=== PATIENT | female | born 1945 | race Caucasian/White ===

== ENCOUNTER 2022-08-17 03:49 | Emergency (ER) | payer MEDICARE, SELFPAY ==
[2022-08-17 03:57] VITALS: BP 173/92; PULSE 73; RESP 18; TEMP 36.6; O2SAT 96; BMI 47.6
--- NOTE | 2022-08-17 04:02 | XRR_ITS ---
PROCEDURE INFORMATION: Exam: XR Left Shoulder Exam date and time: 08/17/2022 4:35 AM Age: 76 years old Clinical indication: Injury or trauma; Fall; Sprain or strain; Shoulder; Left; Additional info: Shoulder strain TECHNIQUE: Imaging protocol: Radiologic exam of the left shoulder. Views: 2 or more views. COMPARISON: CR XR shoulder LT min 2V* [id number] 07/31/2022 11:18 AM FINDINGS: Bones/joints: Negative for acute fracture. Normal joint alignment. Mild osseous spurring of acromioclavicular joint. Soft tissues: Normal. XR/XR shoulder LT min 2V* [id number] IMPRESSION: No acute findings.
--- NOTE | 2022-08-17 04:08 | W.ED.FALL ---
HPI - Fall General: Chief Complaint: Fall Stated Complaint: fall/left arm injury/neck pian Time Seen by Provider: 08/17/22 03:56 Source: patient Mode of arrival: ambulatory Limitations: no limitations History of Present Illness: 76-year-old female states that she fell 4 days ago she states that when she fell at home she reached out with her left arm and caught herself on the kitchen island she states that since then she been having worsening left shoulder pain she has pain over her trapezius muscle states much worse with palpation when she moves her left arm denies any other injuries. She rates her pain a 6 out of 10 currently Associated symptoms-after fall: Denies abdominal pain, chest pain or headache(s) Review of Systems Const: Denies: fever(s), chills, body aches or change in appetite Eyes: Denies: blurry vision or eye discomfort ENMT: Denies: throat pain or dental pain Card: Denies: chest pain Resp: Denies: dyspnea GI: Denies: abdominal pain, nausea, vomiting or diarrhea : Denies: dysuria Musc: Reports: extremity pain Skin/Breast: Denies: rash Neuro: Denies: headache(s) Psych: Denies: depression Brent/Lymph: Denies: easy bruising All/Imm: Denies: urticaria PFSH ED PFSH: Medical History (Updated 08/17/22 @ 04:48 by Scott Bell MD) No pertinent past medical history Social History (Updated 08/17/22 @ 04:09 by Scott Bell MD) Substance/Drug Use: never Physical Exam Const: COMMON NORMALS: no acute distress, patient oriented x3 and healthy appearing HENMT: COMMON NORMALS: normocephalic and atraumatic HEAD & SCALP: normocephalic and atraumatic Eye: COMMON NORMALS: Equal, round and reactive pupils present and EOMs intact bilaterally PUPIL: Yes Equal, round and reactive pupils present Neck/C-Spine: COMMON NORMALS: full ROM and supple Chest: COMMONS NORMALS: normal inspection of the chest and normal palpation of entire chest wall Resp: COMMON NORMALS: normal respiratory effort, No retractions, No use of accessory muscles and clear to auscultation bilaterally AUSCULTATION: clear to auscultation bilaterally Cardio: COMMON NORMALS: regular rate, regular rhythm and No murmurs present (Cardio) RATE: regular rate RHYTHM: regular rhythm GI: COMMON NORMALS: Normal to inspection, nondistended, normoactive bowel sounds present, Soft to palpation, non-tender and no masses PALPATION: Yes Soft to palpation Back/Pelvis: COMMON NORMALS: thoracic and lumbar spine normal to inspection and no thoracic nor lumbar tenderness Extremity: COMMON NORMALS: normal to inspection and full ROM NARRATIVE EXTREMITY EXAM: Tenderness over left trapezius muscle pain with range of motion of her left arm Neuro: COMMON NORMALS: patient oriented x3, moves all extremities and no focal motor deficits Psych: COMMON NORMALS: mental status grossly normal, Normal thought process present and cooperative THOUGHT PROCESS: Normal thought process present Skin: COMMON NORMALS: no rashes or lesions noted and no wounds GENERAL SKIN EXAM: no rashes or lesions noted Course Vital Signs: Vital signs: Vital Signs Temperature 98 F 08/17/22 03:57 Pulse Rate 73 08/17/22 03:57 Respiratory Rate 18 08/17/22 03:57 Blood Pressure 173/92 08/17/22 03:57 Pulse Oximetry 96 08/17/22 03:57 MDM - Fall Medical Decision Making Patient presents with left shoulder pain x-ray here shows a likely subtle clavicle fracture we will place patient in a sling she is to follow with orthopedics. Discharge Plan Discharge Patient Disposition: Home Clinical Impression: Closed fracture of left clavicle Prescriptions: New methocarbamol 750 mg tablet 750 mg PO Q6H PRN (Reason: spasms) Qty: 20 0RF Discharge Orders: Discharge ED (Routine); Ordered 08/17/22 Ordered By: Scott Bell Referrals: Alan Edwards MD [Primary Care Provider] - Fletcher Dill MD [Physician] - 1-3 days Discharge Diet: Advance as tolerated Discharge Activity: Resume usual activity Patient Instructions: Clavicle Fracture (ED) Coding Level of Care Code ED Marketing And Communications Officer for 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
[2022-08-17] MEDS: methocarbamol 750 mg Tablet PO (04:10)
[2022-08-17] MEDS: acetaminophen 500 mg Tablet 1000 MG PO (04:30)
--- NOTE | 2022-08-19 10:30 | DCPLANNER ---
Addendum entered by Lashell Aguilera 08/28/22 07:56: Patient had a follow up appointment scheduled with ortho - patient did attend appointment. Addendum entered by Lashell Aguilera 08/20/22 09:28: Patient has a follow up appointment scheduled for Tuesday, August 23, 2022 at 11:[address] Dill at ortho. Original Note: field human resources manager had message to schedule a follow up appointment for patient with ortho. field human resources manager sent patients information to the front office staff at ortho. Patients information will be printed and reviewed. Clinic will call patient with appointment information.
== END 2022-08-17 05:47 | disposition home or self-care (01) ==
PROVIDERS: Emergency Provider Emergency Medicine; PCP Family Medicine
DX: S42.002A Fracture of unspecified part of left clavicle, initial encounter for closed fracture (principal); W19.XXXA Unspecified fall, initial encounter
CPT/HCPCS: 73030; 99283

== ENCOUNTER → 2022-08-23 10:58 | Outpatient (BNVA) | payer MEDICARE, SELFPAY | PROVIDERS: PCP Family Medicine; Referring Provider Emergency Medicine; Visit Provider Orthopaedic Surgery | DX: S42.002A Fracture of unspecified part of left clavicle, initial encounter for closed fracture (principal); W19.XXXA Unspecified fall, initial encounter | CPT/HCPCS: 23500; 99203 ==

== ENCOUNTER 2022-10-18 09:52 | Outpatient (CLI) | payer MEDICARE, SELFPAY ==
--- NOTE | 2022-10-18 10:07 | CT_ITS ---
WS: [id number] CT CHEST TECHNIQUE: Contrast enhanced CT of the chest with coronal and sagittal reformatted images. CLINICAL INFORMATION: LUNG MASS COMPARISON: None. DLP: 449.[address] scans at [facility] use at least one of these dose optimization techniques: automated e xposure control; mA and/or kV adjustment per patient size (includes targeted exams where dose is matc hed to clinical indication); or iterative reconstruction. FINDINGS: Both lungs are well aerated. No acute pulmonary infiltrates. A few calcified granulomas. Bibasilar at electasis. Normal caliber thoracic aorta. Mild aortic calcification. No mediastinal or hilar lymphade nopathy. No axillary lymphadenopathy. Cholecystectomy clips. Hepatomegaly with diffuse fatty infiltration liver.Fatty atrophy of the pancre as. Splenic artery calcification. Mild thoracic kyphosis. Hypertrophic changes thoracic spine. Spinal stimulator mid thoracic spine. 2 small hazy subpleural nodules in RIGHT upper lobe measuring 3 mm. Tiny subpleural nodule LEFT lower lobe measuring 3.4 mm. No other suspicious pulmonary parenchymal abnormalities. RIGHT adrenal nodule likely adenoma measuring 1.[address]/CT chest w con* [id number] IMPRESSION: 1. No acute pulmonary infiltrates. 2. A few tiny subpleural nodules in RIGHT upper lobe and LEFT lower lobe descr ibed above measuring approximately 3 mm. 3. Bibasilar atelectasis. 4. A few calcified granulomas. 5. No mediastinal or hilar lymphadenopathy. 6. Diffuse fatty infiltration liver with cholecystectomy. 7. RIGHT adrenal nodule likely adenoma measuring 1.4 cm.
[2022-10-18] MEDS: iohexol 350 mg/mL 500 mL Btl (per mL) IV (10:13)
[2022-10-18 10:36] LABS: Blood Urea Nitrogen 22 mg/dL (8-23)
== END 2022-10-18 09:53 | disposition home or self-care (01) ==
PROVIDERS: PCP Family Medicine; Visit Provider Family Medicine
DX: R91.8 Other nonspecific abnormal finding of lung field (principal); K76.0 Fatty (change of) liver, not elsewhere classified
CPT/HCPCS: 71260; 82565; 84520; Q9967

== ENCOUNTER 2022-10-30 10:48 | Outpatient (CLI) | payer MEDICARE, SELFPAY ==
--- NOTE | 2022-10-30 10:55 | MM_ITS ---
WS: [id number] BILATERAL SCREENING DIGITAL TOMOSYNTHESIS MAMMOGRAM WITH CAD HISTORY: SCREENING COMPARISON: 12/12/2021 and 12/06/2020 Bilateral CC and MLO views with tomosynthesis and synthetic mammography submitted. Computer aided det ection analyzed. Breast composition: There are scattered areas of fibroglandular density. No suspicious masses, microc alcifications or architectural distortion. Benign calcifications. MM/[place] [id number] IMPRESSION: BI-RADS: 2-Benign FOLLOW UP: 1 Year Follow-up
== END 2022-10-30 10:49 | disposition home or self-care (01) ==
PROVIDERS: PCP Family Medicine; Visit Provider Family Medicine
DX: Z12.31 Encounter for screening mammogram for malignant neoplasm of breast (principal)
CPT/HCPCS: 77063; 77067

== ENCOUNTER 2022-11-13 15:36 | Emergency (ER) | payer MEDICARE, SELFPAY ==
[2022-11-13 15:42] VITALS: BP 130/78; PULSE 88; RESP 16; TEMP 36.6; O2SAT 95; BMI 44.9
[2022-11-13 16:15] VITALS: BP 127/87; PULSE 89; RESP 16; O2SAT 95
--- NOTE | 2022-11-13 16:31 | W.ED.FEMALGU ---
HPI - Female Genitourinary General: Chief complaint: Urogenital-Female Stated complaint: [facility] sent for UTI and general medical Time Seen by Provider: 11/13/22 15:50 Source: patient Mode of arrival: ambulatory Limitations: no limitations History of Present Illness: Patient is a nice 77-year-old female presents to ED today stating she was told to come to the ED by Brett Higgins. According to patient she has had multiple weeks of burning and stinging with urination. She states she has been treated for a UTI twice with antibiotics and symptoms do not seem to be improving. She states that Brett Higgins was worried about a resistant UTI . Patient states she does not have any results from previous urine analysis performed her culture results. She cannot remember the names of the antibiotics that she has been on. Patient is not complaining of any abdominal pain or suprapubic discomfort or lower back pain. She has not noticed any odorous or cloudy urine. Denies flank pain or fevers. MD elicited complaint: dysuria and UTI Onset (ago): week(s) Severity: moderate Quality of pain: burning and other (stinging ) Consistency: other (only when urinating) Vaginal discharge: none Vaginal bleeding: none Urinary symptoms: Dysuria Exacerbating factors: urination Relieving factors: none Associated symptoms: Reports no associated symptoms; Deny abdominal pain, nausea or vaginal discharge Treatment prior to arrival: other (antibiotics) Sexual activity: No Patient : No Review of Systems Const: Denies: fever(s), chills, body aches, fatigue or malaise GI: Denies: abdominal pain, nausea, vomiting or diarrhea : Reports: dysuria; Denies: flank pain, difficulty voiding, urinary frequency, urinary urgency, urinary hesitancy, dribbling, urinary incontinence, genital pruritis, vaginal odor, vaginal bleeding, vaginal discharge or pelvic pain Musc: Denies: back pain PFS ED PFSH: Medical History No pertinent past medical history Social History Substance/Drug Use: never Physical Exam Const: COMMON NORMALS: no acute distress, average body habitus, patient oriented x3, no limitations, healthy appearing, alert and well nourished GENERAL APPEARANCE: cooperative ORIENTATION/CONSCIOUSNESS: Yes awake, Yes oriented to person, Yes oriented to place and Yes oriented to time Resp: COMMON NORMALS: normal respiratory effort and clear to auscultation bilaterally AUSCULTATION: clear to auscultation bilaterally Cardio: COMMON NORMALS: regular rate and regular rhythm RATE: regular rate RHYTHM: regular rhythm GI: COMMON NORMALS: Normal to inspection, nondistended, normoactive bowel sounds present, Soft to palpation, non-tender, No hepatosplenomegaly present and no masses PALPATION: Yes Soft to palpation and Yes No hepatosplenomegaly present : COMMON NORMALS: Yes no CVA tenderness BLADDER/KIDNEY EXAM: Yes no CVA tenderness EXTERNAL FEMALE EXAM: Yes other (appears to have ulcerative skin changes to vulva and surrounding urethra ) Back/Pelvis: COMMON NORMALS: no CVA tenderness Extremity: GENERAL: Yes normal exam except as noted Neuro: ALYSSA COMA SCALE: document GCS findings [place] coma scale eye opening: Spontaneous [place] coma scale verbal response: Orientated [place] coma scale motor response: Obey commands [place] coma scale total score: 15 COMMON NORMALS: patient oriented x3 SENSORIUM/ORIENTATION: Yes alert, Yes oriented to person, Yes oriented to place and Yes oriented to time Course Vital Signs: Vital signs: Vital Signs Temperature 97.9 F 11/13/22 15:42 Pulse Rate 96 11/13/22 17:40 Respiratory Rate 16 11/13/22 17:40 Blood Pressure 107/74 11/13/22 17:40 Pulse Oximetry 96 11/13/22 17:40 Oxygen Delivery Me thod Room Air 11/13/22 16:[address] [facility] - Female Medical Decision Making Patient appears to have some ulcerative skin changes noted to her vulva and surrounding urethra. I think this most likely is where the burning and stinging sensation is coming from. Her blood work today is nonactionable-her glucose is significantly elevated. She states she has not had very good control of this recently. Nothing to suggest DKA at this time. Recommend she speak to primary care in regards to this. Her UA shows absolutely no evidence for urinary tract infection. DDx for vulvar lesions would include lichen planus, lichen sclerosis, malignancy, excoriations, etc. I will refer her to women's health for further evaluation. Lab Data 11/13/22 16:41 11/13/22 16:41 Laboratory Results WBC 6.0 10^3/uL (4.0-10.0) 11/13/22 16:41 RBC 4.85 10^6/uL (4.1-5.3) 11/13/22 16:41 Hgb 15.2 g/dL (11.5-15.3) 11/13/22 16:41 Hct 43.5 % (37.0-47.0) 11/13/22 16:41 MCV 89.7 fl (81-99) 11/13/22 16:41 MCH 31.3 pg (28.0-34.0) 11/13/22 16:41 MCHC 34.9 g/dL (30.0-36.0) 11/13/22 16:41 RDW 13.0 % (12.1-15.1) 11/13/22 16:41 Plt Count 225 10^3/cmm (130-400) 11/13/22 16:41 MPV 9.4 fL (7.4-10.4) 11/13/22 16:41 Neut % (Auto) 52.4 % 11/13/22 16:41 Lymph % (Auto) 37.9 % 11/13/22 16:41 [place] % (Auto) 7.3 % 11/13/22 16:41 Eos % (Auto) 1.7 % 11/13/22 16:41 Baso % (Auto) 0.5 % 11/13/22 16:41 Neut # (Auto) 3.16 10^3/uL (1.8-7.7) 11/13/22 16:41 Lymph # (Auto) 2.3 10^3/uL (0.8-4.8) 11/13/22 16:41 [place] # (Auto) 0.4 10^3/uL (0.2-0.9) 11/13/22 16:41 Eos # (Auto) 0.1 10^3/uL (0.0-0.8) 11/13/22 16:41 Baso # (Auto) 0.0 10^3/uL (0.0-0.1) 11/13/22 16:41 Nucleated RBC % (auto) 0 % 11/13/22 16:41 Nucleated RBCs # 0.0 /100WBC 11/13/22 16:41 Sodium 135 mmol/L (136-145) L 11/13/22 16:41 Potassium 3.9 mmol/L (3.5-5.1) 11/13/22 16:41 Chloride 99 mmol/L (98-107) 11/13/22 16:41 Carbon Dioxide 23 mmol/L (22-29) 11/13/22 16:41 Anion Gap 16.9 (5-19) 11/13/22 16:41 BUN 25 mg/dL (8-23) H 11/13/22 16:41 Creatinine 1.1 mg/dL (0.5-0.9) H 11/13/22 16:41 GFR Calculation Not Reportable 11/13/22 16:41 Glucose 422 mg/dL (65-115) H 11/13/22 16:41 Calculated Osmolality 302 mOsm/kg (285-295) H 11/13/22 16:41 Calcium 9.0 mg/dL (8.5-10.5) 11/13/22 16:41 Total Bilirubin 0.6 mg/dL (0.15-1.2) 11/13/22 16:41 AST 18 U/L (0-32) 11/13/22 16:41 ALT 24 U/L (0-33) 11/13/22 16:41 Alkaline Phosphatase 115 U/L (35-105) H 11/13/22 16:41 Total Protein 7.2 g/dL (6.6-8.7) 11/13/22 16:41 Albumin 3.7 g/dL (3.5-5.2) 11/13/22 16:41 Globulin 3.5 g/dL (1.3-4.6) 11/13/22 16:41 Urine Color Yellow (Yellow) 11/13/22 16:29 Urine Appearance Clear (CLEAR) 11/13/22 16:29 Urine pH 5 (5-7) 11/13/22 16:29 Ur Specific [place] 1.010 (1.005-1.030) 11/13/22 16:29 Urine Protein Neg (Negative) 11/13/22 16:29 Urine Glucose (UA) 4+ (Normal) H 11/13/22 16:29 Urine Ketones Negative (Negative) 11/13/22 16:29 Urine Blood Neg (Negative) 11/13/22 16:29 Urine Nitrate Negative (Negative) 11/13/22 16:29 Urine Bilirubin Neg (Negative) 11/13/22 16:29 Urine Urobilinogen Norm mg/dL (Negative) 11/13/22 16:29 Ur Leukocyte Esterase Negative (Negative) 11/13/22 16:29 Discharge Plan Discharge Patient Disposition: Home Clinical Impression: Vulval lesion Condition: Stable Prescriptions: No Action glimepiride 4 mg tablet 6 mg PO BID levetiracetam 750 mg tablet 750 mg PO BID furosemide [Lasix] 40 mg tablet 40 mg PO DAILY levothyroxine 125 mcg capsule 125 mcg PO DAILY pramipexole 0.25 mg tablet 0.25 mg PO DAILY simvastatin 20 mg tablet 20 mg PO DAILY PreserVision AREDS [id number] capsule 1 cap PO BID aspirin 81 mg tablet,chewable 81 mg PO DAILY acetaminophen [Tylenol Extra Strength] 500 mg tablet 500 mg PO QID PRN tramadol 50 mg tablet 50 mg PO Q6H PRN Trulicity 1.5 mg/0.5 mL pen injector SUBCUT methocarbamol 750 mg tablet 750 mg PO Q6H PRN (Reason: spasms) Qty: 20 0RF Discharge Orders: Discharge ED (Routine); Ordered 11/13/22 Ordered By: Maria De Jesus Holman Referrals: Alan Edwards MD [Primary Care Provider] - Activity Restrictions/Additional Instructions: As we discussed your urinalysis today did not show any evidence of urinary tract infection. Clinically you had abnormal findings to the skin involving your vulva. This could be due to a variety of different conditions in which we discussed. I have placed a referral with case management to get you set up with gynecology for further evaluation/treatment. Coding Level of Care Code ED Valet Service Attendant for 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
[2022-11-13 16:36] LABS: Add Urine Microscopic? NO
[2022-11-13 16:47] LABS: Bilirubin Urine Neg (Negative); Blood Urine Neg (Negative); Glucose Urine UA 4+ (Normal); Ketones Urine Negative (Negative); Leukocyte Esterase Urine Negative (Negative); Nitrate Urine Negative (Negative); Protein Urine Neg (Negative); Urine Appearance Clear (CLEAR); Urine Color Yellow (Yellow); Urobilinogen Urine Norm (Negative); pH Urine 5 (5-7)
[2022-11-13 16:48] LABS: Basophils % 0.5 %; Eosinophils # 0.1 10^3/uL (0.0-0.8); Eosinophils % 1.7 %; Hematocrit 43.5 % (37.0-47.0); Hemoglobin 15.2 g/dL (11.5-15.3); Lymphocytes # 2.3 10^3/uL (0.8-4.8); Lymphocytes % 37.9 %; Mean Corpuscular HGB Conc 34.9 g/dL (30.0-36.0); Mean Corpuscular Hemoglobin 31.3 pg (28.0-34.0); Mean Corpuscular Volume 89.7 fl (81-99); Mean Platelet Volume 9.4 fL (7.4-10.4); Monocytes # 0.4 10^3/uL (0.2-0.9); Monocytes % 7.3 %; Neutrophils # 3.16 10^3/uL (1.8-7.7); Neutrophils % 52.4 %; Nucleated Red Blood Cells % 0 %; Platelet Count 225 10^3/cmm (130-400); Red Blood Count 4.85 10^6/uL (4.1-5.3)
[2022-11-13 17:08] LABS: Alanine Aminotransferase 24 U/L (0-33); Albumin Level 3.7 g/dL (3.5-5.2); Alkaline Phosphatase 115 U/L (35-105); Anion Gap 16.9 (5-19); Aspartate Amino Transferase 18 U/L (0-32); Blood Urea Nitrogen 25 mg/dL (8-23); Carbon Dioxide 23 mmol/L (22-29); Chloride 99 mmol/L (98-107); Globulin 3.5 g/dL (1.3-4.6); Glucose 422 mg/dL (65-115); Osmolality Calculated 302 mOsm/kg (285-295); Potassium 3.9 mmol/L (3.5-5.1); Sodium 135 mmol/L (136-145); Total Bilirubin 0.6 mg/dL (0.15-1.2); Total Protein 7.2 g/dL (6.6-8.7)
[2022-11-13 17:40] VITALS: BP 107/74; PULSE 71; PULSE 96; RESP 16; O2SAT 96
[2022-11-13 17:50] LABS: Charge for UA Resulting for Rev
--- NOTE | 2022-11-14 07:35 | DCPLANNER ---
Addendum entered by Lashell Aguilera 11/27/22 12:51: Patient had a follow up appointment scheduled with [facility] - patient did attend appointment. Original Note: regional property manager had message to schedule a follow up appointment for patient with [employer]. regional property manager sent patients information to the front office staff at [facility]. Patients information will be printed and reviewed. Clinic will call patient with appointment information.
== END 2022-11-13 17:42 | disposition home or self-care (01) ==
PROVIDERS: Emergency Medicine; Emergency Provider Physician Assistant; PCP Family Medicine
DX: I38 Endocarditis, valve unspecified (principal); Z79.85 Long-term (current) use of injectable non-insulin antidiabetic drugs; Z79.82 Long term (current) use of aspirin; Z79.84 Long term (current) use of oral hypoglycemic drugs
CPT/HCPCS: 36415; 80053; 81003; 85025; 99283

== ENCOUNTER → 2022-11-22 12:42 | Outpatient (BNVA) | payer MEDICARE, SELFPAY | PROVIDERS: PCP Family Medicine; Visit Provider Family Medicine | DX: M21.611 Bunion of right foot (principal); E11.621 Type 2 diabetes mellitus with foot ulcer; L97.519 Non-pressure chronic ulcer of other part of right foot with unspecified severity; M21.371 Foot drop, right foot; E03.9 Hypothyroidism, unspecified; I10 Essential (primary) hypertension; E83.52 Hypercalcemia | CPT/HCPCS: 80048; 80061; 82306; 83036; 84439; 84443 ==

== ENCOUNTER 2022-12-02 08:58 | Outpatient (CLI) | payer MEDICARE, SELFPAY ==
--- NOTE | 2022-12-02 10:30 | CT_ITS ---
WS: [id number] CT ABDOMEN AND PELVIS WITH CONTRAST HISTORY: R10.9 - Unspecified abdominal pain TECHNIQUE: Imaging performed of the abdomen and pelvis with IV contrast. Single phase imaging of the abdomen. Coronal and sagittal reformats are submitted. All CT scans at [facility] use at toi st one of these dose optimization techniques: automated exposure control; mA and/or kV adjustment per patient size (includes targeted exams where dose is matched to clinical indication); or iterative re construction. IV CONTRAST: Omnipaque 350; 100 mL IV. Oral contrast: Yes. DLP: 827.18 mGy.cm COMPARISON: None available. Lower thorax: Lung bases are clear. Heart is normal size. No hiatal hernia. Liver/biliary system: Normal size with no intrahepatic dilatation. Gallbladder: Cholecystectomy. Mild compensatory dilatation of the common bile duct but no pathologica l dilatation. Pancreas: Normal size pancreas and pancreatic duct. No adjacent inflammation. Spleen: Normal size spleen. No mass or infarct. Adrenal glands: Normal. Right kidney: Cortical atrophy. No obstruction. Left kidney: Cortical atrophy. No obstruction. Aorta: Mild atherosclerosis with no aneurysm. Lymphadenopathy: None. Free fluid: None. GI tract: Mild distended stomach. No small bowel obstruction. There is mild constipation throughout t he entire colon. Prior appendectomy. There are a few scattered sigmoid diverticula without acute dive rticulitis. Abdominal wall: Unremarkable abdominal wall. No hernia. Pelvis: No free fluid or adenopathy within the pelvis. Urinary bladder is only minimally distended. T he bladder is wall is diffusely thickened with mild enhancement. No intraluminal mass or filling defe ct. No mass noted at the vulva. CT is not the study of choice to evaluate the vulva. Bones: Increase in the lumbar lordosis. L4 anterolisthesis by 8 mm. Severe facet joint arthritis in t he lower lumbar spine. Posterior lumbar fusion from L4 through S1. Dorsal column stimulator electrode s. CT/CT abdomen pelvis w con* [id number] IMPRESSION: 1. No acute abdominal or pelvic abnormalities are identified. 2. Prior cholecystectomy and hysterectomy. 3. No adenopathy or ascites. 4. Diffuse mild bladder wall thickening and nodularity with enhancement. Recom mend evaluation to evaluate for possible cystitis.
[2022-12-02] MEDS: iohexol 350 mg/mL 500 mL Btl (per mL) PO (10:33)
[2022-12-02] MEDS: iohexol 350 mg/mL 500 mL Btl (per mL) IV (11:12)
== END 2022-12-02 08:59 | disposition home or self-care (01) ==
PROVIDERS: PCP Family Medicine; Visit Provider Obstetrics & Gynecology
DX: R10.9 Unspecified abdominal pain (principal); Z90.49 Acquired absence of other specified parts of digestive tract; N32.9 Bladder disorder, unspecified
CPT/HCPCS: 74177; Q9967

== ENCOUNTER → 2022-12-05 14:00 | Outpatient (BNVA) | payer MEDICARE, SELFPAY | PROVIDERS: PCP Family Medicine; Visit Provider Obstetrics & Gynecology | DX: N39.0 Urinary tract infection, site not specified (principal) | CPT/HCPCS: 84315; 87086 ==

== ENCOUNTER 2022-12-17 20:51 | Emergency (ER) | payer MEDICARE, SELFPAY ==
[2022-12-17 20:59] VITALS: BP 101/55; PULSE 77; RESP 12; TEMP 36.8; O2SAT 94; BMI 45.0
[2022-12-17 23:41] LABS: Basophils # 0.1 10^3/uL (0.0-0.1); Basophils % 0.8 %; Eosinophils # 0.1 10^3/uL (0.0-0.8); Eosinophils % 2.1 %; Hematocrit 36.7 % (37.0-47.0); Hemoglobin 12.9 g/dL (11.5-15.3); Lymphocytes # 3.3 10^3/uL (0.8-4.8); Lymphocytes % 50.8 %; Mean Corpuscular HGB Conc 35.1 g/dL (30.0-36.0); Mean Corpuscular Hemoglobin 32.7 pg (28.0-34.0); Mean Corpuscular Volume 92.9 fl (81-99); Mean Platelet Volume 9.2 fL (7.4-10.4); Monocytes # 0.5 10^3/uL (0.2-0.9); Monocytes % 7.4 %; Neutrophils # 2.55 10^3/uL (1.8-7.7); Neutrophils % 38.7 %; Nucleated Red Blood Cells % 0 %; Platelet Count 247 10^3/cmm (130-400); Red Blood Count 3.95 10^6/uL (4.1-5.3); Red Cell Distribution Width 14.2 % (12.1-15.1); White Blood Count 6.6 10^3/uL (4.0-10.0)
[2022-12-17 23:54] LABS: Alanine Aminotransferase 23 U/L (0-33); Albumin Level 3.7 g/dL (3.5-5.2); Alkaline Phosphatase 133 U/L (35-105); Anion Gap 13.2 (5-19); Aspartate Amino Transferase 17 U/L (0-32); Blood Urea Nitrogen 12 mg/dL (8-23); Calcium 8.8 mg/dL (8.5-10.5); Carbon Dioxide 28 mmol/L (22-29); Chloride 96 mmol/L (98-107); Globulin 2.7 g/dL (1.3-4.6); Glucose 372 mg/dL (65-115); Osmolality Calculated 293 mOsm/kg (285-295); Potassium 3.2 mmol/L (3.5-5.1); Sodium 134 mmol/L (136-145); Total Bilirubin 1.2 mg/dL (0.15-1.2); Total Protein 6.4 g/dL (6.6-8.7)
[2022-12-18 00:32] LABS: Add Urine Microscopic? YES; Bilirubin Urine Neg (Negative); Blood Urine 3+ (Negative); Glucose Urine UA 2+ (Normal); Ketones Urine 1+ (Negative); Leukocyte Esterase Urine 2+ (Negative); Nitrate Urine Negative (Negative); Protein Urine 3+ (Negative); Urine Appearance Cloudy (CLEAR); Urine Color Yellow (Yellow); Urobilinogen Urine Norm (Negative); pH Urine 5 (5-7)
[2022-12-18 00:33] LABS: Add Urine Culture? Yes; Bacteria Urine TRACE /hpf; Squamous Epithelial Cell Urine 0-4 /hpf (0-5); WBC Urine TOO NUMEROUS TO CNT /hpf (0-5)
[2022-12-18 00:52] VITALS: BP 118/62; PULSE 71; RESP 18; O2SAT 95
--- NOTE | 2022-12-18 00:54 | CTR_ITS ---
PROCEDURE INFORMATION: Exam: CT Abdomen And Pelvis With Contrast Exam date and time: 12/18/2022 1:22 AM Age: 77 years old Clinical indication: Nausea and vomiting; Prior surgery; Surgery date: 6+ months; Surgery type: Lumbar, stimulator, gb, appy; Additional info: Umbilical pain, h/o umbilical hernia, vomiting TECHNIQUE: Imaging protocol: Computed tomography of the abdomen and pelvis with contrast. Radiation optimization: All CT scans at this facility use at least one of these dose optimization techniques: automated exposure control; mA and/or kV adjustment per patient size (includes targeted exams where dose is matched to clinical indication); or iterative reconstruction. Contrast material: OMNI 350; Contrast volume: 100 ml; Contrast route: INTRAVENOUS (IV); REPORTING DATA: Count of CT and Cardiac NM exams in prior 12 months: This patient has received 2 known CTs and 0 known cardiac nuclear medicine studies in the 12 months prior to the current study. COMPARISON: CT abdomen pelvis w con* [id number] 12/02/2022 11:05 AM RADIATION DOSE METRICS: Total DLP (mGy-cm): 899.92 FINDINGS: Tubes, catheters and devices: Nerve stimulator device noted in the soft tissues overlying the right back the single intrathecal lead entering at the level of the thoracic spine. Liver: Unremarkable. Gallbladder and bile ducts: Status post cholecystectomy. Pancreas: No ductal dilation. Spleen: No splenomegaly. Adrenal glands: Normal. No mass. Kidneys and ureters: No hydronephrosis. Stomach and bowel: No obstruction. No mucosal thickening. Appendix: The appendix is not identified. There are no focal inflammatory changes in the right lower quadrant. Intraperitoneal space: No free air. No significant fluid collection. Vasculature: No abdominal aortic aneurysm. Lymph nodes: No enlarged lymph nodes. Urinary bladder: Diffuse bladder thickening with wall enhancement. Findings may be seen with cystitis. Reproductive: Status post hysterectomy. Bones/joints: Degenerative changes of the lumbar spine. Prior lumbar fusion noted at L4-S1. Soft tissues: Unremarkable. CT/CT abdomen pelvis w con* [id number] IMPRESSION: Diffuse bladder thickening with wall enhancement. Findings may be seen with cystitis. Correlate with urinalysis.
--- NOTE | 2022-12-18 00:54 | ED_ITS ---
HPI - Nausea/Vomiting/Diarrhea General: Chief complaint: Nausea/Vomiting/Diarrhea Stated complaint: n/v/d, weakness Time Seen by Provider: 12/17/22 23:50 History of Present Illness: 77yo female presents with significant other for evaluation of nausea, vomiting, and diarrhea that started suddenly this afternoon. Patient reports that she is now dry heaving as she cannot vomit. She states she did go to see her doctor earlier today, the symptoms started after. States that she is just feeling very weak. Reports she has not been around anybody that she knows is sick. She denies any cough, congestion, difficulty breathing, shortness of breath, chest pain. Associated nausea: Yes Associated symtoms: Reports malaise and nausea; Denies chest pain, dysuria or headache(s) Review of Systems Const: Reports: malaise; Denies: fever(s), chills or body aches Card: Denies: chest pain Resp: Denies: dyspnea GI: Reports: abdominal pain, nausea, vomiting and diarrhea : Denies: difficulty voiding or dysuria Neuro: Denies: headache(s) PFSH ED PFSH: Medical History (Updated 12/18/22 @ 02:55 by HERNAN Sweeney) No pertinent past medical history Family History Sister Cancer, Onset Age: 6 leukemia - . Father CAD (coronary artery disease) Stroke Mother Chronic kidney disease (CKD) Brother Cancer Brother Cancer Lung - Bone - Brain Stroke Denies family history of Colon cancer Ovarian cancer Diabetes Heart disease Hypercholesteremia Breast cancer Hypertension Uterine cancer Thyroid disease Social History (Updated 12/17/22 @ 13:20 by Cristal Pina LPN) Smoking and tobacco status: former smoker Quit status (tobacco): has quit using tobacco Year quit tobacco: 1959 Former quit date comment: 1-2 ppd X 1 year Second hand smoke exposure: No Smoking risk assessment/counseling performed?: No Alcohol intake: never Desire information about alcohol rehabilitation?: No Counseling given: No Substance/Drug Use: never Desire information about substance/drug rehabilitation?: No Counseling given: No Current gender identity: Female Female Reproductive History: Spontaneous abortions: No Physical Exam Const: COMMON NORMALS: no acute distress, patient oriented x3 and alert GENERAL APPEARANCE: cooperative and ill appearing (mildly) OTHER: Patient is sitting upright on the stretcher in no acute distress. She is able to give history with no difficulty. Significant other is at bedside HENMT: COMMON NORMALS: normocephalic HEAD & SCALP: normocephalic Eye: GENERAL EYE: appearance normal, both eyes and all related structures Neck/C-Spine: COMMON NORMALS: full ROM Chest: CHEST: Yes Symmetrical chest wall rise Resp: COMMON NORMALS: normal respiratory effort and clear to auscultation bilaterally EFFORT & INSPECTION: No respiratory distress AUSCULTATION: clear to auscultation bilaterally Cardio: COMMON NORMALS: regular rate and regular rhythm RATE: regular rate RHYTHM: regular rhythm GI: COMMON NORMALS: Soft to palpation INSPECTION: No abdominal distension PALPATION: Yes Soft to palpation and Yes Tenderness to palpation present (GI) Details: LUQ, RUQ and other (Umbilicus ) Extremity: COMMON NORMALS: full ROM Neuro: COMMON NORMALS: patient oriented x3 SENSORIUM/ORIENTATION: Yes alert SPEECH: speech normal Psych: COMMON NORMALS: mental status grossly normal and cooperative Skin: COMMON NORMALS: no rashes or lesions noted GENERAL SKIN EXAM: no rashes or lesions noted Course Vital Signs: Vital signs: Vital Signs Temperature 98.2 F 12/17/22 20:59 Pulse Rate 70 12/18/22 03:17 Respiratory Rate 17 12/18/22 03:17 Blood Pressure 104/65 12/18/22 02:30 Pulse Oximetry 94 12/18/22 03:17 Oxygen Delivery Me thod Room Air 12/18/22 00:52 MDM - Nausea/Vomiting/Diarrhea Medical Decision Making 77yo female here with his significant other for evaluation of nausea, vomiting, diarrhea, abdominal pain that started suddenly this afternoon. Patient reports that she is now dry heaving. She states she was fine earlier today when she saw her doctor, then her symptoms started. She reports that she is having pain to the umbilical area and has a history of an umbilical hernia. Patient denies any fever, chills, body aches, cough, congestion, difficulty breathing, shortness of breath, chest pain, known sick contacts. Patient is nontoxic in appearance. Vital signs are stable. CBC is grossly unremarkable. CMP with a potassium of 3.2 and creatinine of 1.2. Glucose is noted to be 372. UA with 3+ protein, 2+ glucose, 3+ blood, 2+ leuks, too numerous to count white blood cells, trace bacteria, and 2+ yeast. Urine culture is currently pending. Contrasted CTAP due to her umbilical abdominal pain reveals diffuse bladder thickening with wall enhancement, concerning for cystitis. Discussed findings with patient and family. Patient did receive 1 L normal saline bolus as well as ondansetron while in the emergency department. Patient does have multiple antibiotic allergies, but reports that she is able to take amoxicillin with no difficulty. Amoxicillin prescribed for the urinary tract infection. Patient does have an allergy to fluconazole, advised to use [id number] yeast medications. Encourage marleen ent to increase her fluid intake and continue to monitor her symptoms. Advised to follow-up with primary care, call in the next 1 to 2 days with an update of symptoms and to discuss a recheck. Recommend she return to the emergency department if any rapid worsening symptoms and as needed Differential Diagnosis Likely gastroenteritis and dehydration Lab Data 12/17/22:12/17/22: Radiology Impressions Abdomen/Pelvis CT 12/18/22 00:54 IMPRESSION: Diffuse bladder thickening with wall enhancement. Findings may be seen with cystitis. Correlate with urinalysis. Laboratory Results WBC 6.6 10^3/uL (4.0-10.0) 12/17/22: RBC 3.95 10^6/uL (4.1-5.3) L 12/17/22: Hgb 12.9 g/dL (11.5-15.3) 12/17/22: Hct 36.7 % (37.0-47.0) L 12/17/22 MCV 92.9 fl (81-99) 12/17/22: MCH 32.7 pg (28.0-34.0) 12/17/22 MCHC 35.1 g/dL (30.0-36.0) 12/17/22 RDW 14.2 % (12.1-15.1) 12/17/22 Plt Count 247 10^3/cmm (130-400) 12/17/22 MPV 9.2 fL (7.4-10.4) 12/17/22 Neut % (Auto) 38.7 % 12/17/22 Lymph % (Auto) 50.8 % 12/17/22 23: Wells % (Auto) 7.4 % 12/17/22: Eos % (Auto) 2.1 % 12/17/22: Baso % (Auto) 0.8 % 12/17/22: Neut # (Auto) 2.55 10^3/uL (1.8-7.7) 12/17/22: Lymph # (Auto) 3.3 10^3/uL (0.8-4.8) 12/17/22: [place] # (Auto) 0.5 10^3/uL (0.2-0.9) 12/17/22: Eos # (Auto) 0.1 10^3/uL (0.0-0.8) 12/17/22: Baso # (Auto) 0.1 10^3/uL (0.0-0.1) 12/17/22: Nucleated RBC % (auto) 0 % 12/17/22: Nucleated RBCs # 0.0 /100WBC 12/17/22: Sodium 134 mmol/L (136-145) L 12/17/22 23: Potassium 3.2 mmol/L (3.5-5.1) L 12/17/22: Chloride 96 mmol/L (98-107) L 12/17/22: Carbon Dioxide 28 mmol/L (22-29) 12/17/22: Anion Gap 13.2 (5-19) 12/17/22 23: BUN 12 mg/dL (8-23) 12/17/22 23: Creatinine 1.2 mg/dL (0.5-0.9) H 12/17/22 23: GFR Calculation Not Reportable 12/17/22: Glucose 372 mg/dL (65-115) H 12/17/22: Calculated Osmolality 293 mOsm/kg (285-295) 12/17/22 23: Calcium 8.8 mg/dL (8.5-10.5) 12/17/22: Total Bilirubin 1.2 mg/dL (0.15-1.2) 12/17/22: AST 17 U/L (0-32) 12/17/22 23:27 ALT 23 U/L (0-33) 12/17/22 23: Alkaline Phosphatase 133 U/L (35-105) H 12/17/22 23:27 Total Protein 6.4 g/dL (6.6-8.7) L 12/17/22: Albumin 3.7 g/dL (3.5-5.2) 12/17/22: Globulin 2.7 g/dL (1.3-4.6) 12/17/22 23: Urine Color Yellow (Yellow) 12/18/22 00:00 Urine Appearance Cloudy (CLEAR) A 12/18/22 00:00 Urine pH 5 (5-7) 12/18/22 00:00 Ur Specific [place] 1.020 (1.005-1.030) 12/18/22 00:00 Urine Protein 3+ (Negative) H 12/18/22 00:00 Urine Glucose (UA) 2+ (Normal) H 12/18/22 00:00 Urine Ketones 1+ (Negative) H 12/18/22 00:00 Urine Blood 3+ (Negative) H 12/18/22 00:00 Urine Nitrate Negative (Negative) 12/18/22 00:00 Urine Bilirubin Neg (Negative) 12/18/22 00:00 Urine Urobilinogen Norm mg/dL (Negative) 12/18/22 00:00 Ur Leukocyte Esterase 2+ (Negative) H 12/18/22 00:00 Urine RBC 5-10 /hpf (0-2) H 12/18/22 00:00 Urine WBC Too numerous to cnt /hpf (0-5) H 12/18/22 00:00 Ur Squamous Epith Cells 0-4 /hpf (0-5) H 12/18/22 00:00 Amorphous Sediment Not Reportable 12/18/22 00:00 Urine Bacteria Trace /hpf (NONE) 12/18/22 00:00 Urine Yeast 2+ /hpf H 12/18/22 00:00 Discharge Plan Discharge Patient Disposition: Home Clinical Impression: Cystitis, Hyperglycemia due to type 2 diabetes mellitus, Diarrhea, Yeast infection Condition: Stable Prescriptions: New amoxicillin 500 mg tablet 500 mg PO BID 10 Days Qty: 20 0RF No Action glimepiride 4 mg tablet 6 mg PO BID levetiracetam 750 mg tablet 750 mg PO BID furosemide [Lasix] 40 mg tablet 40 mg PO DAILY levothyroxine 125 mcg capsule 125 mcg PO DAILY pramipexole 0.25 mg tablet 0.25 mg PO DAILY simvastatin 20 mg tablet 20 mg PO DAILY PreserVision AREDS [id number],[id number] [id number] capsule 1 cap PO BID aspirin 81 mg tablet,chewable 81 mg PO DAILY acetaminophen [Tylenol Extra Strength] 500 mg tablet 500 mg PO QID PRN tramadol 50 mg tablet 50 mg PO Q6H PRN PreserVision AREDS-2 250-90-40-1 mg capsule 1 tab PO BID Jardiance 25 mg tablet 25 mg PO DAILY albuterol sulfate 90 mcg/actuation HFA aerosol inhaler 2 puff inhalation Q6H PRN (Reason: shortness of breath or wheezing) Qty: 8.5 6RF Trulicity 3 mg/0.5 mL pen injector 3 mg SUBCUT .weekly Qty: 2 3RF enalapril maleate 2.5 mg tablet 2.5 mg PO DAILY Qty: 90 3RF amoxicillin 500 mg tablet 500 mg PO Q8H Qty: 30 0RF methocarbamol 750 mg tablet 750 mg PO Q6H PRN (Reason: spasms) Qty: 20 0RF Discharge Orders: Discharge ED (Routine); Ordered 12/18/22 Ordered By: Yaniv Bell Referrals: Roel Retana DO [Primary Care Provider] - Discharge Diet: Usual diet Discharge Activity: Resume usual activity Patient Instructions: Urinary Tract Infection in Women (ED), Yeast Infection (ED), Diabetic Hyperglycemia (ED) Activity Restrictions/Additional Instructions: Antibiotics have been sent to your pharmacy for the urinary tract infection Yeast was noted in the urine as well. Given your allergy to fluconazole, you may use one of the [id number] medications such as Monistat for the yeast Increase your fluid intake and continue to monitor your symptoms Follow-up with primary care, call in the next 1 to 2 days with an update of symptoms and to discuss or recheck Return to the emergency department if any rapid worsening symptoms and as needed Coding Level of Care Code ED Lead Javascript Developer for 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
[2022-12-18] MEDS: iohexol 350 mg/mL 500 mL Btl (per mL) IV (01:01)
[2022-12-18] MEDS: sodium chloride 0.9% 1,000 ML 999 ML IV (01:03)
[2022-12-18] MEDS: ondansetron 2 mg/ML SDV 2 mL 4 MG IVP (01:04)
[2022-12-18 01:47] VITALS: BP 114/51; PULSE 71; RESP 18
[2022-12-18 02:00] VITALS: BP 118/54; PULSE 71; RESP 14
[2022-12-18 02:30] VITALS: BP 104/65; PULSE 74; RESP 17
[2022-12-18] MEDS: amoxicillin 500 mg Capsule 1000 MG PO (03:04)
[2022-12-18 03:17] VITALS: PULSE 70; RESP 17; O2SAT 94
== END 2022-12-18 03:20 | disposition home or self-care (01) ==
PROVIDERS: Emergency Medicine; Emergency Provider Nurse Practitioner; PCP Family Medicine
DX: N30.90 Cystitis, unspecified without hematuria (principal); E11.65 Type 2 diabetes mellitus with hyperglycemia; R19.7 Diarrhea, unspecified; B37.9 Candidiasis, unspecified; Z79.85 Long-term (current) use of injectable non-insulin antidiabetic drugs; Z79.84 Long term (current) use of oral hypoglycemic drugs; Z79.82 Long term (current) use of aspirin; Z87.891 Personal history of nicotine dependence
CPT/HCPCS: 12345; 36415; 74177; 80053; 81001; 85025; 87086; 87106; 96361; 96374; 99204; 99285; J2405; J7030; Q9967

== ENCOUNTER 2022-12-25 09:29 | Emergency (ER) | payer MEDICARE, SELFPAY ==
[2022-12-25 09:35] VITALS: BMI 31.7
[2022-12-25 09:37] VITALS: BP 134/76; PULSE 72; RESP 16; TEMP 37.1; O2SAT 95
--- NOTE | 2022-12-25 09:42 | PC.NURSE ---
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
--- NOTE | 2022-12-25 09:59 | XRR_ITS ---
PROCEDURE INFORMATION: Exam: XR Chest Exam date and time: 12/25/2022 10:06 AM Age: 77 years old Clinical indication: Other: Weakness TECHNIQUE: Imaging protocol: Radiologic exam of the chest. Views: 1 view. COMPARISON: CT chest w con* [id number] 10/18/2022 10:37 AM FINDINGS: Lungs: Unremarkable. No consolidation. Pleural spaces: Unremarkable. No pleural effusion. No pneumothorax. Heart/Mediastinum: Unremarkable. No cardiomegaly. Bones/joints: Unremarkable. There is electronic stimulator wire extending to the lower dorsal spine XR/XR chest 1V portable [id number] IMPRESSION: No acute findings. Electronic stimulator wire lower dorsal spine
[2022-12-25 10:07] LABS: Basophils # 0.1 10^3/uL (0.0-0.1); Basophils % 0.6 %; Eosinophils # 0.1 10^3/uL (0.0-0.8); Eosinophils % 1.4 %; Hematocrit 42.5 % (37.0-47.0); Hemoglobin 14.6 g/dL (11.5-15.3); Lymphocytes # 2.5 10^3/uL (0.8-4.8); Lymphocytes % 29.7 %; Mean Corpuscular HGB Conc 34.4 g/dL (30.0-36.0); Mean Corpuscular Hemoglobin 31.9 pg (28.0-34.0); Mean Corpuscular Volume 92.8 fl (81-99); Mean Platelet Volume 9.4 fL (7.4-10.4); Monocytes # 0.4 10^3/uL (0.2-0.9); Neutrophils # 5.24 10^3/uL (1.8-7.7); Neutrophils % 63.1 %; Nucleated Red Blood Cells % 0 %; Platelet Count 259 10^3/cmm (130-400); Red Blood Count 4.58 10^6/uL (4.1-5.3); Red Cell Distribution Width 13.9 % (12.1-15.1); White Blood Count 8.3 10^3/uL (4.0-10.0)
--- NOTE | 2022-12-25 10:12 | ECG_ITS ---
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 Measurements Intervals [place] Rate: 70 P: 59 LA: 191 QRS: -4 QRSD: 85 T: 22 QT: 372 QTc: 402 Interpretive Statements SINUS RHYTHM LOW QRS VOLTAGE IN PRECORDIAL LEADS [QRS DEFLECTION < 1.0 mV IN CHEST LEADS] ANTEROSEPTAL MYOCARDIAL INFARCTION , OF INDETERMINATE AGE [40+ ms Q WAVE IN V1-V4] No previous ECG available for comparison Electronically Signed On 12-25-2022 14:46:38 CDT by Emir Jacobo M.D. [id number]
--- NOTE | 2022-12-25 10:12 | W.ED.WEAKNES ---
HPI - Weakness General: Chief complaint: Weakness Stated complaint: Weakness/ UTI Time Seen by Provider: 12/25/22 09:33 Source: patient Mode of arrival: ambulatory Limitations: no limitations History of Present Illness: Patient is a 77-year-old female who presents to the ED today with a complaint of burning with urination, frequency, urgency. She is also complaining of generalized weakness. Patient states she was recently diagnosed with a UTI and placed on amoxicillin on 12/18. She does not have any flank pain. She denies fevers, chills, nausea, vomiting. Has not been running fevers. MD Complaint: generalized weakness Onset (ago): day(s) Duration: constant Location: generalized Migration: none Severity: mild Relieving factors: none Associated symptoms: Reports dysuria and other (UTI like symptoms ); Denies chest pain, chills, fever(s), headache(s), nausea, syncope or vomiting Review of Systems Const: Denies: fever(s), chills, body aches, fatigue or malaise Eyes: Denies: change in vision or blurry vision Card: Denies: chest pain, palpitations, irregular heart rhythm, lightheadedness, syncope or dyspnea on exertion Resp: Denies: dyspnea, productive cough or pain on inspiration GI: Denies: abdominal pain, nausea, vomiting, heartburn or diarrhea : Reports: dysuria, urinary frequency and urinary urgency; Denies: flank pain or hematuria Musc: Denies: neck pain, back pain, extremity pain, extremity swelling or joint pain Skin/Breast: Denies: rash Neuro: Denies: headache(s), numbness in extremities, weakness in extremities, sensory changes or dizziness [facility] ED PFSH: Medical History No pertinent past medical history Family History Sister Cancer, Onset Age: 6 leukemia - . Father CAD (coronary artery disease) Stroke Mother Chronic kidney disease (CKD) Brother Cancer Brother Cancer Lung - Bone - Brain Stroke Denies family history of Colon cancer Ovarian cancer Diabetes Heart disease Hypercholesteremia Breast cancer Hypertension Uterine cancer Thyroid disease Social History Smoking and tobacco status: former smoker Quit status (tobacco): has quit using tobacco Year quit tobacco: 1959 Former quit date comment: 1-2 ppd X 1 year Second hand smoke exposure: No Smoking risk assessment/counseling performed?: No Alcohol intake: never Desire information about alcohol rehabilitation?: No Counseling given: No Substance/Drug Use: never Desire information about substance/drug rehabilitation?: No Counseling given: No Current gender identity: Female Female Reproductive History: Spontaneous abortions: No Physical Exam Const: COMMON NORMALS: no acute distress, patient oriented x3, no limitations, alert and well nourished GENERAL APPEARANCE: cooperative NUTRITIONAL APPEARANCE: overweight ORIENTATION/CONSCIOUSNESS: Yes awake, Yes oriented to person, Yes oriented to place and Yes oriented to time HENMT: COMMON NORMALS: normocephalic and atraumatic HEAD & SCALP: normal to inspection, normocephalic and atraumatic FACE & SINUS: normal facial exam and face symmetric Eye: COMMON NORMALS: Equal, round and reactive pupils present and EOMs intact bilaterally GENERAL EYE: appearance normal, both eyes and all related structures and normal light reflex PUPIL: Yes Equal, round and reactive pupils present DIRECT OPHTHALMOSCOPY: Yes normal light reflex Neck/C-Spine: COMMON NORMALS: no lymphadenopathy and no meningeal signs Resp: COMMON NORMALS: normal respiratory effort and clear to auscultation bilaterally AUSCULTATION: clear to auscultation bilaterally Cardio: COMMON NORMALS: regular rate and regular rhythm RATE: regular rate RHYTHM: regular rhythm GI: COMMON NORMALS: Normal to inspection, nondistended, normoactive bowel sounds present, Soft to palpation, non-tender, No hepatosplenomegaly present and no masses PALPATION: Yes Soft to palpation and Yes No hepatosplenomegaly present : COMMON NORMALS: Yes no CVA tenderness BLADDER/KIDNEY EXAM: Yes no CVA tenderness EXTERNAL FEMALE EXAM: Yes other (appears to have vulvar erythema/erosion) Back/Pelvis: COMMON NORMALS: no CVA tenderness Extremity: COMMON NORMALS: normal to inspection GENERAL: Yes normal exam except as noted Neuro: MONSE COMA SCALE: document GCS findings [place] coma scale eye opening: Spontaneous Monse coma scale verbal response: Orientated [place] coma scale motor response: Obey commands Monse coma scale total score: 15 COMMON NORMALS: patient oriented x3 SENSORIUM/ORIENTATION: Yes alert, Yes oriented to person, Yes oriented to place and Yes oriented to time MENINGEAL SIGNS: Yes no meningeal signs MOTOR EXAM: 5/5 motor strength present throughout Skin: COMMON NORMALS: no rashes or lesions noted GENERAL SKIN EXAM: no rashes or lesions noted Course Vital Signs: Vital signs: Vital Signs Temperature 98.8 F 12/25/22 09:37 Pulse Rate 75 12/25/22 13:25 Respiratory Rate 16 12/25/22 09:37 Blood Pressure 132/82 12/25/22 13:25 Pulse Oximetry 95 12/25/22 13:25 Oxygen Delivery Me thod Room Air 12/25/22 09:37 MDM - Weakness Medical Decision Making Patient is a 77-year-old female here for complaints of generalized weakness and UTI-like symptoms. She complains of vulvar/urethral pain even when she is not urinating but states symptoms are significantly worse during urination and complains of stinging sensation. I have seen patient previously for similar symptoms. At that visit vulva was inspected and appeared to be abnormal with erythema and erosion. She did follow-up with women's health physician Dr. Castro who reported her vulva appeared normal. Vulva was inspected today and appears similar to when I saw her last. I had concerns for lichen sclerosis/lichen planus at the time. Certainly something like vulvodynia could also be causing her symptoms. On her ED visit on 12/18 she had a urine culture obtained which grew jessica glabrata. Patient will need coverage for jessica cystitis. Frontline therapy for this is fluconazole. Patient has a listed allergy to this medication although cannot tell me what her previous allergic reaction was. She does know she never had any form of anaphylaxis. The only other treatment I could find was with flucytosine and dosing would be 2g QID which would equate to 16 500mg tabs daily x 7 days. She is adamate she does not want to take that many pills and feels comfortable with me putting her on fluconazole and monitoring closely for allergic reactions. Return ED precautions given. I would like her to follow-up with her primary care provider soon as possible. Lab Data 12/25/22 09:10 12/25/22 09:10 Radiology Impressions Chest X-Ray 12/25/22 09:59 IMPRESSION: No acute findings. Electronic stimulator wire lower dorsal spine Laboratory Results WBC 8.3 10^3/uL (4.0-10.0) 12/25/22 09:10 RBC 4.58 10^6/uL (4.1-5.3) 12/25/22 09:10 Hgb 14.6 g/dL (11.5-15.3) 12/25/22 09:10 Hct 42.5 % (37.0-47.0) 12/25/22 09:10 MCV 92.8 fl (81-99) 12/25/22 09:10 MCH 31.9 pg (28.0-34.0) 12/25/22 09:10 MCHC 34.4 g/dL (30.0-36.0) 12/25/22 09:10 RDW 13.9 % (12.1-15.1) 12/25/22 09:10 Plt Count 259 10^3/cmm (130-400) 12/25/22 09:10 MPV 9.4 fL (7.4-10.4) 12/25/22 09:10 Neut % (Auto) 63.1 % 12/25/22 09:10 Lymph % (Auto) 29.7 % 12/25/22 09:10 [place] % (Auto) 5.0 % 12/25/22 09:10 Eos % (Auto) 1.4 % 12/25/22 09:10 Baso % (Auto) 0.6 % 12/25/22 09:10 Neut # (Auto) 5.24 10^3/uL (1.8-7.7) 12/25/22 09:10 Lymph # (Auto) 2.5 10^3/uL (0.8-4.8) 12/25/22 09:10 [place] # (Auto) 0.4 10^3/uL (0.2-0.9) 12/25/22 09:10 Eos # (Auto) 0.1 10^3/uL (0.0-0.8) 12/25/22 09:10 Baso # (Auto) 0.1 10^3/uL (0.0-0.1) 12/25/22 09:10 Nucleated RBC % (auto) 0 % 12/25/22 09:10 Nucleated RBCs # 0.0 /100WBC 12/25/22 09:10 Sodium 139 mmol/L (136-145) 12/25/22 09:10 Potassium 3.0 mmol/L (3.5-5.1) L 12/25/22 09:10 Chloride 96 mmol/L (98-107) L 12/25/22 09:10 Carbon Dioxide 29 mmol/L (22-29) 12/25/22 09:10 Anion Gap 17.0 (5-19) 12/25/22 09:10 BUN 9 mg/dL (8-23) 12/25/22 09:10 Creatinine 0.9 mg/dL (0.5-0.9) 12/25/22 09:10 GFR Calculation Not Reportable 12/25/22 09:10 Glucose 255 mg/dL (65-115) H 12/25/22 09:10 Calculated Osmolality 295 mOsm/kg (285-295) 12/25/22 09:10 Calcium 9.1 mg/dL (8.5-10.5) 12/25/22 09:10 Magnesium 1.9 mg/dL (1.7-2.3) 12/25/22 09:10 Total Bilirubin 1.4 mg/dL (0.15-1.2) H 12/25/22 09:10 AST 20 U/L (0-32) 12/25/22 09:10 ALT 25 U/L (0-33) 12/25/22 09:10 Alkaline Phosphatase 149 U/L (35-105) H 12/25/22 09:10 Total Protein 7.7 g/dL (6.6-8.7) 12/25/22 09:10 Albumin 4.0 g/dL (3.5-5.2) 12/25/22 09:10 Globulin 3.7 g/dL (1.3-4.6) 12/25/22 09:10 Urine Color Yellow (Yellow) 12/25/22 11:25 Urine Appearance Cloudy (CLEAR) A 12/25/22 11:25 Urine pH 5 (5-7) 12/25/22 11:25 Ur Specific [place] 1.015 (1.005-1.030) 12/25/22 11:25 Urine Protein 1+ (Negative) H 12/25/22 11:25 Urine Glucose (UA) 4+ (Normal) H 12/25/22 11:25 Urine Ketones 1+ (Negative) H 12/25/22 11:25 Urine Blood 3+ (Negative) H 12/25/22 11:25 Urine Nitrate Positive (Negative) H 12/25/22 11:25 Urine Bilirubin Neg (Negative) 12/25/22 11:25 Urine Urobilinogen Norm mg/dL (Negative) 12/25/22 11:25 Ur Leukocyte Esterase 2+ (Negative) H 12/25/22 11:25 Urine RBC 5-10 /hpf (0-2) H 12/25/22 11:25 Urine WBC 10-15 /hpf (0-5) H 12/25/22 11:25 Ur Squamous Epith Cells 0-4 /hpf (0-5) H 12/25/22 11:25 Amorphous Sediment Not Reportable 12/25/22 11:25 Urine Bacteria 4+ /hpf (NONE) H 12/25/22 11:25 Urine Yeast 1+ /hpf H 12/25/22 11:25 Discharge Plan Discharge Patient Disposition: Home Clinical Impression: Jessica cystitis, Hypokalemia Condition: Stable Prescriptions: New fluconazole 200 mg tablet 200 mg PO DAILY 14 Days Qty: 14 0RF No Action glimepiride 4 mg tablet 8 mg PO BID levetiracetam 750 mg tablet 750 mg PO BID furosemide [Lasix] 40 mg tablet 40 mg PO DAILY levothyroxine 125 mcg capsule 125 mcg PO DAILY pramipexole 0.25 mg tablet 0.25 mg PO DAILY simvastatin 20 mg tablet 20 mg PO DAILY aspirin 81 mg tablet,chewable 81 mg PO DAILY acetaminophen [Tylenol Extra Strength] 500 mg tablet 500 mg PO QID PRN (Reason: Pain) tramadol 50 mg tablet 50 mg PO Q6H PRN (Reason: Pain) PreserVision AREDS-2 250-90-40-1 mg capsule 1 tab PO BID Jardiance 25 mg tablet 25 mg PO DAILY enalapril maleate 2.5 mg tablet 2.5 mg PO DAILY Qty: 90 3RF Trulicity 4.5 mg/0.5 mL pen injector 4.5 mg SUBCUT Q7D Rx Instructions: ON FRIDAY Discharge Orders: Discharge ED (Routine); Ordered 12/25/22 Ordered By: Maria De Jesus Holman Referrals: Roel Retana, [Primary Care Provider] - Activity Restrictions/Additional Instructions: As we discussed we are placing you on fluconazole even though you have an allergy listed to this medication. You are unsure of previous allergic reactions although you are confident you have never had an anaphylactic reaction. Monitor closely for symptoms of allergic reaction and return to the emergency department for any lip or tongue swelling, difficulty breathing, difficulty swallowing, rash, or any other concerns you may have. You need to follow-up with primary care as soon as possible for further evaluation. Coding Level of Care Code ED Cargo Supervisor for 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
[2022-12-25 10:16] LABS: Alanine Aminotransferase 25 U/L (0-33); Alkaline Phosphatase 149 U/L (35-105); Aspartate Amino Transferase 20 U/L (0-32); Blood Urea Nitrogen 9 mg/dL (8-23); Calcium 9.1 mg/dL (8.5-10.5); Carbon Dioxide 29 mmol/L (22-29); Chloride 96 mmol/L (98-107); Globulin 3.7 g/dL (1.3-4.6); Glucose 255 mg/dL (65-115); Osmolality Calculated 295 mOsm/kg (285-295); Sodium 139 mmol/L (136-145); Total Bilirubin 1.4 mg/dL (0.15-1.2); Total Protein 7.7 g/dL (6.6-8.7)
[2022-12-25 11:10] LABS: Magnesium 1.9 mg/dL (1.7-2.3)
[2022-12-25] MEDS: potassium chloride ER 20 mEq Tablet 40 MEQ PO (11:11)
[2022-12-25 11:45] LABS: Bilirubin Urine Neg (Negative); Blood Urine 3+ (Negative); Glucose Urine UA 4+ (Normal); Ketones Urine 1+ (Negative); Leukocyte Esterase Urine 2+ (Negative); Nitrate Urine Positive (Negative); Protein Urine 1+ (Negative); Specific Gravity, Urine 1.015 (1.005-1.030); Urine Appearance Cloudy (CLEAR); Urine Color Yellow (Yellow); Urobilinogen Urine Norm (Negative); pH Urine 5 (5-7)
[2022-12-25 11:46] LABS: Add Urine Culture? Yes; Add Urine Microscopic? YES; Bacteria Urine 4+ /hpf; Squamous Epithelial Cell Urine 0-4 /hpf (0-5)
[2022-12-25 12:38] VITALS: BP 131/76; PULSE 73
--- NOTE | 2022-12-25 12:55 | ECG_ITS ---
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 Measurements Intervals [place] Rate: 69 P: 54 NV: 174 QRS: -2 QRSD: 101 T: 40 QT: 411 QTc: 443 Interpretive Statements SINUS RHYTHM LOW QRS VOLTAGE IN PRECORDIAL LEADS [QRS DEFLECTION < 1.0 mV IN CHEST LEADS] POSSIBLE ANTERIOR MYOCARDIAL INFARCTION , PROBABLY OLD [30 ms Q WAVE IN V3/V4, OR R < 0.2 mV IN V4] Compared to ECG 12/25/2022 10:29:31 No significant changes Electronically Signed On 12-25-2022 14:43:48 CDT by Emir Jacobo M.D. [id number] f
[2022-12-25 13:25] VITALS: BP 132/82; PULSE 75; O2SAT 95
== END 2022-12-25 13:33 | disposition home or self-care (01) ==
PROVIDERS: Emergency Provider Physician Assistant; PCP Family Medicine
DX: B37.41 Candidal cystitis and urethritis (principal); E87.6 Hypokalemia
CPT/HCPCS: 71045; 80053; 81001; 83735; 85025; 87077; 87086; 87186; 93005; 99285

== ENCOUNTER 2023-01-02 11:48 | Emergency (ER) | payer MEDICARE, SELFPAY ==
[2023-01-02] VITALS (38 sets, daily range): BP systolic 98–120; BP diastolic 60–80; PULSE 68–92; RESP 14–27; TEMP 36.8; O2SAT 95–99; BMI 43.4
--- NOTE | 2023-01-02 14:08 | PC.NURSE ---
pt visitor allerted registration staff that pt was beginning to have chest pain, pulled pt back into triage room and ekg was obtained, ekg given to Dr. Gracia for review
--- NOTE | 2023-01-02 15:23 | XR_ITS ---
WS: [id number] EXAMINATION: XR chest 1V portable [id number] REASON FOR EXAM: dyspnea/cough COMPARISON: 12/25/2022 ORDER DATE: 01/02/2023 3:23 PM TECHNIQUE: A single, portable frontal chest x-ray was obtained. X-RAY FINDINGS: Lungs: Unremarkable. No consolidation. Pleural spaces: Unremarkable. No pleural effusion. No pneumothorax. Heart/Mediastinum: Unremarkable. No cardiomegaly. Bones/joints: Unremarkable. There is electronic stimulator wire extending to the lower dorsal spine IMPRESSION: No acute findings. No interval change from previous study
--- NOTE | 2023-01-02 15:24 | ECG_ITS ---
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 Measurements Intervals [place] Rate: 86 P: 22 ME: 171 QRS: 76 QRSD: 98 T: -6 QT: 360 QTc: 431 Interpretive Statements SINUS RHYTHM WITH SINUS ARRHYTHMIA LOW QRS VOLTAGE IN PRECORDIAL LEADS [QRS DEFLECTION < 1.0 mV IN CHEST LEADS] POSSIBLE ANTERIOR MYOCARDIAL INFARCTION , PROBABLY OLD [30 ms Q WAVE IN V3/V4, OR R < 0.2 mV IN V4] Compared to ECG 12/25/2022 10:52:22 No significant changes Electronically Signed On 01-02-2023 17:05:14 CDT by Jett Berg M.D. [id number]
--- NOTE | 2023-01-02 15:29 | ED_ITS ---
Documented by User: Leonard Gracia DO 01/03/23 07:42 HPI - Extremity Problem General: Chief complaint: Extremity Problem,Nontraumatic Stated complaint: chest pains, arm pain, head pain Time Seen by Provider: 01/02/23 15:18 Source: patient Mode of arrival: ambulatory History of Present Illness: 77-year-old female presents emergency room with complaints of chest pain arm pain head pain. She is exquisitely tender throughout her upper entire torso there is no focal aspect to it is worse when she takes a deep breath she has not had any rash symptoms been going on for the last couple of days. No vomiting no diarrhea no specific abdominal pain denies any dysuria urgency or frequency. She has no known history of coronary artery disease and no history of DVT or PE. She is diabetic with hypertension hyperlipidemia. MD Complaint: extremity pain Onset (ago): day(s) Pain Consistency: constant Location: left, right and upper extremity Quality: sharp Radiation: none Relieving factors: nothing Exacerbating factors: nothing Associated symptoms: Reports chest pain; Deny arthralgias, fever(s), myalgias, rash or short of breath Review of Systems Const: Reports: fatigue and malaise; Denies: fever(s) or chills Card: Reports: chest pain Resp: Reports: dyspnea and non-productive cough; Denies: productive cough GI: Denies: abdominal pain, nausea, vomiting, hematemesis, coffee ground emesis, diarrhea, constipation, bloating, hematochezia or melena : Denies: flank pain, difficulty voiding, dysuria, urinary frequency or urinary urgency Skin/Breast: Denies: rash PFSH ED PFSH: Medical History Acquired hypothyroidism Adrenal adenoma After cataract, bilateral Carpal tunnel syndrome on both sides Multiple lung nodules on CT No pertinent past medical history Nonfunctional vagus nerve stimulator Type 2 diabetes mellitus with diabetic nephropathy Surgical History H/O tubal ligation History of appendectomy Hx laparoscopic cholecystectomy Hx of tonsillectomy Family History Sister Cancer, Onset Age: 6 leukemia - . Father CAD (coronary artery disease) Stroke Mother Chronic kidney disease (CKD) Brother Cancer Brother Cancer Lung - Bone - Brain Stroke Denies family history of Colon cancer Ovarian cancer Diabetes Heart disease Hypercholesteremia Breast cancer Hypertension Uterine cancer Thyroid disease Social History Smoking and tobacco status: former smoker Quit status (tobacco): has quit using tobacco Year quit tobacco: 1959 Former quit date comment: 1-2 ppd X 1 year Second hand smoke exposure: No Smoking risk assessment/counseling performed?: No Alcohol intake: never Desire information about alcohol rehabilitation?: No Counseling given: No Substance/Drug Use: never Desire information about substance/drug rehabilitation?: No Counseling given: No Current gender identity: Female Female Reproductive History: Spontaneous abortions: No Physical Exam Const: GENERAL APPEARANCE: cooperative ORIENTATION/CONSCIOUSNESS: Yes awake, Yes oriented to person, Yes oriented to place and Yes oriented to time HENMT: COMMON NORMALS: normocephalic, atraumatic and hearing grossly normal bilaterally HEAD & SCALP: normocephalic and atraumatic Resp: COMMON NORMALS: normal respiratory effort, No retractions, No use of accessory muscles and clear to auscultation bilaterally AUSCULTATION: clear to auscultation bilaterally Cardio: COMMON NORMALS: regular rate, regular rhythm and No murmurs present (Cardio) RATE: regular rate RHYTHM: regular rhythm GI: COMMON NORMALS: Soft to palpation and No hepatosplenomegaly present AUSCULTATION: Yes normoactive bowel sounds PALPATION: Yes Soft to palpation, No Tenderness to palpation present (GI), No Guarding due to palpation present (GI) and Yes No hepatosplenomegaly present Extremity: COMMON NORMALS: normal to inspection, capillary refill normal, no clubbing, cyanosis or edema, no calf tenderness and no pedal edema Neuro: SENSORIUM/ORIENTATION: Yes oriented to person, Yes oriented to place and Yes oriented to time Skin: COMMON NORMALS: no rashes or lesions noted GENERAL SKIN EXAM: no rashes or lesions noted Course Vital Signs: Vital signs: Vital Signs Temperature 98.2 F 01/02/23 12:02 Pulse Rate 68 01/02/23 18:57 Respiratory Rate 18 01/02/23 18:57 Blood Pressure 106/61 01/02/23 18:57 Pulse Oximetry 98 01/02/23 18:57 MDM - Extremity (Nontraumatic) Medical Decision Making Initial EKG shows no ST elevation. Cardiac enzymes pending. Care signed out to Dr. Bell at change of shift. See final notes for diagnosis and disposition. Patient presents here with chest pain is atypical in nature he is also having some arthralgias her troponins and blood work here are all normal x-rays normal as well she is stable for discharge she is to follow-up with PCP and return if worsening. Lab Data 01/02/23 15:40 01/02/23 15:40 Laboratory Results WBC 6.56 10^3/uL (3.29-11.43) 01/02/23 15:40 RBC 4.33 10^6/uL (3.85-5.65) 01/02/23 15:40 Hgb 14.00 g/dL (11.27-16.99) 01/02/23 15:40 Hct 41.0 % (36-47) 01/02/23 15:40 MCV 94.7 fl (85-98) 01/02/23 15:40 MCH 32.3 pg (27-33) 01/02/23 15:40 MCHC 34.1 g/dL (30-55) 01/02/23 15:40 RDW 13.6 % (12.1-15.1) 01/02/23 15:40 Plt Count 274 10^3/cmm (157-399) 01/02/23 15:40 MPV 9.3 fL (7.4-10.4) 01/02/23 15:40 Neut % (Auto) 39.1 % 01/02/23 15:40 Lymph % (Auto) 51.2 % 01/02/23 15:40 [place] % (Auto) 7.2 % 01/02/23 15:40 Eos % (Auto) 1.4 % 01/02/23 15:40 Baso % (Auto) 0.8 % 01/02/23 15:40 Neut # (Auto) 2.57 10^3/uL (1.8-7.7) 01/02/23 15:40 Lymph # (Auto) 3.4 10^3/uL (0.8-4.8) 01/02/23 15:40 [place] # (Auto) 0.5 10^3/uL (0.2-0.9) 01/02/23 15:40 Eos # (Auto) 0.1 10^3/uL (0.0-0.8) 01/02/23 15:40 Baso # (Auto) 0.1 10^3/uL (0.0-0.1) 01/02/23 15:40 Nucleated RBC % (auto) 0 % 01/02/23 15:40 Nucleated RBCs # 0.0 /100WBC 01/02/23 15:40 Sodium 138 mmol/L (136-145) 01/02/23 15:40 Potassium 3.6 mmol/L (3.5-5.1) 01/02/23 15:40 Chloride 97 mmol/L (98-107) L 01/02/23 15:40 Carbon Dioxide 29 mmol/L (22-29) 01/02/23 15:40 Anion Gap 15.6 (5-19) 01/02/23 15:40 BUN 19 mg/dL (8-23) 01/02/23 15:40 Creatinine 0.9 mg/dL (0.5-0.9) 01/02/23 15:40 GFR Calculation Not Reportable 01/02/23 15:40 Glucose 202 mg/dL (65-115) H 01/02/23 15:40 Calculated Osmolality 294 mOsm/kg (285-295) 01/02/23 15:40 Calcium 9.3 mg/dL (8.5-10.5) 01/02/23 15:40 Total Bilirubin 0.7 mg/dL (0.15-1.2) 01/02/23 15:40 AST 18 U/L (0-32) 01/02/23 15:40 ALT 19 U/L (0-33) 01/02/23 15:40 Alkaline Phosphatase 121 U/L (35-105) H 01/02/23 15:40 Troponin T Baseline 22 ng/L (0-10) H 01/02/23 15:40 Troponin T 120 Minute 24.42 ng/L (0-10) H 01/02/23 17:54 Delta Troponin T 2.42 ABS# (0-10) 01/02/23 17:54 Total Protein 7.4 g/dL (6.6-8.7) 01/02/23 15:40 Albumin 4.2 g/dL (3.5-5.2) 01/02/23 15:40 Globulin 3.2 g/dL (1.3-4.6) 01/02/23 15:40 Discharge Plan Discharge Patient Disposition: Home Clinical Impression: Chest pain Condition: Stable Prescriptions: No Action glimepiride 4 mg tablet 8 mg PO BID levetiracetam 750 mg tablet 750 mg PO BID furosemide [Lasix] 40 mg tablet 40 mg PO DAILY levothyroxine 125 mcg capsule 125 mcg PO DAILY pramipexole 0.25 mg tablet 0.25 mg PO DAILY simvastatin 20 mg tablet 20 mg PO DAILY aspirin 81 mg tablet,chewable 81 mg PO DAILY acetaminophen [Tylenol Extra Strength] 500 mg tablet 500 mg PO QID PRN (Reason: Pain) tramadol 50 mg tablet 50 mg PO Q6H PRN (Reason: Pain) PreserVision AREDS-2 250-90-40-1 mg capsule 1 tab PO BID Jardiance 25 mg tablet 25 mg PO DAILY enalapril maleate 2.5 mg tablet 2.5 mg PO DAILY Qty: 90 3RF albuterol sulfate 90 mcg/actuation HFA aerosol inhaler 1 puff INHALATION Q4H PRN (Reason: Shortness Of Breath) colchicine 0.6 mg tablet 0.6 mg PO DAILY Trulicity 4.5 mg/0.5 mL pen injector 4.5 mg SUBCUT Q7D Rx Instructions: ON FRIDAY fluconazole 200 mg tablet 200 mg PO DAILY 14 Days Qty: 14 0RF Discharge Orders: Discharge ED (Routine); Ordered 01/02/23 Ordered By: Scott Bell Referrals: Roel Retana DO [Primary Care Provider] - 1-3 days Discharge Diet: Advance as tolerated Discharge Activity: Resume usual activity Patient Instructions: Chest Pain (ED) Coding Level of Care Code ED [employer] Travel Counselor for Chg Fwd Documented by User: Scott Bell MD 01/02/23 18:37 HPI - Extremity Problem General: Chief complaint: Extremity Problem,Nontraumatic Stated complaint: chest pains, arm pain, head pain Time Seen by Provider: 01/02/23 15:18 PFSH ED PFSH: Medical History Acquired hypothyroidism Adrenal adenoma After cataract, bilateral Carpal tunnel syndrome on both sides Multiple lung nodules on CT No pertinent past medical history Nonfunctional vagus nerve stimulator Type 2 diabetes mellitus with diabetic nephropathy Surgical History H/O tubal ligation History of appendectomy Hx laparoscopic cholecystectomy Hx of tonsillectomy Family History Sister Cancer, Onset Age: 6 leukemia - . Father CAD (coronary artery disease) Stroke Mother Chronic kidney disease (CKD) Brother Cancer Brother Cancer Lung - Bone - Brain Stroke Denies family history of Colon cancer Ovarian cancer Diabetes Heart disease Hypercholesteremia Breast cancer Hypertension Uterine cancer Thyroid disease Social History Smoking and tobacco status: former smoker Quit status (tobacco): has quit using tobacco Year quit tobacco: 1960 Former quit date comment: 1-2 ppd X 1 year Second hand smoke exposure: No Smoking risk assessment/counseling performed?: No Alcohol intake: never Desire information about alcohol rehabilitation?: No Counseling given: No Substance/Drug Use: never Desire information about substance/drug rehabilitation?: No Counseling given: No Current gender identity: Female Course Vital Signs: Vital signs: Vital Signs Temperature 98.2 F 01/02/23 12:02 Pulse Rate 68 01/02/23 18:57 Respiratory Rate 18 01/02/23 18:57 Blood Pressure 106/61 01/02/23 18:57 Pulse Oximetry 98 01/02/23 18:57 MDM - Extremity (Nontraumatic) Medical Decision Making Patient presents here with chest pain is atypical in nature he is also having some arthralgias her troponins and blood work here are all normal x-rays normal as well she is stable for discharge she is to follow-up with PCP and return if worsening. Medical Records I reviewed the patient's medical records. Lab Data I reviewed the patient's lab results. 01/02/23 15:40 01/02/23 15:40 Laboratory Results WBC 6.56 10^3/uL (3.29-11.43) 01/02/23 15:40 RBC 4.33 10^6/uL (3.85-5.65) 01/02/23 15:40 Hgb 14.00 g/dL (11.27-16.99) 01/02/23 15:40 Hct 41.0 % (36-47) 01/02/23 15:40 MCV 94.7 fl (85-98) 01/02/23 15:40 MCH 32.3 pg (27-33) 01/02/23 15:40 MCHC 34.1 g/dL (30-55) 01/02/23 15:40 RDW 13.6 % (12.1-15.1) 01/02/23 15:40 Plt Count 274 10^3/cmm (157-399) 01/02/23 15:40 MPV 9.3 fL (7.4-10.4) 01/02/23 15:40 Neut % (Auto) 39.1 % 01/02/23 15:40 Lymph % (Auto) 51.2 % 01/02/23 15:40 [place] % (Auto) 7.2 % 01/02/23 15:40 Eos % (Auto) 1.4 % 01/02/23 15:40 Baso % (Auto) 0.8 % 01/02/23 15:40 Neut # (Auto) 2.57 10^3/uL (1.8-7.7) 01/02/23 15:40 Lymph # (Auto) 3.4 10^3/uL (0.8-4.8) 01/02/23 15:40 [place] # (Auto) 0.5 10^3/uL (0.2-0.9) 01/02/23 15:40 Eos # (Auto) 0.1 10^3/uL (0.0-0.8) 01/02/23 15:40 Baso # (Auto) 0.1 10^3/uL (0.0-0.1) 01/02/23 15:40 Nucleated RBC % (auto) 0 % 01/02/23 15:40 Nucleated RBCs # 0.0 /100WBC 01/02/23 15:40 Sodium 138 mmol/L (136-145) 01/02/23 15:40 Potassium 3.6 mmol/L (3.5-5.1) 01/02/23 15:40 Chloride 97 mmol/L (98-107) L 01/02/23 15:40 Carbon Dioxide 29 mmol/L (22-29) 01/02/23 15:40 Anion Gap 15.6 (5-19) 01/02/23 15:40 BUN 19 mg/dL (8-23) 01/02/23 15:40 Creatinine 0.9 mg/dL (0.5-0.9) 01/02/23 15:40 GFR Calculation Not Reportable 01/02/23 15:40 Glucose 202 mg/dL (65-115) H 01/02/23 15:40 Calculated Osmolality 294 mOsm/kg (285-295) 01/02/23 15:40 Calcium 9.3 mg/dL (8.5-10.5) 01/02/23 15:40 Total Bilirubin 0.7 mg/dL (0.15-1.2) 01/02/23 15:40 AST 18 U/L (0-32) 01/02/23 15:40 ALT 19 U/L (0-33) 01/02/23 15:40 Alkaline Phosphatase 121 U/L (35-105) H 01/02/23 15:40 Troponin T Baseline 22 ng/L (0-10) H 01/02/23 15:40 Troponin T 120 Minute 24.42 ng/L (0-10) H 01/02/23 17:54 Delta Troponin T 2.42 ABS# (0-10) 01/02/23 17:54 Total Protein 7.4 g/dL (6.6-8.7) 01/02/23 15:40 Albumin 4.2 g/dL (3.5-5.2) 01/02/23 15:40 Globulin 3.2 g/dL (1.3-4.6) 01/02/23 15:40 Discharge Plan Discharge Patient Disposition: Home Clinical Impression: Chest pain Condition: Stable Prescriptions: No Action glimepiride 4 mg tablet 8 mg PO BID levetiracetam 750 mg tablet 750 mg PO BID furosemide [Lasix] 40 mg tablet 40 mg PO DAILY levothyroxine 125 mcg capsule 125 mcg PO DAILY pramipexole 0.25 mg tablet 0.25 mg PO DAILY simvastatin 20 mg tablet 20 mg PO DAILY aspirin 81 mg tablet,chewable 81 mg PO DAILY acetaminophen [Tylenol Extra Strength] 500 mg tablet 500 mg PO QID PRN (Reason: Pain) tramadol 50 mg tablet 50 mg PO Q6H PRN (Reason: Pain) PreserVision AREDS-2 250-90-40-1 mg capsule 1 tab PO BID Jardiance 25 mg tablet 25 mg PO DAILY enalapril maleate 2.5 mg tablet 2.5 mg PO DAILY Qty: 90 3RF albuterol sulfate 90 mcg/actuation HFA aerosol inhaler 1 puff INHALATION Q4H PRN (Reason: Shortness Of Breath) colchicine 0.6 mg tablet 0.6 mg PO DAILY Trulicity 4.5 mg/0.5 mL pen injector 4.5 mg SUBCUT Q7D Rx Instructions: ON FRIDAY fluconazole 200 mg tablet 200 mg PO DAILY 14 Days Qty: 14 0RF Discharge Orders: Discharge ED (Routine); Ordered 01/02/23 Ordered By: Scott Bell Referrals: Roel Retana DO [Primary Care Provider] - 1-3 days Discharge Diet: Advance as tolerated Discharge Activity: Resume usual activity Patient Instructions: Chest Pain (ED) Coding Level of Care Code ED [employer] Travel Counselor for 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
[2023-01-02 16:26] LABS: Basophils # 0.1 10^3/uL (0.0-0.1); Basophils % 0.8 %; Eosinophils # 0.1 10^3/uL (0.0-0.8); Eosinophils % 1.4 %; Lymphocytes # 3.4 10^3/uL (0.8-4.8); Lymphocytes % 51.2 %; Mean Corpuscular HGB Conc 34.1 g/dL (30-55); Mean Corpuscular Hemoglobin 32.3 pg (27-33); Mean Corpuscular Volume 94.7 fl (85-98); Mean Platelet Volume 9.3 fL (7.4-10.4); Monocytes # 0.5 10^3/uL (0.2-0.9); Monocytes % 7.2 %; Neutrophils # 2.57 10^3/uL (1.8-7.7); Neutrophils % 39.1 %; Nucleated Red Blood Cells % 0 %; Platelet Count 274 10^3/cmm (157-399); Red Blood Count 4.33 10^6/uL (3.85-5.65); Red Cell Distribution Width 13.6 % (12.1-15.1); White Blood Count 6.56 10^3/uL (3.29-11.43)
[2023-01-02 16:32] LABS: Alanine Aminotransferase 19 U/L (0-33); Albumin Level 4.2 g/dL (3.5-5.2); Alkaline Phosphatase 121 U/L (35-105); Anion Gap 15.6 (5-19); Aspartate Amino Transferase 18 U/L (0-32); Blood Urea Nitrogen 19 mg/dL (8-23); Calcium 9.3 mg/dL (8.5-10.5); Carbon Dioxide 29 mmol/L (22-29); Chloride 97 mmol/L (98-107); Globulin 3.2 g/dL (1.3-4.6); Glucose 202 mg/dL (65-115); Osmolality Calculated 294 mOsm/kg (285-295); Potassium 3.6 mmol/L (3.5-5.1); Sodium 138 mmol/L (136-145); Total Bilirubin 0.7 mg/dL (0.15-1.2); Total Protein 7.4 g/dL (6.6-8.7)
[2023-01-02 16:44] LABS: Troponin(5th) Baseline 22 ng/L (0-10)
[2023-01-02] MEDS: ketorolac 30 mg/mL INJ IM (17:51)
[2023-01-02 18:24] LABS: Troponin 5 2HR 24.42 ng/L (0-10)
[2023-01-02 18:30] LABS: Troponin 5 2HR Delta 2.42 ABS# (0-10)
== END 2023-01-02 18:58 | disposition home or self-care (01) ==
PROVIDERS: Family Medicine; Emergency Provider Emergency Medicine; PCP Family Medicine
DX: R07.9 Chest pain, unspecified (principal); Z79.84 Long term (current) use of oral hypoglycemic drugs; Z79.85 Long-term (current) use of injectable non-insulin antidiabetic drugs; Z79.82 Long term (current) use of aspirin; Z87.891 Personal history of nicotine dependence; E11.9 Type 2 diabetes mellitus without complications
CPT/HCPCS: 71045; 80053; 84484; 85025; 93005; 96372; 99285; J1885

== ENCOUNTER 2023-01-08 11:58 | Outpatient (CLI) | payer MEDICARE, SELFPAY | END 2023-01-08 11:59 | disposition home or self-care (01) | PROVIDERS: PCP Family Medicine; Visit Provider Internal Medicine Pulmonary Disease | DX: R06.02 Shortness of breath (principal) | CPT/HCPCS: 81000; 87077; 87086; 87184; 94010; 94618; 94729 ==

== ENCOUNTER → 2023-01-16 10:57 | Outpatient (BNVA) | payer MEDICARE, SELFPAY | PROVIDERS: PCP Family Medicine; Visit Provider Nurse Practitioner Family | DX: R39.9 Unspecified symptoms and signs involving the genitourinary system (principal); R10.2 Pelvic and perineal pain; N30.01 Acute cystitis with hematuria | CPT/HCPCS: 81000 ==

== ENCOUNTER 2023-01-19 13:29 | Observation (INO) | payer MEDICARE, SELFPAY ==
[2023-01-19 13:35] VITALS: BP 110/71; PULSE 92; TEMP 36.6; O2SAT 98; BMI 41.8
--- NOTE | 2023-01-19 13:48 | ED_ITS ---
HPI - Weakness General: Chief complaint: Chest Pain Stated complaint: neck and back pain, weakness Time Seen by Provider: 01/19/23 13:47 History of Present Illness: Patient is a chest discomfort, back pain, fatigue and malaise, headache. Onset of symptoms 2 months ago. Starting 2 months ago patient developed symptoms of a UTI. She has been treated multiple times in the last 2 months for UTI without complete resolution of her symptoms. Acute on chronic back pain Patient may have fevers and chills generalized weakness Associated symptoms: Reports chills, dysuria and fever(s); Denies chest pain, confusion, easy bruising, headache(s), nausea or vomiting Review of Systems General: Reports: 10 or more systems reviewed and unremarkable except in HPI and below Narrative: Complains of back pain, neck pain, chest pain, abdominal pain, burning with urination, chronic UTI, nausea vomiting diarrhea. Or recent antibiotics Const: Reports: fever(s), chills, body aches, change in appetite, fatigue and malaise; Denies: change in weight Eyes: Denies: change in vision, eye discomfort, eye discharge or eye redness ENMT: Denies: throat pain, enlarged tonsils, odynophagia, hoarseness, ear or mastoid pain, ear discharge, change in hearing, tinnitus, nasal discharge, nasal congestion, post nasal drip or sinus pain Card: Denies: chest pain, palpitations, irregular heart rhythm, edema, dyspnea on exertion, orthopnea or leg pain with exertion Resp: Denies: dyspnea, productive cough, non-productive cough, wheezing, stridor or chest congestion GI: Denies: abdominal pain, nausea, vomiting, dysphagia, diarrhea, constipation, bloating, GI cramping or hematochezia : Reports: flank pain, dysuria, urinary frequency and urinary urgency; Denies: difficulty voiding, urinary hesitancy, oliguria or hematuria Musc: Reports: back pain and muscle weakness; Denies: neck pain, extremity pain, joint pain, joint swelling, joint redness or joint warmth Skin/Breast: Denies: rash, pruritus, erythema, photosensitivity or new lesions Neuro: Denies: headache(s), numbness in extremities, weakness in extremities, sensory changes, lack of coordination, difficulty walking, frequent falls, dizziness, confusion, Slurred speech present, difficulty communicating thoughts, seizure-like activity or involuntary movements Endo: Denies: polyuria, polydipsia or tired all the time Brent/Lymph: Denies: easy bruising or easy bleeding PFSH ED PFSH: Medical History Acquired hypothyroidism Adrenal adenoma After cataract, bilateral Carpal tunnel syndrome on both sides Multiple lung nodules on CT No pertinent past medical history Nonfunctional vagus nerve stimulator Type 2 diabetes mellitus with diabetic nephropathy Surgical History H/O tubal ligation History of appendectomy Hx laparoscopic cholecystectomy Hx of tonsillectomy Family History Sister Cancer, Onset Age: 6 leukemia - . Father CAD (coronary artery disease) Stroke Mother Chronic kidney disease (CKD) Brother Cancer Brother Cancer Lung - Bone - Brain Stroke Denies family history of Colon cancer Ovarian cancer Diabetes Heart disease Hypercholesteremia Breast cancer Hypertension Uterine cancer Thyroid disease Social History Smoking and tobacco status: former smoker Quit status (tobacco): has quit using tobacco Year quit tobacco: 1959 Former quit date comment: 1-2 ppd X 1 year Second hand smoke exposure: No Smoking risk assessment/counseling performed?: No Alcohol intake: never Desire information about alcohol rehabilitation?: No Counseling given: No Substance/Drug Use: never Desire information about substance/drug rehabilitation?: No Counseling given: No Current gender identity: Female Female Reproductive History: Spontaneous abortions: No Physical Exam Const: COMMON NORMALS: no acute distress, patient oriented x3 and alert GE NERAL APPEARANCE: cooperative ORIENTATION/CONSCIOUSNESS: Yes awake, Yes oriented to person, Yes oriented to place and Yes oriented to time HENMT: COMMON NORMALS: normocephalic and atraumatic HEAD & SCALP: normocephalic and atraumatic FACE & SINUS: normal facial exam MOUTH: Normal oral and palatal mucosa present THROAT: posterior oropharynx normal Eye: COMMON NORMALS: Equal, round and reactive pupils present, EOMs intact bilaterally, conjunctivae normal and no scleral icterus GENERAL EYE: appearance normal, both eyes and all related structures ALIGNMENT: Yes alignment normal PERIORBITAL: periorbital findings normal CONJUNCTIVA: Yes conjunctivae normal PUPIL: Yes Equal, round and reactive pupils present Neck/C-Spine: COMMON NORMALS: full ROM GENERAL: Yes normal visual inspection Lymph: LYMPHATIC: no lymphadenopathy noted Chest: COMMONS NORMALS: normal inspection of the chest Breast/axilla inspec tion: Yes no chest deformity, asymmetry, normal contours, no nodules, masses, tenderness Resp: COMMON NORMALS: normal respiratory effort, No retractions, No use of accessory muscles and clear to auscultation bilaterally EFFORT & INSPECTION: Yes able to speak in complete sentences and Yes symmetric chest movement AUSCULTATION: clear to auscultation bilaterally Cardio: COMMON NORMALS: regular rate, regular rhythm and Peripheral pulses 2+ throughout RATE: regular rate RHYTHM: regular rhythm PERIPHERAL PULSES: Peripheral pulses 2+ throughout GI: COMMON NORMALS: Normal to inspection, nondistended, normoactive bowel sounds present, Soft to palpation, non-tender and No hepatosplenomegaly present INSPECTION: Yes normal to inspection AUSCULTATION: Yes normoactive bowel sounds PALPATION: Yes Soft to palpation and Yes No hepatosplenomegaly present RECTAL EXAM: deferred Extremity: COMMON NORMALS: normal to inspection GENERAL: Yes normal exam except as noted Neuro: COMMON NORMALS: patient oriented x3 SENSORIUM/ORIENTATION: Yes alert, Yes oriented to person, Yes oriented to place and Yes oriented to time CRANIAL NERVES: Yes CN normal except as noted Psych: COMMON NORMALS: mental status grossly normal, Normal thought process present, cooperative, activity/motor behavior normal, denies homicidal ideation and denies suicidal ideation THOUGHT PROCESS: Normal thought process present Skin: COMMON NORMALS: no rashes or lesions noted, no wounds and turgor normal GENERAL SKIN EXAM: no rashes or lesions noted and turgor normal Course Vital Signs: Vital signs: Vital Signs Temperature 97.8 F 01/19/23 13:35 Pulse Rate 73 01/19/23 15:40 Respiratory Rate 17 01/19/23 15:40 Blood Pressure 110/71 01/19/23 13:35 Pulse Oximetry 98 01/19/23 15:40 Oxygen Delivery Me thod Room Air 01/19/23 13:35 MDM - Weakness Medical Decision Making Patient is a 77-year-old female that presents to the emergency department multiple complaints. Complaints she was focused on chest pain and abdominal pain with burning with urination. Patient has acute on chronic back pain Patient underwent laboratory evaluation due to her numerous complaints. Her differential diagnosis included AMI, unstable angina, CHF, UTI, intra-abdominal pathology. Patient has an elevated CRP evidence of continued UTI CT findings of bladder wall thickening. While she has undergone treatment 3 previous times for urinary tract infection, she has tried numerous antibiotics with the last being a chris quinolone. She has not developed diarrhea. Patient has been able to mobilize within the room but feels generally weak and poor. Patient did have an initial troponin of 18 but the 2-hour delta is a -1. Her EKG has remained stable and unchanged from baseline. Does have an elevated creatinine and is occult to determine if this is chronic in nature or acute. I talked with Dr. Gallardo was agreed to see and accept the patient. She will be admitted for urinary tract infection. I did attempt to address antibiotic administration; however, patient is allergic to numerous medications. Hospitalist to determine. Lab Data 01/19/23 14:13 01/19/23 14:13 Radiology Impressions Abdomen/Pelvis CT 01/19/23 13:57 IMPRESSION: 1. Previous cholecystectomy, hysterectomy, appendectomy, and prior posterior fusion hardware L4 through S1 along with neurostimulator with lead in the midthoracic spine. Findings are unchanged with prior exam. 2. Mild urinary bladder wall thickening with enhancement. This can be seen with cystitis of acute or chronic nature. Kidneys appear unremarkable without focal renal abnormality or perinephric stranding. 3. Small chronic right adrenal nodule, likely adenoma. Chest X-Ray 01/19/23 13:57 IMPRESSION: Stable appearance of the chest with prior exam, without acute findings. Laboratory Results WBC 5.93 10^3/uL (3.29-11.43) 01/19/23 14:13 RBC 3.85 10^6/uL (3.85-5.65) 01/19/23 14:13 Hgb 12.40 g/dL (11.27-16.99) 01/19/23 14:13 Hct 36.8 % (36-47) 01/19/23 14:13 MCV 95.6 fl (85-98) 01/19/23 14:13 MCH 32.2 pg (27-33) 01/19/23 14:13 MCHC 33.7 g/dL (30-55) 01/19/23 14:13 RDW 13.0 % (12.1-15.1) 01/19/23 14:13 Plt Count 253 10^3/cmm (157-399) 01/19/23 14:13 MPV 9.1 fL (7.4-10.4) 01/19/23 14:13 Neut % (Auto) 50.8 % 01/19/23 14:13 Lymph % (Auto) 38.4 % 01/19/23 14:13 [place] % (Auto) 6.7 % 01/19/23 14:13 Eos % (Auto) 3.2 % 01/19/23 14:13 Baso % (Auto) 0.7 % 01/19/23 14:13 Neut # (Auto) 3.01 10^3/uL (1.8-7.7) 01/19/23 14:13 Lymph # (Auto) 2.3 10^3/uL (0.8-4.8) 01/19/23 14:13 [place] # (Auto) 0.4 10^3/uL (0.2-0.9) 01/19/23 14:13 Eos # (Auto) 0.2 10^3/uL (0.0-0.8) 01/19/23 14:13 Baso # (Auto) 0.0 10^3/uL (0.0-0.1) 01/19/23 14:13 Nucleated RBC % (auto) 0 % 01/19/23 14:13 Nucleated RBCs # 0.0 /100WBC 01/19/23 14:13 Sodium 135 mmol/L (136-145) L 01/19/23 14:13 Potassium 3.8 mmol/L (3.5-5.1) 01/19/23 14:13 Chloride 97 mmol/L (98-107) L 01/19/23 14:13 Carbon Dioxide 24 mmol/L (22-29) 01/19/23 14:13 Anion Gap 17.8 (5-19) 01/19/23 14:13 BUN 23 mg/dL (8-23) 01/19/23 14:13 Creatinine 1.4 mg/dL (0.5-0.9) H 01/19/23 14:13 GFR Calculation Not Reportable 01/19/23 14:13 Glucose 409 mg/dL (65-115) H 01/19/23 14:13 Calculated Osmolality 301 mOsm/kg (285-295) H 01/19/23 14:13 Calcium 8.6 mg/dL (8.5-10.5) 01/19/23 14:13 Total Bilirubin 0.6 mg/dL (0.15-1.2) 01/19/23 14:13 AST 14 U/L (0-32) 01/19/23 14:13 ALT 19 U/L (0-33) 01/19/23 14:13 Alkaline Phosphatase 127 U/L (35-105) H 01/19/23 14:13 Troponin T Baseline 18 ng/L (0-10) H 01/19/23 14:13 Troponin T 120 Minute 17.00 ng/L (0-10) H 01/19/23 16:04 Delta Troponin T -1.00 ABS# (0-10) L 01/19/23 16:04 C-Reactive Protein 42.8 mg/L (0.0-4.9) H 01/19/23 14:13 NT-Pro-B Natriuret Pep 181 pg/mL (0-450) 01/19/23 14:13 Total Protein 6.9 g/dL (6.6-8.7) 01/19/23 14:13 Albumin 3.9 g/dL (3.5-5.2) 01/19/23 14:13 Globulin 3.0 g/dL (1.3-4.6) 01/19/23 14:13 Urine Color Yellow (Yellow) 01/19/23 15:39 Urine Appearance Hazy (CLEAR) A 01/19/23 15:39 Urine pH 5 (5-7) 01/19/23 15:39 Ur Specific [place] 1.005 (1.005-1.030) 01/19/23 15:39 Urine Protein Trace (Negative) 01/19/23 15:39 Urine Glucose (UA) 4+ (Normal) H 01/19/23 15:39 Urine Ketones Negative (Negative) 01/19/23 15:39 Urine Blood 3+ (Negative) H 01/19/23 15:39 Urine Nitrate Negative (Negative) 01/19/23 15:39 Urine Bilirubin Neg (Negative) 01/19/23 15:39 Urine Urobilinogen Norm mg/dL (Negative) 01/19/23 15:39 Ur Leukocyte Esterase 2+ (Negative) H 01/19/23 15:39 Urine RBC 5-10 /hpf (0-2) H 01/19/23 15:39 Urine WBC Too numerous to cnt /hpf (0-5) H 01/19/23 15:39 Ur Squamous Epith Cells Rare /hpf (0-5) 01/19/23 15:39 Amorphous Sediment Not Reportable 01/19/23 15:39 Urine Bacteria 1+ /hpf (NONE) H 01/19/23 15:39 Discharge Plan Discharge Patient Disposition: Admitted As Inpatient Clinical Impression: UTI (urinary tract infection), Creatinine elevation, Angina at rest, CRP elevated Condition: Stable Coding Level of Care Code ED 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
--- NOTE | 2023-01-19 13:57 | ECG_ITS ---
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 Measurements Intervals [place] Rate: 77 P: 49 SC: 177 QRS: -3 QRSD: 82 T: 27 QT: 324 QTc: 368 Interpretive Statements SINUS RHYTHM WITH SINUS ARRHYTHMIA LOW QRS VOLTAGE IN PRECORDIAL LEADS [QRS DEFLECTION < 1.0 mV IN CHEST LEADS] NONSPECIFIC T-WAVE ABNORMALITY Compared to ECG 01/02/2023 14:05:21 T-wave abnormality now present Myocardial infarct finding no longer present Electronically Signed On 01-19-2023 17:23:10 CDT by Emir Jacobo M.D. [id number]
--- NOTE | 2023-01-19 13:57 | XRR_ITS ---
PROCEDURE INFORMATION: Exam: XR Chest Exam date and time: 01/19/2023 2:26 PM Age: 77 years old Clinical indication: Fever; Additional info: Weakness, fever TECHNIQUE: Imaging protocol: Radiologic exam of the chest. Views: 1 view. COMPARISON: CR XR chest 1V portable [id number] 01/02/2023 3:46 PM FINDINGS: Tubes, catheters and devices: Neurostimulator leads overlie the mid to lower thoracic spine. Postsurgical hardware within the visualized mid to lower cervical spine. Overlying monitor leads. Lungs: Small amount of vascular crowding versus minimal atelectasis in the lung bases that is unchanged with prior exam. No focal infiltrate or consolidation. Pleural spaces: Unremarkable. No pleural effusion. No pneumothorax. Heart/Mediastinum: Unremarkable. No cardiomegaly. Bones/joints: Visualized osseous structures show no acute abnormality. XR/XR chest 1V portable [id number] IMPRESSION: Stable appearance of the chest with prior exam, without acute findings.
--- NOTE | 2023-01-19 13:57 | CTR_ITS ---
PROCEDURE INFORMATION: Exam: CT Abdomen And Pelvis With Contrast Exam date and time: 01/19/2023 3:09 PM Age: 77 years old Clinical indication: Abdominal pain; Generalized; Prior surgery; Surgery date: 6+ months; Surgery type: Lumbar; Additional info: Chronic UTI, CVA tenderness, rule out pyelonephritis TECHNIQUE: Imaging protocol: Computed tomography of the abdomen and pelvis with contrast. Radiation optimization: All CT scans at this facility use at least one of these dose optimization techniques: automated exposure control; mA and/or kV adjustment per patient size (includes targeted exams where dose is matched to clinical indication); or iterative reconstruction. Contrast material: OMNI 350; Contrast volume: 100 ml; Contrast route: INTRAVENOUS (IV); REPORTING DATA: Count of CT and Cardiac NM exams in prior 12 months: This patient has received 3 known CTs and 0 known cardiac nuclear medicine studies in the 12 months prior to the current study. COMPARISON: CT abdomen pelvis w con* [id number] 12/18/2022 1:22 AM RADIATION DOSE METRICS: Total DLP (mGy-cm): 979.35 FINDINGS: Lungs: No significant infiltrate or effusion is seen within the visualized bases. Liver: Normal. No mass. Gallbladder and bile ducts: Previous cholecystectomy. No significant biliary ductal dilatation. Pancreas: Normal. No ductal dilation. Spleen: Normal. No splenomegaly. Adrenal glands: Small right adrenal nodule is unchanged with prior exam. This likely represents incidental nonfunctioning adenoma. Kidneys and ureters: No urinary tract stone or obstructive uropathy or perinephric stranding. Kidneys show no focal abnormality. Stomach and bowel: Unremarkable. No obstruction. No mucosal thickening. Moderate stool in the colon. Gastric contents within the stomach. Appendix: Appendix is not seen with history of appendectomy. Intraperitoneal space: Unremarkable. No free air. No significant fluid collection. No significant mesenteric stranding. Vasculature: Mild atherosclerotic calcification with unremarkable caliber of the abdominal aorta. Lymph nodes: Unremarkable. No enlarged lymph nodes. Urinary bladder: Mild urinary bladder wall thickening with enhancement, with better distention of the urinary bladder than prior exam. Findings can be associated with cystitis of acute or chronic nature. Reproductive: Previous hysterectomy. No significant adnexal abnormality. Bones/joints: Prior posterior fusion hardware L4 through S1 with chronic grade 2 spondylolisthesis L4-5 with previous exam. Spondylotic change within the visualized thoracolumbar spine. Neurostimulator is seen within the soft tissues of the posterior right lower back with lead extending to the midthoracic spine level. Soft tissues: Unremarkable. CT/CT abdomen pelvis w con* [id number] IMPRESSION: 1. Previous cholecystectomy, hysterectomy, appendectomy, and prior posterior fusion hardware L4 through S1 along with neurostimulator with lead in the midthoracic spine. Findings are unchanged with prior exam. 2. Mild urinary bladder wall thickening with enhancement. This can be seen with cystitis of acute or chronic nature. Kidneys appear unremarkable without focal renal abnormality or perinephric stranding. 3. Small chronic right adrenal nodule, likely adenoma.
[2023-01-19 14:19] LABS: Basophils % 0.7 %; Eosinophils # 0.2 10^3/uL (0.0-0.8); Eosinophils % 3.2 %; Hematocrit 36.8 % (36-47); Lymphocytes # 2.3 10^3/uL (0.8-4.8); Lymphocytes % 38.4 %; Mean Corpuscular HGB Conc 33.7 g/dL (30-55); Mean Corpuscular Hemoglobin 32.2 pg (27-33); Mean Corpuscular Volume 95.6 fl (85-98); Mean Platelet Volume 9.1 fL (7.4-10.4); Monocytes # 0.4 10^3/uL (0.2-0.9); Monocytes % 6.7 %; Neutrophils # 3.01 10^3/uL (1.8-7.7); Neutrophils % 50.8 %; Nucleated Red Blood Cells % 0 %; Platelet Count 253 10^3/cmm (157-399); Red Blood Count 3.85 10^6/uL (3.85-5.65); White Blood Count 5.93 10^3/uL (3.29-11.43)
[2023-01-19] MEDS: sodium chloride 0.9% 500 ML IV (14:42)
[2023-01-19 14:49] LABS: Troponin(5th) Baseline 18 ng/L (0-10)
[2023-01-19 14:56] LABS: Alanine Aminotransferase 19 U/L (0-33); Albumin Level 3.9 g/dL (3.5-5.2); Alkaline Phosphatase 127 U/L (35-105); Anion Gap 17.8 (5-19); Aspartate Amino Transferase 14 U/L (0-32); Blood Urea Nitrogen 23 mg/dL (8-23); C Reactive Protein 42.8 mg/L (0.0-4.9); Calcium 8.6 mg/dL (8.5-10.5); Carbon Dioxide 24 mmol/L (22-29); Chloride 97 mmol/L (98-107); Creatinine Clr Calc Pharmacy 48.1939; Glucose 409 mg/dL (65-115); NT Pro B Type Natriuretic Pept 181 pg/mL (0-450); Osmolality Calculated 301 mOsm/kg (285-295); Potassium 3.8 mmol/L (3.5-5.1); Sodium 135 mmol/L (136-145); Total Bilirubin 0.6 mg/dL (0.15-1.2); Total Protein 6.9 g/dL (6.6-8.7)
[2023-01-19] MEDS: iohexol 350 mg/mL 500 mL Btl (per mL) IV (15:16)
--- NOTE | 2023-01-19 15:31 | ECG_ITS ---
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 Measurements Intervals [place] Rate: 73 P: 69 IA: 183 QRS: 2 QRSD: 88 T: 63 QT: 376 QTc: 417 Interpretive Statements SINUS RHYTHM LOW QRS VOLTAGE IN PRECORDIAL LEADS [QRS DEFLECTION < 1.0 mV IN CHEST LEADS] NONSPECIFIC T-WAVE ABNORMALITY Compared to ECG 01/02/2023 14:05:21 T-wave abnormality now present Sinus arrhythmia no longer present Myocardial infarct finding no longer present Electronically Signed On 01-19-2023 17:23:25 CDT by Emir Jacobo M.D. [id number]
[2023-01-19 15:40] VITALS: PULSE 73; RESP 17; O2SAT 98
[2023-01-19 16:00] LABS: Urine Appearance Hazy (CLEAR); Urine Color Yellow (Yellow); pH Urine 5 (5-7)
[2023-01-19 16:01] LABS: Bilirubin Urine Neg (Negative); Blood Urine 3+ (Negative); Glucose Urine UA 4+ (Normal); Ketones Urine Negative (Negative); Nitrate Urine Negative (Negative); Protein Urine Trace (Negative); Specific Gravity, Urine 1.005 (1.005-1.030)
[2023-01-19 16:02] LABS: Add Urine Culture? Yes; Add Urine Microscopic? YES; Bacteria Urine 1+ /hpf; Leukocyte Esterase Urine 2+ (Negative); Squamous Epithelial Cell Urine RARE /hpf (0-5); Urobilinogen Urine Norm (Negative); WBC Urine TOO NUMEROUS TO CNT /hpf (0-5)
[2023-01-19 17:05] VITALS: BP 120/62; PULSE 74; RESP 18; O2SAT 99
[2023-01-19 18:46] VITALS: BP 106/72; PULSE 75; RESP 16; O2SAT 95
--- NOTE | 2023-01-19 19:32 | PM.HP ---
Providers/Chief Complaint Admitting Physician: Eladio Gallardo MD Primary Care Provider: Roel Retana DO Chief Complaint: neck and back pain, weakness History of Present Illness Sherie Hernandez is a 77 year old female who has been dealing with UTI for last 2 months came in for worsening of fatigue lethargy and diarrhea. Patient is stating that she has been compliant with her medications but her symptoms have not resolved. She has not noticed any fever but complaining of pains all over her body including her back. CT scan did not show any signs of pyelonephritis it is consistent with chronic cystitis. Review of Systems Const: Reports: chills, body aches, change in weight and fatigue Eyes: Denies: change in vision ENMT: Denies: throat pain Card: Denies: chest pain Resp: Denies: dyspnea GI: Reports: nausea and diarrhea : Denies: oliguria Musc: Denies: neck pain Skin/Breast: Denies: rash Neuro: Denies: headache(s) Psych: Reports: anxiety Endo: Denies: polyuria Brent/Lymph: Denies: easy bruising All/Imm: Denies: urticaria Medications/Allergies Home Medications Medication Instructions Recorded Confirmed Last Taken Type acetaminophen 500 mg tablet 500 mg PO QID PRN Pain 08/23/22 01/19/23 Unknown History (Tylenol Extra Strength) aspirin 81 mg chewable tablet 81 mg PO DAILY 08/23/22 01/19/23 01/19/23 History furosemide 40 mg tablet (Lasix) 40 mg PO DAILY 08/23/22 01/19/23 01/19/23 History glimepiride 4 mg tablet 8 mg PO BID 08/23/22 01/19/23 01/19/23 History levetiracetam 750 mg tablet 750 mg PO BID 08/23/22 01/19/23 01/19/23 History levothyroxine 125 mcg capsule 125 mcg PO DAILY 08/23/22 01/19/23 01/19/23 History pramipexole 0.25 mg tablet 0.25 mg PO BID 08/23/22 01/19/23 01/02/23 History simvastatin 20 mg tablet 20 mg PO DAILY 08/23/22 01/19/23 01/19/23 History tramadol 50 mg tablet 50 mg PO Q6H PRN Pain 0401/19/23 12/24/22 History empagliflozin 25 mg tablet 25 mg PO DAILY 11/19/22 01/19/23 01/19/23 History (Jardiance) vit C 250 mg-vit E 90 mg-zinc 40 1 tab PO BID 11/19/22 01/19/23 01/19/23 History mg-copper 1 [id number] capsule (PreserVision AREDS-2) enalapril maleate 2.5 mg tablet 2.5 mg PO DAILY #90 tabs 11/22/22 01/19/23 01/19/23 Rx dulaglutide 4.5 mg/0.5 mL 4.5 mg SUBCUT Q7D 12/25/22 01/19/23 01/17/23 History subcutaneous pen injector (Trulicity) albuterol sulfate 90 mcg/actuation 1 puff inhalation Q4H PRN 01/02/23 01/19/23 Unknown History aerosol inhaler Shortness Of Breath colchicine (gout) 0.6 mg tablet 0.6 mg PO DAILY 01/02/23 01/19/23 01/19/23 History cefdinir 300 mg capsule 300 mg PO BID 10 days #20 caps 01/08/23 01/19/23 01/19/23 Rx fluconazole 150 mg tablet 150 mg PO Q3D #5 tabs 01/08/23 01/19/23 01/19/23 Rx (Diflucan) doxycycline hyclate 100 mg capsule 100 mg PO BID 01/19/23 01/19/23 01/19/23 History Allergies Allergy/AdvReac Type Severity Reaction Status Date / Time azithromycin Allergy ALGY-Difficulty Verified 01/19/23 13:43 Breathing carbamazepine [From Tegretol] Allergy Unknown Verified 01/19/23 13:43 cephalexin Allergy Unknown Verified 01/19/23 13:43 colchicine Allergy Unknown Verified 01/19/23 13:43 cyclobenzaprine Allergy Unknown Verified 01/19/23 13:43 [From Flexeril] fluconazole Allergy Unknown Verified 01/19/23 13:43 gabapentin Allergy Unknown Verified 01/19/23 13:43 gatifloxacin [From Tequin] Allergy Unknown Verified 01/19/23 13:43 hydrocodone [From [place]] Allergy Unknown Verified 01/19/23 13:43 hydroxychloroquine Allergy Unknown Verified 01/19/23 13:43 hyoscyamine Allergy Unknown Verified 01/19/23 13:43 naproxen [From Naprosyn] Allergy Unknown Verified 01/19/23 13:43 oxybutynin [From Ditropan] Allergy Unknown Verified 01/19/23 13:43 phenytoin [From Dilantin] Allergy Unknown Verified 01/19/23 13:43 progesterone Allergy Unknown Verified 01/19/23 13:43 [From Prometrium] solifenacin [From Vesicare] Allergy Unknown Verified 01/19/23 13:43 Sulfa (Sulfonamide Allergy Unknown Verified 01/19/23 13:43 Antibiotics) sulfamethoxazole Allergy Unknown Verified 01/19/23 13:43 [From Bactrim] trimethoprim [From Bactrim] Allergy Unknown Verified 01/19/23 13:43 valdecoxib [From Bextra] Allergy Unknown Verified 01/19/23 13:43 PFSH Acute PFSH: Medical History (Updated 01/20/23 @ 10:49 by Eladio Gallardo MD) Acquired hypothyroidism Adrenal adenoma After cataract, bilateral Carpal tunnel syndrome on both sides FH: total knee replacement Multiple lung nodules on CT No pertinent past medical history Nonfunctional vagus nerve stimulator Type 2 diabetes mellitus with diabetic nephropathy Surgical History H/O tubal ligation History of appendectomy Hx laparoscopic cholecystectomy Hx of tonsillectomy Family History Sister Cancer, Onset Age: 6 leukemia - . Father CAD (coronary artery disease) Stroke Mother Chronic kidney disease (CKD) Brother Cancer Brother Cancer Lung - Bone - Brain Stroke Denies family history of Colon cancer Ovarian cancer Diabetes Heart disease Hypercholesteremia Breast cancer Hypertension Uterine cancer Thyroid disease Social History Smoking and tobacco status: former smoker Quit status (tobacco): has quit using tobacco Year quit tobacco: 1959 Former quit date comment: 1-2 ppd X 1 year Second hand smoke exposure: No Smoking risk assessment/counseling performed?: No Alcohol intake: never Desire information about alcohol rehabilitation?: No Counseling given: No Substance/Drug Use: never Desire information about substance/drug rehabilitation?: No Counseling given: No Current gender identity: Female Female Reproductive History: Spontaneous abortions: No Vitals/I&O/Wt Last Vital Signs Temp 97.8 F 01/19/23 13:35 Pulse 75 01/19/23 18:46 Resp 16 01/19/23 18:46 BP 106/72 01/19/23 18:46 Pulse Ox 95 01/19/23 18:46 O2 Del Method Room Air 01/19/23 17:05 01/19/23 01/19/23 01/19/23 06:59 14:59 22:59 Intake Total 500 / 500 Balance 500 / 500 Weight last 48 hrs Weight 90.718 kg Physical Exam Narrative: Pleasant and cooperative Mild signs of dehydration Abdomen soft Nonfocal neuro exam Fatigue lethargic Cooperative Hemodynamically stable Currently on room air Appropriate mood and Data 01/20/23 04:16 01/20/23 04:16 A&P Assessment and plan (1) Acquired hypothyroidism: (2) Type 2 diabetes mellitus with diabetic nephropathy: Qualifiers: Diabetes mellitus shelter insulin use: without terminal computer operator use Qualified Code(s): E11.21 - Type 2 diabetes mellitus with diabetic nephropathy (3) Recurrent UTI: Plan UTI start ceftriaxone no signs of sepsis start NS at 75ml/h full code dvt ppx on board Seem like patient has been suffering from recurrent UTIs, will need urology outpatient follow-up, start antibiotics at this point No signs of pyelonephritis No signs of sepsis Start gentle fluid hydration for signs of dehydration Monitor kidney function Rule out C. 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
[2023-01-19 20:00] VITALS: BP 118/69; PULSE 92; RESP 17; TEMP 37; O2SAT 98
[2023-01-19 20:13] LABS: Procalcitonin 0.07 ng/mL (0-0.5); Vitamin B12 652 pg/mL (232-1245)
[2023-01-19] MEDS: cefTRIAXone 1,000 MG in sodium chloride 0.9% (plus) 50 ML 100 MG IV (20:47)
[2023-01-19] MEDS: sodium chloride 0.9% 1,000 ML 75 ML IV (20:47)
[2023-01-19 20:54] LABS: Troponin 5 6HR 18.85 ng/L (0-10)
[2023-01-19] MEDS: acetaminophen 500 mg Tablet PO (20:54)
[2023-01-19 20:56] LABS: Troponin 5 6HR Delta 0.85 ng/L (0-12)
[2023-01-20] VITALS (8 sets, daily range): BP systolic 110–130; BP diastolic 46–70; PULSE 65–70; RESP 16–18; TEMP 36.4–36.8; O2SAT 95–98
[2023-01-20 04:54] LABS: Basophils # 0.1 10^3/uL (0.0-0.1); Basophils % 0.8 %; Eosinophils # 0.2 10^3/uL (0.0-0.8); Eosinophils % 3.2 %; Hematocrit 36.8 % (36-47); Lymphocytes # 2.6 10^3/uL (0.8-4.8); Mean Corpuscular HGB Conc 33.7 g/dL (30-55); Mean Corpuscular Volume 94.8 fl (85-98); Mean Platelet Volume 9.2 fL (7.4-10.4); Monocytes # 0.4 10^3/uL (0.2-0.9); Monocytes % 6.8 %; Neutrophils # 2.91 10^3/uL (1.8-7.7); Neutrophils % 46.9 %; Nucleated Red Blood Cells % 0 %; Platelet Count 258 10^3/cmm (157-399); Red Blood Count 3.88 10^6/uL (3.85-5.65); White Blood Count 6.21 10^3/uL (3.29-11.43)
[2023-01-20 05:08] LABS: Anion Gap 11.6 (5-19); Blood Urea Nitrogen 18 mg/dL (8-23); Calcium 8.6 mg/dL (8.5-10.5); Carbon Dioxide 28 mmol/L (22-29); Chloride 101 mmol/L (98-107); Glucose 139 mg/dL (65-115); Osmolality Calculated 288 mOsm/kg (285-295); Phosphorus 3.1 mg/dL (2.5-4.5); Potassium 3.6 mmol/L (3.5-5.1); Sodium 137 mmol/L (136-145)
[2023-01-20] MEDS: acetaminophen 500 mg Tablet PO ×2 (06:11→13:06)
[2023-01-20 06:23] LABS: Glucose Point of Care 148 mg/dL (70-110)
--- NOTE | 2023-01-20 10:52 | PM.PN ---
Subjective Subjective: Patient is awake and alert We will request C. difficile panel Creatinine 1.0 No significant vents overnight Vitals/I&O/Wt Last Vital Signs Temp 97.6 F 01/20/23 08:00 Pulse 66 01/20/23 08:00 Resp 17 01/20/23 08:00 BP 111/68 01/20/23 08:00 Pulse Ox 97 01/20/23 08:00 O2 Del Method Room Air 01/20/23 08:00 01/19/23 01/20/23 01/20/23 22:59 06:59 14:59 Intake Total 550 / 550 1360 / 1360 Balance 550 / 550 1360 / 1360 Weight last 48 hrs Weight 90.718 kg Physical Exam Narrative: Patient is having a bowel movement Awake and alert GCS 15 Nonfocal neuro exam Signs of dehydration present GCS 15 Currently on room air Data 01/20/23 04:16 01/20/23 04:16 Micro: Microbiology 01/19/23 15:39 Urine Culture - Preliminary Urine,Clean Catch A&P Assessment and plan (1) Recurrent UTI: (2) Creatinine elevation: (3) Acquired hypothyroidism: (4) Type 2 diabetes mellitus with diabetic nephropathy: Qualifiers: 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
[2023-01-20] MEDS: pneumococcal (23 valent) SDV 0.5 mL IM (11:38)
[2023-01-20] MEDS: colchicine 0.6 mg Tablet PO (11:40)
[2023-01-20] MEDS: acetaminophen 325 mg Tablet 650 MG PO (17:02)
[2023-01-20] MEDS: levETIRAcetam 500 mg Tablet 750 MG PO (17:03)
[2023-01-20] MEDS: pramipexole 0.25 mg Tablet PO (17:03)
[2023-01-20] MEDS: cefTRIAXone 1,000 MG in sodium chloride 0.9% (plus) 50 ML 100 MG IV (19:58)
[2023-01-21] VITALS: BP 127/75; PULSE 69; RESP 19; TEMP 36.4; O2SAT 94
[2023-01-21] MEDS: acetaminophen 325 mg Tablet 650 MG PO ×2 (01:33→08:52)
[2023-01-21 04:00] VITALS: BP 112/65; PULSE 66; RESP 18; TEMP 36.7; O2SAT 94
[2023-01-21 05:46] LABS: Basophils % 0.7 %; Eosinophils # 0.2 10^3/uL (0.0-0.8); Eosinophils % 3.5 %; Hematocrit 34.2 % (36-47); Lymphocytes # 2.7 10^3/uL (0.8-4.8); Lymphocytes % 48.1 %; Mean Corpuscular HGB Conc 34.5 g/dL (30-55); Mean Corpuscular Hemoglobin 32.2 pg (27-33); Mean Corpuscular Volume 93.4 fl (85-98); Mean Platelet Volume 8.9 fL (7.4-10.4); Monocytes # 0.4 10^3/uL (0.2-0.9); Monocytes % 6.7 %; Neutrophils # 2.32 10^3/uL (1.8-7.7); Neutrophils % 40.8 %; Nucleated Red Blood Cells % 0 %; Platelet Count 240 10^3/cmm (157-399); Red Blood Count 3.66 10^6/uL (3.85-5.65); Red Cell Distribution Width 12.9 % (12.1-15.1); White Blood Count 5.68 10^3/uL (3.29-11.43)
[2023-01-21 06:07] LABS: Anion Gap 11.9 (5-19); Blood Urea Nitrogen 15 mg/dL (8-23); Calcium 8.9 mg/dL (8.5-10.5); Carbon Dioxide 27 mmol/L (22-29); Chloride 103 mmol/L (98-107); Glucose 209 mg/dL (65-115); Osmolality Calculated 293 mOsm/kg (285-295); Potassium 3.9 mmol/L (3.5-5.1); Sodium 138 mmol/L (136-145)
[2023-01-21 08:00] VITALS: BP 118/72; PULSE 65; RESP 16; TEMP 36.5; O2SAT 95
[2023-01-21 08:16] VITALS: PULSE 66; RESP 16; O2SAT 96
--- NOTE | 2023-01-21 08:49 | PM.DCS ---
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: without jail use Qualified Code(s): E11.21 - Type 2 diabetes mellitus with diabetic nephropathy (5) Essential hypertension: Status: Acute Reason for Visit Reason for Visit: neck and back pain, weakness Hospital Course Hospital Course 78 female who was admitted for management evaluation of generalized weakness and fatigue, diarrhea, she has been fighting with her UTI for last 2 months she took cefdinir, doxycycline, she was given IV fluids, Lasix was held, patient did remarkably well with IV fluid hydration and antibiotics ceftriaxone, she did not develop any allergic reaction, she seems very anxious, lives alone, I spoke with her son as well who is in agreement that she would need outpatient urology follow-up and might need chronic suppressive therapy. Previous urine cultures were positive for E. coli however this time it is showing mixed genital chris She remained afebrile, no leukocytosis. I will give her levofloxacin 1 week regimen and give her follow-up per urology chest pain field. C. difficile sample was taken however stools are semisolid Physical Exam Narrative: Awake and alert Euvolemic GCS 15 S1, S2 Well-hydrated Anxious, Abdomen soft Nonfocal neuro exam Discharge Data Studies Completed and Pending Completed Studies During Hospitalization Category Date Time Status CT abdomen pelvis w con* [id number] Stat Cat Scan 01/19/23 13:57 Completed XR chest 1V portable [id number] Stat Exams 01/19/23 13:57 Completed Pending at discharge Category Date Time Status Clostridium Diffi Toxin Reflex Routine Lab 01/20/23 09:07 Received Urine Culture Stat Lab 01/19/23 15:39 Results Radiology Impressions Abdomen/Pelvis CT 01/19/23 13:57 IMPRESSION: 1. Previous cholecystectomy, hysterectomy, appendectomy, and prior posterior fusion hardware L4 through S1 along with neurostimulator with lead in the midthoracic spine. Findings are unchanged with prior exam. 2. Mild urinary bladder wall thickening with enhancement. This can be seen with cystitis of acute or chronic nature. Kidneys appear unremarkable without focal renal abnormality or perinephric stranding. 3. Small chronic right adrenal nodule, likely adenoma. Chest X-Ray 01/19/23 13:57 IMPRESSION: Stable appearance of the chest with prior exam, without acute findings. Laboratory Results WBC 5.68 10^3/uL (3.29-11.43) 01/21/23 05:19 RBC 3.66 10^6/uL (3.85-5.65) L 01/21/23 05:19 Hgb 11.80 g/dL (11.27-16.99) 01/21/23 05:19 Hct 34.2 % (36-47) L 01/21/23 05:19 MCV 93.4 fl (85-98) 01/21/23 05:19 MCH 32.2 pg (27-33) 01/21/23 05:19 MCHC 34.5 g/dL (30-55) 01/21/23 05:19 RDW 12.9 % (12.1-15.1) 01/21/23 05:19 Plt Count 240 10^3/cmm (157-399) 01/21/23 05:19 MPV 8.9 fL (7.4-10.4) 01/21/23 05:19 Neut % (Auto) 40.8 % 01/21/23 05:19 Lymph % (Auto) 48.1 % 01/21/23 05:19 [place] % (Auto) 6.7 % 01/21/23 05:19 Eos % (Auto) 3.5 % 01/21/23 05:19 Baso % (Auto) 0.7 % 01/21/23 05:19 Neut # (Auto) 2.32 10^3/uL (1.8-7.7) 01/21/23 05:19 Lymph # (Auto) 2.7 10^3/uL (0.8-4.8) 01/21/23 05:19 [place] # (Auto) 0.4 10^3/uL (0.2-0.9) 01/21/23 05:19 Eos # (Auto) 0.2 10^3/uL (0.0-0.8) 01/21/23 05:19 Baso # (Auto) 0.0 10^3/uL (0.0-0.1) 01/21/23 05:19 Nucleated RBC % (auto) 0 % 01/21/23 05:19 Nucleated RBCs # 0.0 /100WBC 01/21/23 05:19 Sodium 138 mmol/L (136-145) 01/21/23 05:19 Potassium 3.9 mmol/L (3.5-5.1) 01/21/23 05:19 Chloride 103 mmol/L (98-107) 01/21/23 05:19 Carbon Dioxide 27 mmol/L (22-29) 01/21/23 05:19 Anion Gap 11.9 (5-19) 01/21/23 05:19 BUN 15 mg/dL (8-23) 01/21/23 05:19 Creatinine 0.9 mg/dL (0.5-0.9) 01/21/23 05:19 GFR Calculation Not Reportable 01/21/23 05:19 Glucose 209 mg/dL (65-115) H 01/21/23 05:19 POC Glucose 148 mg/dL (70-110) H 01/20/23 06:17 Calculated Osmolality 293 mOsm/kg (285-295) 01/21/23 05:19 Calcium 8.9 mg/dL (8.5-10.5) 01/21/23 05:19 Phosphorus 3.1 mg/dL (2.5-4.5) 01/20/23 04:16 Magnesium 2.0 mg/dL (1.7-2.3) 01/20/23 04:16 Total Bilirubin 0.6 mg/dL (0.15-1.2) 01/19/23 14:13 AST 14 U/L (0-32) 01/19/23 14:13 ALT 19 U/L (0-33) 01/19/23 14:13 Alkaline Phosphatase 127 U/L (35-105) H 01/19/23 14:13 Troponin T Baseline 18 ng/L (0-10) H 01/19/23 14:13 Troponin T 120 Minute 17.00 ng/L (0-10) H 01/19/23 16:04 Delta Troponin T -1.00 ABS# (0-10) L 01/19/23 16:04 Troponin T Hi Sens 6Hr 18.85 ng/L (0-10) H 01/19/23 20:17 Troponin T Hi Sens 6Hr Delta 0.85 ng/L (0-12) 01/19/23 20:17 C-Reactive Protein 43.0 mg/L (0.0-4.9) H 01/20/23 04:16 NT-Pro-B Natriuret Pep 181 pg/mL (0-450) 01/19/23 14:13 Total Protein 6.9 g/dL (6.6-8.7) 01/19/23 14:13 Albumin 3.9 g/dL (3.5-5.2) 01/19/23 14:13 Globulin 3.0 g/dL (1.3-4.6) 01/19/23 14:13 Vitamin B12 652 pg/mL (232-1245) 01/19/23 11:11 Procalcitonin 0.07 ng/mL (0-0.5) 01/19/23 11:11 Urine Color Yellow (Yellow) 01/19/23 15:39 Urine Appearance Hazy (CLEAR) A 01/19/23 15:39 Urine pH 5 (5-7) 01/19/23 15:39 Ur Specific [place] 1.005 (1.005-1.030) 01/19/23 15:39 Urine Protein Trace (Negative) 01/19/23 15:39 Urine Glucose (UA) 4+ (Normal) H 01/19/23 15:39 Urine Ketones Negative (Negative) 01/19/23 15:39 Urine Blood 3+ (Negative) H 01/19/23 15:39 Urine Nitrate Negative (Negative) 01/19/23 15:39 Urine Bilirubin Neg (Negative) 01/19/23 15:39 Urine Urobilinogen Norm mg/dL (Negative) 01/19/23 15:39 Ur Leukocyte Esterase 2+ (Negative) H 01/19/23 15:39 Urine RBC 5-10 /hpf (0-2) H 01/19/23 15:39 Urine WBC Too numerous to cnt /hpf (0-5) H 01/19/23 15:39 Ur Squamous Epith Cells Rare /hpf (0-5) 01/19/23 15:39 Amorphous Sediment Not Reportable 01/19/23 15:39 Urine Bacteria 1+ /hpf (NONE) H 01/19/23 15:39 Vitals Last Vital Signs Temp 97.7 F 01/21/23 08:00 Pulse 66 01/21/23 08:16 Resp 16 01/21/23 08:16 BP 118/72 01/21/23 08:00 Pulse Ox 96 01/21/23 08:16 O2 Del Method Room Air 01/21/23 08:16 Discharge Plan Discharge Patient Disposition: Home Condition: Stable Prescriptions: New levofloxacin 750 mg tablet 750 mg PO DAILY 7 Days Qty: 7 0RF Continued glimepiride 4 mg tablet 8 mg PO BID levetiracetam 750 mg tablet 750 mg PO BID furosemide [Lasix] 40 mg tablet 40 mg PO DAILY levothyroxine 125 mcg capsule 125 mcg PO DAILY pramipexole 0.25 mg tablet 0.25 mg PO BID simvastatin 20 mg tablet 20 mg PO DAILY aspirin 81 mg tablet,chewable 81 mg PO DAILY acetaminophen [Tylenol Extra Strength] 500 mg tablet 500 mg PO QID PRN (Reason: Pain) tramadol 50 mg tablet 50 mg PO Q6H PRN (Reason: Pain) PreserVision AREDS-2 250-90-40-1 mg capsule 1 tab PO BID Jardiance 25 mg tablet 25 mg PO DAILY enalapril maleate 2.5 mg tablet 2.5 mg PO DAILY Qty: 90 3RF fluconazole [Diflucan] 150 mg tablet 150 mg PO Q3D Qty: 5 0RF Rx Instructions: Take one tab by mouth every 3 days. albuterol sulfate 90 mcg/actuation HFA aerosol inhaler 1 puff INHALATION Q4H PRN (Reason: Shortness Of Breath) colchicine (gout) 0.6 mg tablet 0.6 mg PO DAILY Trulicity 4.5 mg/0.5 mL pen injector 4.5 mg SUBCUT Q7D Rx Instructions: ON FRIDAY Discontinued cefdinir 300 mg capsule 300 mg PO BID 10 Days Qty: 20 0RF doxycycline hyclate 100 mg Capsule 100 mg PO BID Discharge Orders: Discharge Order (Routine); Ordered 01/21/23 Ordered By: Eladio Gallardo Referrals: Roel Retana DO [Primary Care Provider] - Discharge Diet: Diabetic Discharge Activity: Increase activity as tolerated Patient Instructions: Opioid Safety Discharge Attestations Time Spent in Discharge Care*: greater than 30 min Quality Metrics Clinical Quality Measures [ No reported AMI, CVA or VTE this stay] Coding Level of Care Code Acute Code for Chg Fwd Diagnoses Recurrent UTI N39.0 Creatinine elevation R79.89 Acquired hypothyroidism E03.9 Type 2 diabetes mellitus with diabetic nephropathy E11.21 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
[2023-01-21] MEDS: levothyroxine 125 mcg Tablet PO (08:52)
[2023-01-21] MEDS: levETIRAcetam 500 mg Tablet 750 MG PO (08:52)
[2023-01-21] MEDS: colchicine 0.6 mg Tablet PO (08:52)
[2023-01-21] MEDS: aspirin 81 mg Chew Tablet PO (08:52)
[2023-01-21] MEDS: pramipexole 0.25 mg Tablet PO (08:52)
== END 2023-01-21 10:47 | disposition home or self-care (01) ==
LOC: ER 16:49 → MEDSURG 18:19
PROVIDERS: Admitting Provider Internal Medicine; Emergency Provider Nurse Practitioner; PCP Family Medicine; Visit Provider Internal Medicine
DX: N39.0 Urinary tract infection, site not specified (principal); R79.89 Other specified abnormal findings of blood chemistry; E03.9 Hypothyroidism, unspecified; E11.21 Type 2 diabetes mellitus with diabetic nephropathy; I10 Essential (primary) hypertension; Z79.82 Long term (current) use of aspirin; E11.40 Type 2 diabetes mellitus with diabetic neuropathy, unspecified; Z87.891 Personal history of nicotine dependence; R19.7 Diarrhea, unspecified
CPT/HCPCS: 36415; 36416; 71045; 74177; 80048; 80053; 81001; 82607; 82962; 83735; 83880; 84100; 84145; 84484; 85025; 86140; 87086; 87324; 87449; 90471; 90732; 93005; 96361; 96365; 99285; G0378; J0696; J7030; J7040; Q9967

== ENCOUNTER → 2023-01-31 09:19 | Outpatient (BNVA) | payer MEDICARE, SELFPAY | PROVIDERS: PCP Family Medicine; Visit Provider Internal Medicine Pulmonary Disease | DX: R91.8 Other nonspecific abnormal finding of lung field (principal); K63.5 Polyp of colon; Z87.891 Personal history of nicotine dependence; Z80.1 Family history of malignant neoplasm of trachea, bronchus and lung; Z80.0 Family history of malignant neoplasm of digestive organs; Z80.6 Family history of leukemia | CPT/HCPCS: 99214 ==

== ENCOUNTER → 2023-03-06 09:55 | Outpatient (BNVA) | payer MEDICARE, SELFPAY | PROVIDERS: PCP Family Medicine; Visit Provider Nurse Practitioner Women's Health | DX: N39.0 Urinary tract infection, site not specified (principal); R31.9 Hematuria, unspecified | CPT/HCPCS: 84315; 87086 ==

== ENCOUNTER → 2023-03-19 09:09 | Outpatient (BNVA) | payer MEDICARE, SELFPAY | PROVIDERS: PCP Family Medicine; Visit Provider Family Medicine | DX: N39.0 Urinary tract infection, site not specified (principal); M79.89 Other specified soft tissue disorders; E03.9 Hypothyroidism, unspecified; R31.9 Hematuria, unspecified; K63.5 Polyp of colon; Z80.0 Family history of malignant neoplasm of digestive organs | CPT/HCPCS: 81000 ==

== ENCOUNTER 2023-03-21 14:26 | Emergency (ER) | payer MEDICARE, SELFPAY ==
[2023-03-21 14:32] VITALS: BP 157/82; PULSE 100; RESP 17; TEMP 36.6; O2SAT 98; BMI 42.4
[2023-03-21 15:36] LABS: Basophils % 0.5 %; Eosinophils # 0.1 10^3/uL (0.0-0.8); Eosinophils % 1.5 %; Hematocrit 40.2 % (36-47); Lymphocytes # 2.5 10^3/uL (0.8-4.8); Lymphocytes % 29.4 %; Mean Corpuscular HGB Conc 32.8 g/dL (30-55); Mean Corpuscular Hemoglobin 31.3 pg (27-33); Mean Corpuscular Volume 95.3 fl (85-98); Mean Platelet Volume 8.6 fL (7.4-10.4); Monocytes # 0.5 10^3/uL (0.2-0.9); Monocytes % 6.2 %; Neutrophils # 5.23 10^3/uL (1.8-7.7); Neutrophils % 62.2 %; Nucleated Red Blood Cells % 0 %; Platelet Count 295 10^3/cmm (157-399); Red Blood Count 4.22 10^6/uL (3.85-5.65); Red Cell Distribution Width 12.2 % (12.1-15.1); White Blood Count 8.41 10^3/uL (3.29-11.43)
[2023-03-21 15:56] LABS: Alanine Aminotransferase 23 U/L (0-33); Albumin Level 3.4 g/dL (3.5-5.2); Alkaline Phosphatase 131 U/L (35-105); Anion Gap 16.2 (5-19); Aspartate Amino Transferase 16 U/L (0-32); Blood Urea Nitrogen 26 mg/dL (8-23); Carbon Dioxide 26 mmol/L (22-29); Chloride 99 mmol/L (98-107); Globulin 4.4 g/dL (1.3-4.6); Glucose 305 mg/dL (65-115); Osmolality Calculated 300 mOsm/kg (285-295); Potassium 4.2 mmol/L (3.5-5.1); Sodium 137 mmol/L (136-145); Total Bilirubin 0.6 mg/dL (0.15-1.2); Total Protein 7.8 g/dL (6.6-8.7)
[2023-03-21 16:23] LABS: Bilirubin Urine Neg (Negative); Blood Urine 3+ (Negative); Glucose Urine UA 4+ (Normal); Ketones Urine Negative (Negative); Leukocyte Esterase Urine 2+ (Negative); Nitrate Urine Negative (Negative); Protein Urine Trace (Negative); Urine Appearance Cloudy (CLEAR); Urine Color Light yellow (Yellow); Urobilinogen Urine Norm (Negative); pH Urine 5 (5-7)
[2023-03-21 16:24] LABS: Add Urine Microscopic? YES
[2023-03-21 16:25] LABS: Add Urine Culture? Yes; Bacteria Urine TRACE /hpf; WBC Urine TOO NUMEROUS TO CNT /hpf (0-5)
--- NOTE | 2023-03-21 16:38 | W.ED.FEMALGU ---
HPI - Female Genitourinary General: Chief complaint: Vaginal Bleeding Stated complaint: urinary Time Seen by Provider: 03/21/23 15:06 History of Present Illness: 77-year-old female presents emergency room for complaint of vaginal bleeding within the past 2 weeks. Patient also reveals having some blood in the urine but in the same duration. She states that she is seeing her primary physician and urologist in [place] for this complaint and CT scan was done without any solid diagnosis. She presents emergency room today with vague complaint of vaginal bleeding and reveals that she used about 8 pads. Patient also mentioned having some blood in the urine. Patient reveals a history of hysterectomy but denies any vaginal discharge, flank pain, nausea, vomiting or diarrhea. Bloody stool. Associated symptoms: Deny vaginal bleeding or vaginal discharge Review of Systems General: Reports: 10 or more systems reviewed and unremarkable except in HPI and below Const: Denies: fever(s), chills, body aches or change in appetite : Reports: urinary urgency, hematuria and vaginal bleeding; Denies: flank pain, difficulty voiding, dysuria, genital lesions, genital pruritis or vaginal discharge PFSH ED PFSH: Medical History Acquired hypothyroidism Adrenal adenoma After cataract, bilateral Angina at rest BMI 40.0-44.9, adult Carpal tunnel syndrome on both sides Creatinine elevation CRP elevated Diabetes mellitus type 2, uncontrolled Essential hypertension FH: total knee replacement Multiple lung nodules on CT Nonfunctional vagus nerve stimulator Recurrent UTI Type 2 diabetes mellitus with diabetic nephropathy UTI (urinary tract infection) Surgical History H/O tubal ligation History of appendectomy Hx laparoscopic cholecystectomy Hx of tonsillectomy Family History Sister Cancer, Onset Age: 6 leukemia - . Father CAD (coronary artery disease) Stroke Mother Chronic kidney disease (CKD) Brother Cancer Brother Cancer Lung - Bone - Brain Stroke Denies family history of Colon cancer Ovarian cancer Diabetes Heart disease Hypercholesteremia Breast cancer Hypertension Uterine cancer Thyroid disease Social History Smoking and tobacco/nicotine status: former use of tobacco/nicotine Quit status (tobacco/nicotine): has quit using Year quit tobacco: 1959 Former quit date comment: 1-2 ppd X 1 year Second hand smoke exposure: No Alcohol intake: never Substance/Drug Use: never Current gender identity: Female Female Reproductive History: Spontaneous abortions: No Physical Exam Const: COMMON NORMALS: no acute distress, average body habitus, patient oriented x3, no limitations, healthy appearing, alert and well nourished Neck/C-Spine: COMMON NORMALS: no JVD Chest: COMMONS NORMALS: normal inspection of the chest, normal palpation of entire chest wall, normal inspection of the breasts and normal palpation of the breasts Breast/axilla inspection: Yes normal inspection of the breasts BREAST/AXILLA PALPATION: Yes normal palpation of the breasts Resp: COMMON NORMALS: normal respiratory effort, No retractions, No use of accessory muscles, clear to auscultation bilaterally and percussion normal AUSCULTATION: clear to auscultation bilaterally PERCUSSION: percussion normal Cardio: COMMON NORMALS: no JVD, regular rate, regular rhythm, S1 normal heart sound present, S2 normal heart sound present, No gallops present (Cardio), No clicks present (Cardio), No murmurs present (Cardio), No rub (Cardio) and Peripheral pulses 2+ throughout RATE: regular rate RHYTHM: regular rhythm HEART SOUNDS: S1 normal heart sound present and S2 normal heart sound present PERIPHERAL PULSES: Peripheral pulses 2+ throughout : SPECULUM EXAM - VAGINA: No Vaginal cyst present, No foreign body, No laceration, No lesion, No vaginal bleeding, No tissue present in vagina, No mass, No swelling and No tenderness OB/EXTERNAL & SPECULUM: no foreign bodies, no tissue noted in vagina and vaginal bleeding Extremity: COMMON NORMALS: normal to inspection, full ROM, capillary refill normal, no joint enlargement, no clubbing, cyanosis or edema, no calf tenderness and no pedal edema Neuro: COMMON NORMALS: patient oriented x3 SENSORIUM/ORIENTATION: Yes alert Course Vital Signs: Vital signs: Vital Signs Temperature 98 F 03/21/23 14:32 Pulse Rate 104 H 03/21/23 17:05 Respiratory Rate 16 03/21/23 17:05 Blood Pressure 137/69 03/21/23 17:05 Pulse Oximetry 99 03/21/23 17:05 Oxygen Delivery Me thod Room Air 03/21/23 14:32 MDM - Female Medical Decision Making Patient made comfortable emergency room patient had extensive work-up done including CBC, CMP, UA. She had a pelvic examination done by me. Patient was found to have hysterectomy so ultrasound was canceled. Patient be treated for UTI and close follow-up PCP recommended for further evaluation and treatment. Differential Diagnosis Likely abdominal pain, calculus of kidney, constipation, diverticulitis, endometriosis (UTI, cystitis, vaginal bleeding. Uterine cancer uterine mass), gastroenteritis and pancreatitis Lab Data 03/21/23 15:14 03/21/23 15:14 Laboratory Results WBC 8.41 10^3/uL (3.29-11.43) 03/21/23 15:14 RBC 4.22 10^6/uL (3.85-5.65) 03/21/23 15:14 Hgb 13.20 g/dL (11.27-16.99) 03/21/23 15:14 Hct 40.2 % (36-47) 03/21/23 15:14 MCV 95.3 fl (85-98) 03/21/23 15:14 MCH 31.3 pg (27-33) 03/21/23 15:14 MCHC 32.8 g/dL (30-55) 03/21/23 15:14 RDW 12.2 % (12.1-15.1) 03/21/23 15:14 Plt Count 295 10^3/cmm (157-399) 03/21/23 15:14 MPV 8.6 fL (7.4-10.4) 03/21/23 15:14 Neut % (Auto) 62.2 % 03/21/23 15:14 Lymph % (Auto) 29.4 % 03/21/23 15:14 [place] % (Auto) 6.2 % 03/21/23 15:14 Eos % (Auto) 1.5 % 03/21/23 15:14 Baso % (Auto) 0.5 % 03/21/23 15:14 Neut # (Auto) 5.23 10^3/uL (1.8-7.7) 03/21/23 15:14 Lymph # (Auto) 2.5 10^3/uL (0.8-4.8) 03/21/23 15:14 [place] # (Auto) 0.5 10^3/uL (0.2-0.9) 03/21/23 15:14 Eos # (Auto) 0.1 10^3/uL (0.0-0.8) 03/21/23 15:14 Baso # (Auto) 0.0 10^3/uL (0.0-0.1) 03/21/23 15:14 Nucleated RBC % (auto) 0 % 03/21/23 15:14 Nucleated RBCs # 0.0 /100WBC 03/21/23 15:14 Sodium 137 mmol/L (136-145) 03/21/23 15:14 Potassium 4.2 mmol/L (3.5-5.1) 03/21/23 15:14 Chloride 99 mmol/L (98-107) 03/21/23 15:14 Carbon Dioxide 26 mmol/L (22-29) 03/21/23 15:14 Anion Gap 16.2 (5-19) 03/21/23 15:14 BUN 26 mg/dL (8-23) H 03/21/23 15:14 Creatinine 1.4 mg/dL (0.5-0.9) H 03/21/23 15:14 GFR Calculation Not Reportable 03/21/23 15:14 Glucose 305 mg/dL (65-115) H 03/21/23 15:14 Calculated Osmolality 300 mOsm/kg (285-295) H 03/21/23 15:14 Calcium 9.0 mg/dL (8.5-10.5) 03/21/23 15:14 Total Bilirubin 0.6 mg/dL (0.15-1.2) 03/21/23 15:14 AST 16 U/L (0-32) 03/21/23 15:14 ALT 23 U/L (0-33) 03/21/23 15:14 Alkaline Phosphatase 131 U/L (35-105) H 03/21/23 15:14 Total Protein 7.8 g/dL (6.6-8.7) 03/21/23 15:14 Albumin 3.4 g/dL (3.5-5.2) L 03/21/23 15:14 Globulin 4.4 g/dL (1.3-4.6) 03/21/23 15:14 Urine Color Light yellow (Yellow) 03/21/23 15:34 Urine Appearance Cloudy (CLEAR) A 03/21/23 15:34 Urine pH 5 (5-7) 03/21/23 15:34 Ur Specific [place] 1.010 (1.005-1.030) 03/21/23 15:34 Urine Protein Trace (Negative) 03/21/23 15:34 Urine Glucose (UA) 4+ (Normal) H 03/21/23 15:34 Urine Ketones Negative (Negative) 03/21/23 15:34 Urine Blood 3+ (Negative) H 03/21/23 15:34 Urine Nitrate Negative (Negative) 03/21/23 15:34 Urine Bilirubin Neg (Negative) 03/21/23 15:34 Urine Urobilinogen Norm mg/dL (Negative) 03/21/23 15:34 Ur Leukocyte Esterase 2+ (Negative) H 03/21/23 15:34 Urine RBC 5-10 /hpf (0-2) H 03/21/23 15:34 Urine WBC Too numerous to cnt /hpf (0-5) H 03/21/23 15:34 Ur Squamous Epith Cells None /hpf (0-5) 03/21/23 15:34 Amorphous Sediment Not Reportable 03/21/23 15:34 Urine Bacteria Trace /hpf (NONE) 03/21/23 15:34 No radiology studies performed this visit Discharge Plan Discharge Patient Disposition: Home Clinical Impression: UTI (urinary tract infection) Condition: Stable Prescriptions: New Macrobid 100 mg capsule 100 mg PO BID 10 Days Qty: 20 0RF Rx Instructions: must administer with a meal/food No Action aspirin 81 mg tablet,chewable 81 mg PO DAILY acetaminophen [Tylenol Extra Strength] 500 mg tablet 500 mg PO QID PRN (Reason: Pain) tramadol 50 mg tablet 50 mg PO Q6H PRN (Reason: Pain) PreserVision AREDS-2 250-90-40-1 mg capsule 1 tab PO BID Trulicity 1.5 mg/0.5 mL pen injector 1.5 mg SUBCUT .weekly Qty: 2 5RF furosemide [Lasix] 40 mg tablet 40 mg PO DAILY Qty: 90 3RF glimepiride 4 mg tablet 8 mg PO BID Qty: 60 2RF levetiracetam 750 mg tablet 750 mg PO BID Qty: 60 2RF levothyroxine 125 mcg tablet 125 mcg PO DAILY Qty: 90 1RF pramipexole 0.25 mg tablet 0.25 mg PO BID Qty: 60 5RF simvastatin 20 mg tablet 20 mg PO DAILY Qty: 90 3RF levofloxacin 750 mg tablet 750 mg PO DAILY 10 Days Qty: 10 0RF colchicine (gout) 0.6 mg tablet 0.6 mg PO DAILY Qty: 10 2RF albuterol sulfate 90 mcg/actuation HFA aerosol inhaler 1 puff INHALATION Q4H PRN (Reason: Shortness Of Breath) Discharge Orders: Discharge ED (Routine); Ordered 03/21/23 Ordered By: Eric Balderas Referrals: Roel Retana DO [Primary Care Provider] - Discharge Diet: Advance as tolerated Discharge Activity: Resume usual activity Patient Instructions: Opioid Safety, Pain Management Coding Level of Care Code ED Senior Hydrogeologist for 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
[2023-03-21 17:05] VITALS: BP 137/69; PULSE 104; RESP 16; O2SAT 99
== END 2023-03-21 17:07 | disposition home or self-care (01) ==
PROVIDERS: Emergency Provider Family Medicine; PCP Family Medicine
DX: N39.0 Urinary tract infection, site not specified (principal); Z79.82 Long term (current) use of aspirin; Z79.85 Long-term (current) use of injectable non-insulin antidiabetic drugs; Z79.84 Long term (current) use of oral hypoglycemic drugs; Z87.891 Personal history of nicotine dependence; E11.9 Type 2 diabetes mellitus without complications; I10 Essential (primary) hypertension; Z87.440 Personal history of urinary (tract) infections
CPT/HCPCS: 36415; 80053; 81001; 85025; 87086; 99283

== ENCOUNTER → 2023-03-26 14:40 | Outpatient (BNVA) | payer MEDICARE, SELFPAY | PROVIDERS: PCP Family Medicine; Referring Provider Family Medicine; Visit Provider Surgery | DX: K92.1 Melena (principal) | CPT/HCPCS: 99204 ==

== ENCOUNTER 2023-04-18 09:01 | Day surgery (SDC) | payer MEDICARE, SELFPAY ==
[2023-04-18 09:25] VITALS: BP 153/71; PULSE 66; RESP 16; TEMP 36.2; O2SAT 100
[2023-04-18] MEDS: sodium chloride 0.9% 1,000 ML 30 ML IV (09:37)
[2023-04-18 09:40] LABS: Glucose Point of Care 112 mg/dL (70-110)
--- NOTE | 2023-04-18 09:48 | P.ANESASSM_ITS ---
Pre-Anesthetic Assessment Height/Weight: Height 1.47 m Weight 91.172 kg Temp Pulse Resp BP Pulse Ox O2 Del Method 97.1 F L 66 16 153/71 100 Room Air 04/18/23 09:25 04/18/23 09:25 04/18/23 09:25 04/18/23 09:25 04/18/23 09:25 04/18/23 09:25 Preop Diagnosis: screening Operation Date: 04/18/23 10:00 Proposed Procedures p 13575 colon G0121 screen colon A risk Z12.11(Not Applicable) - Howard Alcaraz, DO Was Beta Saurav taken within 24 hours: N/A Was Clonidine taken within 24 hours: N/A Last intake: Intake Last Liquid Date 04/17/23 Last Liquid Time 23:50 Last Solid Date 04/16/23 Last Solid Time 16:30 Social No alcohol and No tobacco Exam alert, oriented x 3, clear to auscultation bilaterally and regular rate & rhythm Airway Submandibular: within normal limits Cervical ROM: within normal limits Mallampati: Class I Dentition: full History/ROS No significant history except as noted Pulmonary None reported CV/HEM Hypertension chest pain one month ago, full workup negative None reported Hepatic None reported GI Gastroesophageal Reflux Disease Metabolic Diabetes Mellitus, Morbid Obesity and Thyroid Disease Musc/skel Lower Back Pain multiple back surgeries, stimulator on Neuropsych Anxiety and Depression right foot droop from back surgery Anesthetic Plan ASA status: 3 Anesthesia: Anesthesia Evaluation and MAC Risk of > 500 ml blood loss (7ml/kg in children): Yes, adequate IV access and fluids planned Medications/Allergies Home Medications Medication Instructions Recorded Confirmed Last Taken Type acetaminophen 500 mg tablet 500 mg PO QID PRN Pain 08/23/22 04/17/23 04/17/23 History (Tylenol Extra Strength) aspirin 81 mg chewable tablet 81 mg PO DAILY 08/23/22 04/17/23 04/16/23 History tramadol 50 mg tablet 50 mg PO Q6H PRN Pain 08/23/22 04/17/23 04/17/23 History vit C 250 mg-vit E 90 mg-zinc 40 1 tab PO BID 11/19/22 04/17/23 04/17/23 History mg-copper 1 [id number] capsule (PreserVision AREDS-2) albuterol sulfate 90 mcg/actuation 1 puff inhalation Q4H PRN 08/24/23 12/07/23 12/07/23 History aerosol inhaler Shortness Of Breath colchicine (gout) 0.6 mg tablet 0.6 mg PO DAILY #10 tabs 03/13/23 04/17/23 04/17/23 Rx dulaglutide 1.5 mg/0.5 mL 1.5 mg (0.5 mL) SUBCUT .weekly #2 03/19/23 04/17/23 04/17/23 Rx subcutaneous pen injector mL (Trulicity) furosemide 40 mg tablet (Lasix) 40 mg PO DAILY #90 tabs 03/19/23 04/17/23 04/17/23 Rx glimepiride 4 mg tablet 8 mg (2 x 4 mg) PO BID #60 tabs 03/19/23 04/17/23 04/16/23 Rx levofloxacin 750 mg tablet 750 mg PO DAILY 10 days #10 tabs 03/19/23 04/17/23 04/17/23 Rx levothyroxine 125 mcg tablet 125 mcg PO DAILY #90 tabs 03/19/23 04/17/23 04/18/23 Rx simvastatin 20 mg tablet 20 mg PO DAILY #90 tabs 03/19/23 04/17/23 04/17/23 Rx levetiracetam 750 mg tablet 750 mg PO BID 04/17/23 04/17/23 04/17/23 History (Keppra) pramipexole 0.25 mg tablet 0.25 mg PO BID 04/17/23 04/17/23 04/17/23 History (Mirapex) Allergies Allergy/AdvReac Type Severity Reaction Status Date / Time azithromycin Allergy ALGY-Difficulty Verified 04/17/23 09:18 Breathing carbamazepine [From Tegretol] Allergy Unknown Verified 04/17/23 09:18 cephalexin Allergy Unknown Verified 04/17/23 09:18 colchicine Allergy Unknown Verified 04/17/23 09:18 cyclobenzaprine Allergy Unknown Verified 04/17/23 09:18 [From Flexeril] fentanyl Allergy doesn't Verified 04/17/23 09:18 want to take fluconazole Allergy Unknown Verified 04/17/23 09:18 gabapentin Allergy Unknown Verified 04/17/23 09:18 hydrocodone [From [place]] Allergy Unknown Verified 04/17/23 09:18 hydroxychloroquine Allergy Unknown Verified 04/17/23 09:18 hyoscyamine Allergy Unknown Verified 04/17/23 09:18 naproxen [From Naprosyn] Allergy Unknown Verified 04/17/23 09:18 oxybutynin [From Ditropan] Allergy Unknown Verified 04/17/23 09:18 phenytoin [From Dilantin] Allergy Unknown Verified 04/17/23 09:18 progesterone Allergy Unknown Verified 04/17/23 09:18 [From Prometrium] solifenacin [From Vesicare] Allergy Unknown Verified 04/17/23 09:18 Sulfa (Sulfonamide Allergy Unknown Verified 04/17/23 09:18 Antibiotics) sulfamethoxazole Allergy Unknown Verified 04/17/23 09:18 [From Bactrim] trimethoprim [From Bactrim] Allergy Unknown Verified 04/17/23 09:18 valdecoxib [From Bextra] Allergy Unknown Verified 04/17/23 09:18 Current Medications Generic Name Dose Route Start Last Admin Trade Name Freq PRN Reason Stop Dose Admin Sodium Chloride 1,000 mls @ 30 mls/hr 04/18/23 09:15 04/18/23 09:37 Sodium Chloride 0.9% IV 04/19/23 09:14 30 mls/hr .Q24H TUTU Administration PFSH Anesthesia Medical History Acquired hypothyroidism Adrenal adenoma After cataract, bilateral Angina at rest BMI 40.0-44.9, adult Carpal tunnel syndrome on both sides Creatinine elevation CRP elevated Diabetes mellitus type 2, uncontrolled Essential hypertension FH: total knee replacement Multiple lung nodules on CT Nonfunctional vagus nerve stimulator Recurrent UTI Type 2 diabetes mellitus with diabetic nephropathy UTI (urinary tract infection) Surgical History H/O tubal ligation History of appendectomy Hx laparoscopic cholecystectomy Hx of tonsillectomy Family History Sister Cancer, Onset Age: 6 leukemia - . Father CAD (coronary artery disease) Stroke Mother Chronic kidney disease (CKD) Brother Cancer Brother Cancer Lung - Bone - Brain Stroke Denies family history of Colon cancer Ovarian cancer Diabetes Heart disease Hypercholesteremia Breast cancer Hypertension Uterine cancer Thyroid disease Social History Smoking and tobacco/nicotine status: former use of tobacco/nicotine Quit status (tobacco/nicotine): has quit using Year quit tobacco: 1960 Former quit date comment: 1-2 ppd X 1 year Second hand smoke exposure: No Alcohol intake: never Substance/Drug Use: never Current gender identity: Female Female Reproductive History Spontaneous abortions: No Data Anesthesia Cardiac Studies: No Data to Display
--- NOTE | 2023-04-18 10:14 | W.PM.OPSUD ---
Surgery/Procedure H&P Update DATE OF PROCEDURE: April 18, 2023 DATE H&P PERFORMED: 03/26/23 H&P UPDATE INFORMATION: I have reviewed H&P completed within last 30 days, I have examined patient prior to procedure and No changes to prior documentation PREOP DIAGNOSIS: screening PLANNED PROCEDURE: Operation Date: 04/18/23 10:00 Proposed Procedures p 12604 colon G0121 screen colon A risk Z12.11(Not Applicable) - Howard Alcaraz, DO
--- NOTE | 2023-04-18 10:26 | PC.NURSE ---
patient only has 1 hearing aid, placed in container and given to recovery nurse. dentures and glasses given to recovery nurse as well.
[2023-04-18 11:04] VITALS: BP 113/63; PULSE 63; RESP 18; TEMP 36.1; O2SAT 92
[2023-04-18 11:16] VITALS: BP 134/67; PULSE 63; RESP 18; O2SAT 94
--- NOTE | 2023-04-18 14:48 | ANE.PACU2 ---
Inpatient post-anesthesia follow up: Airway intact: Yes Vital signs: Temperature 97 F Pulse Rate 63 Respiratory Rate 18 Blood Pressure 134/67 Pulse Oximetry 94 Oxygen Delivery Me thod Room Air Oxygen Flow Rate Fraction of Inspir ed Oxygen Hydration adequate: Yes Nausea and vomiting: No Pain level: 2 Mental status: Baseline
== END 2023-04-18 11:45 | disposition home or self-care (01) ==
PROVIDERS: PCP Family Medicine; Visit Provider Surgery
PROC: 0DJD8ZZ Inspection of Lower Intestinal Tract, Via Natural or Artificial Opening Endoscopic (ICD-10-PCS; CPT 45378; principal; 2023-04-18 10:00)
DX: Z12.11 Encounter for screening for malignant neoplasm of colon (principal); K51.40 Inflammatory polyps of colon without complications; I10 Essential (primary) hypertension; K21.9 Gastro-esophageal reflux disease without esophagitis; E11.9 Type 2 diabetes mellitus without complications; E66.01 Morbid (severe) obesity due to excess calories; Z68.41 Body mass index [BMI] 40.0-44.9, adult; Z79.82 Long term (current) use of aspirin; E03.9 Hypothyroidism, unspecified; Z87.891 Personal history of nicotine dependence
CPT/HCPCS: 36416; 45385; 82962; 88305; J2704; J7030

== ENCOUNTER 2023-04-23 02:17 | Emergency (ER) | payer MEDICARE, SELFPAY ==
[2023-04-23 02:18] VITALS: BP 120/67; PULSE 77; RESP 18; TEMP 36.5; O2SAT 98; BMI 42.0
--- NOTE | 2023-04-23 02:24 | W.ED.BACK ---
HPI - Back Pain/Injury General: Chief Complaint: Back Pain/Injury Stated Complaint: back pain Time Seen by Provider: 04/23/23 02:19 History of Present Illness: 77-year-old female presents emerged part via EMS personnel with complaints of back pain. She states she had a neuro stimulator placed in her back for chronic pain control and for the previous 3 days she feels like it is intermittently shocking her causing her to have muscle twitching. She denies bowel or bladder incontinence. She denies recent injury or trauma. She denies numbness or tingling to the extremities. She states that it is not impairing her activities of daily living but has become more irritating and worrisome over the last 3 days. She states nothing seems to make the neurostimulator improve its intermittent stimulation causing her to have muscle twitches. Review of Systems General: Reports: 10 or more systems reviewed and unremarkable except in HPI and below Musc: Reports: back pain PFSH ED PFSH: Medical History Acquired hypothyroidism Adrenal adenoma After cataract, bilateral Angina at rest BMI 40.0-44.9, adult Carpal tunnel syndrome on both sides Creatinine elevation CRP elevated Diabetes mellitus type 2, uncontrolled Essential hypertension FH: total knee replacement Multiple lung nodules on CT Nonfunctional vagus nerve stimulator Recurrent UTI Type 2 diabetes mellitus with diabetic nephropathy UTI (urinary tract infection) Surgical History H/O tubal ligation History of appendectomy Hx laparoscopic cholecystectomy Hx of tonsillectomy Family History Sister Cancer, Onset Age: 6 leukemia - . Father CAD (coronary artery disease) Stroke Mother Chronic kidney disease (CKD) Brother Cancer Brother Cancer Lung - Bone - Brain Stroke Denies family history of Colon cancer Ovarian cancer Diabetes Heart disease Hypercholesteremia Breast cancer Hypertension Uterine cancer Thyroid disease Social History Smoking and tobacco/nicotine status: former use of tobacco/nicotine Quit status (tobacco/nicotine): has quit using Year quit tobacco: 1959 Former quit date comment: 1-2 ppd X 1 year Second hand smoke exposure: No Alcohol intake: never Substance/Drug Use: never Current gender identity: Female Female Reproductive History: Spontaneous abortions: No Physical Exam Narrative: EXAM NARRATIVE: Constitutional: the patient appears well nourished and with normal development. Vital signs reviewed as documented. HENMT: Normocephalic, atraumatic. Extermal ears with normal appearance without drainage. Nose without drainage, normal appearance. Mucus membranes moist. Neck is supple, No jugular venous distension, trachea is midline, no appreciable carotid bruits. No lymphadenopathy. No meningeal signs. Flexion, extension and lateral rotation is without pain. Eyes: Pupils are equal, round, reactive to light and accommodation. No scleral icterus. Extra-ocular movement are intact. Thorax is symmetrical and with equal rise and fall with respirations. Resp: Lungs are clear to auscultation. No wheezes, rales, crackles or ronchi at present. Cardio: Regular rate and rhythm. Positive S1, S2. No appreciable murmurs, rubs or gallops. GI: Abdominal exam reveals normal bowel sounds to all quadrants. No organomegaly. No obvious palpable masses noted. No hepatomegally appreciated. Soft, nontender to palpation. Extremity: Extremities are non-edematous and both femoral and pedal pulses are 2+ and equal bilaterally. Moves all extremities well, sensation in all extremities. Neuro: Alert and oriented x4, person, place, time and situation. Cranial nerves II through XII are grossly intact, there is no focal neurological deficits that I can appreciate at present. Motor strength in the upper and lower extremities are equal and bilateral 5/5. Psych: Cooperative, calm, normal thought process, appropriate judgment. Skin: No lesions, rashes. No gross abnormalities noted. Back: Symmetrical, no obvious deformity, No CVA tenderness Course Vital Signs: Vital signs: Vital Signs Temperature 97.7 F 04/23/23 02:18 Pulse Rate 93 04/23/23 03:32 Respiratory Rate 17 04/23/23 03:32 Blood Pressure 141/65 04/23/23 03:32 Pulse Oximetry 96 04/23/23 03:32 Oxygen Delivery Me thod Room Air 04/23/23 02:18 MDM - Back Pain/Injury Medical Decision Making Physical exam completed and documented, I attempted to contact the patient's son at her request. I also advised the patient that she would need to follow-up with her neurologist or primary care to discuss interrogation of the neurostimulator. I was advised by the nursing staff that Dr. Martinez the neurologist here at this hospital may also be able to complete an evaluation and interrogation of the neuro stimulating device. Medical Records I reviewed the patient's medical records. No radiology studies performed this visit Discharge Plan Discharge Patient Disposition: Home Clinical Impression: Complication of implanted electronic neurostimulator of spinal cord Qualifiers: Encounter type: initial encounter Qualified Code(s): T85.9XXA - Unspecified complication of internal prosthetic device, implant and graft, initial encounter Condition: Stable Prescriptions: No Action aspirin 81 mg tablet,chewable 81 mg PO DAILY acetaminophen [Tylenol Extra Strength] 500 mg tablet 500 mg PO QID PRN (Reason: Pain) tramadol 50 mg tablet 50 mg PO Q6H PRN (Reason: Pain) PreserVision AREDS-2 250-90-40-1 mg capsule 1 tab PO BID Trulicity 1.5 mg/0.5 mL pen injector 1.5 mg SUBCUT .weekly Qty: 2 5RF furosemide [Lasix] 40 mg tablet 40 mg PO DAILY Qty: 90 3RF glimepiride 4 mg tablet 8 mg PO BID Qty: 60 2RF levothyroxine 125 mcg tablet 125 mcg PO DAILY Qty: 90 1RF simvastatin 20 mg tablet 20 mg PO DAILY Qty: 90 3RF levofloxacin 750 mg tablet 750 mg PO DAILY 10 Days Qty: 10 0RF colchicine 0.6 mg tablet 0.6 mg PO DAILY Qty: 10 2RF albuterol sulfate 90 mcg/actuation HFA aerosol inhaler 1 puff INHALATION Q4H PRN (Reason: Shortness Of Breath) pramipexole [Mirapex] 0.25 mg tablet 0.25 mg PO BID levetiracetam [Keppra] 750 mg tablet 750 mg PO BID Discharge Orders: Discharge ED (Routine); Ordered 04/23/23 Ordered By: Arcenio Deal Referrals: Irma Martinez MD [Physician] - Roel Retana DO [Primary Care Provider] - Discharge Diet: Advance as tolerated Discharge Activity: Resume usual activity Patient Instructions: Opioid Safety, Pain Management Activity Restrictions/Additional Instructions: Activity Restrictions/Additional Instructions: Thank you for choosing [facility] for your healthcare needs today. Please realize that you were seen in the Emergency Department and that we are providing you with an emergency medical screening exam and this may not be a complete and all inclusive of all the testing and or medical work-up that you may need to determine your ailment or severity of your illness. It is very important that you follow-up as instructed with your Primary care provider or Specialist for additional evaluation and to discuss your medical treatment plan. You may return to the Emergency Department should you have concerns or if your condition changes or worsens in any way. Coding Level of Care Code ED Juice Tester for 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
[2023-04-23 03:32] VITALS: BP 141/65; PULSE 93; RESP 17; O2SAT 96
== END 2023-04-23 03:34 | disposition home or self-care (01) ==
PROVIDERS: Emergency Provider Internal Medicine; PCP Family Medicine
DX: T85.890A Other specified complication of nervous system prosthetic devices, implants and grafts, initial encounter (principal); Y75.1 Therapeutic (nonsurgical) and rehabilitative neurological devices associated with adverse incidents; E11.9 Type 2 diabetes mellitus without complications; I10 Essential (primary) hypertension; E11.21 Type 2 diabetes mellitus with diabetic nephropathy; Z87.891 Personal history of nicotine dependence
CPT/HCPCS: 99281

== ENCOUNTER 2023-04-27 17:08 | Emergency (ER) | payer MEDICARE, SELFPAY ==
[2023-04-27 17:18] VITALS: BP 121/65; PULSE 96; TEMP 36.9; O2SAT 96; BMI 42.0
[2023-04-27 17:27] VITALS: O2SAT 99
[2023-04-27 17:30] VITALS: O2SAT 99
--- NOTE | 2023-04-27 17:35 | XRR_ITS ---
PROCEDURE INFORMATION: Exam: XR Chest Exam date and time: 04/27/2023 6:09 PM Age: 77 years old Clinical indication: Prior surgery; Surgery date: 6+ months; Surgery type: Spinal cord stimulator; Patient HX: Cough; SOB; Covid +; Additional info: Cough; SOB; Covid +. TECHNIQUE: Imaging protocol: Radiologic exam of the chest. Views: 1 view. COMPARISON: CR XR chest 1V portable [id number] 01/19/2023 2:26 PM FINDINGS: Tubes, catheters and devices: Neurostimulator leads overlie the mid to lower thoracic spine. Partially visualized cervical instrumentation device. Lungs: The lungs are normal. Pleural spaces: No pneumothorax, or pleural effusion. Heart/Mediastinum: Cardiac silhouette is within normal limits. Bones/joints: Unremarkable. XR/XR chest 1V [id number] IMPRESSION: No acute findings.
--- NOTE | 2023-04-27 18:49 | W.ED.COVID ---
HPI - COVID General: Chief Complaint: COVID symptoms Stated Complaint: COVID +; SOB; COUGH Time Seen by Provider: 04/27/23 17:23 Source: patient Mode of arrival: EMS Limitations: no limitations History of Present Illness: Patient presents to the emergency department today brought by EMS for evaluation treatment of continued cough and recent diagnosis of COVID. Patient states she was feeling poorly yesterday and went to [facility]. It was there she was tested positive for COVID. She was started on Paxlovid and reports having 2 doses of Paxlovid on board. She states they did not suggest to her any [id number] options for her symptoms. She states she continues to have coughing and is coughing so hard that she is having small specks of what she believes is blood. She denies chest pains. She feels tight in her chest and is experiencing headache. She has not had vomiting or diarrhea but states she has had some decreased oral intake since being ill. She does live at home alone but reports her brother is close and checks on her. Patient denies any previous history of COPD or need for supplemental oxygen. COVID Results: No Data to Display Review of Systems General: Reports: 10 or more systems reviewed and unremarkable except in HPI and below PFSH ED PFSH: Medical History BMI 40.0-44.9, adult FH: total knee replacement Recurrent UTI CRP elevated Angina at rest Creatinine elevation After cataract, bilateral Carpal tunnel syndrome on both sides Nonfunctional vagus nerve stimulator Multiple lung nodules on CT Adrenal adenoma Type 2 diabetes mellitus with diabetic nephropathy UTI (urinary tract infection) Acquired hypothyroidism Essential hypertension Diabetes mellitus type 2, uncontrolled Surgical History History of appendectomy Hx of tonsillectomy Hx laparoscopic cholecystectomy H/O tubal ligation Family History Sister Cancer, Onset Age: 6 leukemia - . Father CAD (coronary artery disease) Stroke Mother Chronic kidney disease (CKD) Brother Cancer Brother Cancer Lung - Bone - Brain Stroke Denies family history of Colon cancer Ovarian cancer Diabetes Heart disease Hypercholesteremia Breast cancer Hypertension Uterine cancer Thyroid disease Social History Smoking and tobacco/nicotine status: former use of tobacco/nicotine Quit status (tobacco/nicotine): has quit using Year quit tobacco: 1959 Former quit date comment: 1-2 ppd X 1 year Second hand smoke exposure: No Alcohol intake: never Substance/Drug Use: never Current gender identity: Female Female Reproductive History: Spontaneous abortions: No Physical Exam Const: COMMON NORMALS: patient oriented x3 and alert OTHER: Patient appears tired but nontoxic. Vital signs are stable. Eye: COMMON NORMALS: Equal, round and reactive pupils present, EOMs intact bilaterally and conjunctivae normal CONJUNCTIVA: Yes conjunctivae normal PUPIL: Yes Equal, round and reactive pupils present Neck/C-Spine: COMMON NORMALS: no JVD Lymph: LYMPHATIC: no lymphadenopathy noted Resp: COMMON NORMALS: normal respiratory effort, No retractions and No use of accessory muscles OTHER: No rhonchi, wheezes, or consolidation appreciated. Cardio: COMMON NORMALS: no JVD and regular rate RATE: regular rate : COMMON NORMALS: Yes no CVA tenderness BLADDER/KIDNEY EXAM: Yes no CVA tenderness Back/Pelvis: COMMON NORMALS: no CVA tenderness, thoracic and lumbar spine normal to inspection and thoraco-lumbar ROM normal Extremity: COMMON NORMALS: normal to inspection, full ROM and no pedal edema Neuro: COMMON NORMALS: patient oriented x3 SENSORIUM/ORIENTATION: Yes alert Psych: COMMON NORMALS: mental status grossly normal, Normal thought process present, cooperative, normal affect and speech normal SPEECH: Yes normal speech THOUGHT PROCESS: Normal thought process present Skin: COMMON NORMALS: no rashes or lesions noted and turgor normal GENERAL SKIN EXAM: no rashes or lesions noted and turgor normal Course Vital Signs: Vital signs: Vital Signs Temperature 98.4 F 04/27/23 17:18 Pulse Rate 94 04/27/23 19:23 Blood Pressure 124/60 04/27/23 19:23 Pulse Oximetry 94 04/27/23 19:23 Oxygen Delivery Me thod Room Air 04/27/23 17:30 [facility] - COVID Medical Decision Making Patient presented to the emergency department today with complaints of cough with COVID-positive status as of yesterday. Patient was given Paxil bid and currently has it with her in her purse. We discussed the antiviral medication and the expected clinical course of COVID. Explained that as an antiviral medication it stops the replication of the virus however, the viral load which is present will still require her body to fight it off which will still result in symptoms-especially cough, body aches, and headache. Patient has not been taking anything else for her symptoms and with a long list of allergies, I did go through her list and will treat with Tessalon Perles and some Robitussin. Given that they can be similar medications I did do a half dose of the Tessalon Perles. We discussed the potential for developing a COVID-pneumonia however, it often takes 10 to 14 days to develop. I have requested she have a family member check on her daily and requested she use the pulse oximeter she has to monitor her oxygen at home. Went over concerns for dehydration and developing pneumonias for which she needs to be seen and reevaluated. Patient verbalizes understanding and agreement to treatment plan. Differential Diagnosis Likely COVID 19; Unlikely influenza, other viral infection, bacterial infection, pneumonia, copd exacerbation, CHF exacerbation or overdose/intoxication Lab Data Radiology Impressions Chest X-Ray 04/27/23 17:35 IMPRESSION: No acute findings. No Data to Display All radiology interpretation(s) finalized by discharge Discharge Plan Discharge Patient Disposition: Home Clinical Impression: COVID-19 Condition: Stable Prescriptions: New benzonatate 100 mg capsule 100 mg PO TID Qty: 30 0RF No Action aspirin 81 mg tablet,chewable 81 mg PO DAILY acetaminophen [Tylenol Extra Strength] 500 mg tablet 500 mg PO QID PRN (Reason: Pain) tramadol 50 mg tablet 50 mg PO Q6H PRN (Reason: Pain) PreserVision AREDS-2 250-90-40-1 mg capsule 1 tab PO BID Trulicity 1.5 mg/0.5 mL pen injector 1.5 mg SUBCUT .weekly Qty: 2 5RF furosemide [Lasix] 40 mg tablet 40 mg PO DAILY Qty: 90 3RF glimepiride 4 mg tablet 8 mg PO BID Qty: 60 2RF levothyroxine 125 mcg tablet 125 mcg PO DAILY Qty: 90 1RF simvastatin 20 mg tablet 20 mg PO DAILY Qty: 90 3RF levofloxacin 750 mg tablet 750 mg PO DAILY 10 Days Qty: 10 0RF colchicine 0.6 mg tablet 0.6 mg PO DAILY Qty: 10 2RF albuterol sulfate 90 mcg/actuation HFA aerosol inhaler 1 puff INHALATION Q4H PRN (Reason: Shortness Of Breath) pramipexole [Mirapex] 0.25 mg tablet 0.25 mg PO BID levetiracetam [Keppra] 750 mg tablet 750 mg PO BID Discharge Orders: Discharge ED (Routine); Ordered 04/27/23 Ordered By: Adrianna Cherry Referrals: Roel Retana, [Primary Care Provider] - Discharge Diet: Usual diet Discharge Activity: Increase activity as tolerated Patient Instructions: Nirmatrelvir/Ritonavir (By mouth) (Paxlovid), COVID-19 (Coronavirus Disease 2019) (ED) Activity Restrictions/Additional Instructions: X-ray today shows no signs of any developing pneumonias. Since we know you are COVID-positive I encourage you to continue taking the Paxlovid you were given yesterday. As we discussed, this will help slow the spread of the illness however, the viral load that is already reproduced in your system from COVID will still need to go through its clinical course which means you will still likely have symptoms of cough, headache, body aches, congestion, sore throat, and fever for about 5 days. We are providing medication which can help with cough but, would encourage you to use [id number] symptomatic treatments for cough and congestion. These can include coolmist humidifiers, Vicks vapor rub, various cough and cold medications-if you are not allergic or have contraindications due to various health concerns. As we discussed, I recommend having someone check on you daily to make sure you are drinking lots of water. If at all possible, we recommend retrieving your pulse oximeter and monitoring your oxygen throughout the day. I also recommend reaching out to your primary care doctor for general recheck at the end of the week. If for any reason you are unable to breathe, feel like you are not in respiratory distress, or have oxygen readings in the 80s you need to return back to the emergency department. 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
[2023-04-27] MEDS: guaiFENesin-dextromethorphan UDC 10 mL PO (19:22)
[2023-04-27] MEDS: benzonatate 100 mg Capsule PO (19:22)
[2023-04-27 19:23] VITALS: BP 124/60; PULSE 94; O2SAT 94
== END 2023-04-27 22:42 | disposition home or self-care (01) ==
PROVIDERS: Emergency Provider Physician Assistant; PCP Family Medicine
DX: U07.1 COVID-19 (principal); Z79.82 Long term (current) use of aspirin; Z79.85 Long-term (current) use of injectable non-insulin antidiabetic drugs; Z79.84 Long term (current) use of oral hypoglycemic drugs; Z87.891 Personal history of nicotine dependence; E11.21 Type 2 diabetes mellitus with diabetic nephropathy; I10 Essential (primary) hypertension
CPT/HCPCS: 71045; 99283

== ENCOUNTER → 2023-05-15 10:12 | Outpatient (BNVA) | payer MEDICARE, SELFPAY | PROVIDERS: PCP Family Medicine; Visit Provider Surgery | DX: K63.5 Polyp of colon (principal) | CPT/HCPCS: 99213 ==

== ENCOUNTER → 2023-06-26 14:04 | Outpatient (BNVA) | payer MEDICARE, SELFPAY | PROVIDERS: PCP Family Medicine; Visit Provider Family Medicine | DX: E11.9 Type 2 diabetes mellitus without complications (principal); N18.30 Chronic kidney disease, stage 3 unspecified; D64.9 Anemia, unspecified; M10.9 Gout, unspecified; E03.9 Hypothyroidism, unspecified; Z79.899 Other long term (current) drug therapy | CPT/HCPCS: 80053; 80061; 81003; 82306; 82728; 83036; 84100; 84443; 84550; 85025 ==

== ENCOUNTER 2023-07-08 13:19 | Emergency (ER) | payer MEDICARE, SELFPAY ==
[2023-07-08 13:33] VITALS: BP 137/59; PULSE 71; RESP 16; TEMP 36.6; O2SAT 96; BMI 43.4
--- NOTE | 2023-07-08 14:55 | ED_ITS ---
HPI - Back Pain/Injury 2 General: Chief Complaint: Back Pain/Injury Stated Complaint: back pain Time Seen by Provider: 07/08/23 14:15 Source: patient and family Mode of arrival: ambulatory Limitations: no limitations History of Present Illness: Patient is a 77-year-old female presents to ED today with complaint of left- sided back pain over the past 1 to 2 days. No known injury or trauma. She feels like pain is worse with movement and feels like she intermittently gets sharp spasm like pains. She does have chronic back pain reporting surgeries to her thoracic and lumbar spines many years ago. She does have a spinal nerve stimulator. She is not having any radicular symptoms into her legs. She has no chest or abdominal pain. Not having any urinary complaints. She has been treating at home with Tylenol. MD elicited complaint: back pain Pertinent past history: prior back pain Onset (ago): day(s) Timing: intermittent Severity: moderate Similar Symptoms Previously: Yes Location: left upper back Radiation: none Exacerbating factors: movement Relieving factors: none Associated symptoms: Deny abdominal pain, chills, dysuria, fatigue, fever(s), nausea, syncope or urinary urgency Treatments prior to arrival: acetaminophen Work related injury: No Review of Systems 2 Const: Denies: fever(s), chills, body aches, fatigue or malaise Card: Denies: chest pain, palpitations, lightheadedness, syncope, pre-syncope or orthopnea Resp: Denies: dyspnea GI: Denies: abdominal pain or nausea : Denies: flank pain, difficulty voiding, dysuria, urinary frequency, urinary urgency or urinary hesitancy Musc: Reports: back pain; Denies: neck pain, extremity pain, extremity swelling, joint pain or joint swelling Skin/Breast: Denies: rash Neuro: Denies: headache(s), numbness in extremities, weakness in extremities, sensory changes or dizziness PFSH ED 2 PFSH: Medical History Spinal cord neurostimulator device in situ BMI 40.0-44.9, adult FH: total knee replacement Recurrent UTI CRP elevated Angina at rest Creatinine elevation After cataract, bilateral Carpal tunnel syndrome on both sides Nonfunctional vagus nerve stimulator Multiple lung nodules on CT 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 Father CAD (coronary artery disease) Stroke Mother Chronic kidney disease (CKD) Brother Cancer Brother Stroke Colon cancer Denies family history of Ovarian cancer Diabetes Heart disease Hypercholesteremia Breast cancer Hypertension Uterine cancer Thyroid disease Social History Smoking and tobacco/nicotine status: former use of tobacco/nicotine Quit status (tobacco/nicotine): has quit using Year quit tobacco: 1959 Former quit date comment: 1-2 ppd X 1 year Second hand smoke exposure: No Alcohol intake: never Substance/Drug Use: never Current gender identity: Female Female Reproductive History: Spontaneous abortions: No Physical Exam 2 Const: COMMON NORMALS: no acute distress, patient oriented x3, no limitations, alert and well nourished GENERAL APPEARANCE: cooperative O RIENTATION/CONSCIOUSNESS: Yes awake, Yes oriented to person, Yes oriented to place and Yes oriented to time Neck/C-Spine: COMMON NORMALS: full ROM GENERAL: Yes normal visual inspection CERVICAL SPINE: No Cervical spine tenderness Chest: COMMONS NORMALS: normal inspection of the chest and normal palpation of entire chest wall Resp: COMMON NORMALS: normal respiratory effort and clear to auscultation bilaterally AUSCULTATION: clear to auscultation bilaterally Cardio: COMMON NORMALS: regular rate and regular rhythm RATE: regular rate RHYTHM: regular rhythm GI: COMMON NORMALS: Normal to inspection, nondistended, normoactive bowel sounds present, Soft to palpation, non-tender and no masses PALPATION: Yes Soft to palpation : COMMON NORMALS: Yes no CVA tenderness BLADDER/KIDNEY EXAM: Yes no CVA tenderness Back/Pelvis: COMMON NORMALS: no CVA tenderness, thoracic and lumbar spine normal to inspection and no thoracic nor lumbar tenderness THORACIC SPINE/UPPER BACK: No thoracic spinal tenderness, Yes paraspinal muscle tenderness and Yes paraspinal muscle spasm LUMBAR SPINE/LOWER BACK: No lumbar spinal tenderness, No paraspinal muscle tenderness, No paraspinal muscle spasm and Yes straight leg raise negative bilaterally PELVIS: Yes buttocks normal and No sciatic notch tenderness SACROILIAC JOINTS: Yes SI joints normal S ACRUM: no tenderness COCCYX: no tenderness BACK IMAGE (FEMALE): 1. directly reproducible pain with palpation Extremity: COMMON NORMALS: normal to inspection GENERAL: Yes normal exam except as noted Neuro: COMMON NORMALS: patient oriented x3, moves all extremities, no focal motor deficits and no sensory deficits noted SENSORIUM/ORIENTATION: Yes alert, Yes oriented to person, Yes oriented to place and Yes oriented to time Skin: COMMON NORMALS: no rashes or lesions noted GENERAL SKIN EXAM: no rashes or lesions noted Course 2 Vital Signs: Vital signs: Vital Signs Temperature 97.8 F 07/08/23 13:33 Pulse Rate 71 07/08/23 13:33 Respiratory Rate 20 H 07/08/23 15:58 Blood Pressure 137/59 07/08/23 13:33 Pulse Oximetry 96 07/08/23 13:33 Oxygen Delivery Me thod Room Air 07/08/23 13:33 MDM - Back Pain/Injury Medical Decision Making Pain is easily reproducible with palpation of her left thoracic paraspinal muscles. She was given IM medications here and was ambulatory without difficulty or assistance and reports improved pain. Discussed treatment at home. She states she cannot take anti-inflammatories as she is allergic to many of the inactive ingredients in these medications. She states she cannot take steroids because they elevate her blood sugars. She is unwilling to do muscle relaxers as she states she experiences urinary incontinence with these. She states she is able to take tramadol but no other pain medications therefore this will be provided. Discussed ice and heat as well as gentle massage. She can follow-up with primary care later this week or next week if symptoms do not improve. Medical Records I reviewed the patient's medical records. No radiology studies performed this visit Discharge Plan Discharge Patient Disposition: Home Clinical Impression: Acute left-sided thoracic back pain Condition: Stable Prescriptions: New tramadol 50 mg tablet 50 mg PO Q6H PRN (Reason: pain) Qty: 14 0RF No Action aspirin 81 mg tablet,chewable 81 mg PO DAILY acetaminophen [Tylenol Extra Strength] 500 mg tablet 500 mg PO QID PRN (Reason: Pain) tramadol 50 mg tablet 50 mg PO Q6H PRN (Reason: Pain) PreserVision AREDS-2 250-90-40-1 mg capsule 1 tab PO BID furosemide [Lasix] 40 mg tablet 40 mg PO DAILY Qty: 90 3RF levothyroxine 125 mcg tablet 125 mcg PO DAILY Qty: 90 1RF levetiracetam [Keppra] 750 mg tablet 750 mg PO BID Qty: 180 1RF simvastatin 20 mg tablet 20 mg PO DAILY Qty: 90 3RF Januvia 25 mg tablet 25 mg PO DAILY Qty: 90 0RF empagliflozin 25 mg tablet 25 mg PO QAM Qty: 90 0RF glimepiride 4 mg tablet 8 mg PO BID Qty: 360 0RF pramipexole 0.25 mg tablet 0.25 mg PO DAILY colchicine 0.6 mg tablet 0.6 mg PO DAILY Discharge Orders: Discharge ED (Routine); Ordered 07/08/23 Ordered By: Maria De Jesus Holman Referrals: Demetria Busch MD [Primary Care Provider] - Patient Instructions: Opioid Safety, Pain Management Coding Level of Care Code ED [employer]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
[2023-07-08] MEDS: ketorolac 30 mg/mL INJ 15 MG IM (15:55)
[2023-07-08 15:58] VITALS: RESP 20
[2023-07-08] MEDS: morphine 4 mg/mL SDV 1 mL IM (15:58)
[2023-07-08] MEDS: orphenadrine 30 mg/mL Inj 2 mL 60 MG IM (16:01)
[2023-07-08 17:35] VITALS: BP 127/65; PULSE 53; O2SAT 97
== END 2023-07-08 17:36 | disposition home or self-care (01) ==
PROVIDERS: Emergency Provider Physician Assistant; PCP Family Medicine
DX: M54.6 Pain in thoracic spine (principal); Z79.82 Long term (current) use of aspirin; Z79.84 Long term (current) use of oral hypoglycemic drugs; Z87.891 Personal history of nicotine dependence; E11.21 Type 2 diabetes mellitus with diabetic nephropathy; I10 Essential (primary) hypertension
CPT/HCPCS: 96372; 99284; J1885; J2270; J2360

== ENCOUNTER 2023-08-20 10:24 | Outpatient (CLI) | payer MEDICARE, SELFPAY ==
--- NOTE | 2023-08-20 10:27 | XRR_ITS ---
PROCEDURE INFORMATION: Exam: XR Lumbosacral Spine Exam date and time: 08/20/2023 10:34 AM Age: 77 years old Clinical indication: Low back pain; Prior surgery; Surgery date: 6+ months; Surgery type: Spinal cord stimulator, l-spine fusion; Additional info: Worsening chronic low back pain TECHNIQUE: Imaging protocol: Radiologic exam of the lumbosacral spine. Views: 2 or 3 views. COMPARISON: CT abdomen pelvis w con* [id number] 01/19/2023 3:09 PM FINDINGS: Tubes, catheters and devices: There is an epidural neurostimulator in the thoracic spine. Bones/joints: There has been surgical fusion at the L4-S1 level(s). The hardware is in good position. I see no evidence of hardware loosening.There is no fracture. There is stable and chronic grade 2 spondylolisthesis at L4-L5. Soft tissues: Unremarkable. XR/XR lumbar spine 2-3V* [id number] IMPRESSION: Intact multilevel fusion
== END 2023-08-20 10:25 | disposition home or self-care (01) ==
LOC: RAD 10:24
PROVIDERS: PCP Family Medicine; Visit Provider Family Medicine
DX: M54.50 Low back pain, unspecified (principal); Z98.1 Arthrodesis status
CPT/HCPCS: 72100; 81000; 87086

== ENCOUNTER → 2023-09-01 14:01 | Outpatient (BNVA) | payer MEDICARE, SELFPAY | PROVIDERS: PCP Family Medicine; Visit Provider Podiatrist Foot & Ankle Surgery | DX: L60.3 Nail dystrophy (principal); E11.21 Type 2 diabetes mellitus with diabetic nephropathy; M21.371 Foot drop, right foot; M20.21 Hallux rigidus, right foot; M20.22 Hallux rigidus, left foot | CPT/HCPCS: 11721; 99203 ==

== ENCOUNTER → 2023-09-04 08:46 | Outpatient (BNVA) | payer MEDICARE, SELFPAY | PROVIDERS: PCP Family Medicine; Visit Provider Orthopaedic Surgery | DX: M48.062 Spinal stenosis, lumbar region with neurogenic claudication (principal); M54.50 Low back pain, unspecified | CPT/HCPCS: 72110; 99204 ==

== ENCOUNTER 2023-09-11 14:39 | Outpatient (CLI) | payer MEDICARE, SELFPAY ==
--- NOTE | 2023-09-11 15:00 | XR_ITS ---
WS: [id number] SCREENING DEXA SCAN [facility] CLINICAL INFORMATION: Back Pain COMPARISON: None. FINDINGS: The LEFT forearm bone mineral density measures 0.779. This corresponds to a T score score of -1.1 and Z score of 1.4. Left femoral neck bone mineral density measures 0.911 g/cm2. This corresponds to a T score of -0.8 an d Z score of 0.3. Right femoral neck bone mineral density measures 0.825 g/cm2. This corresponds to a T score -1.4of an d Z score of -0.4. Mean femoral neck bone mineral density measures 0.868 g/cm2. This corresponds to a T score of -1.1 an d Z score of 0.0. XR/XR DEXA axial skeleton* [id number] IMPRESSION: Osteopenia LEFT forearm. Osteopenia femoral necks. Patient's FRAX calculated 10 year probability for major osteoporotic fracture i s 24.3% and osteoporotic hip fracture is 6.7%.
== END 2023-09-11 14:40 | disposition home or self-care (01) ==
LOC: RAD 14:40
PROVIDERS: PCP Family Medicine; Visit Provider Orthopaedic Surgery
DX: Z13.820 Encounter for screening for osteoporosis (principal); M54.9 Dorsalgia, unspecified; M85.832 Other specified disorders of bone density and structure, left forearm; M85.862 Other specified disorders of bone density and structure, left lower leg; M85.861 Other specified disorders of bone density and structure, right lower leg
CPT/HCPCS: 77080

== ENCOUNTER → 2023-09-19 13:19 | Outpatient (BNVA) | payer MEDICARE, SELFPAY | PROVIDERS: PCP Family Medicine; Visit Provider Family Medicine | DX: R30.0 Dysuria (principal) | CPT/HCPCS: 87077; 87086; 87184 ==

== ENCOUNTER 2023-09-21 15:48 | Emergency (ER) | payer MEDICARE, SELFPAY ==
[2023-09-21] VITALS (7 sets, daily range): BP systolic 125–178; BP diastolic 59–83; PULSE 63–80; RESP 16–18; TEMP 36.8; O2SAT 92–96
--- NOTE | 2023-09-21 15:54 | CTR_ITS ---
PROCEDURE INFORMATION: Exam: CT Head Without Contrast Exam date and time: 09/21/2023 4:00 PM Age: 78 years old Clinical indication: Stroke-like symptoms; Altered mental status/memory loss and dizziness/giddiness; Additional info: Symptoms of acute stroke TECHNIQUE: Imaging protocol: Computed tomography of the head without contrast. Radiation optimization: All CT scans at this facility use at least one of these dose optimization techniques: automated exposure control; mA and/or kV adjustment per patient size (includes targeted exams where dose is matched to clinical indication); or iterative reconstruction. Other technique: STROKE PROTOCOL was implemented. COMPARISON: No relevant prior studies available. RADIATION DOSE METRICS: Total DLP (mGy-cm): 905.68 FINDINGS: Brain: Normal. No hemorrhage. Bilateral ill-defined periventricular hypodensities consistent with mild chronic microvascular white matter ischemic changes. No mass effect. Cerebral ventricles: No ventriculomegaly. Paranasal sinuses: Visualized sinuses are unremarkable. No fluid levels. Mastoid air cells: Visualized mastoid air cells are well aerated. Bones: Unremarkable. No acute fracture. Soft tissues: Unremarkable. CT/CT head thrombolytic [id number] IMPRESSION: No acute intracranial abnormality. ASSESSMENT: ASPECTS ([place] Stroke Program Early CT Score) is 10.
--- NOTE | 2023-09-21 15:55 | ED_ITS ---
HPI - Neuro Symptoms/Deficit 2 General: Chief Complaint: Neuro Symptoms/Deficit Stated Complaint: N/V/D; VERTIGO Time Seen by Provider: 09/21/23 15:50 Source: patient and EMS Mode of arrival: EMS Limitations: no limitations History of Present Illness: 78-year-old female states that she had h ad nausea and vertigo that started today at 1 PM. She states that she has felt like the room spinning she had difficulty walking has had multiple episodes of vomiting. EMS states that she was able to ambulate the cot but was ataxic. They did give her Phenergan and route and she is a little somnolent from that. She denies headache Associated symptoms: Reports nausea, vertigo and vomiting; Deny chest pain or headache(s) Review of Systems 2 Const: Denies: fever(s), chills, body aches or change in appetite ENMT: Denies: throat pain or dental pain Card: Denies: chest pain Resp: Denies: dyspnea GI: Reports: nausea and vomiting; Denies: abdominal pain or diarrhea Musc: Denies: neck pain or back pain Skin/Breast: Denies: rash Neuro: Reports: vertigo; Denies: headache(s) PFSH ED 2 PFSH: Medical History Family history of colon cancer Colon polyps Spinal cord neurostimulator device in situ BMI 40.0-44.9, adult FH: total knee replacement Recurrent UTI CRP elevated Angina at rest Creatinine elevation After cataract, bilateral Carpal tunnel syndrome on both sides Nonfunctional vagus nerve stimulator Multiple lung nodules on CT 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 Father CAD (coronary artery disease) Stroke Mother Chronic kidney disease (CKD) Brother Cancer Brother Stroke Colon cancer Denies family history of Ovarian cancer Diabetes Heart disease Hypercholesteremia Breast cancer Hypertension Uterine cancer Thyroid disease Social History Smoking and tobacco/nicotine status: former use of tobacco/nicotine Quit status (tobacco/nicotine): has quit using Year quit tobacco: 1959 Former quit date comment: 1-2 ppd X 1 year Second hand smoke exposure: No Alcohol intake: never Substance/Drug Use: never Current gender identity: Female Female Reproductive History: Spontaneous abortions: No NIH stroke score 2 NIHSS: Level Of Consciousness - 1a: 0 Level Of Consciousness Questions - 1b: Both Correct Level Of Consciousness Commands - 1c: Both Correct Best Gaze - 2: Normal Visual Morris - 3: No Visual Loss Facial Palsy - 4: N ormal Motor Arm Right - 5: No Drift Motor Arm Left - 5: No Drift Motor Leg Right - 6: No Drift Motor Leg Left - 6: No Drift Limb Ataxia - 7: P resent In One Limb Sensory - 8: Normal Best Language - 9: No Aphasia D ysarthia - 10: Mild/Moderate Dysarthia Extinction And Inattention - 11: 0 Score: Total Score: 2 Physical Exam 2 Const: COMMON NORMALS: patient oriented x3, healthy appearing and alert O RIENTATION/CONSCIOUSNESS: Yes oriented to person, Yes oriented to place and Yes oriented to time HENMT: COMMON NORMALS: normocephalic and atraumatic HEAD & SCALP: n ormocephalic and atraumatic Eye: COMMON NORMALS: Equal, round and reactive pupils present and EOMs intact bilaterally PUPIL: Yes Equal, round and reactive pupils present Neck/C-Spine: COMMON NORMALS: full ROM and supple Chest: COMMONS NORMALS: normal inspection of the chest and normal palpation of entire chest wall Resp: COMMON NORMALS: normal respiratory effort, No retractions, No use of accessory muscles and clear to auscultation bilaterally AUSCULTATION: clear to auscultation bilaterally Cardio: COMMON NORMALS: regular rate, regular rhythm and No murmurs present (Cardio) RATE: regular rate RHYTHM: regular rhythm GI: COMMON NORMALS: Normal to inspection, nondistended, normoactive bowel sounds present, Soft to palpation, non-tender and no masses PALPATION: Yes Soft to palpation Extremity: COMMON NORMALS: normal to inspection and full ROM Neuro: COMMON NORMALS: patient oriented x3 and moves all extremities S ENSORIUM/ORIENTATION: Yes alert, Yes oriented to person, Yes oriented to place and Yes oriented to time OTHER: She does have a gaze preference to the right with beating nystagmus Psych: COMMON NORMALS: mental status grossly normal, Normal thought process present and cooperative THOUGHT PROCESS: Normal thought process present Skin: COMMON NORMALS: no rashes or lesions noted and no wounds GENERAL SKIN EXAM: no rashes or lesions noted Course 2 Vital Signs: Vital signs: Vital Signs Temperature 98.2 F 09/21/23 15:50 Pulse Rate 80 09/21/23 15:50 Respiratory Rate 16 09/21/23 15:50 Blood Pressure 178/83 09/21/23 15:50 Pulse Oximetry 92 09/21/23 15:50 Oxygen Delivery Me thod Room Air 09/21/23 15:50 MDM - Neuro Symptoms/Deficit Medical Decision Making Patient presents here with a posterior stroke last known normal was 1 PM patient was evaluated by Dr. Griffin of [facility] neurology who agreed patient would benefit from TNKase I did give patient's the risk benefits and she did consent to TNKase I did give her TNKase spoke to Dr. Brooke at [facility] will transfer there for higher level of care for neurology availability Medical Records I reviewed the patient's medical records. Lab Data I reviewed the patient's lab results. 09/21/23 15:50 09/21/23 15:[address] 09/21/23 15:54 IMPRESSION: No acute intracranial abnormality. ASSESSMENT: ASPECTS ([place] Stroke Program Early CT Score) is 10. Head/Neck CTA 09/21/23 15:56 IMPRESSION: 1. No large vessel occlusion. 2. No significant stenosis or aneurysm. IMPRESSION: 1. No large vessel occlusion. 2. No significant stenosis or aneurysm. REFERENCES: NASCET CRITERIA. The degree of stenosis in the cervical segment of the internal carotid artery is based on NASCET criteria. Normal is no stenosis. Mild is less than 50% stenosis. Moderate is 50-69% stenosis. Severe is 70% to 99% stenosis. Total occlusion is no detectable patent lumen. Laboratory Results WBC 6.71 10^3/uL (3.29-11.43) 09/21/23 15:50 RBC 4.77 10^6/uL (3.85-5.65) 09/21/23 15:50 Hgb 15.40 g/dL (11.27-16.99) 09/21/23 15:50 Hct 43.5 % (36-47) 09/21/23 15:50 MCV 91.2 fl (85-98) 09/21/23 15:50 MCH 32.3 pg (27-33) 09/21/23 15:50 MCHC 35.4 g/dL (30-55) 09/21/23 15:50 RDW 12.1 % (12.1-15.1) 09/21/23 15:50 Plt Count 251 10^3/cmm (157-399) 09/21/23 15:50 MPV 9.2 fL (7.4-10.4) 09/21/23 15:50 Neut % (Auto) 42.1 % 09/21/23 15:50 Lymph % (Auto) 46.6 % 09/21/23 15:50 [place] % (Auto) 7.6 % 09/21/23 15:50 Eos % (Auto) 2.1 % 09/21/23 15:50 Baso % (Auto) 0.6 % 09/21/23 15:50 Neut # (Auto) 2.82 10^3/uL (1.8-7.7) 09/21/23 15:50 Lymph # (Auto) 3.1 10^3/uL (0.8-4.8) 09/21/23 15:50 [place] # (Auto) 0.5 10^3/uL (0.2-0.9) 09/21/23 15:50 Eos # (Auto) 0.1 10^3/uL (0.0-0.8) 09/21/23 15:50 Baso # (Auto) 0.0 10^3/uL (0.0-0.1) 09/21/23 15:50 Nucleated RBC % (auto) 0 % 09/21/23 15:50 Nucleated RBCs # 0.0 /100WBC 09/21/23 15:50 PT 12.60 SECONDS (12.1-14.9) 09/21/23 15:50 INR 0.92 (0.8-1.2) 09/21/23 15:50 APTT 23.4 SECONDS (23.9-36.7) L 09/21/23 15:50 Sodium 136 mmol/L (136-145) 09/21/23 15:50 Potassium 4.3 mmol/L (3.5-5.1) 09/21/23 15:50 Chloride 99 mmol/L (98-107) 09/21/23 15:50 Carbon Dioxide 24 mmol/L (22-29) 09/21/23 15:50 Anion Gap 17.3 (5-19) 09/21/23 15:50 BUN 32 mg/dL (8-23) H 09/21/23 15:50 Creatinine 1.1 mg/dL (0.5-0.9) H 09/21/23 15:50 GFR Calculation Not Reportable 09/21/23 15:50 Glucose 424 mg/dL (65-115) H 09/21/23 15:50 POC Glucose 357 mg/dL (70-110) H 09/21/23 15:56 Calculated Osmolality 307 mOsm/kg (285-295) H 09/21/23 15:50 Calcium 8.5 mg/dL (8.5-10.5) 09/21/23 15:50 Total Bilirubin 0.8 mg/dL (0.15-1.2) 09/21/23 15:50 AST 21 U/L (0-32) 09/21/23 15:50 ALT 23 U/L (0-33) 09/21/23 15:50 Alkaline Phosphatase 144 U/L (35-105) H 09/21/23 15:50 Total Protein 8.5 g/dL (6.6-8.7) 09/21/23 15:50 Albumin 4.2 g/dL (3.5-5.2) 09/21/23 15:50 Globulin 4.3 g/dL (1.3-4.6) 09/21/23 15:50 Lipase 41 U/L (13-60) 09/21/23 15:50 XR interpretation done by ED provider, pending radiology final review EKG Data EKG 1: I personally reviewed and interpreted this EKG as follows: EKG interpretation date: 09/21/23 EKG interpretation time: 16:13 Interpretation: nsr hr [address] elevation qrs 94 qtc 401 Critical Care Time 2 Critical Care Time: Critical Care Time: Yes Total Critical Care Time: 40 Attestation: The high probability of a clinically significant, sudden or life threatening deterioration of the patient's cva system(s) required my full and direct attention, intervention and personal management. The critical care time is as shown. This time is in addition to time spent performing any reported procedures but includes the following: [x] Data and vital sign review and interpretation [x] Patient assessment, examination and intervention [x] Documentation [x] Medication orders and management Discharge Plan Discharge Patient Disposition: Xfer Short-Term Hosp Clinical Impression: Cerebrovascular accident Condition: Stable Prescriptions: No Action aspirin 81 mg tablet,chewable 81 mg PO DAILY acetaminophen [Tylenol Extra Strength] 500 mg tablet 500 mg PO QID PRN (Reason: Pain) tramadol 50 mg tablet 50 mg PO Q6H PRN (Reason: Pain) PreserVision AREDS-2 250-90-40-1 mg capsule 1 tab PO BID amoxicillin 500 mg tablet 500 mg PO Q8H Qty: 21 0RF Januvia 25 mg tablet See Rx Instructions .ROUTE .COMPLEX Qty: 90 0RF Dose Instruction: TAKE 1 TABLET BY MOUTH EVERY DAY Rx Instructions: TAKE 1 TABLET BY MOUTH EVERY DAY simvastatin 20 mg tablet 20 mg PO DAILY Qty: 90 0RF pramipexole 0.25 mg tablet See Rx Instructions .ROUTE .COMPLEX Qty: 270 0RF Rx Instructions: 1 tab po qam & 2 tab po qpm levothyroxine 125 mcg tablet 125 mcg PO DAILY Qty: 90 0RF levetiracetam 750 mg tablet See Rx Instructions .ROUTE .COMPLEX Qty: 180 0RF Dose Instruction: TAKE 1 TABLET BY MOUTH TWICE DAILY Rx Instructions: TAKE 1 TABLET BY MOUTH TWICE DAILY glimepiride 4 mg tablet 8 mg PO BID Qty: 360 0RF empagliflozin 25 mg tablet 25 mg PO QAM Qty: 90 0RF furosemide [Lasix] 40 mg tablet 40 mg PO DAILY Qty: 90 0RF colchicine 0.6 mg tablet See Rx Instructions .ROUTE .COMPLEX Qty: 10 2RF Dose Instruction: TAKE 1 TABLET BY MOUTH EVERY DAY Rx Instructions: TAKE 1 TABLET BY MOUTH EVERY DAY (DME) KAMILLE Brooke See Rx Instructions .Route .MEDSUPPLY Qty: 1 0RF Rx Instructions: As directed by [facility] (DME) diabetic shoes with 3 inserts See Rx Instructions .Route .MEDSUPPLY Qty: 1 0RF Rx Instructions: As directed HOME Referrals: Demetria Busch MD [Primary Care Provider] - Coding Level of Care Code ED Hematology Oncology Consultant for 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
--- NOTE | 2023-09-21 15:56 | CTR_ITS ---
PROCEDURE INFORMATION: Exam: CTA Head With Contrast, Arteriography Exam date and time: 09/21/2023 4:02 PM Age: 78 years old Clinical indication: Cognitive deficit and dizziness and giddiness and vertigo and weakness; Altered mental status; Additional info: CVA TECHNIQUE: Imaging protocol: Computed tomographic angiography of the head with contrast. Exam focused on the arteries. 3D rendering (Not supervised by radiologist): MIP and/or 3D reconstructed images were created by the technologist. Radiation optimization: All CT scans at this facility use at least one of these dose optimization techniques: automated exposure control; mA and/or kV adjustment per patient size (includes targeted exams where dose is matched to clinical indication); or iterative reconstruction. Contrast material: OMNI 350; Contrast volume: 100 ml; Contrast route: INTRAVENOUS (IV); COMPARISON: CT head thrombolytic [id number] 09/21/2023 4:00 PM RADIATION DOSE METRICS: Total DLP (mGy-cm): 465.04 FINDINGS: ANTERIOR CIRCULATION: Right internal carotid artery: Right intracranial carotid artery calcified plaques, with mild stenosis. Right middle cerebral artery: No occlusion or significant stenosis. No aneurysm. Right anterior cerebral artery: No occlusion or significant stenosis. No aneurysm. Left internal carotid artery: Intracranial segment is patent with no significant stenosis. No aneurysm. Left middle cerebral artery: No occlusion or significant stenosis. No aneurysm. Left anterior cerebral artery: No occlusion or significant stenosis. No aneurysm. POSTERIOR CIRCULATION: Right vertebral artery: No occlusion or significant stenosis. No aneurysm. Left vertebral artery: No occlusion or significant stenosis. No aneurysm. Basilar artery: No occlusion or significant stenosis. No aneurysm. Right posterior cerebral artery: No occlusion or significant stenosis. No aneurysm. Left posterior cerebral artery: No occlusion or significant stenosis. No aneurysm. Other arteries: Multifocal atheromatous plaques along the intracranial segments of the left carotid artery. Brain: No definite mass, mass effect, or midline shift. Cerebral ventricles: No ventriculomegaly. Bones/joints: Unremarkable. No acute fracture. Soft tissues: Unremarkable. PROCEDURE INFORMATION: Exam: CTA Neck With Contrast Exam date and time: 09/21/2023 4:02 PM Age: 78 years old Clinical indication: Cognitive deficit and dizziness and giddiness and vertigo and weakness; Altered mental status; Additional info: CVA TECHNIQUE: Imaging protocol: Computed tomographic angiography of the neck with contrast. Exam focused on the cervical segments of the vasculature. 3D rendering (Not supervised by radiologist): MIP and/or 3D reconstructed images were created by the technologist. Radiation optimization: All CT scans at this facility use at least one of these dose optimization techniques: automated exposure control; mA and/or kV adjustment per patient size (includes targeted exams where dose is matched to clinical indication); or iterative reconstruction. Contrast material: OMNI 350; Contrast volume: 100 ml; Contrast route: INTRAVENOUS (IV); COMPARISON: CT head thrombolytic [id number] 09/21/2023 4:00 PM RADIATION DOSE METRICS: Total DLP (mGy-cm): 465.04 FINDINGS: Right common carotid artery: Right carotid bulb calcifications. Right internal carotid artery: No stenosis of the extracranial segment. No dissection or occlusion. Right external carotid artery: No occlusion or stenosis of the origin. Left common carotid artery: Left carotid bulb calcified atherosclerotic plaques. Left internal carotid artery: No stenosis of the extracranial segment. No dissection or occlusion. Left external carotid artery: No occlusion or stenosis of the origin. Right vertebral artery: Calcified atherosclerotic plaques of the distal right vertebral artery (V4 segment) without significant stenosis. Left vertebral artery: Distal calcified atherosclerotic plaques of the left vertebral artery (V4 segment) with mild stenosis. Soft tissues: Normal. No significant soft tissue swelling. Bones/joints: No acute fracture. CT/CT angio headneck* [id number] IMPRESSION: 1. No large vessel occlusion. 2. No significant stenosis or aneurysm. IMPRESSION: 1. No large vessel occlusion. 2. No significant stenosis or aneurysm. REFERENCES: NASCET CRITERIA. The degree of stenosis in the cervical segment of the internal carotid artery is based on NASCET criteria. Normal is no stenosis. Mild is less than 50% stenosis. Moderate is 50-69% stenosis. Severe is 70% to 99% stenosis. Total occlusion is no detectable patent lumen.
[2023-09-21 15:59] LABS: Glucose Point of Care 357 mg/dL (70-110)
[2023-09-21 16:00] LABS: Basophils % 0.6 %; Eosinophils # 0.1 10^3/uL (0.0-0.8); Eosinophils % 2.1 %; Hematocrit 43.5 % (36-47); Lymphocytes # 3.1 10^3/uL (0.8-4.8); Lymphocytes % 46.6 %; Mean Corpuscular HGB Conc 35.4 g/dL (30-55); Mean Corpuscular Hemoglobin 32.3 pg (27-33); Mean Corpuscular Volume 91.2 fl (85-98); Mean Platelet Volume 9.2 fL (7.4-10.4); Monocytes # 0.5 10^3/uL (0.2-0.9); Monocytes % 7.6 %; Neutrophils # 2.82 10^3/uL (1.8-7.7); Neutrophils % 42.1 %; Nucleated Red Blood Cells % 0 %; Platelet Count 251 10^3/cmm (157-399); Red Blood Count 4.77 10^6/uL (3.85-5.65); Red Cell Distribution Width 12.1 % (12.1-15.1); White Blood Count 6.71 10^3/uL (3.29-11.43)
[2023-09-21 16:13] LABS: INR 0.92 (0.8-1.2); Partial Thromboplastin Time 23.4 SECONDS (23.9-36.7)
--- NOTE | 2023-09-21 16:13 | ECG_ITS ---
[facility] Test Date: 2023-09-21 Pat Name: Sherie Hernandez Department: Room: Gender: Female [employer]: : 1945 Requested By: Scott Bell Order Number: [id number] Ella MD: Татьяна Mayfield M.D. Measurements Intervals Frontier Rate: 73 P: 60 DC: 151 QRS: 4 QRSD: 94 T: 46 QT: 376 QTc: 415 Interpretive Statements SINUS RHYTHM WITH OCCASIONAL VENTRICULAR PREMATURE COMPLEXES LOW QRS VOLTAGE IN PRECORDIAL LEADS [QRS DEFLECTION < 1.0 mV IN CHEST LEADS] NONSPECIFIC T-WAVE ABNORMALITY Compared to ECG 01/19/2023 15:31:07 Ventricular premature complex(es) now present T-wave abnormality still present Electronically Signed On 09-21-2023 22:30:08 CDT by Татьяна Mayfield M.D. [id number]
[2023-09-21 16:21] LABS: Alanine Aminotransferase 23 U/L (0-33); Albumin Level 4.2 g/dL (3.5-5.2); Alkaline Phosphatase 144 U/L (35-105); Anion Gap 17.3 (5-19); Aspartate Amino Transferase 21 U/L (0-32); Blood Urea Nitrogen 32 mg/dL (8-23); Calcium 8.5 mg/dL (8.5-10.5); Carbon Dioxide 24 mmol/L (22-29); Chloride 99 mmol/L (98-107); Creatinine Clr Calc Pharmacy 64.5901; Globulin 4.3 g/dL (1.3-4.6); Glucose 424 mg/dL (65-115); Lipase 41 U/L (13-60); Osmolality Calculated 307 mOsm/kg (285-295); Potassium 4.3 mmol/L (3.5-5.1); Sodium 136 mmol/L (136-145); Total Bilirubin 0.8 mg/dL (0.15-1.2); Total Protein 8.5 g/dL (6.6-8.7)
[2023-09-21] MEDS: tenecteplase 50mg Kit (STROKE) 24 MG IVP (16:38)
[2023-09-21 16:46] LABS: Add Urine Microscopic? NO; Charge for UA Resulting for Rev
[2023-09-21 16:50] LABS: Specific Gravity, Urine 1.005 (1.005-1.030); Urine Appearance Clear (CLEAR); Urine Color Colorless (Yellow); pH Urine 5 (5-7)
[2023-09-21 16:51] LABS: Bilirubin Urine Neg (Negative); Blood Urine Neg (Negative); Glucose Urine UA 4+ (Normal); Ketones Urine Negative (Negative); Leukocyte Esterase Urine Negative (Negative); Nitrate Urine Negative (Negative); Protein Urine Neg (Negative); Urobilinogen Urine Norm (Negative)
[2023-09-21 17:00] LABS: Amphetamines Screen Urine Negative (Negative); Barbiturates Screen Urine Negative (Negative); Benzodiazepines Screen Urine Negative (Negative); Cocaine Screen Urine Negative (Negative); Opiate Screen Urine Negative (Negative); PCP Screen Urine Negative (Negative); THC Screen Urine Negative (Negative)
[2023-09-21] MEDS: ondansetron 2 mg/ML SDV 2 mL 4 MG IVP (17:27)
== END 2023-09-21 17:45 | disposition short-term general hospital (02) ==
PROVIDERS: Emergency Provider Emergency Medicine; PCP Family Medicine
DX: I63.9 Cerebral infarction, unspecified (principal); Z79.82 Long term (current) use of aspirin; Z79.84 Long term (current) use of oral hypoglycemic drugs; Z87.891 Personal history of nicotine dependence; E11.9 Type 2 diabetes mellitus without complications; I10 Essential (primary) hypertension
CPT/HCPCS: 36416; 70450; 70496; 70498; 80053; 80306; 81003; 82962; 83690; 85025; 85610; 85730; 93005; 96374; 96375; 99285; J2405; J3101; Q9967

== ENCOUNTER 2023-09-28 19:25 | Observation (INO) | payer MEDICARE, SELFPAY ==
[2023-09-28] VITALS (8 sets, daily range): BP systolic 120–228; BP diastolic 50–94; PULSE 63–75; RESP 15–29; TEMP 36.3; O2SAT 94–99; BMI 44.9
--- NOTE | 2023-09-28 19:28 | XRR_ITS ---
PROCEDURE INFORMATION: Exam: XR Chest Exam date and time: 09/28/2023 7:36 PM Age: 78 years old Clinical indication: Other: AMS; Weakness TECHNIQUE: Imaging protocol: Radiologic exam of the chest. Views: 1 view. COMPARISON: CR XR chest 1V [id number] 04/27/2023 6:09 PM FINDINGS: Tubes, catheters and devices: Spinal cord stimulator paddle at the T7-T9 levels. Lungs: Decreased inspiration with bilateral lower lobe atelectasis. Pleural spaces: No pleural effusion. No pneumothorax. Heart/Mediastinum: Stable mild enlargement of the cardiac silhouette. Vasculature: Stable vascular calcifications in the aorta. Bones/joints: Bones are diffusely osteopenic. Degenerative changes in the spine and shoulders. Postsurgical changes consistent with previous fusion in the lower cervical spine. Osseous findings are stable. Organs: Surgical clips in the right upper quadrant consistent with a previous cholecystectomy. XR/XR chest 1V portable [id number] IMPRESSION: 1. Decreased inspiration with bilateral lower lobe atelectasis. 2. Incidental/nonacute findings are listed in the report.
--- NOTE | 2023-09-28 19:28 | CTR_ITS ---
PROCEDURE INFORMATION: Exam: CT Head Without Contrast Exam date and time: 09/28/2023 8:22 PM Age: 78 years old Clinical indication: Altered mental status/memory loss; Patient HX: Lethargy with n/v; Additional info: Encephalopathy, altered mental status TECHNIQUE: Imaging protocol: Computed tomography of the head without contrast. Sagittal and coronal reformatted images were created and reviewed. Radiation optimization: All CT scans at this facility use at least one of these dose optimization techniques: automated exposure control; mA and/or kV adjustment per patient size (includes targeted exams where dose is matched to clinical indication); or iterative reconstruction. COMPARISON: CT angio headneck* [id number] 09/21/2023 4:02 PM RADIATION DOSE METRICS: Total DLP (mGy-cm): 1044.18 FINDINGS: Brain: No acute intracranial hemorrhage. No acute infarct. No intra-axial or extra-axial masses. Delgado-white matter differentiation is preserved. No cerebral edema. No extra-axial fluid collections. No midline shift. No evidence for Chiari 1 malformation. Stable mild atrophy of the brain parenchyma. Stable mildly decreased attenuation in the deep white matter, consistent with mild chronic microangiopathic change. Cerebral ventricles: No hydrocephalus. Paranasal sinuses: Visualized paranasal sinuses are clear. Mastoid air cells: Visualized mastoid air cells are clear. Orbital cavities: No acute abnormality in the visualized orbits. Bones: Unremarkable. No acute fracture. Soft tissues: No acute abnormality of the extracranial soft tissues. Vasculature: Stable mild atherosclerotic calcifications in the visualized arteries. CT/CT head wo con* [id number] IMPRESSION: 1. No acute abnormality of the brain. 2. Stable mild atrophy of the brain parenchyma. 3. Stable mild chronic white matter microangiopathic change. 4. Incidental/nonacute findings are listed in the report.
--- NOTE | 2023-09-28 19:34 | W.ED.AMS ---
HPI - Altered Mental Status General: Chief Complaint: Altered Mental Status Stated Complaint: AMS Time Seen by Provider: 09/28/23 19:28 History of Present Illness: 78-year-old female with a history of type 2 diabetes, hypertension, hypothyroidism, who presents to the emergency room with nausea and vomiting and some decreased responsiveness. She does not really want to answer questions when I talk to her but she will tell me her name. Apparently she been vomiting for about 3 to 4 hours now. Apparently she had been transferred to another hospital with concern for stroke a little over a week ago and just got to the hospital a few days ago. Review of Systems Narrative: Unable to obtain secondary to clinical condition PFSH ED PFSH: Medical History Family history of colon cancer Colon polyps Spinal cord neurostimulator device in situ BMI 40.0-44.9, adult FH: total knee replacement Recurrent UTI CRP elevated Angina at rest Creatinine elevation After cataract, bilateral Carpal tunnel syndrome on both sides Nonfunctional vagus nerve stimulator Multiple lung nodules on CT 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 Father CAD (coronary artery disease) Stroke Mother Chronic kidney disease (CKD) Brother Cancer Brother Stroke Colon cancer Denies family history of Ovarian cancer Diabetes Heart disease Hypercholesteremia Breast cancer Hypertension Uterine cancer Thyroid disease Social History Smoking and tobacco/nicotine status: former use of tobacco/nicotine Quit status (tobacco/nicotine): has quit using Year quit tobacco: 1959 Former quit date comment: 1-2 ppd X 1 year Second hand smoke exposure: No Alcohol intake: never Substance/Drug Use: never Current gender identity: Female Female Reproductive History: Spontaneous abortions: No Physical Exam Narrative: General: Somnolent but arousable Skin: Warm, dry Head: Normocephalic, atraumatic. Neck: Supple, trachea midline. Eye: Extraocular movements are intact. Ears, nose, mouth and throat: Dry oral mucosa. Cardiovascular: Regular rate and rhythm, Normal peripheral perfusion. Respiratory: Lungs are clear to auscultation, respirations are non-labored, breath sounds are equal, Symmetrical chest wall expansion. Gastrointestinal: Soft, Nontender, Non distended, Normal bowel sounds. Musculoskeletal: no deformity. Neurological: Somnolent, she does tell me her name, No obvious focal neurological deficit observed. Psychiatric: unable to assess. Course Vital Signs: Vital signs: Vital Signs Temperature 97.4 F L 09/28/23 19:26 Pulse Rate 64 09/28/23 20:04 Respiratory Rate 29 H 09/28/23 20:04 Blood Pressure 120/50 09/28/23 20:04 Pulse Oximetry 95 09/28/23 20:04 Oxygen Delivery Me thod Nasal Cannula 09/28/23 20:04 Oxygen Flow Rate 2 09/28/23 19:26 MDM - Altered Mental Status Medical Decision Making Medical decision making: Differential diagnosis including but not limited to and based on the above HPI, review of systems and physical exam: In this patient with altered mental status: Stroke. Hypoglycemia. Metabolic encephalopathy. Infections such as pneumonia, urinary tract infection, Covid-19, Influenza. Electrolyte abnormalities such as hypernatremia. Renal failure / uremia. Hepatic encephalopathy. Hypoxemia. Hypercapnic respiratory failure. Psychosis. Drug or alcohol intoxication. Medication overdose. Orders placed to evaluate differential diagnosis based on the above differential, HPI and physical exam CT head: No acute intracranial process. no intracranial hemorrhage, no evidence of infarct. no evidence of acute fracture.This was reviewed and interpreted by myself the ER physician. Chest x-ray: Poor inspiratory effort. No acute process. No infiltrate. No pneumothorax. This was reviewed and interpreted by myself the ER physician. Lab Review: Laboratory results were reviewed and interpreted by myself the emergency room physician. White count of 8. Hemoglobin of 15. BUN and creatinine are 27 and 1.2. Her BUN ranges from 9-32 over the last 5-10 measurements. Creatinine ranges from 0.9-1.3. She has some chronic kidney disease. Urinalysis shows a urinary tract infection that is nitrite positive. I reviewed the patient's medical record. Reexamination: Patient is still a bit somnolent but she will answer questions. We discussed that she has a urinary tract infection she needs admitted to the hospital. No focal motor deficits. No increased work of breathing. Consultation: I spoke with Dr. Boyle with the hospitalist service who agrees to admission. Assessment and plan: Urinary tract infection Metabolic encephalopathy Dehydration -I discussed the patient with the hospitalist on-call who is admitting the patient. - Discussed findings and plan with patient. Answered any questions. - All laboratory values were reviewed and interpreted personally by myself, the ER physician - All imaging was reviewed and interpreted personally by myself, the ER physician. - Evaluation and treatment of this problem were appropriate in the emergency setting Lab Data 09/28/23 Unknown 09/28/23 20:13 Radiology Impressions Chest X-Ray 09/28/23 19:28 IMPRESSION: 1. Decreased inspiration with bilateral lower lobe atelectasis. 2. Incidental/nonacute findings are listed in the report. Head CT 09/28/23 19:28 IMPRESSION: 1. No acute abnormality of the brain. 2. Stable mild atrophy of the brain parenchyma. 3. Stable mild chronic white matter microangiopathic change. 4. Incidental/nonacute findings are listed in the report. Laboratory Results WBC 8.00 10^3/uL (3.29-11.43) 09/28/23 Unknown RBC 4.61 10^6/uL (3.85-5.65) 09/28/23 Unknown Hgb 14.80 g/dL (11.27-16.99) 09/28/23 Unknown Hct 42.4 % (36-47) 09/28/23 Unknown MCV 92.0 fl (85-98) 09/28/23 Unknown MCH 32.1 pg (27-33) 09/28/23 Unknown MCHC 34.9 g/dL (30-55) 09/28/23 Unknown RDW 12.7 % (12.1-15.1) 09/28/23 Unknown Plt Count 305 10^3/cmm (157-399) 09/28/23 Unknown MPV 9.9 fL (7.4-10.4) 09/28/23 Unknown Neut % (Auto) 53.1 % 09/28/23 Unknown Lymph % (Auto) 37.0 % 09/28/23 Unknown Mchenry % (Auto) 6.1 % 09/28/23 Unknown Eos % (Auto) 2.9 % 09/28/23 Unknown Baso % (Auto) 0.5 % 09/28/23 Unknown Neut # (Auto) 4.25 10^3/uL (1.8-7.7) 09/28/23 Unknown Lymph # (Auto) 3.0 10^3/uL (0.8-4.8) 09/28/23 Unknown Mchenry # (Auto) 0.5 10^3/uL (0.2-0.9) 09/28/23 Unknown Eos # (Auto) 0.2 10^3/uL (0.0-0.8) 09/28/23 Unknown Baso # (Auto) 0.0 10^3/uL (0.0-0.1) 09/28/23 Unknown Nucleated RBC % (auto) 0 % 09/28/23 Unknown Nucleated RBCs # 0.0 /100WBC 09/28/23 Unknown Specimen Type Arterial 09/28/23 19:45 Sample Site Radial, right 09/28/23 19:45 ABG pH 7.37 (7.35-7.45) 09/28/23 19:45 ABG pCO2 48.5 mmHg (35-45) H 09/28/23 19:45 ABG pO2 84.7 mmHg (80.0-100.0) 09/28/23 19:45 ABG HCO3 28.1 mmol/L (22-26) H 09/28/23 19:45 ABG O2 Saturation 96.3 09/28/23 19:45 ABG Base Excess 2.0 mmol/L (-2.0-2.0) 09/28/23 19:45 Selvin Test Pos 09/28/23 19:45 A-a O2 Gradient 0.6 mmHg (5-10) L 09/28/23 19:45 Hematocrit 44.0 % (37-47) 09/28/23 19:45 Hgb O2 Saturation 94.8 % (95-100) L 09/28/23 19:45 Carboxyhemoglobin 1.1 %THgb (0.4-20.1) 09/28/23 19:45 Methemoglobin 0.5 % (0.4-1.5) 09/28/23 19:45 Total Hemoglobin 14.4 g/dL (12-16) 09/28/23 19:45 Sodium 142.0 mmol/L (131-143) 09/28/23 19:45 Potassium 3.4 mmol/L (3.5-5.0) L 09/28/23 19:45 Glucose 323.0 mg/dL (70-115) H 09/28/23 19:45 Ionized Calcium 1.1 mmol/L (1.1-1.4) 09/28/23 19:45 O2 Delivery Device Nc 09/28/23 19:45 O2 Liters/Min 2.0 % 09/28/23 19:45 Cloth Finishing Range Back Tender ID [email or web address] 09/28/23 19:45 Sodium 141 mmol/L (136-145) 09/28/23 20:13 Potassium 3.7 mmol/L (3.5-5.1) 09/28/23 20:13 Chloride 103 mmol/L (98-107) 09/28/23 20:13 Carbon Dioxide 26 mmol/L (22-29) 09/28/23 20:13 Anion Gap 15.7 (5-19) 09/28/23 20:13 BUN 27 mg/dL (8-23) H 09/28/23 20:13 Creatinine 1.2 mg/dL (0.5-0.9) H 09/28/23 20:13 GFR Calculation Not Reportable 09/28/23 20:13 Glucose 315 mg/dL (65-115) H 09/28/23 20:13 Calculated Osmolality 309 mOsm/kg (285-295) H 09/28/23 20:13 Lactic Acid 0.9 mmol/L (0.5-2.2) 09/28/23 20:13 Calcium 8.0 mg/dL (8.5-10.5) L 09/28/23 20:13 Total Bilirubin 0.6 mg/dL (0.15-1.2) 09/28/23 20:13 AST 17 U/L (0-32) 09/28/23 20:13 ALT 32 U/L (0-33) 09/28/23 20:13 Alkaline Phosphatase 98 U/L (35-105) 09/28/23 20:13 C-Reactive Protein 35.0 mg/L (0.0-4.9) H 09/28/23 20:13 Total Protein 7.4 g/dL (6.6-8.7) 09/28/23 20:13 Albumin 3.5 g/dL (3.5-5.2) 09/28/23 20:13 Globulin 3.9 g/dL (1.3-4.6) 09/28/23 20:13 Lipase 27 U/L (13-60) 09/28/23 20:13 Urine Color Colorless (Yellow) 09/28/23 20:02 Urine Appearance Cloudy (CLEAR) A 09/28/23 20:02 Urine pH 5 (5-7) 09/28/23 20:02 Ur Specific [place] 1.005 (1.005-1.030) 09/28/23 20:02 Urine Protein Trace (Negative) 09/28/23 20:02 Urine Glucose (UA) 4+ (Normal) H 09/28/23 20:02 Urine Ketones Negative (Negative) 09/28/23 20:02 Urine Blood Trace (Negative) H 09/28/23 20:02 Urine Nitrate Negative (Negative) 09/28/23 20:02 Urine Bilirubin Neg (Negative) 09/28/23 20:02 Urine Urobilinogen Neg mg/dL (Negative) 09/28/23 20:02 Ur Leukocyte Esterase 1+ (Negative) H 09/28/23 20:02 Urine RBC 0-4 /hpf (0-2) H 09/28/23 20:02 Urine WBC 25-40 /hpf (0-5) H 09/28/23 20:02 Ur Squamous Epith Cells 0-4 /hpf (0-5) H 09/28/23 20:02 Amorphous Sediment Not Reportable 09/28/23 20:02 Urine Bacteria Trace /hpf (NONE) 09/28/23 20:02 Urine Mucus Trace /hpf 09/28/23 20:02 Serum Ketones Negative (Negative) 09/28/23 20:13 All radiology interpretation(s) finalized by discharge Discharge Plan Discharge Patient Disposition: Admitted As Inpatient Clinical Impression: Urinary tract infection, Acute metabolic encephalopathy, Dehydration, Hyperglycemia Condition: Stable Coding Level of Care Code ED Nurse Practitioner Home Assessments for 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
[2023-09-28 19:44] LABS: Basophils % 0.5 %; Eosinophils # 0.2 10^3/uL (0.0-0.8); Eosinophils % 2.9 %; Hematocrit 42.4 % (36-47); Mean Corpuscular HGB Conc 34.9 g/dL (30-55); Mean Corpuscular Hemoglobin 32.1 pg (27-33); Mean Platelet Volume 9.9 fL (7.4-10.4); Monocytes # 0.5 10^3/uL (0.2-0.9); Monocytes % 6.1 %; Neutrophils # 4.25 10^3/uL (1.8-7.7); Neutrophils % 53.1 %; Nucleated Red Blood Cells % 0 %; Platelet Count 305 10^3/cmm (157-399); Red Blood Count 4.61 10^6/uL (3.85-5.65); Red Cell Distribution Width 12.7 % (12.1-15.1)
[2023-09-28] MEDS: sodium chloride 0.9% 1,000 ML 999 ML IV (19:44)
[2023-09-28] MEDS: ondansetron 2 mg/ML SDV 2 mL 8 MG IVP (19:45)
[2023-09-28 19:56] LABS: ABG PCO2 48.5 mmHg (35-45); ABG PH Result 7.37 (7.35-7.45); Alveolar-Arterial Oxygen Gradi 0.6 mmHg (5-10); Blood Gas Allen Test Pos; Blood Gas Sample Site Radial, right; Blood Gas Sample Type Arterial; Carboxyhemoglobin 1.1 %THgb (0.4-20.1); HCO3 ABG 28.1 mmol/L (22-26); HGB O2 Sat 94.8 % (95-100); Ionized Calcium Level - ABG 1.1 mmol/L (1.1-1.4); Methemoglobin 0.5 % (0.4-1.5); Oxygen Device NC; Oxygen Saturation ABG 96.3; PO2 ABG 84.7 mmHg (80.0-100.0); Potassium Level - ABG 3.4 mmol/L (3.5-5.0); Total Hemoglobin 14.4 g/dL (12-16)
[2023-09-28 20:36] LABS: Protein Urine Trace (Negative); Specific Gravity, Urine 1.005 (1.005-1.030); Urine Appearance Cloudy (CLEAR); Urine Color Colorless (Yellow); pH Urine 5 (5-7)
[2023-09-28 20:37] LABS: Add Urine Culture? Yes; Bacteria Urine TRACE /hpf; Bilirubin Urine Neg (Negative); Blood Urine Trace (Negative); Glucose Urine UA 4+ (Normal); Ketones Urine Negative (Negative); Leukocyte Esterase Urine 1+ (Negative); Mucus Urine TRACE /hpf; Nitrate Urine Negative (Negative); RBC Urine 0-4 /hpf (0-2); Squamous Epithelial Cell Urine 0-4 /hpf (0-5); Urobilinogen Urine Neg (Negative); WBC Urine 25-40 /hpf (0-5)
[2023-09-28 20:39] LABS: Ketone (Acetest) Serum Negative (Negative); Lactic Sepsis W/Reflex 0.9 mmol/L (0.5-2.2)
[2023-09-28 20:40] LABS: Alanine Aminotransferase 32 U/L (0-33); Albumin Level 3.5 g/dL (3.5-5.2); Alkaline Phosphatase 98 U/L (35-105); Anion Gap 15.7 (5-19); Aspartate Amino Transferase 17 U/L (0-32); Blood Urea Nitrogen 27 mg/dL (8-23); Carbon Dioxide 26 mmol/L (22-29); Chloride 103 mmol/L (98-107); Creatinine Clr Calc Pharmacy 60.8673; Globulin 3.9 g/dL (1.3-4.6); Glucose 315 mg/dL (65-115); Lipase 27 U/L (13-60); Osmolality Calculated 309 mOsm/kg (285-295); Potassium 3.7 mmol/L (3.5-5.1); Sodium 141 mmol/L (136-145); Total Bilirubin 0.6 mg/dL (0.15-1.2); Total Protein 7.4 g/dL (6.6-8.7)
[2023-09-28] MEDS: ciprofloxacin 400 MG/200 ML PREMIX 200 MG IV (20:53)
[2023-09-28] MEDS: sodium chloride 0.9% 500 ML 999 ML IV (20:53)
--- NOTE | 2023-09-28 21:12 | PM.HP ---
Providers/Chief Complaint Primary Care Provider: Demetria Busch MD Chief Complaint: AMS History of Present Illness Sherie Hernandez is a 78 year old female with past medical history of recent posterior circulation stroke, Carpal tunnel syndrome, adrenal adenoma, type 2 diabetes mellitus, UTI, hypothyroidism, hypertension presented to the hospital with complaint of nausea vomiting. She has been vomiting for the last 3 to 4 hours prior to arrival to ER. Patient presented to [facility] last Friday with complaint of dizziness, nausea vomiting and right-sided weakness. She was seen by neurology telestroke service and for suspicion of posterior circulation stroke she was administered TNKase and transferred to [facility] for further management by neurology. Records reviewed from [facility]. at [facility] she had an MRI done which was negative for stroke, echo with bubble study completed negative for a PFO. Echo showed EF 6065% normal diastolic function. There was also suspicion of UTI however urine culture was negative. CTA head and neck did not show any obstruction. Patient was kept on telemetry which showed sinus rhythm. Hemoglobin A1c 10.4, LDL 39. She was placed on aspirin 81 daily rosuvastatin 20. Patient continued to complain of right-sided weakness however that improved with physical therapy. She no longer qualified for inpatient rehab and refused SNF placement. Home health was attempted to be set up. Of note patient does have a spinal stimulator in place. Patient was concerned that it is not working. Neurosurgery follow-up was recommended however patient declined. It appears to be the patient's right-sided weakness is chronic secondary to her back pain and she has a spinal stimulator in place. It was concluded that patient's symptoms may be chronic at this point. Neurology did not believe patient had a stroke. Additionally patient wears urinary pads and does have perineal yeast infections that are recurrent secondary to uncontrolled diabetes. This may be the reason of her recurrent UTIs. Patient carries a known history of vertigo. she has been given IV fluids in the ER normal saline bolus. Basic workup was completed. UA abnormal suggestive of UTI. CT head does not show any acute process. No hemorrhage no evidence of infarct. Chest x-ray shows no pneumothorax no infiltrate. Creatinine 1.2, he does have history of CKD. EKG shows no ischemic changes. Ketones negative. ABG 7.37/48.5/84.7. Patient seen sitting up in room. Complains of dizziness. She states she has been to multiple doctors however no one has been able to help her so far. Denies vomiting at this time, constipation, diarrhea, abdominal pain, shortness of breath, chest pain. Medications/Allergies Home Medications Medication Instructions Recorded Confirmed Last Taken Type acetaminophen 500 mg tablet 500 mg PO QID PRN Pain 08/23/22 09/29/23 09/28/23 History (Tylenol Extra Strength) aspirin 81 mg chewable tablet 81 mg PO DAILY 08/23/22 09/29/23 09/28/23 History tramadol 50 mg tablet 50 mg PO Q6H PRN Pain 08/23/22 09/29/23 09/28/23 History vit C 250 mg-vit E 90 mg-zinc 40 1 tab PO BID 11/19/22 09/04/23 07/08/23 History mg-copper 1 [id number] capsule (PreserVision AREDS-2) colchicine 0.6 mg tablet See Rx Instructions .Route 08/28/23 09/04/23 Unknown Rx .COMPLEX #10 tabs AFO Brace #1 ea 09/11/23 Unknown Rx diabetic shoes with 3 inserts #1 ea 09/17/23 Unknown Rx empagliflozin 25 mg tablet 25 mg PO QAM #90 tabs 09/19/23 09/19/23 Unknown Rx furosemide 40 mg tablet (Lasix) 40 mg PO DAILY #90 tabs 09/19/23 09/29/23 09/28/23 Rx levetiracetam 750 mg tablet See Rx Instructions .Route 09/19/23 09/29/23 09/28/19 Rx .COMPLEX #180 tabs levothyroxine 125 mcg tablet 125 mcg PO DAILY #90 tabs 09/19/23 09/29/23 09/28/23 Rx pramipexole 0.25 mg tablet See Rx Instructions .Route 09/19/23 09/29/23 09/28/23 Rx .COMPLEX #270 tabs simvastatin 20 mg tablet 20 mg PO DAILY #90 tabs 09/19/23 09/29/23 09/28/23 Rx sitagliptin phosphate 25 mg tablet See Rx Instructions .Route 09/19/23 09/19/23 Unknown Rx (Januvia) .COMPLEX #90 tabs ciprofloxacin HCl 500 mg tablet 500 mg PO BID #10 tabs 09/21/23 Unknown Rx glimepiride 4 mg tablet 8 mg PO BID 09/29/23 09/28/23 History Allergies Allergy/AdvReac Type Severity Reaction Status Date / Time azithromycin Allergy ALGY-Difficulty Verified 09/04/23 09:18 Breathing carbamazepine [From Tegretol] Allergy Unknown Verified 09/04/23 09:18 cephalexin Allergy Unknown Verified 09/04/23 09:18 ciprofloxacin Allergy ALGY-Rash Verified 09/28/23 21:25 colchicine Allergy Unknown Verified 09/04/23 09:18 cyclobenzaprine Allergy Unknown Verified 09/04/23 09:18 [From Flexeril] fentanyl Allergy doesn't Verified 09/04/23 09:18 want to take fluconazole Allergy Unknown Verified 09/04/23 09:18 gabapentin Allergy Unknown Verified 09/04/23 09:18 hydrocodone [From [place]] Allergy Unknown Verified 09/04/23 09:18 hydroxychloroquine Allergy Unknown Verified 09/04/23 09:18 hyoscyamine Allergy Unknown Verified 09/04/23 09:18 naproxen [From Naprosyn] Allergy Unknown Verified 09/04/23 09:18 oxybutynin [From Ditropan] Allergy Unknown Verified 09/04/23 09:18 phenytoin [From Dilantin] Allergy Unknown Verified 09/04/23 09:18 progesterone Allergy Unknown Verified 09/04/23 09:18 [From Prometrium] solifenacin [From Vesicare] Allergy Unknown Verified 09/04/23 09:18 Sulfa (Sulfonamide Allergy Unknown Verified 09/04/23 09:18 Antibiotics) sulfamethoxazole Allergy Unknown Verified 09/04/23 09:18 [From Bactrim] trimethoprim [From Bactrim] Allergy Unknown Verified 09/04/23 09:18 valdecoxib [From Bextra] Allergy Unknown Verified 09/04/23 09:18 PFSH Acute PFSH: Medical History Family history of colon cancer Colon polyps Spinal cord neurostimulator device in situ BMI 40.0-44.9, adult FH: total knee replacement Recurrent UTI CRP elevated Angina at rest Creatinine elevation After cataract, bilateral Carpal tunnel syndrome on both sides Nonfunctional vagus nerve stimulator Multiple lung nodules on CT 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 Father CAD (coronary artery disease) Stroke Mother Chronic kidney disease (CKD) Brother Cancer Brother Stroke Colon cancer Denies family history of Ovarian cancer Diabetes Heart disease Hypercholesteremia Breast cancer Hypertension Uterine cancer Thyroid disease Social History Smoking and tobacco/nicotine status: former use of tobacco/nicotine Quit status (tobacco/nicotine): has quit using Year quit tobacco: 1959 Former quit date comment: 1-2 ppd X 1 year Second hand smoke exposure: No Alcohol intake: never Substance/Drug Use: never Current gender identity: Female Female Reproductive History: Spontaneous abortions: No Vitals/I&O/Wt Last Vital Signs Temp 97.4 F L 09/28/23 19:26 Pulse 64 09/28/23 20:04 Resp 29 H 09/28/23 20:04 BP 120/50 09/28/23 20:04 Pulse Ox 95 09/28/23 20:04 O2 Del Method Nasal Cannula 09/28/23 20:04 O2 Flow Rate 2 09/28/23 19:26 09/28/23 09/28/23 09/28/23 06:59 14:59 22:59 Intake Total 1000 / 1000 Balance 1000 / 1000 Weight last 48 hrs Weight 99.79 kg Physical Exam Narrative: General: No acute distress, sitting up on edge of bed. States she is dizzy. Head: Normocephalic, atraumatic. Eye: Extraocular movements are intact. Ears, nose, mouth and throat: Cardiovascular: Regular rate and rhythm, Normal peripheral perfusion. Respiratory: Lungs are clear to auscultation, respirations are non-labored, no wheezes or ronchi Gastrointestinal: Soft, Nontender, Non distended, Normal bowel sounds. Neurological: No focal neurological deficits, right upper extremity slightly weaker than left. Extremities: No lower extremity edema. Surgical scars present bilateral knees. Data 09/28/23 Unknown 09/28/23 20:13 Micro: Microbiology 09/28/23 20:15 Blood Culture - Preliminary Blood SPECIMEN COLLECTED 09/28/23 20:13 Blood Culture - Preliminary Blood SPECIMEN COLLECTED A&P Assessment and plan (1) Essential hypertension: (2) Hyperglycemia: (3) Acquired hypothyroidism: (4) Dehydration: (5) Recurrent UTI: (6) Urinary tract infection: (7) Seizure disorder: Plan #Nausea, vomiting #UTI #Recent posterior circulation stroke, status post TNKase, recent transfer to [facility] #Hx of recurrant UTI #Hypothyroidism #Hypertension #Diabetes Mellitus Type 2 #Seizure disorder - Pt has hx of recurrent UTIs. Previous cultures e.coli sensitive to all except ampicillin, augmentin. Has hx of jessica glabatra in urine as well. Patient wears urinary pads and has chronic perineal yeast infections secondary to uncontrolled diabetes and recurrent UTI. - Pt nauseated, vomitting with glucose of 315. Ketones negative. Pt on jardiance at home. -Start patient on Lantus 10 units daily, moderate dose intensity sliding scale ? MRI brain, echo, CTA head and neck, lipid panel recently completed at [facility]. Please see records. Will not repeat here. ? Patient does have a spine stimulator in place and has chronic right-sided weakness and vertigo. ? I will start patient on meclizine at this time ? Check orthostatic vitals ? Placed on gentle fluid hydration normal saline 75 cc/h ? Zofran every 6 hours as needed for nausea if unresponsive will use Reglan versus Phenergan. ? Check urine drug screen ? Order UA Zosyn for UTI. Patient was recently hospitalized at [facility]. ? CT head negative today. ? Continue on aspirin, atorvastatin 20 daily. - Need accurate med rec. -Continue Keppra 750 twice daily. Patient says she has not had a seizure in 17 years. - Pt on keppra at home as per list here. Unsure if had a possible seizure? Check prolactin, lactic acid STAT - Check urine culture - Hold glimeperide - Check HBA1c, check TSH, Vitamin B12 ? Continue to monitor telemetry. No evidence of A-fib during her stay at [facility]. Patient remained in sinus rhythm on telemetry. Full Code DVT pPX: hep subc BID Attestations Medical Necessity Statement*: Anticipate dc within 48 hours. Admit to obs for n/v, UTI Diagnoses Essential hypertension I10 Hyperglycemia R73.9 Acquired hypothyroidism E03.9 Dehydration E86.0 Recurrent UTI N39.0 Urinary tract infection N39.0 Seizure disorder G40.909
--- NOTE | 2023-09-28 21:25 | PC.NURSE ---
this nurse answered pts call light and pt said her arm was itching where her IV was. upon inspection, this nurse noted a rash on pts left forearm above the IV. this nurse stopped pts ciprofloxacin infusion. this nurse then discussed with provider and it was determined pt was having an allergic reaction to the ciprofloxacin. provider changed orders and ordered steroids as well.
[2023-09-28] MEDS: methylPREDNISolone sod succ 125 mg/2 mL INJ 80 MG IVP (22:02)
[2023-09-28] MEDS: diphenhydrAMINE 50 mg/mL SDV 1mL 25 MG IVP (22:02)
[2023-09-28 22:20] LABS: Estmated Average Glucose 235; Hemoglobin A1C 9.8 % (4.0-6.0)
[2023-09-28 22:30] LABS: NT Pro B Type Natriuretic Pept 49 pg/mL (0-450); Procalcitonin 0.08 ng/mL (0-0.5); Thyroid Stimulating Hormone 9.83 uIU/mL (0.27-4.20)
[2023-09-28 23:01] LABS: Free T4 Free Thyroxine 1.36 ng/dL (0.82-1.77)
[2023-09-28] MEDS: sodium chloride 0.9% 1,000 ML 75 ML IV (23:35)
[2023-09-28] MEDS: heparin 5,000 unit/mL INJ 1 mL 5000 UNIT SUBCUT (23:35)
[2023-09-28 23:40] LABS: Amphetamines Screen Urine Negative (Negative); Barbiturates Screen Urine Negative (Negative); Benzodiazepines Screen Urine Negative (Negative); Cocaine Screen Urine Negative (Negative); Opiate Screen Urine Negative (Negative); PCP Screen Urine Negative (Negative); THC Screen Urine Negative (Negative)
[2023-09-29] VITALS (10 sets, daily range): BP systolic 106–133; BP diastolic 57–75; PULSE 65–80; RESP 16–18; TEMP 36.4–36.6; O2SAT 91–96
[2023-09-29] MEDS: piperacillin-tazobactam 3.375 GM in sodium chloride 0.9% (100 ml) 100 ML IV ×3 (00:22→11:49)
[2023-09-29] MEDS: insulin glargine 100 units/1 mL 10 UNIT SUBCUT (00:37)
[2023-09-29 06:09] LABS: Basophils % 0.3 %; Hematocrit 40.1 % (36-47); Lymphocytes % 16.3 %; Mean Corpuscular HGB Conc 33.9 g/dL (30-55); Mean Corpuscular Hemoglobin 31.8 pg (27-33); Mean Corpuscular Volume 93.7 fl (85-98); Monocytes % 0.5 %; Neutrophils # 5.15 10^3/uL (1.8-7.7); Neutrophils % 82.4 %; Nucleated Red Blood Cells % 0 %; Platelet Count 268 10^3/cmm (157-399); Red Blood Count 4.28 10^6/uL (3.85-5.65); Red Cell Distribution Width 12.3 % (12.1-15.1); White Blood Count 6.25 10^3/uL (3.29-11.43)
[2023-09-29 06:28] LABS: Glucose Point of Care 248 mg/dL (70-110)
[2023-09-29 06:36] LABS: Alanine Aminotransferase 28 U/L (0-33); Albumin Level 3.4 g/dL (3.5-5.2); Alkaline Phosphatase 106 U/L (35-105); Anion Gap 18.2 (5-19); Aspartate Amino Transferase 16 U/L (0-32); Blood Urea Nitrogen 24 mg/dL (8-23); Calcium 7.9 mg/dL (8.5-10.5); Carbon Dioxide 24 mmol/L (22-29); Chloride 104 mmol/L (98-107); Creatinine Clr Calc Pharmacy 72.7919; Glucose 277 mg/dL (65-115); Magnesium 2.1 mg/dL (1.7-2.3); Osmolality Calculated 308 mOsm/kg (285-295); Phosphorus 3.7 mg/dL (2.5-4.5); Potassium 4.2 mmol/L (3.5-5.1); Sodium 142 mmol/L (136-145); Total Bilirubin 0.6 mg/dL (0.15-1.2); Total Protein 7.4 g/dL (6.6-8.7)
[2023-09-29] MEDS: ondansetron 2 mg/ML SDV 2 mL 4 MG IVP (09:42)
[2023-09-29] MEDS: pantoprazole DR 40 mg Tablet PO (09:42)
[2023-09-29] MEDS: levETIRAcetam 500 mg Tablet 750 MG PO ×2 (09:42→18:19)
[2023-09-29] MEDS: levothyroxine 125 mcg Tablet PO (09:42)
[2023-09-29] MEDS: meclizine 25 mg tablet PO ×3 (09:42→21:17)
[2023-09-29] MEDS: aspirin 81 mg Chew Tablet PO (09:42)
[2023-09-29 11:39] LABS: Glucose Point of Care 380 mg/dL (70-110)
[2023-09-29] MEDS: heparin 5,000 unit/mL INJ 1 mL 5000 UNIT SUBCUT ×2 (11:48→21:17)
[2023-09-29] MEDS: sodium chloride 0.9% 1,000 ML 75 ML IV (11:49)
--- NOTE | 2023-09-29 16:11 | PM.PN ---
Subjective Subjective: Continues to complain of nausea and feeling sick to her stomach . Denies any diarrhea. She is refusing insulin Medications: Reviewed: Yes Vitals/I&O/Wt Last Vital Signs Temp 97.5 F L 09/29/23 11:49 Pulse 69 09/29/23 11:49 Resp 18 09/29/23 11:49 BP 117/72 09/29/23 11:49 Pulse Ox 91 09/29/23 11:49 O2 Del Method Room Air 09/29/23 11:49 O2 Flow Rate 2 09/28/23 22:42 09/29/23 09/29/23 09/29/23 06:59 14:59 22:59 Intake Total 700 / 1900 1857.5 / 1857.5 Balance 700 / 1900 1857.5 / 1857.5 Weight last 48 hrs Weight 99.45 kg Weight 97.522 kg Weight 99.79 kg Physical Exam Narrative: General: No acute distress, AO x3 HEENT: PERRLA, pupils bilaterally equal and reactive, pallors not present Chest: Normal vesicular breath sounds, no added sounds, equal good air entry bilaterally CVS: S1-S2 regular, no murmurs, no tachycardia, no gallops, no rubs Abdomen: Soft, nontender, no organomegaly, bowel sounds present Neuro: No focal deficits, no facial deformity, AO x3, power 5/5 in all limbs Data 09/29/23 05:51 09/29/23 05:51 Micro: Microbiology 09/28/23 20:15 Blood Culture - Preliminary Blood SPECIMEN COLLECTED 09/28/23 20:13 Blood Culture - Preliminary Blood SPECIMEN COLLECTED A&P Assessment and plan (1) Essential hypertension: (2) Hyperglycemia: (3) Acquired hypothyroidism: (4) Dehydration: (5) Recurrent UTI: (6) Urinary tract infection: (7) Seizure disorder: Plan #Nausea, vomiting #UTI #Recent posterior circulation stroke, status post TNKase, recent transfer to [facility] #Hx of recurrant UTI #Hypothyroidism #Hypertension #Diabetes Mellitus Type 2 #Seizure disorder - Pt has hx of recurrent UTIs. Previous cultures e.coli sensitive to all except ampicillin, augmentin. Has hx of jessica glabatra in urine as well. Patient wears urinary pads and has chronic perineal yeast infections secondary to uncontrolled diabetes and recurrent UTI. - Pt nauseated, vomitting with glucose of 315. Ketones negative. Pt on jardiance at home. -Start patient on Lantus 10 units daily, moderate dose intensity sliding scale ? MRI brain, echo, CTA head and neck, lipid panel recently completed at [facility]. Please see records. Will not repeat here. ? Patient does have a spine stimulator in place and has chronic right-sided weakness and vertigo. ? I will start patient on meclizine at this time ? Check orthostatic vitals ? Placed on gentle fluid hydration normal saline 75 cc/h ? Zofran every 6 hours as needed for nausea if unresponsive will use Reglan versus Phenergan. ? Check urine drug screen ? Order UA Zosyn for UTI. Patient was recently hospitalized at [facility]. ? CT head negative today. ? Continue on aspirin, atorvastatin 20 daily. - Need accurate med rec. -Continue Keppra 750 twice daily. Patient says she has not had a seizure in 17 years. - Pt on keppra at home as per list here. Unsure if had a possible seizure? Check prolactin, lactic acid STAT - Check urine culture - Hold glimeperide - Check HBA1c, check TSH, Vitamin B12 ? Continue to monitor telemetry. No evidence of A-fib during her stay at [facility]. Patient remained in sinus rhythm on telemetry. Full Code DVT pPX: hep subc BID Plan for today September 29, 2023. Continues to complain of nausea. Has not vomited yet today. CT head unremarkable. Awaiting records from [facility] from recent admission for posterior circulation stroke. Patient states that she has had nausea since about a week, was asymptomatic at home for 2 days before her symptoms recurring. She is refusing insulin. Request home dose of Jardiance and glimepiride, these will be resumed. Check lipase to evaluate for possible pancreatitis which may be contributing Optimize nausea medications with addition of metoclopramide as needed in addition to Zofran as needed. Check EKG and troponin series for possible atypical anginal presentation. Lower extremity swelling noted. Discontinue IV fluids. Currently saturating well on room air. No signs of respiratory distress. Resume home dose of Lasix 40 mg p.o. daily. Discontinue piperacillin/tazobactam. Change empiric antibiotic regimen for UTI to ceftriaxone 1 g IV daily. Attestations Medical Necessity Statement*: persistent nausea, AWAITING RECORDS FROM recent stroke admission , pending urine cx Coding Level of Care Code Acute Code for Chg Fwd Moderate MDM includes number and complexity of problems actively addressed during encounter, amount and/or complexity of data reviewed/ordered and described risk of complication, morbidity or mortality of management as documented Diagnoses Essential hypertension I10 Hyperglycemia R73.9 Acquired hypothyroidism E03.9 Dehydration E86.0 Recurrent UTI N39.0 Urinary tract infection N39.0 Seizure disorder G40.909
[2023-09-29 16:15] LABS: Glucose Point of Care 416 mg/dL (70-110)
--- NOTE | 2023-09-29 16:35 | ECG_ITS ---
[facility] Test Date: 2023-09-29 Pat Name: Sherie Hernandez Department: Room: 277 Gender: Female Continuous Improvement Director: : 1945 Requested By: Latosha Barahona Order Number: [id number] Ella MD: Jett Berg M.D. Measurements Intervals [place] Rate: 67 P: 38 OR: 177 QRS: -11 QRSD: 96 T: 15 QT: 453 QTc: 482 Interpretive Statements SINUS RHYTHM WITH SINUS ARRHYTHMIA Compared to ECG 09/21/2023 16:13:27 Ventricular premature complex(es) no longer present T-wave abnormality no longer present Electronically Signed On 09-29-2023 18:07:02 CDT by Jett Berg M.D. [email or web address]Cardiovascular Provider Resource Holdingsochsner rush healthTelirismercy health fairfield hospital.[email or web address]/store/[id number]
[2023-09-29 16:51] LABS: Troponin(5th) Baseline 21 ng/L (0-10)
[2023-09-29 17:23] LABS: Lipase 17 U/L (13-60)
--- NOTE | 2023-09-29 17:54 | ECG_ITS ---
[facility] Test Date: 2023-09-29 Pat Name: Sherie Hernandez Department: Room: 277 Gender: Female Psychological Aide: : 1945 Requested By: Latosha Barahona Order Number: [id number] Ella MD: Jett Berg M.D. Measurements Intervals [place] Rate: 71 P: 11 IL: 148 QRS: -8 QRSD: 100 T: 17 QT: 443 QTc: 481 Interpretive Statements SINUS RHYTHM WITH SINUS ARRHYTHMIA POSSIBLE ANTERIOR MYOCARDIAL INFARCTION , PROBABLY OLD [30 ms Q WAVE IN V3/V4, OR R < 0.2 mV IN V4] Compared to ECG 09/29/2023 16:35:25 Myocardial infarct finding now present Electronically Signed On 09-29-2023 18:08:29 CDT by Jett Berg M.D. [id number]
[2023-09-29 20:55] LABS: Glucose Point of Care 362 mg/dL (70-110)
[2023-09-29] MEDS: pramipexole 0.25 mg Tablet 0.5 MG PO (21:17)
[2023-09-29] MEDS: atorvastatin 40 mg Tablet PO (21:17)
[2023-09-29] MEDS: acetaminophen 325 mg Tablet 650 MG PO (21:19)
[2023-09-29] MEDS: metoclopramide 5 mg/mL SDV 2 mL IVP (22:31)
--- NOTE | 2023-09-29 22:37 | ECG_ITS ---
[facility] Test Date: 2023-09-29 Pat Name: Sherie Hernandez Department: Room: 277 Gender: Female Steam Conditioning Operator: : 1945 Requested By: Latosha Barahona Order Number: [id number] Ella MD: Татьяна Mayfield M.D. Measurements Intervals [place] Rate: 69 P: 26 WI: 155 QRS: -1 QRSD: 101 T: 33 QT: 417 QTc: 447 Interpretive Statements SINUS RHYTHM WITH MARKED SINUS ARRHYTHMIA Compared to ECG 09/29/2023 17:47:33 Myocardial infarct finding no longer present Electronically Signed On 10-01-2023 0:27:03 CDT by Татьяна Mayfield M.D. [email or web address] [email or web address] county memorial hospital - [email or web address] Medical/store/[id number]
[2023-09-29 23:16] LABS: Troponin 5 6HR 23.22 ng/L (0-10); Troponin 5 6HR Delta 2.22 ng/L (0-12)
[2023-09-30] VITALS (8 sets, daily range): BP systolic 114–158; BP diastolic 60–71; PULSE 56–85; RESP 16–20; TEMP 36.4–36.6; O2SAT 92–98
[2023-09-30] MEDS: morphine 4 mg/mL SDV 1 mL 2 MG IVP (00:05)
[2023-09-30 06:31] LABS: Glucose Point of Care 134 mg/dL (70-110)
[2023-09-30] MEDS: pramipexole 0.25 mg Tablet PO (06:35)
[2023-09-30] MEDS: meclizine 25 mg tablet PO ×2 (09:12→14:05)
[2023-09-30] MEDS: aspirin 81 mg Chew Tablet PO (09:12)
[2023-09-30] MEDS: pantoprazole DR 40 mg Tablet PO (09:12)
[2023-09-30] MEDS: FUROsemide 40 mg Tablet PO (09:13)
[2023-09-30] MEDS: acetaminophen 325 mg Tablet 650 MG PO (09:13)
[2023-09-30] MEDS: SITAGLIPTIN PHOSPHATE 25 MG 25 EACH PO (09:13)
[2023-09-30] MEDS: levothyroxine 125 mcg Tablet PO (09:13)
[2023-09-30] MEDS: heparin 5,000 unit/mL INJ 1 mL 5000 UNIT SUBCUT (09:13)
[2023-09-30] MEDS: atorvastatin 40 mg Tablet 20 MG PO (09:13)
[2023-09-30] MEDS: levETIRAcetam 500 mg Tablet 750 MG PO (09:13)
--- NOTE | 2023-09-30 09:29 | PC.CHAP ---
Pastoral Care Encounter/Spiritual Assessment Type of Contact [] Declined emu farmer visit [] Patient/Family/Request visit [] Outpatient visit [] Follow-up visit [] Physician referral [] Code/Alert [x] Routine visit [] Staff referral [] Actively dying [] Patient sleeping [] Family support [] [] Out of room [] Palliative care [] [] Receiving care in room [] Pre-surgical visit [] Trauma [] Long length of stay [] ICU visit [] Other: Relational/Emotional Strength [x] Patient feels connected with others/family/visitors/staff [] Distress [] Loneliness/isolation [] Abandonment Spirituality of Patient [x] Person of Latoya [] Attends Anglican of their Latoya [x] Believes in Prayer [] Reads Bible or Presybeterian materials [] There are Spiritual issues to be addressed Feed Grinder Interventions [x] Prayer [x] Active listening [] Non-anxious presence [x] Spiritual/emotional support [] Crisis/trauma care [] Spiritual counseling [] Bereavement support [] Provided bereavement packet [] Provided Bible/devotional materials [] Provided toy/stuffed animal, coloring book to patient or family member [] Provided Communion [] Anointing/[place] [] Salvation [x] Completed spiritual assessment [] Other: Impact on Illness or Injury [] Angry [] Fearful [] Anxious [] Often cries [] Exhaustion [] Unable to work [] Unable to attend shinto [] Unable to walk/stand [] Unable to read [] Unable to drive [] Unable to eat/drink [] Unable to sleep [] Unable to be with family [] Patient intubated [] Other: Summary Time spent with patient 5 min
[2023-09-30 11:14] LABS: Glucose Point of Care 215 mg/dL (70-110)
--- NOTE | 2023-09-30 14:55 | PC.OT ---
OT treatment session attempted 2x with pt declining both times; will attempt again at later time.
--- NOTE | 2023-09-30 16:25 | P.DS_ITS ---
Discharge Providers Date of Admission: 09/29/23 01:25 Date of Discharge: September 30, 2023 Attending Provider at Admission: Laurie Boyle MD Attending Provider at Discharge: Latosha Barahona MD Primary Care Provider: Demetria Busch MD Diagnoses at Discharge Discharge Diagnosis (1) Essential hypertension: Status: Chronic (2) Hyperglycemia: Status: Acute (3) Acquired hypothyroidism: Status: Chronic (4) Dehydration: Status: Acute (5) Recurrent UTI: Status: Chronic (6) Urinary tract infection: Status: Acute (7) Seizure disorder: Status: Chronic Reason for Visit Reason for Visit: [facility] Hospital Course Hospital Course Sherie Hernandez is a 78 year old female with past medical history of recent posterior circulation stroke, Carpal tunnel syndrome, adrenal adenoma, type 2 diabetes mellitus, UTI, hypothyroidism, hypertension presented to the hospital with complaint of nausea vomiting. Patient stated that she first developed the symptoms approximately 4 to 5 days ago. She had presented into the emergency room and there was concern for posterior circulation stroke on September 21, 2023. She received TNKase and was transferred to [facility]. MRI of the head performed at [facility] on September 23 was reviewed, no evidence of acute ischemic changes were seen. There was chronic small vessel ischemic changes throughout the white matter. She had complaints of some right sided weakness at that time however that improved with therapy. She eventually returned home. Upon returning home she stated that she was feeling well for 2 days but then again started to develop nausea and vomiting again. CT head was obtained on September 27 here and was negative for any acute process. There was no evidence of any infarct or hemorrhage. Her blood sugars were noted to be elevated in the 300 range, however with negative ketones or anion gap. Unlikely that this was significantly contributing to her symptoms. Patient received a trial of meclizine 25 mg 3 times a day following which her symptoms did show some improvement. She also received as needed Zofran but did not need more than 1-2 doses during the admission course. Her home medications including OHA's, Keppra were continued without any other changes. She improved symptomatically. She is no longer nauseous today. Has not had any vomiting episodes during the course of admission. No diarrhea or abdominal pain otherwise. She may have had perhaps viral gastroenteritis which appears to be resolving. She is discharged today with meclizine and as needed Zofran added to her regimen. Recommended to follow-up with primary care physician should she continue to have persisting symptoms. Physical Exam Narrative: General: No acute distress, AO x3 HEENT: PERRLA, pupils bilaterally equal and reactive, pallors not present Chest: Normal vesicular breath sounds, no added sounds, equal good air entry bilaterally CVS: S1-S2 regular, no murmurs, no tachycardia, no gallops, no rubs Abdomen: Soft, nontender, no organomegaly, bowel sounds present Neuro: No focal deficits, no facial deformity, AO x3, power 5/5 in all limbs Discharge Data Studies Completed and Pending Completed Studies During Hospitalization Category Date Time Status CT head wo con* [id number] Stat Cat Scan 09/28/23 19:28 Completed XR chest 1V portable [id number] Stat Exams 09/28/23 19:28 Completed Pending at discharge Category Date Time Status Blood Culture Stat Lab 09/28/23 20:15 Results Radiology Impressions Chest X-Ray 09/28/23 19:28 IMPRESSION: 1. Decreased inspiration with bilateral lower lobe atelectasis. 2. Incidental/nonacute findings are listed in the report. Head CT 09/28/23 19:28 IMPRESSION: 1. No acute abnormality of the brain. 2. Stable mild atrophy of the brain parenchyma. 3. Stable mild chronic white matter microangiopathic change. 4. Incidental/nonacute findings are listed in the report. Laboratory Results WBC 6.25 10^3/uL (3.29-11.43) 09/29/23 05:51 RBC 4.28 10^6/uL (3.85-5.65) 09/29/23 05:51 Hgb 13.60 g/dL (11.27-16.99) 09/29/23 05:51 Hct 40.1 % (36-47) 09/29/23 05:51 MCV 93.7 fl (85-98) 09/29/23 05:51 MCH 31.8 pg (27-33) 09/29/23 05:51 MCHC 33.9 g/dL (30-55) 09/29/23 05:51 RDW 12.3 % (12.1-15.1) 09/29/23 05:51 Plt Count 268 10^3/cmm (157-399) 09/29/23 05:51 MPV 9.0 fL (7.4-10.4) 09/29/23 05:51 Neut % (Auto) 82.4 % 09/29/23 05:51 Lymph % (Auto) 16.3 % 09/29/23 05:51 [place] % (Auto) 0.5 % 09/29/23 05:51 Eos % (Auto) 0.0 % 09/29/23 05:51 Baso % (Auto) 0.3 % 09/29/23 05:51 Neut # (Auto) 5.15 10^3/uL (1.8-7.7) 09/29/23 05:51 Lymph # (Auto) 1.0 10^3/uL (0.8-4.8) 09/29/23 05:51 [place] # (Auto) 0.0 10^3/uL (0.2-0.9) L 09/29/23 05:51 Eos # (Auto) 0.0 10^3/uL (0.0-0.8) 09/29/23 05:51 Baso # (Auto) 0.0 10^3/uL (0.0-0.1) 09/29/23 05:51 Nucleated RBC % (auto) 0 % 09/29/23 05:51 Nucleated RBCs # 0.0 /100WBC 09/29/23 05:51 Specimen Type Arterial 09/28/23 19:45 Sample Site Radial, right 09/28/23 19:45 ABG pH 7.37 (7.35-7.45) 09/28/23 19:45 ABG pCO2 48.5 mmHg (35-45) H 09/28/23 19:45 ABG pO2 84.7 mmHg (80.0-100.0) 09/28/23 19:45 ABG HCO3 28.1 mmol/L (22-26) H 09/28/23 19:45 ABG O2 Saturation 96.3 09/28/23 19:45 ABG Base Excess 2.0 mmol/L (-2.0-2.0) 09/28/23 19:45 Selvin Test Pos 09/28/23 19:45 A-a O2 Gradient 0.6 mmHg (5-10) L 09/28/23 19:45 Hematocrit 44.0 % (37-47) 09/28/23 19:45 Hgb O2 Saturation 94.8 % (95-100) L 09/28/23 19:45 Carboxyhemoglobin 1.1 %THgb (0.4-20.1) 09/28/23 19:45 Methemoglobin 0.5 % (0.4-1.5) 09/28/23 19:45 Total Hemoglobin 14.4 g/dL (12-16) 09/28/23 19:45 Sodium 142.0 mmol/L (131-143) 09/28/23 19:45 Potassium 3.4 mmol/L (3.5-5.0) L 09/28/23 19:45 Glucose 323.0 mg/dL (70-115) H 09/28/23 19:45 Ionized Calcium 1.1 mmol/L (1.1-1.4) 09/28/23 19:45 O2 Delivery Device Nc 09/28/23 19:45 O2 Liters/Min 2.0 % 09/28/23 19:45 Phlebotomist Supervisor/Instructor ID [email or web address] 09/28/23 19:45 Sodium 142 mmol/L (136-145) 09/29/23 05:51 Potassium 4.2 mmol/L (3.5-5.1) 09/29/23 05:51 Chloride 104 mmol/L (98-107) 09/29/23 05:51 Carbon Dioxide 24 mmol/L (22-29) 09/29/23 05:51 Anion Gap 18.2 (5-19) 09/29/23 05:51 BUN 24 mg/dL (8-23) H 09/29/23 05:51 Creatinine 1.0 mg/dL (0.5-0.9) H 09/29/23 05:51 GFR Calculation Not Reportable 09/29/23 05:51 Glucose 277 mg/dL (65-115) H 09/29/23 05:51 POC Glucose 215 mg/dL (70-110) H 09/30/23 11:08 Estimat Average Glucose 235 09/28/23 20:13 Hemoglobin A1c 9.8 % (4.0-6.0) H 09/28/23 20:13 Calculated Osmolality 308 mOsm/kg (285-295) H 09/29/23 05:51 Lactic Acid 0.9 mmol/L (0.5-2.2) 09/28/23 20:13 Calcium 7.9 mg/dL (8.5-10.5) L 09/29/23 05:51 Phosphorus 3.7 mg/dL (2.5-4.5) 09/29/23 05:51 Magnesium 2.1 mg/dL (1.7-2.3) 09/29/23 05:51 Total Bilirubin 0.6 mg/dL (0.15-1.2) 09/29/23 05:51 AST 16 U/L (0-32) 09/29/23 05:51 ALT 28 U/L (0-33) 09/29/23 05:51 Alkaline Phosphatase 106 U/L (35-105) H 09/29/23 05:51 Troponin T Baseline 21 ng/L (0-10) H 09/29/23 16:24 Troponin T 120 Minute 21.40 ng/L (0-10) H 09/29/23 19:34 Delta Troponin T 0.40 ABS# (0-10) 09/29/23 19:34 Troponin T Hi Sens 6Hr 23.22 ng/L (0-10) H 09/29/23 22:41 Troponin T Hi Sens 6Hr Delta 2.22 ng/L (0-12) 09/29/23 22:41 C-Reactive Protein 35.0 mg/L (0.0-4.9) H 09/28/23 20:13 NT-Pro-B Natriuret Pep 49 pg/mL (0-450) 09/28/23 20:13 Total Protein 7.4 g/dL (6.6-8.7) 09/29/23 05:51 Albumin 3.4 g/dL (3.5-5.2) L 09/29/23 05:51 Globulin 4.0 g/dL (1.3-4.6) 09/29/23 05:51 Lipase 17 U/L (13-60) 09/29/23 16:24 Procalcitonin 0.08 ng/mL (0-0.5) 09/28/23 20:13 TSH 9.83 uIU/mL (0.27-4.20) H 09/28/23 20:13 Free T4 1.36 ng/dL (0.82-1.77) 09/28/23 Unknown Prolactin 5.10 ng/mL (4.8-23.3) 09/28/23 20:13 Urine Color Colorless (Yellow) 09/28/23 20:02 Urine Appearance Cloudy (CLEAR) A 09/28/23 20:02 Urine pH 5 (5-7) 09/28/23 20:02 Ur Specific [place] 1.005 (1.005-1.030) 09/28/23 20:02 Urine Protein Trace (Negative) 09/28/23 20:02 Urine Glucose (UA) 4+ (Normal) H 09/28/23 20:02 Urine Ketones Negative (Negative) 09/28/23 20:02 Urine Blood Trace (Negative) H 09/28/23 20:02 Urine Nitrate Negative (Negative) 09/28/23 20:02 Urine Bilirubin Neg (Negative) 09/28/23 20: Urine Urobilinogen Neg mg/dL (Negative) 09/28/23 20:02 Ur Leukocyte Esterase 1+ (Negative) H 09/28/23 20:02 Urine RBC 0-4 /hpf (0-2) H 09/28/23 20:02 Urine WBC 25-40 /hpf (0-5) H 09/28/23 20:02 Ur Squamous Epith Cells 0-4 /hpf (0-5) H 09/28/23 20:02 Amorphous Sediment Not Reportable 09/28/23 20:02 Urine Bacteria Trace /hpf (NONE) 09/28/23 20:02 Urine Mucus Trace /hpf 09/28/23 20:02 Urine Opiates Screen Negative ng/mL (Negative) 09/28/23 Unknown Ur Barbiturates Screen Negative ng/mL (Negative) 09/28/23 Unknown Ur Phencyclidine Scrn Negative ng/mL (Negative) 09/28/23 Unknown Ur Amphetamines Screen Negative ng/mL (Negative) 09/28/23 Unknown U Benzodiazepines Scrn Negative ng/mL (Negative) 09/28/23 Unknown Urine Cocaine Screen Negative ng/mL (Negative) 09/28/23 Unknown U Marijuana (THC) Screen Negative ng/mL (Negative) 09/28/23 Unknown Serum Ketones Negative (Negative) 09/28/23 20:13 Vitals Last Vital Signs Temp 97.6 F 09/30/23 15:56 Pulse 63 09/30/23 15:56 Resp 17 09/30/23 15:56 BP 158/60 09/30/23 15:56 Pulse Ox 98 09/30/23 08:52 O2 Del Method Nasal Cannula 09/30/23 12:00 O2 Flow Rate 2 09/28/23 22:42 Discharge Plan Discharge Patient Disposition: Home Health Service Condition: Stable Prescriptions: New pantoprazole 40 mg Tablet,Delayed Release (Dr/Ec) 40 mg PO DAILY 30 Days Qty: 30 0RF ondansetron HCl 4 mg tablet 4 mg PO Q8H PRN (Reason: nausea and vomiting) 7 Days Qty: 20 0RF meclizine 25 mg tablet 25 mg PO TID PRN (Reason: dizziness) Qty: 30 0RF Continued aspirin 81 mg tablet,chewable 81 mg PO DAILY acetaminophen [Tylenol Extra Strength] 500 mg tablet 500 mg PO QID PRN (Reason: Pain) tramadol 50 mg tablet 50 mg PO Q6H PRN (Reason: Pain) PreserVision AREDS-2 250-90-40-1 mg capsule 1 tab PO BID simvastatin 20 mg tablet 20 mg PO DAILY Qty: 90 0RF pramipexole 0.25 mg tablet See Rx Instructions .ROUTE .COMPLEX Qty: 270 0RF Rx Instructions: 1 tab po qam & 2 tab po qpm levothyroxine 125 mcg tablet 125 mcg PO DAILY Qty: 90 0RF levetiracetam 750 mg tablet See Rx Instructions .ROUTE .COMPLEX Qty: 180 0RF Dose Instruction: TAKE 1 TABLET BY MOUTH TWICE DAILY Rx Instructions: TAKE 1 TABLET BY MOUTH TWICE DAILY empagliflozin 25 mg tablet 25 mg PO QAM Qty: 90 0RF furosemide [Lasix] 40 mg tablet 40 mg PO DAILY Qty: 90 0RF (DME) AFO Brace See Rx Instructions .Route .MEDSUPPLY Qty: 1 0RF Rx Instructions: As directed by Marley (DME) diabetic shoes with 3 inserts See Rx Instructions .Route .MEDSUPPLY Qty: 1 0RF Rx Instructions: As directed HOME glimepiride 4 mg tablet 8 mg PO BID Januvia 25 mg tablet 25 mg PO DAILY Discharge Orders: Discharge Order (Routine); Ordered 09/30/23 Ordered By: Latosha Barahona Referrals: Demetria Busch MD [Primary Care Provider] - 7-10 days (We have notified your physician's clinic of the need for a follow-up appointment to be scheduled. If you have not heard from them within the next 2 business days, please call them directly. ) Discharge Diet: Advance as tolerated Discharge Activity: Resume usual activity Patient Instructions: Meclizine (By mouth), Ondansetron (By mouth), Pantoprazole (By mouth), Urinary Tract Infection in Women (GEN), Altered Mental Status (ED), Opioid Safety Discharge Attestations Time Spent in Discharge Care*: greater than 30 min Quality Metrics Clinical Quality Measures [ No reported AMI, CVA or VTE this stay] Coding Level of Care Code Acute Code for Chg Fwd Diagnoses Essential hypertension I10 Hyperglycemia R73.9 Acquired hypothyroidism E03.9 Dehydration E86.0 Recurrent UTI N39.0 Urinary tract infection N39.0 Seizure disorder G40.909
== END 2023-09-30 15:58 | disposition home health service (06) ==
LOC: ER 21:52 → MEDSURG 09-29 00:07
PROVIDERS: Admitting Provider Internal Medicine; Emergency Provider Emergency Medicine; PCP Family Medicine; Visit Provider Student in an Organized Health Care Education/Training Program
DX: R11.2 Nausea with vomiting, unspecified (principal); G40.909 Epilepsy, unspecified, not intractable, without status epilepticus; I10 Essential (primary) hypertension; R73.9 Hyperglycemia, unspecified; E03.9 Hypothyroidism, unspecified; E86.0 Dehydration; Z87.440 Personal history of urinary (tract) infections; Z80.0 Family history of malignant neoplasm of digestive organs; E11.65 Type 2 diabetes mellitus with hyperglycemia
CPT/HCPCS: 36415; 36416; 36600; 70450; 71045; 80051; 80053; 80306; 81001; 82009; 82330; 82805; 82962; 83036; 83605; 83690; 83735; 83880; 84100; 84145; 84146; 84439; 84443; 84484; 85025; 86140; 87040; 87086; 93005; 94664; 96365; 96367; 96372; 96375; 96376; 97110; 97116; 97162; 97165; 97530; 99285; G0378; J0744; J1200; J1644; J1815; J2270; J2405; J2543; J2765; J2919; J7030; J7040; J8597

== ENCOUNTER → 2023-10-02 10:42 | Outpatient (BNVA) | payer MEDICARE, SELFPAY | PROVIDERS: PCP Family Medicine; Visit Provider Orthopaedic Surgery | DX: M48.062 Spinal stenosis, lumbar region with neurogenic claudication (principal); M54.2 Cervicalgia | CPT/HCPCS: 72040; 99214 ==

== ENCOUNTER 2023-10-03 15:25 | Outpatient (CLI) | payer MEDICARE, SELFPAY ==
--- NOTE | 2023-10-03 15:30 | CTR_ITS ---
PROCEDURE INFORMATION: Exam: CT Abdomen And Pelvis With Contrast Exam date and time: 10/03/2023 3:44 PM Age: 78 years old Clinical indication: Abdominal pain; Prior surgery; Surgery date: 6+ months; Surgery type: Gb, tubal, hysterectomy, appy; Patient HX: Acute abd pain, n/v since 09/21/2023 with no relief; Additional info: Acute abdominal pain nausea/vomiting TECHNIQUE: Imaging protocol: Computed tomography of the abdomen and pelvis with contrast. Radiation optimization: All CT scans at this facility use at least one of these dose optimization techniques: automated exposure control; mA and/or kV adjustment per patient size (includes targeted exams where dose is matched to clinical indication); or iterative reconstruction. Contrast material: OMNI 350; Contrast volume: 95 ml; Contrast route: INTRAVENOUS (IV); COMPARISON: CT abdomen pelvis w con* [id number] 01/19/2023 3:09 PM RADIATION DOSE METRICS: Total DLP (mGy-cm): 889.13 FINDINGS: Tubes, catheters and devices: right posterior gluteal neurostimulator, the leads reaching the lower to mid thoracic canal. Lungs: A few punctate calcified and noncalcified lung nodules are stable from 01/19/2023. Liver: Normal. No mass. Gallbladder and bile ducts: Absent gallbladder. Mild fullness of the intrahepatic bile ducts is stable, compatible with reservoir effect. Pancreas: Normal. No ductal dilation. Spleen: Normal. No splenomegaly. Adrenal glands: Stable 1.7 cm right adrenal nodule, not further characterized but compatible with probable adenoma. Kidneys and ureters: Normal. No hydronephrosis. Stomach and bowel: Moderate amount of colonic stool. Appendix: Not visualized. Reported surgically absent. Intraperitoneal space: Unremarkable. No free air. No significant fluid collection. Vasculature: Unremarkable. No abdominal aortic aneurysm. Lymph nodes: Unremarkable. No enlarged lymph nodes. Urinary bladder: Moderate wall thickening of the bladder asymmetrically involving the right base and mild thickening of the remainder of the bladder wall is unchanged. Reproductive: Absent uterus. Bones/joints: Grade 1 anterolisthesis of L4 over L5 is unchanged due to facet arthropathy and unilateral pars defect. Prior L5-S1 laminectomy and L3-S1 posterior fusion again demonstrated. Soft tissues: Unremarkable. Other findings: Surgical scar in sutures are again noted in the right quadrant. CT/CT abdomen pelvis w con* [id number] IMPRESSION: 1. No clear-cut acute abdominopelvic abnormality. 2. Moderate colonic stool retention/constipation. 3. Stable asymmetric urinary bladder wall thickening, correlation with the prior surgical history and urinalysis for any evidence of chronic UTI recommended. 4. Other chronic and postsurgical findings detailed above.
[2023-10-03] MEDS: iohexol 350 mg/mL 500 mL Btl (per mL) IV (15:47)
== END 2023-10-03 15:26 | disposition home or self-care (01) ==
LOC: RAD 15:26
PROVIDERS: PCP Family Medicine; Visit Provider Family Medicine
DX: R11.2 Nausea with vomiting, unspecified (principal); R10.9 Unspecified abdominal pain; R91.8 Other nonspecific abnormal finding of lung field; E27.8 Other specified disorders of adrenal gland; N32.89 Other specified disorders of bladder; M43.16 Spondylolisthesis, lumbar region; Z98.890 Other specified postprocedural states
CPT/HCPCS: 74177; Q9967

== ENCOUNTER 2023-10-05 21:54 | Emergency (ER) | payer MEDICARE, SELFPAY ==
[2023-10-05 22:08] VITALS: BP 133/77; PULSE 65; RESP 17; TEMP 36.6; O2SAT 91; BMI 44.5
--- NOTE | 2023-10-05 22:49 | ECG_ITS ---
[facility] Test Date: 2023-10-05 Pat Name: Sherie Hernandez Department: Room: Gender: Female House Rn: : 1945 Requested By: Christian Baldwin Order Number: [id number] Ella MD: Татьяна Mayfield M.D. Measurements Intervals [place] Rate: 82 P: 12 DE: 161 QRS: -11 QRSD: 101 T: 50 QT: 341 QTc: 400 Interpretive Statements SINUS RHYTHM WITH SINUS ARRHYTHMIA POSSIBLE ANTERIOR MYOCARDIAL INFARCTION , PROBABLY OLD [30 ms Q WAVE IN V3/V4, OR R < 0.2 mV IN V4] Compared to ECG 09/29/2023 22:37:52 Myocardial infarct finding now present Electronically Signed On 10-06-2023 8:36:25 CDT by Татьяна Mayfield M.D. [id number]
[2023-10-05 22:50] VITALS: BP 139/62; PULSE 86; RESP 20; O2SAT 94
[2023-10-05 23:11] LABS: Basophils % 0.5 %; Eosinophils # 0.1 10^3/uL (0.0-0.8); Eosinophils % 1.4 %; Hematocrit 42.2 % (36-47); Lymphocytes # 2.1 10^3/uL (0.8-4.8); Lymphocytes % 24.8 %; Mean Corpuscular HGB Conc 34.4 g/dL (30-55); Mean Corpuscular Hemoglobin 31.6 pg (27-33); Mean Corpuscular Volume 91.9 fl (85-98); Mean Platelet Volume 9.1 fL (7.4-10.4); Monocytes # 0.5 10^3/uL (0.2-0.9); Monocytes % 5.5 %; Neutrophils # 5.78 10^3/uL (1.8-7.7); Neutrophils % 67.4 %; Nucleated Red Blood Cells % 0 %; Platelet Count 317 10^3/cmm (157-399); Red Blood Count 4.59 10^6/uL (3.85-5.65); Red Cell Distribution Width 12.4 % (12.1-15.1); White Blood Count 8.56 10^3/uL (3.29-11.43)
--- NOTE | 2023-10-05 23:17 | W.ED.ABDPA2 ---
HPI - Abdominal Pain General: Chief Complaint: Abdominal Pain Stated Complaint: n/v dizzy Time Seen by Provider: 10/05/23 22:49 History of Present Illness: Patient presents to the ER with nausea vomiting and abdominal pain. She also reports dizziness at times. Patient reports that these are chronic and been going on for the last year. Patient has been seen multiple times in this ER as well as admitted and transferred for similar symptoms. Patient has had multiple complete workups including head CT x 2, head neck CTA, chest x-ray, cervical spine x-ray, abdomen pelvis CT, all of which did not show any acute cause of nausea vomiting or abdominal pain. Is thought 1 time she had a posterior circulation stroke so she was sent to [facility] said she did not have 1. Patient is also had recurrent UTIs been treated with multiple antibiotics. She says the symptoms this time are exactly the same as they were previously with no change and they are just not getting better and she would like answers. Review of Systems General: Reports: 10 or more systems reviewed and unremarkable except in HPI and below PFSH ED PFSH: Medical History Family history of colon cancer Colon polyps Spinal cord neurostimulator device in situ BMI 40.0-44.9, adult FH: total knee replacement Recurrent UTI CRP elevated Angina at rest Creatinine elevation After cataract, bilateral Carpal tunnel syndrome on both sides Nonfunctional vagus nerve stimulator Multiple lung nodules on CT 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 Father CAD (coronary artery disease) Stroke Mother Chronic kidney disease (CKD) Brother Cancer Brother Stroke Colon cancer Denies family history of Ovarian cancer Diabetes Heart disease Hypercholesteremia Breast cancer Hypertension Uterine cancer Thyroid disease Social History Smoking and tobacco/nicotine status: former use of tobacco/nicotine Quit status (tobacco/nicotine): has quit using Year quit tobacco: 1959 Former quit date comment: 1-2 ppd X 1 year Second hand smoke exposure: No Alcohol intake: never Substance/Drug Use: never Current gender identity: Female Female Reproductive History: Spontaneous abortions: No Physical Exam Const: COMMON NORMALS: no acute distress, average body habitus, patient oriented x3, no limitations, healthy appearing, alert and well nourished HENMT: COMMON NORMALS: normocephalic, hearing grossly normal bilaterally, external ears normal, Normal external nose present, moist oral mucous membranes and oropharynx normal HEAD & SCALP: normocephalic NOSE: Normal external nose present EXTERNAL EAR: Yes external ears normal Neck/C-Spine: COMMON NORMALS: no JVD Chest: COMMONS NORMALS: normal inspection of the chest and normal palpation of entire chest wall Resp: COMMON NORMALS: normal respiratory effort, No retractions, No use of accessory muscles and clear to auscultation bilaterally AUSCULTATION: clear to auscultation bilaterally Cardio: COMMON NORMALS: no JVD, regular rate, regular rhythm, S1 normal heart sound present, S2 normal heart sound present, No gallops present (Cardio), No clicks present (Cardio), No murmurs present (Cardio) and No rub (Cardio) RATE: regular rate RHYTHM: regular rhythm HEART SOUNDS: S1 normal heart sound present and S2 normal heart sound present GI: COMMON NORMALS: Normal to inspection, nondistended, normoactive bowel sounds present, Soft to palpation, non-tender, No hepatosplenomegaly present and no masses PALPATION: Yes Soft to palpation and Yes No hepatosplenomegaly present Neuro: COMMON NORMALS: patient oriented x3 SENSORIUM/ORIENTATION: Yes alert Course Vital Signs: Vital signs: Vital Signs Temperature 98 F 10/05/23 22:08 Pulse Rate 92 10/06/23 00:30 Respiratory Rate 30 H 10/06/23 00:30 Blood Pressure 136/62 10/06/23 00:30 Pulse Oximetry 96 10/06/23 00:30 Oxygen Delivery Me thod Room Air 10/05/23 22:50 MDM - Abdominal Pain Medical Decision Making Lab work was obtained that included CBC CMP urinalysis lipase, all of which was unremarkable except the patient's blood sugar was elevated at 351, extensive chart review including the last several visits to the ER last [facility] practice visit previous inpatient stay head CT, CTA of the neck, CT of the abdomen pelvis, and other various x-rays and lab work. This is a chronic condition that patient has been having for over a year and has multiple people working it up at multiple times with no relief. Patient will be discharged back to her PCP for definitive treatment. Lab Data 10/05/23 23:04 10/05/23 23:27 Labs/Radiology: Laboratory Results WBC 8.56 10^3/uL (3.29-11.43) 10/05/23 23: RBC 4.59 10^6/uL (3.85-5.65) 10/05/23 23:04 Hgb 14.50 g/dL (11.27-16.99) 10/05/23 23:04 Hct 42.2 % (36-47) 10/05/23 23: MCV 91.9 fl (85-98) 10/05/23 23:04 MCH 31.6 pg (27-33) 10/05/23 23:04 MCHC 34.4 g/dL (30-55) 10/05/23 23:04 RDW 12.4 % (12.1-15.1) 10/05/23 23:04 Plt Count 317 10^3/cmm (157-399) 10/05/23 23:04 MPV 9.1 fL (7.4-10.4) 10/05/23 23:04 Neut % (Auto) 67.4 % 10/05/23 23:04 Lymph % (Auto) 24.8 % 10/05/23 23:04 [place] % (Auto) 5.5 % 10/05/23 23:04 Eos % (Auto) 1.4 % 10/05/23 23:04 Baso % (Auto) 0.5 % 10/05/23 23: Neut # (Auto) 5.78 10^3/uL (1.8-7.7) 10/05/23 23:04 Lymph # (Auto) 2.1 10^3/uL (0.8-4.8) 10/05/23 23:04 Bradford # (Auto) 0.5 10^3/uL (0.2-0.9) 10/05/23 23:04 Eos # (Auto) 0.1 10^3/uL (0.0-0.8) 10/05/23 23:04 Baso # (Auto) 0.0 10^3/uL (0.0-0.1) 10/05/23 23:04 Nucleated RBC % (auto) 0 % 10/05/23 23:04 Nucleated RBCs # 0.0 /100WBC 10/05/23 23:04 Sodium 136 mmol/L (136-145) 10/05/23 23:27 Potassium 4.0 mmol/L (3.5-5.1) 10/05/23 23:27 Chloride 95 mmol/L (98-107) L 10/05/23 23:27 Carbon Dioxide 28 mmol/L (22-29) 10/05/23 23:27 Anion Gap 17.0 (5-19) 10/05/23 23:27 BUN 28 mg/dL (8-23) H 10/05/23 23:27 Creatinine 1.3 mg/dL (0.5-0.9) H 10/05/23 23:27 GFR Calculation Not Reportable 10/05/23 23:27 Glucose 351 mg/dL (65-115) H 10/05/23 23:27 Calculated Osmolality 302 mOsm/kg (285-295) H 10/05/23 23:27 Calcium 9.1 mg/dL (8.5-10.5) 10/05/23 23:27 Total Bilirubin 0.7 mg/dL (0.15-1.2) 10/05/23 23:27 AST 13 U/L (0-32) 10/05/23 23:27 ALT 20 U/L (0-33) 10/05/23 23:27 Alkaline Phosphatase 93 U/L (35-105) 10/05/23 23:27 Total Protein 7.8 g/dL (6.6-8.7) 10/05/23 23:27 Albumin 3.8 g/dL (3.5-5.2) 10/05/23 23:27 Globulin 4.0 g/dL (1.3-4.6) 10/05/23 23:27 Lipase 38 U/L (13-60) 10/05/23 23:27 Urine Color Yellow (Yellow) 10/05/23 23:45 Urine Appearance Clear (CLEAR) 10/05/23 23:45 Urine pH 6 (5-7) 10/05/23 23:45 Ur Specific [place] 1.005 (1.005-1.030) 10/05/23 23:45 Urine Protein 1+ (Negative) H 10/05/23 23:45 Urine Glucose (UA) 4+ (Normal) H 10/05/23 23:45 Urine Ketones Negative (Negative) 10/05/23 23:45 Urine Blood Neg (Negative) 10/05/23 23:45 Urine Nitrate Negative (Negative) 10/05/23 23:45 Urine Bilirubin Neg (Negative) 10/05/23 23:45 Urine Urobilinogen Neg mg/dL (Negative) 10/05/23 23:45 Ur Leukocyte Esterase Negative (Negative) 10/05/23 23:45 Urine RBC 0-4 /hpf (0-2) H 10/05/23 23:45 Urine WBC 5-10 /hpf (0-5) H 10/05/23 23:45 Ur Squamous Epith Cells 5-10 /hpf (0-5) H 10/05/23 23:45 Amorphous Sediment Not Reportable 10/05/23 23:45 Urine Bacteria Trace /hpf (NONE) 10/05/23 23:45 All radiology interpretation(s) finalized by discharge Discharge Plan Discharge Patient Disposition: Home Clinical Impression: Abdominal pain Qualifiers: Abdominal location: generalized Qualified Code(s): R10.84 - Generalized abdominal pain Nausea and vomiting Qualifiers: Vomiting type: unspecified Qualified Code(s): R11.2 - Nausea with vomiting, unspecified Condition: Stable Prescriptions: No Action aspirin 81 mg tablet,chewable 81 mg PO DAILY acetaminophen [Tylenol Extra Strength] 500 mg tablet 500 mg PO QID PRN (Reason: Pain) tramadol 50 mg tablet 50 mg PO Q6H PRN (Reason: Pain) PreserVision AREDS-2 250-90-40-1 mg capsule 1 tab PO BID simvastatin 20 mg tablet 20 mg PO DAILY Qty: 90 0RF pramipexole 0.25 mg tablet See Rx Instructions .ROUTE .COMPLEX Qty: 270 0RF Rx Instructions: 1 tab po qam & 2 tab po qpm levothyroxine 125 mcg tablet 125 mcg PO DAILY Qty: 90 0RF levetiracetam 750 mg tablet See Rx Instructions .ROUTE .COMPLEX Qty: 180 0RF Dose Instruction: TAKE 1 TABLET BY MOUTH TWICE DAILY Rx Instructions: TAKE 1 TABLET BY MOUTH TWICE DAILY empagliflozin 25 mg tablet 25 mg PO QAM Qty: 90 0RF furosemide [Lasix] 40 mg tablet 40 mg PO DAILY Qty: 90 0RF (DME) AFO Brace See Rx Instructions .Route .MEDSUPPLY Qty: 1 0RF Rx Instructions: As directed by Marley (ISIDORO) diabetic shoes with 3 inserts See Rx Instructions .Route .MEDSUPPLY Qty: 1 0RF Rx Instructions: As directed HOME glimepiride 4 mg tablet 8 mg PO BID Januvia 25 mg tablet 25 mg PO DAILY pantoprazole 40 mg Tablet,Delayed Release (Dr/Ec) 40 mg PO DAILY 30 Days Qty: 30 0RF ondansetron HCl 4 mg tablet 4 mg PO Q8H PRN (Reason: nausea and vomiting) 7 Days Qty: 20 0RF meclizine 25 mg tablet 25 mg PO TID PRN (Reason: dizziness) Qty: 30 0RF Discharge Orders: Discharge ED (Routine); Ordered 10/06/23 Ordered By: Christian Baldwin Referrals: Demetria Busch MD [Primary Care Provider] - 1-3 days Patient Instructions: Acute Nausea and Vomiting (ED), Abdominal Pain (ED) Activity Restrictions/Additional Instructions: Your lab work did not show any acute cause of your nausea and vomiting, your blood sugar was elevated. Extensive chart review included various office visits, inpatient visits, imaging such as chest x-ray, abdomen dominant and pelvis CT, CTA, and various lab work did not reveal any obvious cause of your abdominal pain or nausea and vomiting. Please follow-up with your family practice physician for further evaluation and treatment. This may include being referred to a senior benefits manager. Coding Level of Care Code ED Decorative Cutting Machine Tender for 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
[2023-10-05 23:30] VITALS: BP 120/57; PULSE 70; RESP 15; O2SAT 94
[2023-10-05] MEDS: metoclopramide 5 mg/mL SDV 2 mL IVP (23:30)
[2023-10-05 23:52] LABS: Alanine Aminotransferase 20 U/L (0-33); Albumin Level 3.8 g/dL (3.5-5.2); Alkaline Phosphatase 93 U/L (35-105); Aspartate Amino Transferase 13 U/L (0-32); Blood Urea Nitrogen 28 mg/dL (8-23); Calcium 9.1 mg/dL (8.5-10.5); Carbon Dioxide 28 mmol/L (22-29); Chloride 95 mmol/L (98-107); Creatinine Clr Calc Pharmacy 54.3975; Glucose 351 mg/dL (65-115); Lipase 38 U/L (13-60); Osmolality Calculated 302 mOsm/kg (285-295); Sodium 136 mmol/L (136-145); Total Bilirubin 0.7 mg/dL (0.15-1.2); Total Protein 7.8 g/dL (6.6-8.7)
[2023-10-06] VITALS (7 sets, daily range): BP systolic 114–150; BP diastolic 53–71; PULSE 67–92; RESP 14–30; O2SAT 91–96
[2023-10-06 00:03] LABS: Protein Urine 1+ (Negative); Specific Gravity, Urine 1.005 (1.005-1.030); Urine Appearance Clear (CLEAR); Urine Color Yellow (Yellow); pH Urine 6 (5-7)
[2023-10-06 00:04] LABS: Add Urine Microscopic? YES; Bacteria Urine TRACE /hpf; Bilirubin Urine Neg (Negative); Blood Urine Neg (Negative); Glucose Urine UA 4+ (Normal); Ketones Urine Negative (Negative); Leukocyte Esterase Urine Negative (Negative); Nitrate Urine Negative (Negative); RBC Urine 0-4 /hpf (0-2); Urobilinogen Urine Neg (Negative)
[2023-10-06] MEDS: ropinirole 0.25 mg Tablet PO (00:28)
[2023-10-06] MEDS: diphenhydrAMINE 50 mg/mL SDV 1mL 25 MG IVP (00:59)
== END 2023-10-06 02:37 | disposition home or self-care (01) ==
PROVIDERS: Emergency Provider Emergency Medicine; PCP Family Medicine
DX: R10.84 Generalized abdominal pain (principal); R11.2 Nausea with vomiting, unspecified; Z79.82 Long term (current) use of aspirin; Z79.84 Long term (current) use of oral hypoglycemic drugs; Z87.891 Personal history of nicotine dependence; E11.21 Type 2 diabetes mellitus with diabetic nephropathy; I10 Essential (primary) hypertension
CPT/HCPCS: 36415; 80053; 81001; 81003; 83690; 85025; 93005; 96374; 96375; 99284; J1200; J2765

== ENCOUNTER 2023-10-15 11:58 | Outpatient (RCR) | payer MEDICARE, SELFPAY | END 2023-11-09 23:59 | disposition home or self-care (01) | LOC: SPT 11:58 | PROVIDERS: Visit Provider Orthopaedic Surgery | DX: M54.50 Low back pain, unspecified (principal) | CPT/HCPCS: 97162 ==

== ENCOUNTER → 2023-10-22 09:25 | Outpatient (BNVA) | payer MEDICARE, SELFPAY | PROVIDERS: Visit Provider Internal Medicine Pulmonary Disease | DX: R91.8 Other nonspecific abnormal finding of lung field (principal); R06.81 Apnea, not elsewhere classified; K63.5 Polyp of colon; Z87.891 Personal history of nicotine dependence | CPT/HCPCS: 99214 ==

== ENCOUNTER 2023-11-03 13:30 | Outpatient (CLI) | payer MEDICARE, SELFPAY ==
--- NOTE | 2023-11-03 15:15 | MR_ITS ---
WS: [id number] MRI LUMBAR SPINE NONCONTRAST TECHNIQUE: Sagittal T1, T2 and STIR imaging. Axial T1 and T2 imaging. CLINICAL INFORMATION: back pain COMPARISON: None. FINDINGS: Counting performed from the craniocervical junction. Grade 2 anterolisthesis L3 on L4. L5 is sacraliz ed. Small syrinx visualized in the lower thoracic spine extending from approximately T7-T9. L1-L2: Mild annular bulging. Moderate facet arthropathy. Spinal canal and foramen are patent. L2-L3: Mild disc bulge with a shallow central protrusion. Moderate central canal stenosis with imping ement on the subarticular recess bilaterally. RIGHT foraminal protrusion with moderate RIGHT foramina l narrowing. Mild LEFT foraminal narrowing. Moderate facet arthropathy. L3-L4: Grade 2 anterolisthesis. Pedicle screw fixation. Moderate to severe central canal stenosis. Mi ld bilateral foraminal narrowing. L4-L5: Slight anterolisthesis L4 on L5. Mild LEFT and no significant RIGHT foraminal narrowing. Spina l canal is patent. Laminectomy defects. L5-S1: L5 is sacralized. Spine canal and foramen are patent. Visualized pelvic bony structures: Normal. Paravertebral soft tissues: Normal. MR/MR lumbar spine wo con* [id number] IMPRESSION: 1. Counting performed from the craniocervical junction. Grade 2 anterolisthesi s L3 on L4. L5 is sacralized. 2. Small syrinx visualized in the lower thoracic spine extending from approxim ately T7-T9. 3. Moderate central canal stenosis L2-3 and moderate to severe L3-4. Grade 2 a nterolisthesis L3 on L4. 4. Moderate RIGHT L2-3 foraminal narrowing with a RIGHT foraminal protrusion. 5. Moderate LEFT L3-4 foraminal narrowing and mild LEFT L4-5 6. Postoperative changes pedicle screw fixation L3-L5. L5 is sacralized. Owen ectomy defects.
--- NOTE | 2023-11-03 16:00 | MR_ITS ---
WS: [id number] MRI CERVICAL SPINE NONCONTRAST TECHNIQUE: Sagittal T1, T2 and STIR imaging. Axial T2, gradient, and fiesta imaging. CLINICAL INFORMATION: neck pain COMPARISON: None. FINDINGS: Straightening of the normal cervical lordosis. Prior postoperative changes ACDF C3-C5. Disc bulging w orse at C5-C6 and C6-C7. Tiny disc protrusions in the upper thoracic spine. Cord signal appears joaquina l. Small amount of edema along the nuchal ligament in the dorsal interspinous ligaments at C5 and C6. Small amount of edema in the C6 spinous process. May be inflammatory or posttraumatic. Recommend cor relation with recent ligamentous injury or strain. C2-C3: Mild facet arthropathy. Mild bilateral bony foraminal narrowing. C3-C4: Postoperative changes. Moderate RIGHT and mild LEFT bony foraminal narrowing. LEFT arthropathy . C4-C5: Postoperative changes ACDF. Moderate to severe LEFT greater than RIGHT bony foraminal narrowin g. Mild facet arthropathy. C5-C6: Slight anterolisthesis C5 on C6. Disc osteophyte complex with mild central canal stenosis. Sev ere bilateral bony foraminal narrowing. Moderate LEFT facet arthropathy with associated periarticular edema compatible with synovitis. C6-C7: Disc osteophyte complex with moderate to severe RIGHT and mild LEFT bony foraminal narrowing. Mild central canal stenosis. Slight retrolisthesis. C7-T1: Normal. Visualized brain stem structures: Normal. Prevertebral soft tissues: Normal. MR/MR cervical spin wo con* [id number] IMPRESSION: 1. Straightening of the normal cervical lordosis with prior postoperative roger ges ACDF C3-C5 2. Mild central canal stenosis C5-C6 and C6-C7 with slight contact of the cerv ical cord. Slight anterolisthesis C5 on C6. 3. LEFT facet synovitis C5-C6 with reinier-articular edema. 4. Intraspinous edema at C5-C7 likely inflammatory or posttraumatic. Small shaun unt of edema in the C6 spinous process likely reactive. Recommend correlation w ith recent ligamentous injury. Metastatic disease is a consideration in a patie nt this age but less likely. Recommend correlation with history of active neopl asm 5. Moderate to severe multilevel bony foraminal narrowing LEFT C4-5, bilateral C5-C6 and RIGHT C6-7
== END 2023-11-03 13:31 | disposition home or self-care (01) ==
LOC: RAD 13:32
PROVIDERS: PCP Family Medicine; Visit Provider Orthopaedic Surgery
DX: M48.062 Spinal stenosis, lumbar region with neurogenic claudication (principal); M53.82 Other specified dorsopathies, cervical region; M99.61 Osseous and subluxation stenosis of intervertebral foramina of cervical region; M25.78 Osteophyte, vertebrae
CPT/HCPCS: 72141; 72148

== ENCOUNTER 2023-11-06 10:18 | Outpatient (CLI) | payer MEDICARE, SELFPAY ==
--- NOTE | 2023-11-06 11:00 | CTR_ITS ---
PROCEDURE INFORMATION: Exam: CT Chest Without Contrast; Diagnostic Exam date and time: 11/06/2023 10:28 AM Age: 78 years old Clinical indication: Condition or disease; Lung condition and disease; Pulmonary nodule, solitary; Prior surgery; Surgery date: 6+ months; Surgery type: Left breast lump, stimulator; Additional info: F/u lung nodules TECHNIQUE: Imaging protocol: Diagnostic computed tomography of the chest without contrast. Radiation optimization: All CT scans at this facility use at least one of these dose optimization techniques: automated exposure control; mA and/or kV adjustment per patient size (includes targeted exams where dose is matched to clinical indication); or iterative reconstruction. COMPARISON: CT chest w con* [id number] 10/18/2022 10:37 AM RADIATION DOSE METRICS: Total DLP (mGy-cm): 500.56 FINDINGS: Tubes, catheters and devices: A midthoracic spinal stimulator is noted. Trachea: Imaged portions of the distal trachea, as well as right and left mainstem bronchi are patent. Lungs: There is a new 3 mm perifissural right middle lobe nodule, series 4, image 24) . The small nodular density demonstrated on series 4, image 17 in the right upper lobe of the prior study, appears unchanged (current series 4, image 17). The ground-glass opacity previously demonstrated just superior to the minor fissure on series 4, image 21 of the prior study appears to have resolved. . New 8 mm ground-glass opacity in the left upper lobe anterior to the interlobar fissure (series 7, image 15 ) and new 5 mm ground-glass opacity in the left lower lobe laterally on series 4, image 28. Stable 3 mm peripheral left lower lobe nodule on series 4, image 29. There are stable calcified nodules bilaterally. Pleural spaces: No pleural effusion. Heart: Calcification associated with the aortic valve. Heart size stable. No pericardial effusion. Coronary arteries: Minimal coronary artery atherosclerotic calcification is suspected. Lymph nodes: No pathologically enlarged mediastinal or hilar nodes are identified.Right hilar savanah calcification consistent with healed granulomatous process Vasculature: The thoracic aorta is not enlarged. Bones/joints: Skeletal windows demonstrate findings of moderate multilevel degenerative changes of the thoracic spine. Thoracic kyphosis. Soft tissues: No acute abnormality identified. Other findings: Imaged upper abdominal structures demonstrate surgical clips consistent with prior cholecystectomy. Extrahepatic bile duct 9 mm not significantly dilated for the cholecystectomy state. Stable right adrenal nodule. CT/CT chest wo con [id number] IMPRESSION: 1. New ground-glass opacities in the left lung, and a new 3 mm perifissural right middle lobe nodule. Other sites, more fully detailed above are stable or have resolved.Recommend CT Chest at 3-6 months. Subsequent management based on the most suspicious nodule(s). (Reference: Yina) 2. Stable right adrenal nodule. REFERENCES: Yina Guevara, et al. Guidelines for Management of Incidental Pulmonary Nodules Detected on CT Images: From the Fleischner Society 2017. Radiology. 2017;284(1):228-243.
== END 2023-11-06 10:19 | disposition home or self-care (01) ==
LOC: RAD 10:19
PROVIDERS: PCP Family Medicine; Visit Provider Internal Medicine Pulmonary Disease
DX: R91.8 Other nonspecific abnormal finding of lung field (principal); I89.8 Other specified noninfective disorders of lymphatic vessels and lymph nodes; G31.89 Other specified degenerative diseases of nervous system; M40.204 Unspecified kyphosis, thoracic region; Z98.890 Other specified postprocedural states
CPT/HCPCS: 71250

== ENCOUNTER 2023-11-07 14:51 | Outpatient (CLI) | payer MEDICARE, SELFPAY ==
--- NOTE | 2023-11-07 14:56 | MM_ITS ---
WS: [id number] BILATERAL SCREENING DIGITAL TOMOSYNTHESIS MAMMOGRAM WITH CAD HISTORY: SCREENING COMPARISON: 10/30/2022, 12/12/2021 Bilateral CC and MLO views with tomosynthesis and synthetic mammography submitted. Computer aided det ection analyzed. Breast composition: There are scattered areas of fibroglandular density. No suspicious masses, microc alcifications or architectural distortion. Benign calcifications in each breast. MM/[place] [id number] IMPRESSION: BI-RADS: 2-Benign FOLLOW UP: 1 Year Follow-up
== END 2023-11-07 14:52 | disposition home or self-care (01) ==
LOC: RAD 14:51
PROVIDERS: PCP Family Medicine; Visit Provider Family Medicine
DX: Z12.31 Encounter for screening mammogram for malignant neoplasm of breast (principal)
CPT/HCPCS: 77063; 77067

== ENCOUNTER 2023-11-10 06:00 | Outpatient (RCR) | payer MEDICARE, SELFPAY | END 2023-12-10 23:59 | disposition home or self-care (01) | LOC: SPT 06:00 | PROVIDERS: PCP Family Medicine; Visit Provider Orthopaedic Surgery | DX: L60.3 Nail dystrophy | CPT/HCPCS: 11721 ==

== ENCOUNTER → 2023-11-11 07:34 | Outpatient (BNVA) | payer MEDICARE, SELFPAY | PROVIDERS: PCP Family Medicine; Visit Provider Orthopaedic Surgery | DX: M54.50 Low back pain, unspecified (principal); E11.21 Type 2 diabetes mellitus with diabetic nephropathy; Z09 Encounter for follow-up examination after completed treatment for conditions other than malignant neoplasm | CPT/HCPCS: 36415; 80053; 81001; 83036; 85025; 87077; 87086; 87186; 99214 ==

== ENCOUNTER 2023-12-08 10:25 | Outpatient (CLI) | payer MEDICARE, SELFPAY ==
--- NOTE | 2023-12-08 11:30 | US_ITS ---
WS: [id number] ULTRASOUND BILATERAL BREASTs, limited HISTORY: bilateral breast pain, nipple level of both breasts COMPARISON: Mammogram 11/07/2023 TECHNIQUE: 2-D and Doppler. Ultrasound is directed to the upper outer quadrants of each breast as directed by the patient to the areas of pain. There are no masses or shadowing or distortion identified. No skin thickening. Mammogr am is also reviewed and remains normal. US/US breast BI limited* [id number] IMPRESSION: BI-RADS: 2-Benign FOLLOW-UP: 1 Year Follow-up Return to annual screening mammography. There are no ultrasound abnormalities n oted within the area of pain.
== END 2023-12-08 10:26 | disposition home or self-care (01) ==
LOC: RAD 10:26
PROVIDERS: PCP Family Medicine; Visit Provider Family Medicine
DX: N64.4 Mastodynia (principal)
CPT/HCPCS: 76642

== ENCOUNTER → 2024-01-15 13:07 | Outpatient (BNVA) | payer MEDICARE, SELFPAY | PROVIDERS: PCP Family Medicine; Visit Provider Podiatrist Foot & Ankle Surgery | DX: L60.3 Nail dystrophy (principal); E11.21 Type 2 diabetes mellitus with diabetic nephropathy; M21.371 Foot drop, right foot | CPT/HCPCS: 99213 ==

== ENCOUNTER → 2024-02-02 08:21 | Outpatient (BNVA) | payer MEDICARE, SELFPAY | PROVIDERS: PCP Family Medicine; Visit Provider Family Medicine | DX: I10 Essential (primary) hypertension (principal); R30.0 Dysuria | CPT/HCPCS: 80048; 81000; 87086 ==

== ENCOUNTER 2024-02-13 13:09 | Outpatient (CLI) | payer MEDICARE, SELFPAY ==
[2024-02-13] MEDS: iohexol 350 mg/mL 500 mL Btl (per mL) IV (13:52)
--- NOTE | 2024-02-13 14:00 | CTR_ITS ---
PROCEDURE INFORMATION: Exam: CT Chest With Contrast; Diagnostic Exam date and time: 02/13/2024 1:56 PM Age: 78 years old Clinical indication: Condition or disease; Lung condition and disease; Pulmonary nodule, solitary; Prior surgery; Surgery date: 6+ months; Surgery type: Dorsal pain stimulator, gb; Additional info: 3 mon f/u per radiology TECHNIQUE: Imaging protocol: Diagnostic computed tomography of the chest with contrast. Radiation optimization: All CT scans at this facility use at least one of these dose optimization techniques: automated exposure control; mA and/or kV adjustment per patient size (includes targeted exams where dose is matched to clinical indication); or iterative reconstruction. Contrast material: OMNI 350; Contrast volume: 95 ml; Contrast route: INTRAVENOUS (IV); COMPARISON: CT chest wo con [id number] 11/06/2023 10:28 AM RADIATION DOSE METRICS: Total DLP (mGy-cm): 505.29 FINDINGS: Tubes, catheters and devices: Spinal stimulator leads are noted. Lungs: No pulmonary consolidation. A solid pulmonary nodule in the right upper lobe measures 3.7 mm (image 17); unchanged. Stable to slightly larger fissural nodule in the right measuring 4 mm (image 23). Mild atelectasis is seen bilaterally. New pulmonary nodule in the right upper lobe measuring 3.1 mm (image 19). Unchanged pulmonary nodule in the right upper lobe measuring 2.1 mm (image 19). Pleural spaces: No pleural effusion. No pneumothorax. Heart: No pericardial effusion. Coronary arteries: No visible coronary arterial calcifications. Lymph nodes: No significant mediastinal lymphadenopathy. Vasculature: No main or central pulmonary embolus. No thoracic aortic aneurysm. No thoracic aortic dissection. Diaphragm: Mild elevation of the right hemidiaphragm. No hiatal hernia. Gallbladder and biliary ducts: Status post cholecystectomy. Bones/joints: No acute fracture is identified. Soft tissues: No significant subcutaneous soft tissue swelling. CT/CT chest w con* [id number] IMPRESSION: There are several pulmonary nodules. Some of these nodules are unchanged. A 3.1 mm nodule is new. A stable to slightly larger fissural nodule measures 4 mm. Fleischner Society guidelines do not apply as there has been interval change. Recommend follow-up CT chest in 3-6 months to reassess.
== END 2024-02-13 13:10 | disposition home or self-care (01) ==
LOC: RAD 13:11
PROVIDERS: PCP Family Medicine; Visit Provider Family Medicine
DX: R91.8 Other nonspecific abnormal finding of lung field (principal)
CPT/HCPCS: 71260; 81000

== ENCOUNTER 2024-02-22 08:52 | Emergency (ER) | payer MEDICARE, SELFPAY ==
[2024-02-22 09:09] VITALS: BP 163/85; PULSE 81; RESP 22; TEMP 36.8; O2SAT 97; BMI 44.3
[2024-02-22 09:14] VITALS: BP 163/85; PULSE 89; O2SAT 97
--- NOTE | 2024-02-22 09:22 | ED_ITS ---
HPI - Back Pain/Injury General: Chief Complaint: Back Pain/Injury Stated Complaint: back, neck and leg pain Time Seen by Provider: 02/22/24 08:59 History of Present Illness: Patient was in the ER with complaints of low back pain and back spasms for the last 6 days. Patient states that radiates down into both legs, patient's had multiple back surgeries. Patient is allergic to multiple medicines. Patient been taking her tramadol as directed and this has not been enough to help. Related Data Home Medications Medication Instructions Recorded Confirmed acetaminophen 500 mg tablet 500 mg PO QID PRN Pain 08/23/22 02/18/24 (Tylenol Extra Strength) aspirin 81 mg chewable tablet 81 mg PO DAILY 08/23/22 02/18/24 tramadol 50 mg tablet 50 mg PO Q6H PRN Pain 08/23/22 02/18/24 vit C 250 mg-vit E 90 mg-zinc 40 1 tab PO BID 11/19/22 02/18/24 mg-copper 1 [id number] capsule (PreserVision AREDS-2) Previous Rx's Medication Instructions Recorded AFO Brace #1 ea 09/11/23 diabetic shoes with 3 inserts #1 ea 09/17/23 meclizine 25 mg tablet See Rx Instructions .Route 11/10/23 .COMPLEX #30 tabs furosemide 40 mg tablet (Lasix) 40 mg PO DAILY #90 tabs 11/12/23 levothyroxine 125 mcg tablet 125 mcg PO DAILY #90 tabs 11/12/23 rollator walker with seat #1 ea 11/12/23 simvastatin 20 mg tablet 20 mg PO DAILY #90 tabs 11/12/23 levetiracetam 750 mg tablet See Rx Instructions .Route 12/03/23 .COMPLEX #180 tabs glimepiride 4 mg tablet See Rx Instructions .Route 01/02/24 .COMPLEX #120 tabs empagliflozin 25 mg tablet 25 mg PO QAM #90 tabs 01/05/24 sitagliptin phosphate 25 mg tablet 25 mg PO DAILY #90 tabs 01/05/24 (Januvia) Bone Growth Stimulator #1 ea 01/14/24 amoxicillin 500 mg tablet 500 mg PO BID #14 tabs 02/02/24 colchicine 0.6 mg tablet 0.6 mg PO DAILY #30 tabs 02/09/24 pramipexole 0.25 mg tablet See Rx Instructions .Route 02/16/24 .COMPLEX #270 tabs Allergies Allergy/AdvReac Type Severity Reaction Status Date / Time azithromycin Allergy ALGY-Difficulty Verified 02/18/24 08:19 Breathing carbamazepine [From Tegretol] Allergy Unknown Verified 02/18/24 08:19 cephalexin Allergy Unknown Verified 02/18/24 08:19 ciprofloxacin Allergy ALGY-Rash Verified 02/18/24 08:19 cyclobenzaprine Allergy Unknown Verified 02/18/24 08:19 [From Flexeril] fentanyl Allergy doesn't Verified 02/18/24 08:19 want to take fluconazole Allergy Unknown Verified 02/18/24 08:19 gabapentin Allergy Unknown Verified 02/18/24 08:19 hydrocodone [From [place]] Allergy Unknown Verified 02/18/24 08:19 hydroxychloroquine Allergy Unknown Verified 02/18/24 08:19 hyoscyamine Allergy Unknown Verified 02/18/24 08:19 naproxen [From Naprosyn] Allergy Unknown Verified 02/18/24 08:19 oxybutynin [From Ditropan] Allergy Unknown Verified 02/18/24 08:19 phenytoin [From Dilantin] Allergy Unknown Verified 02/18/24 08:19 progesterone Allergy Unknown Verified 02/18/24 08:19 [From Prometrium] solifenacin [From Vesicare] Allergy Unknown Verified 02/18/24 08:19 Sulfa (Sulfonamide Allergy Unknown Verified 02/18/24 08:19 Antibiotics) sulfamethoxazole Allergy Unknown Verified 02/18/24 08:19 [From Bactrim] trimethoprim [From Bactrim] Allergy Unknown Verified 02/18/24 08:19 valdecoxib [From Bextra] Allergy Unknown Verified 02/18/24 08:19 Review of Systems General: Reports: 10 or more systems reviewed and unremarkable except in HPI and below PFSH ED PFSH: Medical History Family history of colon cancer Colon polyps Spinal cord neurostimulator device in situ BMI 40.0-44.9, adult FH: total knee replacement Recurrent UTI CRP elevated Angina at rest Creatinine elevation After cataract, bilateral Carpal tunnel syndrome on both sides Nonfunctional vagus nerve stimulator Multiple lung nodules on CT 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 Father CAD (coronary artery disease) Stroke Mother Chronic kidney disease (CKD) Brother Cancer Brother Stroke Colon cancer Denies family history of Ovarian cancer Diabetes Heart disease Hypercholesteremia Breast cancer Hypertension Uterine cancer Thyroid disease Social History Smoking and tobacco/nicotine status: never used tobacco/nicotine Quit status (tobacco/nicotine): has quit using Year quit tobacco: 1979 Former quit date comment: 1-2 ppd X 1 year Second hand smoke exposure: No Alcohol intake: never Substance/Drug Use: never Current gender identity: Female Female Reproductive History: Spontaneous abortions: No Physical Exam Const: COMMON NORMALS: no acute distress, average body habitus, patient oriented x3, no limitations, healthy appearing, alert and well nourished HENMT: COMMON NORMALS: normocephalic, atraumatic, hearing grossly normal bilaterally, external ears normal, Normal external nose present and moist oral mucous membranes HEAD & SCALP: normocephalic and atraumatic NOSE: Normal external nose present EXTERNAL EAR: Yes external ears normal Neck/C-Spine: COMMON NORMALS: full ROM, no lymphadenopathy, supple, no meningeal signs, no JVD and Thyroid normal THYROID: Thyroid normal Chest: COMMONS NORMALS: normal inspection of the chest and normal palpation of entire chest wall Resp: COMMON NORMALS: normal respiratory effort, No retractions, No use of accessory muscles and clear to auscultation bilaterally AUSCULTATION: clear to auscultation bilaterally Cardio: COMMON NORMALS: no JVD, regular rate, regular rhythm, S1 normal heart sound present, S2 normal heart sound present, No gallops present (Cardio), No clicks present (Cardio), No murmurs present (Cardio) and No rub (Cardio) RATE: regular rate RHYTHM: regular rhythm HEART SOUNDS: S1 normal heart sound present and S2 normal heart sound present GI: COMMON NORMALS: Normal to inspection, nondistended, normoactive bowel soun ds present, Soft to palpation, non-tender, No hepatosplenomegaly present and no masses PALPATION: Yes Soft to palpation and Yes No hepatosplenomegaly present Neuro: COMMON NORMALS: patient oriented x3 SENSORIUM/ORIENTATION: Yes alert MENINGEAL SIGNS: Yes no meningeal signs Course Vital Signs: Vital signs: Vital Signs Temperature 98.3 F 02/22/24 09:09 Pulse Rate 81 02/22/24 09:09 Respiratory Rate 18 02/22/24 11:04 Blood Pressure 163/85 02/22/24 09:09 Pulse Oximetry 97 02/22/24 09:09 Oxygen Delivery Me thod Room Air 02/22/24 09:09 MDM - Back Pain/Injury Medical Decision Making Patient given Toradol and Norflex in the ER and she said it brought her pain down from a 10 to a 9. Patient was then given 1/2 mg Dilaudid and patient was found sleeping soundly. Patient be discharged home. Medical Records I reviewed the patient's medical records. Labs I reviewed the patient's lab results. No radiology studies performed this visit Discharge Plan Discharge Patient Disposition: Home Clinical Impression: Low back pain Qualifiers: Chronicity: chronic Back pain laterality: bilateral Sciatica presence: with sciatica Sciatica laterality: bilateral sciatica Qualified Code(s): M54.42 - Lumbago with sciatica, left side Condition: Stable Prescriptions: No Action aspirin 81 mg tablet,chewable 81 mg PO DAILY acetaminophen [Tylenol Extra Strength] 500 mg tablet 500 mg PO QID PRN (Reason: Pain) tramadol 50 mg tablet 50 mg PO Q6H PRN (Reason: Pain) PreserVision AREDS-2 250-90-40-1 mg capsule 1 tab PO BID glimepiride 4 mg tablet See Rx Instructions .ROUTE .COMPLEX Qty: 120 0RF Dose Instruction: TAKE 2 TABLETS BY MOUTH TWICE DAILY Rx Instructions: TAKE 2 TABLETS BY MOUTH TWICE DAILY amoxicillin 500 mg tablet 500 mg PO BID Qty: 14 0RF (DME) AFO Brace See Rx Instructions .Route .MEDSUPPLY Qty: 1 0RF Rx Instructions: As directed by Marley (DME) diabetic shoes with 3 inserts See Rx Instructions .Route .MEDSUPPLY Qty: 1 0RF Rx Instructions: As directed HOME meclizine 25 mg tablet See Rx Instructions .ROUTE .COMPLEX Qty: 30 0RF Dose Instruction: TAKE 1 TABLET BY MOUTH THREE TIMES DAILY NEEDED FOR dizziness Rx Instructions: TAKE 1 TABLET BY MOUTH THREE TIMES DAILY NEEDED FOR dizziness furosemide [Lasix] 40 mg tablet 40 mg PO DAILY Qty: 90 0RF levothyroxine 125 mcg tablet 125 mcg PO DAILY Qty: 90 0RF (DME) rollator walker with seat See Rx Instructions .Route .MEDSUPPLY Qty: 1 0RF Rx Instructions: As directed simvastatin 20 mg tablet 20 mg PO DAILY Qty: 90 0RF levetiracetam 750 mg tablet See Rx Instructions .ROUTE .COMPLEX Qty: 180 0RF Dose Instruction: TAKE 1 TABLET BY MOUTH TWICE DAILY Rx Instructions: TAKE 1 TABLET BY MOUTH TWICE DAILY empagliflozin 25 mg tablet 25 mg PO QAM Qty: 90 0RF Januvia 25 mg tablet 25 mg PO DAILY Qty: 90 0RF (DME) Bone Growth Stimulator See Rx Instructions .Route .MEDSUPPLY Qty: 1 0RF Rx Instructions: As directed colchicine 0.6 mg tablet 0.6 mg PO DAILY Qty: 30 0RF pramipexole 0.25 mg tablet See Rx Instructions .ROUTE .COMPLEX Qty: 270 0RF Rx Instructions: 1 tab po qam & 2 tab po qpm Discharge Orders: Discharge ED (Routine); Ordered 02/22/24 Ordered By: Christian Baldwin Referrals: Demetria Busch MD [Primary Care Provider] - 1 week Patient Instructions: Chronic Back Pain (DC) Activity Restrictions/Additional Instructions: Thank you for choosing [facility] for your healthcare needs today. Please realize that you were seen in the emergency department and that we are providing you with an emergency medical screening exam and this may not be a complete and all exclusive of all testing and/or medical workup we may need to determine your element or severity of your illness. It is very important that you follow-up as instructed with your primary care provider or specialist for the additional evaluation and to discuss your medical treatment plan. You may return to the emergency department should you have concerns or if your condition changes or worsens in any way. 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
[2024-02-22] MEDS: orphenadrine 30 mg/mL Inj 2 mL 60 MG IM (09:35)
[2024-02-22] MEDS: ketorolac 30 mg/mL INJ IM (09:43)
[2024-02-22 11:04] VITALS: RESP 18
[2024-02-22] MEDS: HYDROmorphone 1 mg/mL INJ 1 mL 0.5 MG IM (11:04)
[2024-02-22 11:14] VITALS: BP 123/80; PULSE 63; O2SAT 98
[2024-02-22 11:52] VITALS: BP 128/78; PULSE 64; O2SAT 99
== END 2024-02-22 11:53 | disposition home or self-care (01) ==
PROVIDERS: Absent Provider Orthopaedic Surgery; Emergency Provider Emergency Medicine; PCP Family Medicine
DX: M54.42 Lumbago with sciatica, left side (principal); Z79.82 Long term (current) use of aspirin; Z79.84 Long term (current) use of oral hypoglycemic drugs; Z87.891 Personal history of nicotine dependence; E11.21 Type 2 diabetes mellitus with diabetic nephropathy; I10 Essential (primary) hypertension
CPT/HCPCS: 96372; 99284; J1171; J1885; J2360

== ENCOUNTER 2024-02-23 10:31 | Outpatient (CLI) | payer MEDICARE, SELFPAY ==
[2024-02-23 11:28] LABS: Estmated Average Glucose 292; Hemoglobin A1C 11.8 % (4.0-6.0)
== END 2024-02-23 10:32 | disposition home or self-care (01) ==
LOC: LAB 10:32
PROVIDERS: PCP Family Medicine; Visit Provider Orthopaedic Surgery
DX: E11.21 Type 2 diabetes mellitus with diabetic nephropathy (principal)
CPT/HCPCS: 36415; 83036

== ENCOUNTER 2024-03-16 14:30 | Emergency (ER) | payer MEDICARE, SELFPAY ==
[2024-03-16 14:36] VITALS: BP 145/85; PULSE 82; TEMP 36.4; O2SAT 97; BMI 45.9
[2024-03-16 15:17] VITALS: BP 139/75; PULSE 67; RESP 18; O2SAT 94
--- NOTE | 2024-03-16 15:21 | XR_ITS ---
WS: [id number] XR hip RT 2-3V wo/w pel* [id number] REASON FOR EXAM: pain; one view pelvis too please FINDINGS: No acute fracture of the proximal femur. Superior and inferior pubic rami are intact with no fracture identified. There is mild to moderate narrowing of the posterior inferior joint space with mild subchondral scler osis at the acetabulum. XR/XR hip RT 2-3V wo/w pel* [id number] IMPRESSION: No acute abnormality. Mild osteoarthritis of the right hip.
--- NOTE | 2024-03-16 15:22 | ED_ITS ---
HPI - Extremity Injury (Lower) General: Chief Complaint: Extremity Injury, Lower Stated Complaint: right hip pain/injury Time Seen by Provider: 03/16/24 15:11 Source: patient Mode of arrival: ambulatory Limitations: no limitations History of Present Illness: Patient is a 78-year-old female presents to ED today with complaint of left hip pain. Patient states she was twisting her pelvis to get out of her vehicle when she noticed pain to the right hip. She has been ambulatory without assistance but does complain of pain. She is not having any back pain. She has no other complaints apart from right hip pain. MD complaint: hip injury Onset (ago): hour(s) Injury: Right: hip Place: work Severity: moderate Relieving factors: immobilization Exacerbating factors: weight bearing, movement and palpation Associated symptoms: Reports no associated symptoms Other symptoms: none Related Data Home Medications Medication Instructions Recorded Confirmed acetaminophen 500 mg tablet 500 mg PO QID PRN Pain 08/23/22 03/15/24 (Tylenol Extra Strength) aspirin 81 mg chewable tablet 81 mg PO DAILY 08/23/22 03/15/24 tramadol 50 mg tablet 50 mg PO Q6H PRN Pain 08/23/22 03/15/24 vit C 250 mg-vit E 90 mg-zinc 40 1 tab PO BID 11/19/22 03/15/24 mg-copper 1 [id number] capsule (PreserVision AREDS-2) Previous Rx's Medication Instructions Recorded AFO Brace #1 ea 09/11/23 diabetic shoes with 3 inserts #1 ea 09/17/23 meclizine 25 mg tablet See Rx Instructions .Route 11/10/23 .COMPLEX #30 tabs furosemide 40 mg tablet (Lasix) 40 mg PO DAILY #90 tabs 11/12/23 levothyroxine 125 mcg tablet 125 mcg PO DAILY #90 tabs 11/12/23 rollator walker with seat #1 ea 11/12/23 simvastatin 20 mg tablet 20 mg PO DAILY #90 tabs 11/12/23 levetiracetam 750 mg tablet See Rx Instructions .Route 12/03/23 .COMPLEX #180 tabs empagliflozin 25 mg tablet 25 mg PO QAM #90 tabs 01/05/24 Bone Growth Stimulator #1 ea 01/14/24 KATARINA TEST STRIPS #1 ea 02/25/24 flash glucose sensor (FreeStyle #2 ea 02/26/24 Katarina 14 Day Sensor kit) pramipexole 0.25 mg tablet See Rx Instructions .Route 03/01/24 .COMPLEX #270 tabs nystatin-triamcinolone 100,000 1 applic topical BID #60 grams 03/02/24 unit/g-0.1 % topical cream tirzepatide 2.5 mg/0.5 mL 2.5 mg (0.5 mL) SUBCUT Q7D #2 mL 03/03/24 subcutaneous pen injector (Diana) colchicine 0.6 mg tablet 0.6 mg PO DAILY #30 tabs 03/12/24 glimepiride 4 mg tablet See Rx Instructions .Route 03/12/24 .COMPLEX #120 tabs Allergies Allergy/AdvReac Type Severity Reaction Status Date / Time azithromycin Allergy ALGY-Difficulty Verified 03/16/24 14:41 Breathing carbamazepine [From Tegretol] Allergy Unknown Verified 03/16/24 14:41 cephalexin Allergy Unknown Verified 03/16/24 14:41 ciprofloxacin Allergy ALGY-Rash Verified 03/16/24 14:41 cyclobenzaprine Allergy Unknown Verified 03/16/24 14:41 [From Flexeril] fentanyl Allergy doesn't Verified 03/16/24 14:41 want to take fluconazole Allergy Unknown Verified 03/16/24 14:41 gabapentin Allergy Unknown Verified 03/16/24 14:41 hydrocodone [From [place]] Allergy Unknown Verified 03/16/24 14:41 hydroxychloroquine Allergy Unknown Verified 03/16/24 14:41 hyoscyamine Allergy Unknown Verified 03/16/24 14:41 naproxen [From Naprosyn] Allergy Unknown Verified 03/16/24 14:41 oxybutynin [From Ditropan] Allergy Unknown Verified 03/16/24 14:41 phenytoin [From Dilantin] Allergy Unknown Verified 03/16/24 14:41 progesterone Allergy Unknown Verified 03/16/24 14:41 [From Prometrium] solifenacin [From Vesicare] Allergy Unknown Verified 03/16/24 14:41 Sulfa (Sulfonamide Allergy Unknown Verified 03/16/24 14:41 Antibiotics) sulfamethoxazole Allergy Unknown Verified 03/16/24 14:41 [From Bactrim] trimethoprim [From Bactrim] Allergy Unknown Verified 03/16/24 14:41 valdecoxib [From Bextra] Allergy Unknown Verified 03/16/24 14:41 Review of Systems Card: Denies: chest pain Resp: Denies: dyspnea GI: Denies: abdominal pain : Denies: flank pain Musc: Reports: joint pain (R hip); Denies: back pain, extremity pain, extremity swelling, joint swelling, joint redness or joint warmth Neuro: Denies: numbness in extremities, weakness in extremities or sensory changes PFSH ED PFSH: Medical History Family history of colon cancer Colon polyps Spinal cord neurostimulator device in situ BMI 40.0-44.9, adult FH: total knee replacement Recurrent UTI CRP elevated Angina at rest Creatinine elevation After cataract, bilateral Carpal tunnel syndrome on both sides Nonfunctional vagus nerve stimulator Multiple lung nodules on CT 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 Father CAD (coronary artery disease) Stroke Mother Chronic kidney disease (CKD) Brother Cancer Brother Stroke Colon cancer Denies family history of Ovarian cancer Diabetes Heart disease Hypercholesteremia Breast cancer Hypertension Uterine cancer Thyroid disease Social History Smoking and tobacco/nicotine status: never used tobacco/nicotine Quit status (tobacco/nicotine): has quit using Year quit tobacco: 1979 Former quit date comment: 1-2 ppd X 1 year Second hand smoke exposure: No Alcohol intake: never Substance/Drug Use: never Current gender identity: Female Female Reproductive History: Spontaneous abortions: No Physical Exam Const: COMMON NORMALS: no acute distress, patient oriented x3, no limitations, alert and well nourished GENERAL APPEARANCE: cooperative NUTRITIONAL APPEARANCE: obese Back/Pelvis: COMMON NORMALS: thoracic and lumbar spine normal to inspection and no thoracic nor lumbar tenderness Extremity: COMMON NORMALS: full ROM, capillary refill normal, no joint enlarg ement, no clubbing, cyanosis or edema, no calf tenderness and no pedal edema GENERAL: Yes normal exam except as noted RIGHT LOWER EXTREMITY: Yes hip joint (TTP posterior R hip) Right hip: Yes inspection (normal gross inspection) and Yes neurovascular exam (normal) Neuro: COMMON NORMALS: patient oriented x3, moves all extremities, no focal motor deficits, no sensory deficits noted and gait normal SENSORIUM/ORIENTATION: Yes alert Course Vital Signs: Vital signs: Vital Signs Temperature 97.5 F L 03/16/24 14:36 Pulse Rate 67 03/16/24 15:17 Respiratory Rate 18 03/16/24 15:17 Blood Pressure 139/75 03/16/24 15:17 Pulse Oximetry 94 03/16/24 15:17 Oxygen Delivery Me thod Room Air 03/16/24 15:17 MDM - Extremity Injury (Lower) Medical Decision Making XR unremarkable. Patient states she can only take Tylenol for pain. She has extensive allergy medication list. Recommend this as well as ice, heat, gentle stretching, time. She can follow-up with primary care in 1 to 2 weeks if symptoms do not seem to be improving. Lab Data Radiology Impressions Hip/Pelvis X-Ray 03/16/24 15:21 IMPRESSION: No acute abnormality. Mild osteoarthritis of the right hip. All radiology interpretation(s) finalized by discharge Discharge Plan Discharge Patient Disposition: Home Clinical Impression: Acute pain of right hip Condition: Stable Prescriptions: No Action aspirin 81 mg tablet,chewable 81 mg PO DAILY acetaminophen [Tylenol Extra Strength] 500 mg tablet 500 mg PO QID PRN (Reason: Pain) tramadol 50 mg tablet 50 mg PO Q6H PRN (Reason: Pain) PreserVision AREDS-2 250-90-40-1 mg capsule 1 tab PO BID nystatin-triamcinolone 100,000-0.1 unit/g-% cream 1 applic topical BID Qty: 60 3RF Rx Instructions: apply to vulva bid Mounjaro 2.5 mg/0.5 mL pen injector 2.5 mg SUBCUT Q7D Qty: 2 0RF (DME) AFO Brace See Rx Instructions .Route .MEDSUPPLY Qty: 1 0RF Rx Instructions: As directed by Marley ([facility]) diabetic shoes with 3 inserts See Rx Instructions .Route .MEDSUPPLY Qty: 1 0RF Rx Instructions: As directed HOME meclizine 25 mg tablet See Rx Instructions .ROUTE .COMPLEX Qty: 30 0RF Dose Instruction: TAKE 1 TABLET BY MOUTH THREE TIMES DAILY NEEDED FOR dizziness Rx Instructions: TAKE 1 TABLET BY MOUTH THREE TIMES DAILY NEEDED FOR dizziness furosemide [Lasix] 40 mg tablet 40 mg PO DAILY Qty: 90 0RF levothyroxine 125 mcg tablet 125 mcg PO DAILY Qty: 90 0RF (DME) rollator walker with seat See Rx Instructions .Route .MEDSUPPLY Qty: 1 0RF Rx Instructions: As directed simvastatin 20 mg tablet 20 mg PO DAILY Qty: 90 0RF levetiracetam 750 mg tablet See Rx Instructions .ROUTE .COMPLEX Qty: 180 0RF Dose Instruction: TAKE 1 TABLET BY MOUTH TWICE DAILY Rx Instructions: TAKE 1 TABLET BY MOUTH TWICE DAILY empagliflozin 25 mg tablet 25 mg PO QAM Qty: 90 0RF ([facility]) Bone Growth Stimulator See Rx Instructions .Route .MEDSUPPLY Qty: 1 0RF Rx Instructions: As directed ([facility]) KATARINA TEST STRIPS See Rx Instructions .Route .MEDSUPPLY Qty: 1 0RF Rx Instructions: As directed ([facility]) FreeStyle Katarina 14 Day Sensor Kit See Rx Instructions .MEDSUPPLY Qty: 2 12RF Rx Instructions: Change every 14 days; Use as directed to check blood sugar pramipexole 0.25 mg tablet See Rx Instructions .ROUTE .COMPLEX Qty: 270 0RF Rx Instructions: 1 tab po qam & 2 tab po qpm glimepiride 4 mg tablet See Rx Instructions .ROUTE .COMPLEX Qty: 120 0RF Dose Instruction: TAKE 2 TABLETS BY MOUTH TWICE DAILY Rx Instructions: TAKE 2 TABLETS BY MOUTH TWICE DAILY colchicine 0.6 mg tablet 0.6 mg PO DAILY Qty: 30 0RF Discharge Orders: Discharge ED (Routine); Ordered 03/16/24 Ordered By: Maria De Jesus Holman Referrals: Demetria Busch MD [Primary Care Provider] - Activity Restrictions/Additional Instructions: As we discussed, you can use [id number] Tylenol as well as ice and heat. Please follow-up with primary care in 1 to 2 weeks if symptoms do not seem to be improving. We discussed other treatment options however your allergy excludes most of them. 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
[2024-03-16 16:06] VITALS: BP 117/86; PULSE 68; RESP 14; O2SAT 95
== END 2024-03-16 16:08 | disposition home or self-care (01) ==
PROVIDERS: Emergency Provider Physician Assistant; PCP Family Medicine
DX: M25.551 Pain in right hip (principal); E11.21 Type 2 diabetes mellitus with diabetic nephropathy; Z87.891 Personal history of nicotine dependence
CPT/HCPCS: 73502; 99283

== ENCOUNTER 2024-03-25 11:21 | Outpatient (CLI) | payer MEDICARE, SELFPAY ==
[2024-03-25 12:04] LABS: Estmated Average Glucose 283; Hemoglobin A1C 11.5 % (4.0-6.0)
== END 2024-03-25 11:22 | disposition home or self-care (01) ==
LOC: LAB 11:22
PROVIDERS: PCP Family Medicine; Visit Provider Orthopaedic Surgery
DX: E11.21 Type 2 diabetes mellitus with diabetic nephropathy (principal)
CPT/HCPCS: 36415; 83036

== ENCOUNTER 2024-04-06 08:32 | Outpatient (CLI) | payer MEDICARE, SELFPAY ==
[2024-04-06 09:34] LABS: Estmated Average Glucose 260; Hemoglobin A1C 10.7 % (4.0-6.0)
== END 2024-04-06 08:33 | disposition home or self-care (01) ==
LOC: LAB 08:33
PROVIDERS: PCP Family Medicine; Visit Provider Orthopaedic Surgery
DX: E11.21 Type 2 diabetes mellitus with diabetic nephropathy (principal)
CPT/HCPCS: 36415; 83036

== ENCOUNTER → 2024-04-12 14:44 | Outpatient (BNVA) | payer MEDICARE, SELFPAY | PROVIDERS: PCP Family Medicine; Visit Provider Family Medicine | DX: E03.9 Hypothyroidism, unspecified (principal) | CPT/HCPCS: 84443 ==

== ENCOUNTER → 2024-05-25 12:47 | Outpatient (BNVA) | payer MEDICARE, SELFPAY | PROVIDERS: PCP Family Medicine; Visit Provider Orthopaedic Surgery | DX: Z01.818 Encounter for other preprocedural examination (principal); E11.21 Type 2 diabetes mellitus with diabetic nephropathy; M48.02 Spinal stenosis, cervical region; M54.12 Radiculopathy, cervical region | CPT/HCPCS: 36415; 80053; 81001; 83036; 85025; 87086; 99214 ==

== ENCOUNTER 2024-05-31 10:15 | Outpatient (CLI) | payer MEDICARE, SELFPAY ==
[2024-05-31 11:33] LABS: Estmated Average Glucose 255; Hemoglobin A1C 10.5 % (4.0-6.0)
== END 2024-05-31 10:16 | disposition home or self-care (01) ==
LOC: LAB 10:16
PROVIDERS: PCP Family Medicine; Visit Provider Orthopaedic Surgery
DX: E11.9 Type 2 diabetes mellitus without complications (principal)
CPT/HCPCS: 36415; 83036

== ENCOUNTER → 2024-06-03 08:34 | Outpatient (BNVA) | payer MEDICARE, SELFPAY | PROVIDERS: PCP Family Medicine; Referring Provider Orthopaedic Surgery; Visit Provider Internal Medicine | DX: E11.21 Type 2 diabetes mellitus with diabetic nephropathy (principal); E03.9 Hypothyroidism, unspecified; D35.01 Benign neoplasm of right adrenal gland; E78.2 Mixed hyperlipidemia | CPT/HCPCS: 36415; 84439; 84443; 99204 ==

== ENCOUNTER 2024-06-06 04:13 | Emergency (ER) | payer MEDICARE, SELFPAY ==
[2024-06-06] VITALS (10 sets, daily range): BP systolic 128–155; BP diastolic 69–87; PULSE 60–87; RESP 20; TEMP 36.6; O2SAT 90–96; BMI 45.9
--- NOTE | 2024-06-06 05:01 | ED_ITS ---
HPI - Back Pain/Injury General: Chief Complaint: Back Pain/Injury Stated Complaint: Back Pain (neck down) Time Seen by Provider: 06/06/24 04:32 History of Present Illness: 78-year-old female with a history of sarah or lumbar spine and cervical spine surgery. She has not nerve stimulator in her back as well. She presents with ongoing and worsening neck pain radiating down her back. She says that she has some numbness and tingling that is chronic to her fingers bilaterally. She d enies fever. She has been taking Tylenol at home without relief. She states that she has seen neurosurgery, and is awaiting word on scheduling a second cervical spine fusion. She says that she has not slept in 3 days because of the pain, and it was worse this morning so she drove herself to the emergency department. Related Data Home Medications Medication Instructions Recorded Confirmed acetaminophen 500 mg tablet 500 mg PO QID PRN Pain 08/23/22 06/02/24 (Tylenol Extra Strength) aspirin 81 mg chewable tablet 81 mg PO DAILY 08/23/22 06/02/24 vit C 250 mg-vit E 90 mg-zinc 40 1 tab PO BID 11/19/22 06/02/24 mg-copper 1 [id number] capsule (PreserVision AREDS-2) Previous Rx's Medication Instructions Recorded AFO Brace #1 ea 09/11/23 diabetic shoes with 3 inserts #1 ea 09/17/23 meclizine 25 mg tablet See Rx Instructions .Route 11/10/23 .COMPLEX #30 tabs rollator walker with seat #1 ea 11/12/23 levetiracetam 750 mg tablet See Rx Instructions .Route 12/03/23 .COMPLEX #180 tabs KATARINA TEST STRIPS #1 ea 02/25/24 pramipexole 0.25 mg tablet See Rx Instructions .Route 03/01/24 .COMPLEX #270 tabs nystatin-triamcinolone 100,000 1 applic topical BID #60 grams 03/02/24 unit/g-0.1 % topical cream Bone Growth Stimulator #1 ea 03/22/24 levothyroxine 150 mcg tablet 150 mcg PO DAILY #60 tabs 04/13/24 empagliflozin 25 mg tablet 25 mg PO QAM #90 tabs 04/28/24 glimepiride 4 mg tablet See Rx Instructions .Route 04/28/24 .COMPLEX #120 tabs colchicine 0.6 mg tablet See Rx Instructions .Route 05/03/24 .COMPLEX #30 tabs furosemide 40 mg tablet (Lasix) 40 mg PO DAILY #90 tabs 05/06/24 simvastatin 20 mg tablet 20 mg PO DAILY #90 tabs 05/14/24 blood-glucose sensor (FreeStyle #1 ea 05/26/24 Katarina 3 Plus Sensor device) Diabetic Shoes #1 ea 05/31/24 tirzepatide 10 mg/0.5 mL 10 mg (0.5 mL) SUBCUT Q7D #2 mL 06/03/24 subcutaneous pen injector (Mounjaro) tirzepatide 5 mg/0.5 mL 5 mg (0.5 mL) SUBCUT Q7D 1 month 06/03/24 subcutaneous pen injector #2.5 mL (Mounjaro) tirzepatide 7.5 mg/0.5 mL 7.5 mg (0.5 mL) SUBCUT Q7D 1 month 06/03/24 subcutaneous pen injector #2 mL (Mounjaro) tramadol 50 mg tablet 50 mg PO Q6H PRN Pain #15 tabs 06/06/24 Allergies Allergy/AdvReac Type Severity Reaction Status Date / Time azithromycin Allergy ALGY-Difficulty Verified 06/02/24 14:32 Breathing carbamazepine [From Tegretol] Allergy Unknown Verified 06/02/24 14:32 cephalexin Allergy Unknown Verified 06/02/24 14:32 ciprofloxacin Allergy ALGY-Rash Verified 06/02/24 14:32 cyclobenzaprine Allergy Unknown Verified 06/02/24 14:32 [From Flexeril] fentanyl Allergy doesn't Verified 06/02/24 14:32 want to take fluconazole Allergy Unknown Verified 06/02/24 14:32 gabapentin Allergy Unknown Verified 06/02/24 14:32 hydrocodone [From [place]] Allergy Unknown Verified 06/02/24 14:32 hydroxychloroquine Allergy Unknown Verified 06/02/24 14:32 hyoscyamine Allergy Unknown Verified 06/02/24 14:32 naproxen [From Naprosyn] Allergy Unknown Verified 06/02/24 14:32 oxybutynin [From Ditropan] Allergy Unknown Verified 06/02/24 14:32 phenytoin [From Dilantin] Allergy Unknown Verified 06/02/24 14:32 progesterone Allergy Unknown Verified 06/02/24 14:32 [From Prometrium] solifenacin [From Vesicare] Allergy Unknown Verified 06/02/24 14:32 Sulfa (Sulfonamide Allergy Unknown Verified 06/02/24 14:32 Antibiotics) sulfamethoxazole Allergy Unknown Verified 06/02/24 14:32 [From Bactrim] trimethoprim [From Bactrim] Allergy Unknown Verified 06/02/24 14:32 valdecoxib [From Bextra] Allergy Unknown Verified 06/02/24 14:32 PFSH ED PFSH: Medical History Family history of colon cancer Colon polyps Spinal cord neurostimulator device in situ BMI 40.0-44.9, adult FH: total knee replacement Recurrent UTI CRP elevated Angina at rest Creatinine elevation After cataract, bilateral Carpal tunnel syndrome on both sides Nonfunctional vagus nerve stimulator Multiple lung nodules on CT 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 Father CAD (coronary artery disease) Stroke Mother Chronic kidney disease (CKD) Brother Cancer Brother Stroke Colon cancer Denies family history of Ovarian cancer Diabetes Heart disease Hypercholesteremia Breast cancer Hypertension Uterine cancer Thyroid disease Social History Smoking and tobacco/nicotine status: unknown if used tobacco/nicotine Quit status (tobacco/nicotine): has quit using Year quit tobacco: 1979 Former quit date comment: 1-2 ppd X 1 year Second hand smoke exposure: No Alcohol intake: never Substance/Drug Use: never Current gender identity: Female Female Reproductive History: Spontaneous abortions: No Physical Exam Const: GENERAL APPEARANCE: cooperative and in distress (in pain); not ill appearing HENMT: COMMON NORMALS: normocephalic, atraumatic and Normal external nose present HEAD & SCALP: normocephalic and atraumatic FACE & SINUS: normal facial exam and face symmetric NOSE: Normal external nose present Eye: COMMON NORMALS: Equal, round and reactive pupils present and EOMs intact bilaterally PUPIL: Yes Equal, round and reactive pupils present Neck/C-Spine: GENERAL: Yes trachea midline OTHER: Examination of the cervical spine reveals tenderness over the mid to lower cervical spine in the midline. There is some paravertebral muscle spasm. Axial compression causes significant bilateral radicular pain right worse than left. Chest: CHEST: Yes Symmetrical chest wall rise Resp: COMMON NORMALS: normal respiratory effort, No retractions, No use of accessory muscles and clear to auscultation bilaterally AUSCULTATION: clear to auscultation bilaterally Cardio: COMMON NORMALS: regular rate and regular rhythm RATE: regular rate RHYTHM: regular rhythm GI: COMMON NORMALS: Normal to inspection, nondistended, normoactive bowel sounds present Extremity: COMMON NORMALS: no pedal edema Neuro: ALYSSA COMA SCALE: document GCS findings Valders coma scale eye opening: Spontaneous Valders coma scale verbal response: Orientated Valders coma scale motor response: Obey commands Valders coma scale total score: 15 SENSORY EXAM: Yes extremities (intact) Psych: COMMON NORMALS: speech normal SPEECH: Yes normal speech Skin: COMMON NORMALS: no rashes or lesions noted GENERAL SKIN EXAM: no rashes or lesions noted Course Vital Signs: Vital signs: Vital Signs Temperature 98 F 06/06/24 04:36 Pulse Rate 72 06/06/24 07:50 Respiratory Rate 20 H 06/06/24 04:36 Blood Pressure 155/87 06/06/24 07:50 Pulse Oximetry 93 06/06/24 07:50 MDM - Back Pain/Injury Medical Decision Making No fever. Vital signs are stable. She is given injections for pain. She does have a history of moderate to severe spinal stenosis, likely the cause of her pain. This is apparent on recent MRI. Pain improved after medication here. Patient should follow-up with her neurosurgeon. There is no distinct other treatment for her from an emergency standpoint. Can place her on steroids, as she is diabetic and this will significantly raise her blood sugar, which she is trying to control more stringently due to her upcoming surgery. No radiology studies performed this visit Discharge Plan Discharge Patient Disposition: Home Clinical Impression: Spinal stenosis of cervical region with radiculopathy Condition: Stable Prescriptions: Continued tramadol 50 mg tablet 50 mg PO Q6H PRN (Reason: Pain) Qty: 15 0RF No Action aspirin 81 mg tablet,chewable 81 mg PO DAILY acetaminophen [Tylenol Extra Strength] 500 mg tablet 500 mg PO QID PRN (Reason: Pain) PreserVision AREDS-2 250-90-40-1 mg capsule 1 tab PO BID nystatin-triamcinolone 100,000-0.1 unit/g-% cream 1 applic topical BID Qty: 60 3RF Rx Instructions: apply to vulva bid Mounjaro 5 mg/0.5 mL pen injector 5 mg SUBCUT Q7D 30 Days Qty: 2.5 0RF Rx Instructions: inject 5mg weekly for one month than increase to 7.5mg Mounjaro 7.5 mg/0.5 mL pen injector 7.5 mg SUBCUT Q7D 30 Days Qty: 2 0RF Rx Instructions: inject 7.5mg weekly for one month than increase to 10mg Mounjaro 10 mg/0.5 mL pen injector 10 mg SUBCUT Q7D Qty: 2 1RF Rx Instructions: inject 10mg weekly (DME) Diabetic Shoes See Rx Instructions .Route .MEDSUPPLY Qty: 1 0RF Rx Instructions: As directed (DME) AFO Brace See Rx Instructions .Route .MEDSUPPLY Qty: 1 0RF Rx Instructions: As directed by Marley (DME) diabetic shoes with 3 inserts See Rx Instructions .Route .MEDSUPPLY Qty: 1 0RF Rx Instructions: As directed HOME meclizine 25 mg tablet See Rx Instructions .ROUTE .COMPLEX Qty: 30 0RF Dose Instruction: TAKE 1 TABLET BY MOUTH THREE TIMES DAILY NEEDED FOR dizziness Rx Instructions: TAKE 1 TABLET BY MOUTH THREE TIMES DAILY NEEDED FOR dizziness (DME) rollator walker with seat See Rx Instructions .Route .MEDSUPPLY Qty: 1 0RF Rx Instructions: As directed levetiracetam 750 mg tablet See Rx Instructions .ROUTE .COMPLEX Qty: 180 0RF Dose Instruction: TAKE 1 TABLET BY MOUTH TWICE DAILY Rx Instructions: TAKE 1 TABLET BY MOUTH TWICE DAILY (DME) KATARINA TEST STRIPS See Rx Instructions .Route .MEDSUPPLY Qty: 1 0RF Rx Instructions: As directed pramipexole 0.25 mg tablet See Rx Instructions .ROUTE .COMPLEX Qty: 270 0RF Rx Instructions: 1 tab po qam & 2 tab po qpm (DME) Bone Growth Stimulator See Rx Instructions .Route .MEDSUPPLY Qty: 1 0RF Rx Instructions: As directed levothyroxine 150 mcg tablet 150 mcg PO DAILY Qty: 60 0RF empagliflozin 25 mg tablet 25 mg PO QAM Qty: 90 0RF glimepiride 4 mg tablet See Rx Instructions .ROUTE .COMPLEX Qty: 120 0RF Dose Instruction: TAKE 2 TABLETS BY MOUTH TWICE DAILY Rx Instructions: TAKE 2 TABLETS BY MOUTH TWICE DAILY colchicine 0.6 mg tablet See Rx Instructions .ROUTE .COMPLEX Qty: 30 0RF Dose Instruction: TAKE 1 TABLET BY MOUTH DAILY Rx Instructions: TAKE 1 TABLET BY MOUTH DAILY furosemide [Lasix] 40 mg tablet 40 mg PO DAILY Qty: 90 0RF simvastatin 20 mg tablet 20 mg PO DAILY Qty: 90 0RF (DME) FreeStyle Katarina 3 Plus Sensor Device See Rx Instructions .Route Qty: 1 0RF Rx Instructions: As directed Discharge Orders: Discharge ED (Routine); Ordered 06/06/24 Ordered By: Stuart Langston Referrals: Demetria Busch MD [Primary Care Provider] - 1-3 days Patient Instructions: Cervical Radiculopathy (ED), Opioid Safety, Pain Management Activity Restrictions/Additional Instructions: Return for fever, worsening pain despite treatment, significant weakness, any other concerns. See your doctor this week. Call tomorrow for an appointment. Medication as directed. Heat or ice may help as well. Coding Level of Care Code ED Investment Counselor for 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
[2024-06-06] MEDS: ketorolac 30 mg/mL INJ IVP (05:34)
[2024-06-06] MEDS: orphenadrine 30 mg/mL Inj 2 mL 60 MG IVP (05:35)
[2024-06-06] MEDS: HYDROmorphone 1 mg/mL INJ 1 mL 0.5 MG IVP ×2 (05:35→06:58)
[2024-06-06] MEDS: ondansetron 2 mg/ML SDV 2 mL 4 MG IVP (06:08)
== END 2024-06-06 07:51 | disposition home or self-care (01) ==
PROVIDERS: Emergency Provider Emergency Medicine; PCP Family Medicine
DX: M48.02 Spinal stenosis, cervical region (principal); M54.12 Radiculopathy, cervical region; Z79.82 Long term (current) use of aspirin; Z87.891 Personal history of nicotine dependence; E11.21 Type 2 diabetes mellitus with diabetic nephropathy; I10 Essential (primary) hypertension
CPT/HCPCS: 96374; 96375; 96376; 99284; J1171; J1885; J2360; J2405

== ENCOUNTER 2024-06-09 08:37 | Emergency (ER) | payer MEDICARE, SELFPAY ==
[2024-06-09 08:42] VITALS: BP 131/102; PULSE 77; RESP 16; TEMP 36.5; O2SAT 94; BMI 45.9
--- NOTE | 2024-06-09 08:42 | CT_ITS ---
WS: [id number] CT LUMBAR SPINE TECHNIQUE: Noncontrast CT of the lumbar spine with coronal and sagittal reformatted images. CLINICAL INFORMATION: fall COMPARISON: None. DLP: 1561.[address] scans at [facility] use at least one of these dose optimization techniques: automated e xposure control; mA and/or kV adjustment per patient size (includes targeted exams where dose is matc hed to clinical indication); or iterative reconstruction. FINDINGS: Counting performed from the craniocervical junction with the same numbering convention util ized on the prior MRI. L5 is sacralized. Pedicle screw fixation L3-L5. Hardware appears intact. Osteopenia. Vacuum disc phenomenon in the lowe r thoracic spine. Grade 2 anterolisthesis L3 on L4 . No acute appearing compression fractures. Lucenc y involving the bilateral L3 and LEFT L4 pedicle screws suspicious for loosening. RIGHT L4 pedicle sc rew runs along the lateral aspect of the pedicle and vertebral body. L2-3: Mild central canal stenosis. Moderate bilateral foraminal narrowing. L3-L4: Severe central canal stenosis. Severe RIGHT and moderate LEFT foraminal narrowing. L4-L5: Laminectomy defects. Moderate LEFT foraminal narrowing. Spinal canal is patent. L5-S1: L5 is sacralized. Adrenal adenomas. CT/CT lumbar spine wo con* [id number] IMPRESSION: Hardware artifact degrades some images 1. Severe central canal stenosis L3-4 with grade 2 anterolisthesis. 2. No acute compression fractures. 3. Lucency about the bilateral L3 and LEFT L4 pedicle screws suspicious for lo osening. 4. Findings are similar to the prior MRI 11/03/2023
--- NOTE | 2024-06-09 08:42 | CT_ITS ---
WS: [id number] CT THORACIC SPINE TECHNIQUE: Noncontrast CT of the thoracic spine with coronal and sagittal reformatted images. CLINICAL INFORMATION: fall COMPARISON: None. DLP: 1561.[address] scans at [facility] use at least one of these dose optimization techniques: automated e xposure control; mA and/or kV adjustment per patient size (includes targeted exams where dose is matc hed to clinical indication); or iterative reconstruction. FINDINGS: Moderate thoracic kyphosis. Mild thoracic curve hypertrophic changes lower thoracic spine. Schmorl's nodes in the thoracic spine. No acute appearing compression fractures. Spinal stimulator. Aortic calcification. Coronary calcification. Bilateral adrenal nodules likely adenomas. Small esopha geal hiatal hernia. Cholecystectomy clips. Atelectasis in the lung bases. CT/CT thoracic spin wo con* [id number] IMPRESSION: No acute thoracic spine findings
--- NOTE | 2024-06-09 08:46 | CT_ITS ---
WS: [id number] CT CERVICAL TRAUMA TECHNIQUE: Noncontrast CT of the cervical spine with coronal and sagittal reformatted images. CLINICAL INFORMATION: fall COMPARISON: MRI 11/03/2023 DLP: 219.[address] scans at [facility] use at least one of these dose optimization techniques: automated e xposure control; mA and/or kV adjustment per patient size (includes targeted exams where dose is matc hed to clinical indication); or iterative reconstruction. FINDINGS: Straightening of the normal cervical lordosis. Prior postoperative changes C3-C5 with interbody fusio n. Hardware appears intact. Pannus formation at the C1-2 junction with mild central canal stenosis. D isc osteophyte complexes at C5-C6 and C6-C7 with mild to moderate central canal stenosis. Normal prevertebral soft tissues. Mastoids air cells are well aerated. CT/CT cervical spin wo con* [id number] IMPRESSION: No evidence of acute fracture or dislocation considering hardware artifacts
--- NOTE | 2024-06-09 08:54 | W.ED.FALL ---
HPI - Fall General: Chief Complaint: Fall Stated Complaint: fall 2x,back pain Time Seen by Provider: 06/09/24 08:43 Source: patient Mode of arrival: ambulatory Limitations: no limitations History of Present Illness: 78-year-old female who states that she has a history of chronic back issues had back surgery in the past she is following with spine surgeon Dr. Duggan currently states she had had some recent falls has been having increasing pain states her pain is her whole back and neck. She has had no bowel or bladder incontinence rates her pain a 7 out of 10 currently. Denies any fevers. Associated symptoms-after fall: Reports neck pain; Denies abdominal pain, chest pain or headache(s) Related Data Home Medications Medication Instructions Recorded Confirmed acetaminophen 500 mg tablet 500 mg PO QID PRN Pain 08/23/22 06/09/24 (Tylenol Extra Strength) aspirin 81 mg chewable tablet 81 mg PO DAILY 08/23/22 06/09/24 vit C 250 mg-vit E 90 mg-zinc 40 1 tab PO BID 11/19/22 06/09/24 mg-copper 1 [id number] capsule (PreserVision AREDS-2) colchicine 0.6 mg tablet 0.6 mg PO DAILY 06/09/24 06/09/24 glimepiride 4 mg tablet 8 mg PO BID 06/09/24 06/09/24 levetiracetam 750 mg tablet 750 mg PO BID 06/09/24 06/09/24 levothyroxine 150 mcg tablet 150 mcg PO QAM 06/09/24 06/09/24 meclizine 25 mg tablet 25 mg PO TID PRN Dizziness 06/09/24 06/09/24 sitagliptin phosphate 25 mg tablet 25 mg PO DAILY 06/09/24 06/09/24 (Januvia) Previous Rx's Medication Instructions Recorded AFO Brace #1 ea 09/11/23 diabetic shoes with 3 inserts #1 ea 09/17/23 rollator walker with seat #1 ea 11/12/23 KATARINA TEST STRIPS #1 ea 02/25/24 pramipexole 0.25 mg tablet See Rx Instructions .Route 03/01/24 .COMPLEX #270 tabs Bone Growth Stimulator #1 ea 03/22/24 empagliflozin 25 mg tablet 25 mg PO QAM #90 tabs 04/28/24 furosemide 40 mg tablet (Lasix) 40 mg PO DAILY #90 tabs 05/06/24 simvastatin 20 mg tablet 20 mg PO DAILY #90 tabs 05/14/24 blood-glucose sensor (FreeStyle #1 ea 05/26/24 Katarina 3 Plus Sensor device) Diabetic Shoes #1 ea 05/31/24 tirzepatide 10 mg/0.5 mL 10 mg (0.5 mL) SUBCUT Q7D #2 mL 06/03/24 subcutaneous pen injector (Mounjaro) tirzepatide 5 mg/0.5 mL 5 mg (0.5 mL) SUBCUT Q7D 1 month 06/03/24 subcutaneous pen injector #2.5 mL (Mounjaro) tirzepatide 7.5 mg/0.5 mL 7.5 mg (0.5 mL) SUBCUT Q7D 1 month 06/03/24 subcutaneous pen injector #2 mL (Mounjaro) tramadol 50 mg tablet 50 mg PO Q6H PRN Pain #15 tabs 06/06/24 methocarbamol 750 mg tablet 750 mg PO Q6H PRN spasms #20 tabs 06/09/24 Allergies Allergy/AdvReac Type Severity Reaction Status Date / Time azithromycin Allergy ALGY-Difficulty Verified 06/02/24 14:32 Breathing carbamazepine [From Tegretol] Allergy Unknown Verified 06/02/24 14:32 cephalexin Allergy Unknown Verified 06/02/24 14:32 ciprofloxacin Allergy ALGY-Rash Verified 06/02/24 14:32 cyclobenzaprine Allergy Unknown Verified 06/02/24 14:32 [From Flexeril] fentanyl Allergy doesn't Verified 06/02/24 14:32 want to take fluconazole Allergy Unknown Verified 06/02/24 14:32 gabapentin Allergy Unknown Verified 06/02/24 14:32 hydrocodone [From [place]] Allergy Unknown Verified 06/02/24 14:32 hydroxychloroquine Allergy Unknown Verified 06/02/24 14:32 hyoscyamine Allergy Unknown Verified 06/02/24 14:32 naproxen [From Naprosyn] Allergy Unknown Verified 06/02/24 14:32 oxybutynin [From Ditropan] Allergy Unknown Verified 06/02/24 14:32 phenytoin [From Dilantin] Allergy Unknown Verified 06/02/24 14:32 progesterone Allergy Unknown Verified 06/02/24 14:32 [From Prometrium] solifenacin [From Vesicare] Allergy Unknown Verified 06/02/24 14:32 Sulfa (Sulfonamide Allergy Unknown Verified 06/02/24 14:32 Antibiotics) sulfamethoxazole Allergy Unknown Verified 06/02/24 14:32 [From Bactrim] trimethoprim [From Bactrim] Allergy Unknown Verified 06/02/24 14:32 valdecoxib [From Bextra] Allergy Unknown Verified 06/02/24 14:32 Review of Systems Const: Denies: fever(s), chills, body aches or change in appetite ENMT: Denies: throat pain or dental pain Card: Denies: chest pain Resp: Denies: dyspnea GI: Denies: abdominal pain, nausea, vomiting or diarrhea Musc: Reports: neck pain and back pain Skin/Breast: Denies: rash Neuro: Denies: headache(s) PFSH ED PFSH: Medical History Family history of colon cancer Colon polyps Spinal cord neurostimulator device in situ BMI 40.0-44.9, adult FH: total knee replacement Recurrent UTI CRP elevated Angina at rest Creatinine elevation After cataract, bilateral Carpal tunnel syndrome on both sides Nonfunctional vagus nerve stimulator Multiple lung nodules on CT 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 Father CAD (coronary artery disease) Stroke Mother Chronic kidney disease (CKD) Brother Cancer Brother Stroke Colon cancer Denies family history of Ovarian cancer Diabetes Heart disease Hypercholesteremia Breast cancer Hypertension Uterine cancer Thyroid disease Social History Smoking and tobacco/nicotine status: unknown if used tobacco/nicotine Quit status (tobacco/nicotine): has quit using Year quit tobacco: 1979 Former quit date comment: 1-2 ppd X 1 year Second hand smoke exposure: No Alcohol intake: never Substance/Drug Use: never Current gender identity: Female Female Reproductive History: Spontaneous abortions: No Physical Exam Const: COMMON NORMALS: no acute distress, patient oriented x3 and healthy appearing HENMT: COMMON NORMALS: normocephalic and atraumatic HEAD & SCALP: normocephalic and atraumatic Neck/C-Spine: COMMON NORMALS: full ROM and supple OTHER: Paraspinal tenderness along neck Chest: COMMONS NORMALS: normal inspection of the chest Resp: COMMON NORMALS: normal respiratory effort, No retractions, No use of accessory muscles and clear to auscultation bilaterally AUSCULTATION: clear to auscultation bilaterally Cardio: COMMON NORMALS: regular rate, regular rhythm and No murmurs present (Cardio) RATE: regular rate RHYTHM: regular rhythm Back/Pelvis: OTHER: Tenderness along L and T-spine Extremity: COMMON NORMALS: normal to inspection and full ROM Neuro: COMMON NORMALS: patient oriented x3, moves all extremities and no focal motor deficits Psych: COMMON NORMALS: mental status grossly normal, Normal thought process present and cooperative THOUGHT PROCESS: Normal thought process present Skin: COMMON NORMALS: no rashes or lesions noted and no wounds GENERAL SKIN EXAM: no rashes or lesions noted Course Vital Signs: Vital signs: Vital Signs Temperature 97.7 F 06/09/24 08:42 Pulse Rate 78 06/09/24 10:42 Respiratory Rate 18 06/09/24 10:42 Blood Pressure 152/86 06/09/24 10:42 Pulse Oximetry 92 06/09/24 10:42 Oxygen Delivery Me thod Room Air 06/09/24 10:38 MDM - Fall Medical Decision Making Patient presents with back pain has been chronic in nature it had a recent fall imaging here shows no acute findings she is ambulatory no signs of cord compression she has follow-up with spine surgery she is to continue her follow-up return if worsening she understands agrees to plan. Medical Records I reviewed the patient's medical records. Lab Data Radiology Impressions Lumbar Spine CT 06/09/24 08:42 IMPRESSION: Hardware artifact degrades some images 1. Severe central canal stenosis L3-4 with grade 2 anterolisthesis. 2. No acute compression fractures. 3. Lucency about the bilateral L3 and LEFT L4 pedicle screws suspicious for loosening. 4. Findings are similar to the prior MRI 11/03/[address] 06/09/24 08:42 IMPRESSION: No acute thoracic spine findings Cervical Spine CT 06/09/24 08:46 IMPRESSION: No evidence of acute fracture or dislocation considering hardware artifacts All radiology interpretation(s) finalized by discharge Discharge Plan Discharge Patient Disposition: Home Clinical Impression: Low back pain Condition: Stable Prescriptions: New methocarbamol 750 mg tablet 750 mg PO Q6H PRN (Reason: spasms) Qty: 20 0RF No Action aspirin 81 mg tablet,chewable 81 mg PO DAILY acetaminophen [Tylenol Extra Strength] 500 mg tablet 500 mg PO QID PRN (Reason: Pain) PreserVision AREDS-2 250-90-40-1 mg capsule 1 tab PO BID Mounjaro 5 mg/0.5 mL pen injector 5 mg SUBCUT Q7D 30 Days Qty: 2.5 0RF Rx Instructions: Mounjaro 7.5 mg/0.5 mL pen injector 7.5 mg SUBCUT Q7D 30 Days Qty: 2 0RF Rx Instructions: inject 7.5mg weekly for one month than increase to 10mg Mounjaro 10 mg/0.5 mL pen injector 10 mg SUBCUT Q7D Qty: 2 1RF Rx Instructions: inject 10mg weekly (DME) Diabetic Shoes See Rx Instructions .Route .MEDSUPPLY Qty: 1 0RF Rx Instructions: As directed (DME) AFO Brace See Rx Instructions .Route .MEDSUPPLY Qty: 1 0RF Rx Instructions: As directed by [employer] (DME) diabetic shoes with 3 inserts See Rx Instructions .Route .MEDSUPPLY Qty: 1 0RF Rx Instructions: As directed HOME (DME) rollator walker with seat See Rx Instructions .Route .MEDSUPPLY Qty: 1 0RF Rx Instructions: As directed (DME) KATARINA TEST STRIPS See Rx Instructions .Route .MEDSUPPLY Qty: 1 0RF Rx Instructions: As directed pramipexole 0.25 mg tablet See Rx Instructions .ROUTE .COMPLEX Qty: 270 0RF Rx Instructions: Take 1 tablet by mouth in the morning and 2 tablets in the evening. (DME) Bone Growth Stimulator See Rx Instructions .Route .MEDSUPPLY Qty: 1 0RF Rx Instructions: As directed empagliflozin 25 mg tablet 25 mg PO QAM Qty: 90 0RF furosemide [Lasix] 40 mg tablet 40 mg PO DAILY Qty: 90 0RF simvastatin 20 mg tablet 20 mg PO DAILY Qty: 90 0RF (DME) FreeStyle Katarina 3 Plus Sensor Device See Rx Instructions .Route Qty: 1 0RF Rx Instructions: As directed tramadol 50 mg tablet 50 mg PO Q6H PRN (Reason: Pain) Qty: 15 0RF meclizine 25 mg tablet 25 mg PO TID PRN (Reason: Dizziness) glimepiride 4 mg tablet 8 mg PO BID levothyroxine 150 mcg tablet 150 mcg PO QAM levetiracetam 750 mg tablet 750 mg PO BID colchicine 0.6 mg tablet 0.6 mg PO DAILY Januvia 25 mg tablet 25 mg PO DAILY Discharge Orders: Discharge ED (Routine); Ordered 06/09/24 Ordered By: Scott Bell Referrals: Jeet Duggan DO [Physician] - 4-7 days Demetria Busch MD [Primary Care Provider] - Discharge Diet: Advance as tolerated Discharge Activity: Resume usual activity Patient Instructions: Back Pain (ED) Coding Level of Care Code ED Technology Architect for 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
[2024-06-09 09:07] VITALS: BP 131/102; PULSE 69; RESP 18; O2SAT 95
--- NOTE | 2024-06-09 09:44 | PC.PHAR ---
Pt has a current med list with her. Pt states only took her Mounjaro 5mg/0.5ml pen, today. Pt also has Januvia 50 mg on her list but has not filled since 01/05/24 90ds.
[2024-06-09 09:51] VITALS: BP 152/104; PULSE 77; RESP 16; O2SAT 91
[2024-06-09 10:38] VITALS: BP 152/86; PULSE 82; RESP 16; O2SAT 94
[2024-06-09 10:42] VITALS: BP 152/86; PULSE 78; RESP 18; O2SAT 92
[2024-06-09] MEDS: diazePAM 2 mg Tablet PO (10:49)
== END 2024-06-09 10:53 | disposition home or self-care (01) ==
PROVIDERS: Emergency Provider Emergency Medicine; PCP Family Medicine
DX: M54.50 Low back pain, unspecified (principal); Z79.82 Long term (current) use of aspirin; Z87.891 Personal history of nicotine dependence; E11.9 Type 2 diabetes mellitus without complications; I10 Essential (primary) hypertension
CPT/HCPCS: 72125; 72128; 72131; 99284

== ENCOUNTER → 2024-06-10 12:48 | Outpatient (BNVA) | payer MEDICARE, SELFPAY | PROVIDERS: PCP Family Medicine; Visit Provider Orthopaedic Surgery | DX: M48.062 Spinal stenosis, lumbar region with neurogenic claudication (principal); M48.02 Spinal stenosis, cervical region; M54.12 Radiculopathy, cervical region | CPT/HCPCS: 72110; 99024 ==

== ENCOUNTER 2024-06-16 09:16 | Observation (INO) | payer MEDICARE, SELFPAY ==
[2024-06-16] VITALS (24 sets, daily range): BP systolic 100–149; BP diastolic 51–85; PULSE 60–96; RESP 12–19; TEMP 34.5–37.2; O2SAT 92–99; BMI 45.9
--- NOTE | 2024-06-16 | XR_ITS ---
WS: [id number] Cervical spine, C-arm fluoroscopy views, 06/16/2024 Clinical Data: ALBER PICS Comparison: Cervical spine, 10/02/2023 Findings: Dr. Duggan performed an anterior cervical disc fusion. XR/XR cervical spine 3V* [id number] Impression: Anterior cervical disc fusion.
--- NOTE | 2024-06-16 04:37 | ANES.PREANE2 ---
Pre-Anesthetic Assessment Height/Weight: Height 1.47 m Operation Date: 06/16/24 07:00 Proposed Procedures p Anterior Cervical Discectomy & Fusion ACDF w/ Anterior Interbody Fusion w/ Cage w/ Instrumentation w/ Allograft w/ Navigation(Not Applicable) - Jeet Duggan, DO Familial anesthetic complications: none Was Beta Saurav taken within 24 hours: N/A Was Clonidine taken within 24 hours: N/A Last intake: > 8 hrs Social No alcohol and No tobacco Exam alert, oriented x 3, clear to auscultation bilaterally and regular rate & rhythm Airway Dentition: false CV/HEM Hypertension Metabolic Diabetes Mellitus and Thyroid Disease Neuropsych Cerebrovascular Accident and Seizure Anesthetic Plan ASA status: 4 Anesthesia: General Risk of > 500 ml blood loss (7ml/kg in children): No Medications/Allergies Home Medications ?Medication ?Instructions ?Recorded ?Confirmed ?Last Taken ?Type acetaminophen 500 mg tablet 500 mg PO QID PRN Pain 08/23/22 06/11/24 09/28/23 History (Tylenol Extra Strength) aspirin 81 mg chewable tablet 81 mg PO DAILY 08/23/22 06/11/24 06/10/24 History vit C 250 mg-vit E 90 mg-zinc 40 1 tab PO BID 11/19/22 06/11/24 06/11/24 History mg-copper 1 [id number] capsule (PreserVision AREDS-2) AFO Brace #1 ea 09/11/23 06/10/24 Unknown Rx diabetic shoes with 3 inserts #1 ea 09/17/23 06/10/24 Unknown Rx rollator walker with seat #1 ea 11/12/23 06/10/24 Unknown Rx KATARINA TEST STRIPS #1 ea 02/25/24 06/10/24 Unknown Rx Bone Growth Stimulator #1 ea 03/22/24 06/10/24 Unknown Rx empagliflozin 25 mg tablet 25 mg PO QAM #90 tabs 04/28/24 06/11/24 06/10/24 Rx furosemide 40 mg tablet (Lasix) 40 mg PO DAILY #90 tabs 05/06/24 06/11/24 06/10/24 Rx simvastatin 20 mg tablet 20 mg PO DAILY #90 tabs 05/14/24 06/11/24 06/11/24 Rx blood-glucose sensor (FreeStyle #1 ea 05/26/24 06/10/24 Unknown Rx Katarina 3 Plus Sensor device) Diabetic Shoes #1 ea 05/31/24 06/10/24 Unknown Rx tirzepatide 10 mg/0.5 mL 10 mg (0.5 mL) SUBCUT Q7D #2 mL 06/03/24 06/11/24 06/08/24 Rx subcutaneous pen injector ([place]) tramadol 50 mg tablet 50 mg PO Q6H PRN Pain #15 tabs 06/06/24 06/11/24 Unknown Rx colchicine 0.6 mg tablet 0.6 mg PO DAILY 06/09/24 06/11/24 06/08/24 History glimepiride 4 mg tablet 8 mg PO BID 06/09/24 06/11/24 06/11/24 History levetiracetam 750 mg tablet 750 mg PO BID 06/09/24 06/11/24 06/16/24 History levothyroxine 150 mcg tablet 150 mcg PO QAM 06/09/24 06/11/24 06/11/24 History meclizine 25 mg tablet 25 mg PO TID PRN Dizziness 06/09/24 06/11/24 Unknown History methocarbamol 750 mg tablet 750 mg PO Q6H PRN spasms #20 tabs 06/09/24 06/11/24 06/11/24 Rx pramipexole 0.25 mg tablet 0.25 mg PO TID 06/11/24 06/11/24 06/11/24 History Allergies Allergy/AdvReac Type Severity Reaction Status Date / Time azithromycin Allergy ALGY-Difficulty Verified 06/10/24 13:10 Breathing carbamazepine (From Tegretol) Allergy Unknown Verified 06/10/24 13:10 cephalexin Allergy Unknown Verified 06/10/24 13:10 ciprofloxacin Allergy ALGY-Rash Verified 06/10/24 13:10 cyclobenzaprine (From Allergy Unknown Verified 06/10/24 13:10 Flexeril) fentanyl Allergy doesn't Verified 06/10/24 13:10 want to take fluconazole Allergy Unknown Verified 06/10/24 13:10 gabapentin Allergy Unknown Verified 06/10/24 13:10 hydrocodone (From [place]) Allergy Unknown Verified 06/10/24 13:10 hydroxychloroquine Allergy Unknown Verified 06/10/24 13:10 hyoscyamine Allergy Unknown Verified 06/10/24 13:10 naproxen (From Naprosyn) Allergy Unknown Verified 06/10/24 13:10 oxybutynin (From Ditropan) Allergy Unknown Verified 06/10/24 13:10 phenytoin (From Dilantin) Allergy Unknown Verified 06/10/24 13:10 progesterone (From Allergy Unknown Verified 06/10/24 13:10 Prometrium) solifenacin (From Vesicare) Allergy Unknown Verified 06/10/24 13:10 Sulfa (Sulfonamide Allergy Unknown Verified 06/10/24 13:10 Antibiotics) sulfamethoxazole (From Allergy Unknown Verified 06/10/24 13:10 Bactrim) trimethoprim (From Bactrim) Allergy Unknown Verified 06/10/24 13:10 valdecoxib (From Bextra) Allergy Unknown Verified 06/10/24 13:10 PFSH Anesthesia Medical History Family history of colon cancer Colon polyps Spinal cord neurostimulator device in situ BMI 40.0-44.9, adult FH: total knee replacement Recurrent UTI CRP elevated Angina at rest Creatinine elevation After cataract, bilateral Carpal tunnel syndrome on both sides Nonfunctional vagus nerve stimulator Multiple lung nodules on CT 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 Father CAD (coronary artery disease) Stroke Mother Chronic kidney disease (CKD) Brother Cancer Brother Stroke Colon cancer Denies family history of Ovarian cancer Diabetes Heart disease Hypercholesteremia Breast cancer Hypertension Uterine cancer Thyroid disease Social History Smoking and tobacco/nicotine status: unknown if used tobacco/nicotine Quit status (tobacco/nicotine): has quit using Year quit tobacco: 1979 Former quit date comment: 1-2 ppd X 1 year Second hand smoke exposure: No Alcohol intake: never Substance/Drug Use: never Current gender identity: Female Female Reproductive History Spontaneous abortions: No Data Anesthesia Cardiac Studies: No Data to Display
[2024-06-16 06:30] LABS: Glucose Point of Care 163 mg/dL (70-110)
--- NOTE | 2024-06-16 06:37 | W.PM.OPSUD ---
Surgery/Procedure H&P Update DATE OF PROCEDURE: June 16, 2024 DATE H&P PERFORMED: 06/10/24 H&P UPDATE INFORMATION: I have reviewed H&P completed within last 30 days, I have examined patient prior to procedure and No changes to prior documentation PREOP DIAGNOSIS: Cervical stenosis with radiculopathy and myelopathy PLANNED PROCEDURE: Operation Date: 06/16/24 07:00 Proposed Procedures p Anterior Cervical Discectomy & Fusion ACDF w/ Anterior Interbody Fusion w/ Cage w/ Instrumentation w/ Allograft w/ Navigation(Not Applicable) - Jeet Duggan DO
[2024-06-16] MEDS: sodium chloride 0.9% 1,000 ML 30 ML IV (06:42)
[2024-06-16] MEDS: clindamycin 600 MG/50 ML PREMIX IV (07:05)
[2024-06-16] MEDS: lidocaine-epi 2% PF 1:200,000 20 mL SDV XX (07:48)
--- NOTE | 2024-06-16 09:23 | P.OP_ITS ---
Operative Report Date of procedure: June 16, 2024 Pre-op diagnosis: Cervical stenosis with radiculopathy and myelopathy Post-op diagnosis: same Procedure done: 1. Anterior diskectomy C5/6 2. Anterior discectomy C6/7 3. Insertion of cage C5/6 4. Insertion of Cage C6/7 5. Instrumentation with anterior plate from C5-C7 6. Use of allograft Surgeon: Jeet Duggan DO Estimated blood loss (mL): 25 Procedure: 1. Anterior diskectomy C5/6 2. Anterior discectomy C6/7 3. Insertion of cage C5/6 4. Insertion of Cage C6/7 5. Instrumentation with anterior plate from C5-C7 6. Use of allograft The patient was taken to the operating room, where he underwent general endotracheal anesthesia without complications. He was then positioned supine on the operating table, and all areas of impingement were well padded. The arms were carefully padded and tucked at his sides. A roll was placed between the shoulder blades.. An x-ray was done to determine the appropriate level for the skin incision. The entire neck was then sterilely prepped and draped in the usual fashion. Neuromonitoring was attached prior to prepping. A transverse skin incision was made and carried down to the platysma muscle. This was then split in line with its fibers. Blunt dissection was carried down medial to the carotid sheath and lateral to the trachea and esophagus until the anterior cervical spine was visualized. A needle was placed into a disc and an x-ray was done to determine its location. The longus colli muscles were then elevated bilaterally with the electrocautery unit. Self-retaining retractors were placed deep to the longus colli muscle. Attention was brought to the C5/6 level that was confirmed on x-ray. A caspar pin was placed into the C5 vertebrae and the C6 vertebrae. The disk space was then distracted. The microscope was then brought in. A radical anterior discectomies were performed at C5/6. This included complete removal of the anterior annulus, nucleus, and posterior annulus. The posterior longitudinal ligament was removed as were the posterior osteophytes. Foraminotomies were then accomplished bilaterally. This was done using a high speed tamera, kerrison rongeurs and curretes Once all of this was accomplished, the curved currette was used to check for any residual compression. The central canal was wide open as were the foramen. A high-speed bur was used to remove the cartilaginous endplates above and below the interspace. Bleeding cancellous bone was exposed. The disc space were measured and appropriate size cage were placed sterilely onto the field. Allograft graft was packed into the cages. The cage was then placed and there was good juxtaposition against the bleeding decorticated surfaces and good distraction of each interspace. Attention was brought to the next interspace. The Eminence pins were removed. Bone wax was used to prevent any bleeding from occurring at the pin sites. Attention was brought to the C6/7 level that was confirmed on x-ray. A caspar pin was placed into the C6 vertebrae and the C7 vertebrae. The disk space was then distracted. The microscope was then brought in. A radical anterior discectomies were performed at C6/7. This included complete removal of the anterior annulus, nucleus, and posterior annulus. The posterior longitudinal ligament was removed as were the posterior osteophytes. Foraminotomies were then accomplished bilaterally. This was done using a high speed tamera, kerrison rongeurs and curretes Once all of this was accomplished, the curved currette was used to check for any residual compression. The central canal was wide open as were the foramen. A high-speed bur was used to remove the cartilaginous endplates above and below the interspace. Bleeding cancellous bone was exposed. The disc space were measured and appropriate size cage were placed sterilely onto the field. Allograft graft was packed into the cages. The cage was then placed and there was good juxtaposition against the bleeding decorticated surfaces and good distraction of each interspace. The Eminence pins were removed. Bone wax was used to prevent any bleeding from occurring at the pin sites. The appropriate size anterior cervical locking plate was chosen and bent into gentle lordosis. Two screws were then placed into each of the vertebral bodies at C5, C6 and C7. There was excellent purchase. A final x-ray was done confirming good position of the hardware and Cages. The locking screws were then applied, also with excellent purchase. Following a final copious irrigation, there was good hemostasis and no dural leaks. The carotid pulse was strong. The wounds were then closed in layers using 2-0 Vicryl suture for the platysma muscle, 2-0 Vicryl suture for the subcutaneous tissue, and 4-0 monocryl suture in a subcuticular skin closure. Glue was placed followed by application of a sterile dressing. The drain was hooked to bulb suction. A soft collar was applied. The patient was then carefully returned to the supine position on his hospital bed where he was reversed and extubated and taken to the recovery room having tolerated the procedure well.
[2024-06-16] MEDS: fentaNYL 50 mcg/mL INJ 2mL 100 MCG ×2 (09:35→09:54)
[2024-06-16 10:11] LABS: Glucose Point of Care 149 mg/dL (70-110)
--- NOTE | 2024-06-16 10:45 | ANE.PACU2 ---
Inpatient post-anesthesia follow up: Airway intact: Yes Vital signs: Temperature 97.7 F Pulse Rate 71 Respiratory Rate 18 Blood Pressure 110/66 Pulse Oximetry 93 Oxygen Delivery Me thod Nasal Cannula Oxygen Flow Rate 2 Fraction of Inspir ed Oxygen Hydration adequate: Yes Nausea and vomiting: No Pain level: 1 Mental status: Baseline
[2024-06-16 11:45] LABS: Glucose Point of Care 178 mg/dL (70-110)
[2024-06-16] MEDS: lactated ringers 1,000 ML 90 ML IV ×2 (12:58→23:34)
--- NOTE | 2024-06-16 14:00 | PC.NURSE ---
Tried calling Dr. Duggan to see if he could restart patients Glimepiride [address] Duggan did not answer his cell nor could I get any one from the office to answer the phone. Will try again.
[2024-06-16] MEDS: clindamycin 600 MG/50 ML PREMIX 100 MG IV (16:54)
[2024-06-16] MEDS: pramipexole 0.25 mg Tablet PO ×2 (16:55→20:59)
[2024-06-16 16:58] LABS: Glucose Point of Care 197 mg/dL (70-110)
[2024-06-16] MEDS: levETIRAcetam 500 mg Tablet 750 MG PO (17:29)
[2024-06-16] MEDS: docusate sodium 100 mg Capsule PO (17:30)
[2024-06-16] MEDS: ketorolac 30 mg/mL INJ IVP (17:30)
[2024-06-16] MEDS: glimepiride 2 mg Tablet 8 MG PO (17:32)
[2024-06-16 20:25] LABS: Glucose Point of Care 271 mg/dL (70-110)
[2024-06-17] VITALS (9 sets, daily range): BP systolic 110–150; BP diastolic 66–79; PULSE 68–81; RESP 14–18; TEMP 36.4–36.8; O2SAT 93–98
--- OUTSIDE RECORDS SUMMARY | 2024-06-17 03:39 | XMS_ITS | Data Portability ---
Author Organization [facility] - Brett Higgins [facility] [place] [facility] Address [address] [facility] [address] [place] [address] Assessment Encounter Date Assessment Date Assessment LastModified by Organization Details LastModified Time 04/26/2023 04/26/2023 Push fluids. Discussed exposure and quarantine recommendatio [email or web address] Not available 04/26/2023 12:42:21 Plan of Treatment Reminders Order Date Submit Date Provider Last Modified By Organization Details Last Modified Time Details Appointments None recorded. Lab urinalysis, complete 2022 023 [facility] ([facility]), [address] [place], [address], 3 12:51:54 culture, urine 2022 023 [place] [facility], [address] [place] [address], [facility] [address] [place], [address], 3 03:23:36 SARS CoV 2 RNA, QL, nasopharynx 2022 023 [facility] ([facility]), [address] [place], [address], 3 12:19:24 Referral oncologist referral 2022 023 [email or web address] 2 Not available 3 17:14:17 Procedures None recorded. Surgeries None recorded. Imaging MAMMO, screening, digital, bilateral 2022 023 [email or web address] 2 Not available 16:41:00 CT, chest, w/ contrast 2022 023 [email or web address] 2 Not available 16:41:31 Medication Orders Jardiance 25 mg tablet 2022 023 [facility] (Now [facility]), [address], [place], [address], 3 14:32:03 glimepiride 4 mg tablet 2022 023 [facility] (Now [facility]), [address], [place], [address], 3 14:32:00 Macrobid 100 mg capsule 2022 023 [facility], [address], [place], [address], 3 12:14:22 Augmentin 875 mg-125 mg tablet 2022 023 [facility], [address], [place], [address], 3 12:57:28 Paxlovid 300 mg (150 mg x 2)-100 mg tablets in a dose pack 2022 023 [id number], [address], [place], [place], [id number], 3 12:41:56 Patient TargetsNo targets recorded. Patient Instructions Encounter Date Encounter Id Patient Instructions Last Modified By Organization Details Last Modified Time 04/26/2023 [id number] Return to clinic if worsening symptoms or if not improving. Not available 04/26/2023 12:41:59 Reason for Referral Referring Physician: Alan Edwards, Family Medicine, Encounter Date: 10/03/2022 Results Created Date Observation Date Name Description Value Unit Range Abnormal Flag Note LastModifiedBy Organization Detail LastModifiedTime 08/30/19 23 08/29/2022 HbA1c (hemo globi n A1c), blood HbA1c 7.4 Not Available [facility] ([facility]) [address] [place], [address], 08/29/2022 10:51:51 11/01/19 23 11/03/2022 CULTU RE, URINE , ROUTI NE culture, urine, routine SEE NOTE abnormal CULTU RE, URINE , ROUTI NE Micro Numbe r: [id number] Test Statu s: Final Speci men Sourc e: Urine , clean catch Speci men Quali ty: Adequ ate Resul t: Great er than 100,0 00 CFU/m L of Esche marion a coli 50,00 0-100 ,000 CFU/m L of Group B Strep tococ cus isola kobi Beta- hemol ytic strep tococ ci are predi ctabl y susce ptibl e to Penic illin and other beta- lacta ms. Susce ptibi lity testi ng not routi lenore perfo rmed. Pleas e conta ct the labor atory withi n 3 days if susce ptibi lity testi ng is damon ed. Comme nt: Eryth romyc in and clind amyci n are not recom shani d for treat ment of urina ry tract infec tions , but clind amyci n may be usefu l for treat ment of recto vagin al colon izati on or infec tion. E.col i ----- ----- ----- - INT ALEXX AMOX/ CLAVU LANAT E S <=2 AMPIC ILLIN S <=2 AMP/S ULBAC VELASQUEZ S <=2 CEFAZ JUVENCIO NR <=4 2 CEFEP DANIEL S <=1 CEFTA ZIDIM E S <=1 CEFTR IAXON E S <=1 CIPRO FLOXA QUINN S <=0.2 5 GENTA MICIN S <=1 IMIPE NEM S <=0.2 5 LEVOF LOXAC IN S <=0.1 2 NITRO FURAN TOIN S <=16 PIP/T AZOBA CTAM S <=4 TOBRA MYCIN S <=1 TRIME THOPR IM/HERNANDEZ LFA S <=20 S=Poonam cepti ble I=Int ermed iate R=Res istan t * = Not Teste d NR = Not Repor kobi NN = See Thera py Comme nts THERA PY COMME NTS Note 1: For infec tions other than uncom plica kobi UTI cause d by E. coli, K. pneum oniae or P. mirab ilis: Cefaz juvencio is resis tant if ALEXX > or = 8 mcg/m L. (Dist ingui shing susce ptibl e versu s inter media te for isola rhoda with ALEXX < or = 4 mcg/m L requi res addit ional testi ng.) Note 2: For uncom plica kobi UTI cause d by E. coli, K. pneum oniae or P. mirab ilis: Cefaz juvencio is susce ptibl e if ALEXX <32 mcg/m L and predi cts susce ptibl e to the oral agent s cefac brittany, cefdi stacy, cefpo doxim e, cefpr ozil, cefur oxime , cepha lexin and lorac arbef . Not Available [facility] [address] [place] [address], [address], 11/03/2022 01:38:15 11/01/19 23 10/31/2022 urina lysis , compl ete color yellow Not Available [facility] ([facility]) [address] [place] [address], [address], 10/31/2022 12:12:11 11/01/19 23 10/31/2022 urina lysis , compl ete clarity cloudy clear abnormal Not Available [facility] ([facility]) [address] [place], [address], 10/31/2022 12:12:11 11/01/19 23 10/31/2022 urina lysis , compl ete glucose 3+ negati ve abnormal Not Available [facility] ([facility]) [address] [place] [address], [address], 10/31/2022 12:12:11 11/01/19 23 10/31/2022 urina lysis , compl ete bilirubin negati ve negati ve normal Not Available [facility] ([facility]) [address] [place], [address], 10/31/2022 12:12:11 11/01/19 23 10/31/2022 urina lysis , compl ete ketones negati ve negati ve normal Not Available [facility] ([facility]) [address] [place], [address], 10/31/2022 12:12:11 11/01/19 23 10/31/2022 urina lysis , compl ete specific gravity 1.015 1.005- 1.025 normal Not Available [facility] ([facility]) [address] [place], [address], 10/31/2022 12:12:11 11/01/19 23 10/31/2022 urina lysis , compl ete pH 5.0 5.0-7. 0 normal Not Available [facility] ([facility]) [address] [place], [address], 10/31/2022 12:12:11 11/01/19 23 10/31/2022 urina lysis , compl ete protein trace Not Available [facility] ([facility]) [address] [place], [address], 10/31/2022 12:12:11 11/01/19 23 10/31/2022 urina lysis , compl ete uro 0.2 Not Available [facility] ([facility]) [address] [place], [address], 10/31/2022 12:12:11 11/01/19 23 10/31/2022 urina lysis , compl ete nitrate positi ve negati ve abnormal Not Available [facility] ([facility]) [address] [place], [address], 10/31/2022 12:12:11 11/01/19 23 10/31/2022 urina lysis , compl ete blood 2+ negati ve abnormal Not Available [facility] ([facility]) [address] [place], [address], 10/31/2022 12:12:11 11/01/19 23 10/31/2022 urina lysis , compl ete leukocytes 2+ negati ve abnormal Not Available [facility] ([facility]) [address] [place], [address], 10/31/2022 12:12:11 11/01/19 23 10/31/2022 urina lysis , compl ete WBC 60-80 0 abnormal Not Available [facility] ([facility]) [address] [place], [address], 10/31/2022 12:12:11 11/01/19 23 10/31/2022 urina lysis , compl ete RBC 15-20 0 abnormal Not Available [facility] ([facility]) [address] [place], [address], 10/31/2022 12:12:11 11/01/19 23 10/31/2022 urina lysis , compl ete epi cells 1-3 0 abnormal Not Available [facility] ([facility]) [address] [place], [address], 10/31/2022 12:12:11 11/01/19 23 10/31/2022 urina lysis , compl ete bacteria 1+ mixed chris Not Available [facility] ([facility]) [address] [place], [address], 10/31/2022 12:12:11 11/01/19 23 10/31/2022 urina lysis , compl ete other Not Available [facility] ([facility]) [address] [place], [address], 10/31/2022 12:12:11 11/06/19 23 11/05/2022 urina lysis , compl ete color yellow Not Available [facility] ([facility]) [address] [place], [address], 11/05/2022 12:39:44 11/06/19 23 11/05/2022 urina lysis , compl ete clarity cloudy clear Not Available [facility] ([facility]) [address] [place], [address], 11/05/2022 12:39:44 11/06/19 23 11/05/2022 urina lysis , compl ete glucose 3+ negati ve Not Available [facility] ([facility]) [address] [place], [address], 11/05/2022 12:39:44 11/06/19 23 11/05/2022 urina lysis , compl ete bilirubin negati ve negati ve Not Available [facility] ([facility]) [address] [place], [address], 11/05/2022 12:39:44 11/06/19 23 11/05/2022 urina lysis , compl ete ketones 1+ negati ve Not Available [facility] ([facility]) [address] [place], [address], 11/05/2022 12:39:44 11/06/19 23 11/05/2022 urina lysis , compl ete specific gravity 1.020 1.005- 1.025 Not Available [facility] ([facility]) [address] [place], [address], 11/05/2022 12:39:44 11/06/19 23 11/05/2022 urina lysis , compl ete pH 5.0 5.0-7. 0 Not Available [facility] ([facility]) [address] [place], [address], 11/05/2022 12:39:44 11/06/19 23 11/05/2022 urina lysis , compl ete protein positi ve Not Available [facility] ([facility]) [address] [place], [address], 11/05/2022 12:39:44 11/06/19 23 11/05/2022 urina lysis , compl ete uro 0.2 Not Available [facility] ([facility]) [address] [place], [address], 11/05/2022 12:39:44 11/06/19 23 11/05/2022 urina lysis , compl ete nitrate negaiv e negati ve Not Available [facility] ([facility]) [address] [place], [address], 11/05/2022 12:39:44 11/06/19 23 11/05/2022 urina lysis , compl ete blood 3+ negati ve Not Available [facility] ([facility]) [address] [place], [address], 11/05/2022 12:39:44 11/06/19 23 11/05/2022 urina lysis , compl ete leukocytes 1+ negati ve Not Available [facility] ([facility]) [address] [place], [address], 11/05/2022 12:39:44 11/06/19 23 11/05/2022 urina lysis , compl ete WBC >100 packed 0 Not Available [facility] ([facility]) [address] [place], [address], 11/05/2022 12:39:44 11/06/19 23 11/05/2022 urina lysis , compl ete RBC >100 packed 0 Not Available [facility] ([facility]) [address] [place], [address], 11/05/2022 12:39:44 11/06/19 23 11/05/2022 urina lysis , compl ete epi cells - 0 Not Available [facility] ([facility]) [address] [place], [address], 11/05/2022 12:39:44 11/06/19 23 11/05/2022 urina lysis , compl ete bacteria - Not Available [facility] ([facility]) [address] [place], [address], 11/05/2022 12:39:44 11/06/19 23 11/05/2022 urina lysis , compl ete other - Not Available [facility] ([facility]) [address] [place], [address], 11/05/2022 12:39:44 04/26/20 23 04/26/2023 SARS CoV 2 RNA, QL, nasop haryn x COVID positi ve Not Available [facility] ([facility]) [address] [place], [address], 04/26/2023 11:55:03 08/03/19 23 07/31/2022 XR, shoul cher No observ ation record ed. [facility] [address] [place], [address], 08/05/2022 16:32:13 10/21/19 23 10/18/2022 CT, chest , w/ contr ast No observ ation record ed. [facility] [address] [place], [address], 10/23/2022 10:17:15 11/05/19 23 10/30/2022 MAMMO , scree neel, digit al, bilat eral No observ [facility]ion [facility] ed[email or web address] [address] [place], [address], 11/04/2022 12:45:44 Result Notes None recorded. Problems Name Problem SNOMED Code Status Onset Date Resolution Date Notes Provider Name and Address Organization Details Recorded Time Lung mass 642828036 Active 2022 Alan Edwards MD [address] [place] [address], [facility] 3 14:35:55 Dysuria 00646637 Active 2022 Alan Edwards MD [address] [place] [address] 5, [facility] 3 12:12:07 Abscess of skin and/or subcutaneou s tissue 86764303 Active 2022 Alan Edwards MD [address] [place] [address] 5, [facility] 3 12:56:29 Congestive heart failure 88304992 Active 2022 STEPHANIE soni [facility] 3 16:42:39 Pain of left shoulder joint 7525255539018 9109 Active 2022 Alan Edwards MD [address] [place] [address] 5, [facility] 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 3580979803065 5 Active 2022 Alan Edwards MD [address] [place] [address], [address], [facility] 3 12:17:40 Morbid obesity 859938255 Active 2022 Alan Edwards MD [address] [place] [address], [address], [facility] [place] 3 12:17:37 Epilepsy 79776581 Active 2022 Alan Edwards MD [address] [place] [address], [address], [facility] [place] 3 12:17:30 Restless legs 08389410 Active 2022 Alan Edwards MD [address] [place] [address], [address], [facility] [place] 3 12:17:45 Diabetes mellitus 43222723 Active 2022 Alan Edwards MD [address] [place] [address], [address], [facility] 3 12:24:04 Problem Notes None recorded. Procedures Surgical History Date Name Laterality Status Provider Name and Address Organization Details Recorded Time [facility]endectomy completed [facility] 12:17:59 tonsillectomy completed [facility], [place] 07/31/2022 12:18:09 Tubal Ligation completed [facility], [place] 07/31/2022 12:18:34 Carpal tunnel surgery completed [facility], [place] 07/31/2022 12:18:49 hysterectomy completed [facility], [place] 07/31/2022 12:18:58 repair of urinary bladder completed [facility], [place] 07/31/2022 12:19:44 cholecystectomy completed [facility], [place] 07/31/2022 12:19:51 [facility] 12:20:22 Imaging Results Imaging Date Name Status LastModified by Organiz ation Details LastModified Time 07/31/2022 XR, shoulder completed [facility] [address] [place], [address], 08/05/2022 16:32:13 10/18/2022 CT, chest, w/ contrast completed [facility] [address] [place], [address], 10/23/2022 10:17:15 10/30/2022 MAMMO, screening, digital, bilateral completed [facility] [address] [place], [address], 11/04/2022 12:45:44 Procedure Notes None recorded. Medical Equipment None Reported. Allergies Allergen ID Allergen Name Allergen Category Reaction Reaction Severity Criticality Documentation Date Start Date Code Code System Note Provider Name and Address Organization Details Recorded Time 1864 hydrocodo ne Not available Not available Not available Not available 08/29/2022 5489 RxNorm STEPHANIE soni [facility] 3 10:47:14 1865 Substance with sulfonami de structure and antibacte rial mechanism of action (substanc e) medicatio n Not available Not available Not available 08/29/2022 20189 8003 SNOMED STEPHANIE MORALES [facility] 3 10:48:02 1866 azithromy quinn medicatio n Not available Not available Not available 08/29/2022 33122 RxNorm STEPHANIE MORALES [facility] 3 10:48:21 247 Tegretol medicatio n Not available Not available Not available 07/31/2022 9 RxNorm Fernanda Drummond [facility] 3 12:11:59 248 Dilantin medicatio n Not available Not available Not available 07/31/2022 0 RxNorm Fernanda Drummond [facility] 3 12:12:06 249 Naprosyn medicatio n Not available Not available Not available 07/31/2022 2 RxNorm Fernanda Drummond [facility] 3 12:12:17 250 Bactrim medicatio n Not available Not available Not available 07/31/2022 31317 9 RxNorm Fernanda Drummond [facility] 3 12:12:24 251 Bextra medicatio n Not available Not available Not available 07/31/2022 79888 0 RxNorm Fernanda Drummond [facility] 3 12:12:36 252 oxybutyni n chloride medicatio n Not available Not available Not available 07/31/2022 82350 RxNorm Fernanda Drummond [facility] 3 12:12:49 253 Prometriu m medicatio n Not available Not available Not available 07/31/2022 12918 0 RxNorm Fernanda soni, [facility] 3 12:13:00 254 Neurontin medicatio n Not available Not available Not available 07/31/2022 48483 8 RxNorm Fernanda soni, [facility] 3 12:13:19 255 naproxen medicatio n Not available Not available Not available 07/31/2022 7258 RxNorm Fernanda soni, [facility] 3 12:13:27 256 Tequin medicatio n Not available Not available Not available 07/31/2022 40103 4 RxNorm Fernanda soni, [facility] 3 12:14:41 257 acetamino phen / hydrocodo ne medicatio n Not available Not available Not available 07/31/2022 69208 2 RxNorm Fernanda soni, [facility] 3 12:14:54 258 hyoscyami ne medicatio n Not available Not available Not available 07/31/2022 52542 0 RxNorm Fernanda soni, [facility] 3 12:15:06 259 Vesicare medicatio n Not available Not available Not available 07/31/2022 14007 2 RxNorm Fernanda soni, [facility] 3 12:15:14 260 fluconazo le medicatio n Not available Not available Not available 07/31/2022 4450 RxNorm Fernanda soni, [facility] 3 12:15:21 261 cephalexi n medicatio n Not available Not available Not available 07/31/2022 2231 RxNojuancarlos soni, [facility] 3 12:15:30 262 hydroxych loroquine medicatio n Not available Not available Not available 07/31/2022 5521 RxNojuancarlos soni, [facility] 3 12:15:40 263 cyclobenz aprine hydrochlo ride medicatio n Not available Not available Not available 07/31/2022 91863 RxNojuancarlos soni, [facility] 3 12:15:51 Medications Name Sig Start Date Stop Date Status Note LastModified by Organization Details LastModified Time furosemide 40 mg tablet TAKE 1 TABLET BY MOUTH ONCE DAILY active Not Available Not Available No t Available fluconazole 100 mg tablet TAKE 2 TABLETS BY MOUTH EVERY DAY active Not Available Not Available No t Available tizanidine 2 mg tablet TAKE 1 TABLET BY MOUTH EVERY 8 HOURS FOR 10 DAYS active Not Available Not Available No t Available fluconazole 150 mg tablet TAKE 1 TABLET BY MOUTH EVERY 3 DAYS active Not Available Not Available No t Available enalapril maleate 2.5 mg tablet active Not Available Not Available No t Available tramadol 50 mg tablet active Not Available Not Available No t Available amoxicillin 500 mg tablet active Not Available Not Available Not Available methocarbam ol 750 mg tablet TAKE 1 TABLET BY MOUTH EVERY 6 HOURS NEEDED FOR MUSCLE SPASM active Not Available Not Available No t Available benzonatate 100 mg capsule active Not Available Not Available Not Available simvastatin 20 mg tablet TAKE 1 TABLET BY MOUTH EVERY DAY active Not Available Not Available No t Available levothyroxi ne 125 mcg tablet Take 1 tablet every day by oral route. active Not Available Not Available No t Available glimepiride 4 mg tablet Take 1 tablet twice a day by oral route for 90 days. active Not Available Not Available No t Available lidocaine 5 % topical patch APPLY 1 PATCH BY TOPICAL ROUTE ONCE DAILY (MAY WEAR UP TO 12HOURS.) 2022 active Not Available Not Available Not Avai lable pramipexole 0.25 mg tablet TAKE 1 TABLET BY MOUTH TWICE DAILY active Not Available Not Available No t Available levetiracet am 750 mg tablet Take 1 tablet twice a day by oral route. active Not Available Not Available No t Available furosemide 20 mg tablet 07/31 completed Not Available Not Available Not Available levofloxaci n 750 mg tablet TAKE 1 TABLET BY MOUTH EVERY DAY for 10 days active Not Available Not Available No t Available albuterol sulfate HFA 90 mcg/actuati on aerosol inhaler active Not Available Not Available Not Available colchicine 0.6 mg tablet TAKE 1 TABLET BY MOUTH EVERY DAY active Not Available Not Available No t Available cefdinir 300 mg capsule take 1 capsule BY MOUTH TWICE DAILY for 10 days active Not Available Not Available No t Available amoxicillin 875 mg-potassiu m clavulanate 125 mg tablet Take 1 tablet every 12 hours by oral route for 7 days. active Not Available Not Available No t Available nitrofurant oin monohydrate /macrocryst als 100 mg capsule Take 1 capsule every 12 hours by oral route for 5 days. active Not Available Not Available No t Available Farxiga 10 mg tablet Take 1 tablet every day by oral route. 09/03 completed Not Available Not Available Not Available Jardiance 25 mg tablet Take 1 tablet every day by oral route. active Not Available Not Available No t Available Trulicity 1.5 mg/0.5 mL subcutaneou s pen injector Inject 1.5 mg every week by subcutane ous route as directed. active Not Available Not Available No t Available TRUEplus Pen Needle 31 gauge x 1/4 active Not Available Not Available Not Available Trulicity 4.5 mg/0.5 mL subcutaneou s pen injector Inject 0.5 mL every week by subcutane ous route as directed. active Not Available Not Available No t Available Paxlovid 300 mg (150 mg x 2)-100 mg tablets in a dose pack TK 2 NIRMATREL VIR TS AND 1 RITONAVIR T TOGETHER PO TWICE DAILY FOR 5 DAYS active Not Available Not Available No t Available Vitals Date Recorded Body height Respiratory rate Body mass index (BMI) Body weight Body temperature Oxygen saturation Oxygen saturation in Arterial blood by Pulse oximetry Heart rate Systolic blood pressure Diastolic blood pressure Provider Name and Address Organization Details Last Updated DateTime 3 147.32 cm 20 /min 45.5 kg/m2 29011.3 4 g 97.2 [degF] 95 % 95 % 71 /min 112 mm[Hg] 70 mm[Hg] [facility] 3 12:01:37 Date Recorded Body height Respiratory rate Body mass index (BMI) Body weight Body temperature Heart rate Oxygen saturation Oxygen saturation in Arterial blood by Pulse oximetry Systolic blood pressure Diastolic blood pressure Provider Name and Address Organization Details Last Updated DateTime 3 147.32 cm 20 /min 45.5 kg/m2 84316.3 4 g 97.4 [degF] 60 /min 98.01 % 98.01 % 118 mm[Hg] 60 mm[Hg] [facility] 3 12:22:18 Date Recorded Body height Body mass index (BMI) Body weight Oxygen saturation Oxygen saturation in Arterial blood by Pulse oximetry Heart rate Respiratory rate Body temperature Systolic blood pressure Diastolic blood pressure Provider Name and Address Organization Details Last Updated DateTime 3 147.32 cm 42 kg/m2 70691.0 7 g 99 % 99 % 71 /min 20 /min 97.5 [degF] 120 mm[Hg] 62 mm[Hg] Brielle Galan [facility] 3 12:22:33 Date Recorded Body height Body mass index (BMI) Body weight Respiratory rate Body temperature Heart rate Oxygen saturation Oxygen saturation in Arterial blood by Pulse oximetry Systolic blood pressure Diastolic blood pressure Provider Name and Address Organization Details Last Updated DateTime 3 147.32 cm 48.5 kg/m2 590607. 13 g 20 /min 97.4 [degF] 71 /min 99 % 99 % 142 mm[Hg] 90 mm[Hg] [facility] 3 10:43:21 Date Recorded Body height Respiratory rate Body mass index (BMI) Body weight Body temperature Oxygen saturation Oxygen saturation in Arterial blood by Pulse oximetry Heart rate Systolic blood pressure Diastolic blood pressure Provider Name and Address Organization Details Last Updated DateTime 3 147.32 cm 20 /min 46.4 kg/m2 991997. 91 g 97.3 [degF] 95 % 95 % 62 /min 162 mm[Hg] 80 mm[Hg] [facility] 13:56:34 Social History Question Answer Notes LastModified by Organizat ion Details LastModified Time Tobacco Smoking Status Former Smoker STEPHANIE SHOEMAKERCHRISTI Dugan - [facility] 07/31/2022 11:40:45 What Is Your Level Of Alcohol Consumption? None Information not available 07/31/2022 Are You Blind Or Do You Have Difficulty Seeing? No Information not available 07/31/2022 What Is Your Level Of Caffeine Consumption? None Information not available 07/31/2022 Are You Deaf Or Do You Have Serious Difficulty Hearing? No Information not available 07/31/2022 What Type Of Diet Are You Following? DIABETIC Information not available 07/31/2022 Do You Use Any Illicit Or Recreational Drugs? No Information not available 07/31/2022 Do You Have Any Dietary Restrictions? No Information not available 07/31/2022 Sex: Unknown Functional Status Question Answer Note LastModified by Organization D etails LastModified Time Do you have difficulty walking or climbing stairs? Yes Information not available 07/31/2022 Are you able to care for yourself? No Information n ot available 07/31/2022 Do you have difficulty dressing or bathing? Yes Information not available 07/31/2022 Mental Status Question Answer Note LastModified by Organization D etails LastModified Time Do you have difficulty concentrating, remembering or making decisions? No Information no t available 07/31/2022 Family History Relationship Description Onset Age of this Age Resolved Age Notes LastModified by Organization Details LastModified Time Mother Hypertensive disorder tgregg Not available 2022 11:38:18 Daughter Leukemia tgregg Not available 07/31/2022 11:38:31 Medical History No medical history recorded. Gynecological HistoryNo gynecological history recorded. Obstetrics History GPAL:G 0 P 0 0 0 0 Past Encounters Encounter ID Performer Location Encounter Start Date Encounter Closed Date Diagnosis/Indication Diagnosis SNOMED-CT Code Diagnosis ICD10 Code Diagnosis Note [id number] Alan Edwards MD [facility] ([facility]) [address] [place] [address] 07/31/2022 11:16:36 07/31/2022 12:44:53 Injury of shoulder and upper arm 803707441 S49.92XA we will start with plain film imaging. If no fracture or significan t issues are noted then we will proceed with PT. Chronic ki dney disease stage 3 978269846 N18.32 We will obtain previous records Proliferat aayush retinopathy with retinal edema due to type 2 diabetes mellitus 1855336751 9105 E11.3511 Patient was encouraged to continue with routine opthamolog y f/u. Morbid obesity 060118063 E66.01 BMI 48.1. The patient was encourage to work on wt lss Epilepsy 09969983 G40.90 9 no seizures for 18 years. continue Keppra Restless legs 51600400 G 25.81 controlled on ropinirole Diabetes mellitus 527645 09 E11.8 last a1c 7.1%. [id number] Alan Edwards MD [facility] ([facility]) [address] [place] [phone] 08/29/2022 10:26:55 08/30/2022 15:59:35 Diabetes mellitus 96050282 E11.8 last a1c 7.4%. recommend we start new medication . She is maxed out on trulicity. Start Farxiga. Morbid obesity 900814097 Z68.42 BMI 48.1. 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 Chronic ki dney disease stage 3 703173988 N18.32 stable Pain of le ft shoulder joint 1758036474 7701943 M25.512 not likely to have fractured clavicle given today's exam. continue home exercises. [id number] Alan Edwards MD [facility] ([facility]) [address] [place] [phone] 10/03/2022 13:47:33 10/03/2022 15:49:01 Diabetes mellitus 24118904 E11.9 we will decrease dose of glimepirid e and continue other medication s given low BS readings. Lung mass 381748199 R91. 8 we will order repeat CT. Obtain records. Screening mammography 24 322812 Z12.31 [id number] Alan Edwards MD [facility] ([facility]) [address] [place] [phone] 10/31/2022 11:50:51 10/31/2022 18:04:26 Dysuria 67394359 R30.0 UA obtained and is consistent with infection. We will start Macrobid. Culture pending. Patient was encouraged to drink plenty of fluids. Diabetes mellitus 813020 09 E11.9 Blood sugar readings have been appropriat e with no low blood sugar readings. Recheck A1c next month. [id number] Alan Edwards MD [facility] ([facility]) [address] [place] [phone] 11/05/2022 11:54:28 11/05/2022 13:51:16 Abscess of skin and/or subcutaneous tissue 31495841 L02.91 - Augmentin 875-125 mg sent to patient pharmacy- Plan to follow up in 1 week if bleeding or lump persists [id number] HERNAN CHANG [facility] ([facility]) [address] [place] [phone] 04/26/2023 11:49:52 05/03/2023 08:06:02 Cough 38337065 R05.9 COVID-19 008174245 U07.1 Health Concerns Section Related Observation LastModified by Organization Detai ls LastModified Time None Recorded Concern Status LastModified by Organization Details LastModified Time None Recorded Advance Directives Directive None Recorded Payers Encounter Date Sequence Insurance Name Policy Number Policy Encinas Covered Member ID Encinas Member ID Guarantor Name 08/29/2022 1 [employer] (MEDICARE REPLACEMENT PFFS) [id number] Sherie L Staner [id number] Sherie Staner 10/03/2022 1 [employer] (MEDICARE REPLACEMENT PFFS) [id number] Sherie L Staner [id number] Sherie Staner 10/31/2022 1 [employer] (MEDICARE REPLACEMENT PFFS) [id number] Sherie L Staner [id number] Sherie Staner 11/05/2022 1 [employer] (MEDICARE REPLACEMENT PFFS) [id number] Sherie L Staner [id number] Sehrie Staner 04/26/2023 1 [employer] (MEDICARE REPLACEMENT PFFS) [id number] Sherie Hernandez [id number] Sherie Hernandez Notes Date Note Type Note Provider Name and Address Organization Details Recorded Time 08/29/2022 text/html This is a 76 y/o female that presents for routine f/u. she was recently seen in the ED after a fall at home. She was told she may have fractured her left clavicle. She was initially wearing a sling, but it was hurting her neck. She stopped using it and she is only having mild pain and denies any significant worsening of her ability to use her left arm. She reports her blood sugars are doing ok. She is tolerating her medications without issue. Alan Edwards MD [address] [place] [address], [phone], [facility] 08/30/2022 10:09:51 10/03/2022 text/html This is a 77 y/o that presents for f/u and to discuss f/u care for lung masses found on CT done by previous provider. She reports she had [address] done in 06/2022 and they recommended a 3-6 month f/u. She reports she has been having some low blood sugar readings. Alan Edwards MD [address] [place] [address], [phone], [facility] 10/04/2022 13:31:48 10/31/2022 text/html This is a 77-year-old female that presents today for routine follow-up. She has been keeping a log of her blood sugars and they are doing fairly well without any changes to glimepiride and she denies any low blood sugars. Patient is also concerned that she has a UTI. Patient states that she has some burning with urination with increased urinary urgency and frequency. Alan Edwards MD [address] [place] [address], [phone], [facility] 10/31/2022 15:24:35 11/05/2022 text/html Lower Urinary Tr act Symptoms (LUTS)Reported bypatient.Notes:Ms. Sherie Hernandez is a 77 y/o F presenting to urgent care for perineal bleeding. She was diagnosed with a UTI on 10/31/22 and prescribed Macrobid at that time. Continues to experience dyslexia descpite compliance with antibiotics. Perineal bleeding began last night and requiring a new pad every 2 hours. She is unsure if this is vaginal bleeding or hematuria. Ms. Hernandez underwent hysterectomy in the . Reports lump on right labia, tender to palpation. Alan Edwards MD [address] [place], [phone], [facility], Siddhartha. 11/05/2022 17:05:10 04/26/2023 text/html COVID-19 Symptom s September 2019Reported bypatient.COVID-19 Signs and Symptomscough same; shortness of breath same; muscle pain same; sore throat same; fatigue same; nausea improving; runny nose same; congestion same Quality:productive cough;wheezy cough Severity:no pain Duration:symptoms lasting 1 days Associated Symptoms:yellow-gre en, thick sputum;fatigue;body aches HERNAN CHANG [address] [place], [phone], [facility], LAntonette. 04/26/2023 12:58:04 OBGyn Episode No OBEpisode recorded.
--- OUTSIDE RECORDS SUMMARY | 2024-06-17 03:39 | XMS_ITS | Encounter Summary ---
Author Organization [facility] Address [address] [place] [address] Care Team Providers Care Data Entry Specialist Name Role Phone Demetria Busch MD Primary Care Provider Encounter Details Date Type Department Care Team (Late st Contact Info) Description 06/01/2024 External Device Data [place] ABSTRACTION Provider, Abstract NO ADDRESS ON FILE Social History Tobacco Use Types Packs/Day Years Used Date Smoking Tobacco: Never Smokeless Tobacco: Never Alcohol Use Standard Drinks/Week Comments Never 0 (1 standard drink = 0.6 oz pur e alcohol) Utility Needs Answer Date Recorded In the past 12 months has sli.do, gas, oil, or water eventblimp threatened to shut off services in your home? No 09/21/2023 Feeling Safe Answer Date Recorded Within the last year, have y ou been afraid of your partner or ex-partner? No 09/21/2023 Within the last year, have y ou been humiliated or emotionally abused in other ways by your partner or ex-partner? No Within the last year, have y ou been kicked, hit, slapped, or otherwise physically hurt by your partner or ex-partner? No 09/21/2023 Within the last year, have y ou been raped or forced to have any kind of sexual activity by your partner or ex-partner? No 09/21/2023 Social Connections Answer Date Recorded In a typical week, how many times do you talk on the telephone with family, friends, or neighbors? More than three times a week 09/21/2023 How often do you get togethe r with friends or relatives? More than three times a week 09/21/2023 How often do you attend chur ch or yazdanism services? 1 to 4 times per year 09/21/2023 Do you belong to any clubs o r organizations such as samaritan groups, unions, fraternal or athletic groups, or school groups? No 09/21/2023 How often do you attend meet ings of the clubs or organizations you belong to? Never 09/21/2023 Are you , , di vorced, , never , or living with a partner? 09/21/2023 Financial Resource Strain Answer Date R ecorded How hard is it for you to pa y for the very basics like food, housing, medical care, and heating? Not hard at all 09/21/2023 Food Insecurity Answer Date Recorded In the past 12 months, have you worried that your food would run out before you had money to buy more? Never true 09/21/2023 In the past 12 months, did y ou run out of food and didn't have money to buy more? Never true 09/21/2023 Transportation Needs Answer Date Record ed In the past 12 months, has l ack of transportation kept you from medical appointments or from getting medications? No 09/09 In the past 12 months, has l ack of transportation kept you from meetings, work, or from getting things needed for daily living? No 09/21/2023 Housing Stability Answer Date Recorded In the last 12 months, was t here a time when you were not able to pay the mortgage or rent on time? No 09/21/2023 Number of Times Moved in the Last Year Not on fi le 09/21/2023 Unstable Housing in the Last Year Not on file 09/21/2023 Feeling Safe Answer Date Recorded Are you in a relationship wi th someone who hurts you emotionally and/or physically? No 09/21/2023 Food Insecurity Answer Date Recorded Social/Environmental Concerns No concerns Transportation Needs Answer Date Record ed Social/Environmental Concerns No concerns Housing Stability Answer Date Recorded Social/Environmental Concerns No concerns Utility Needs Answer Date Recorded Social/Environmental Concerns No concerns Comments No Sex and Gender Information Value Date Recorded Sex Assigned at Not on file Legal Sex Female 4:41 PM CDT Gender Identity Not on file Sexual Orientation Not on file documented as of this encounter Plan of Treatment Not on file documented as of this encounter Visit Diagnoses Not on filedocumented in this encounter Care Teams Data Entry Specialist Relationship Specialty Start Date End Date Demetria Busch MD [address] [facility] [address] [place] [phone] PCP - General Family Practice 09/26/23 documented as of this encounter
--- OUTSIDE RECORDS SUMMARY | 2024-06-17 03:39 | XMS_ITS | Continuity of Care Document ---
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 Name Role Phone Perfecto DÍAZ, Antonio Unavailable Unavailable Allergies, Adverse Reactions, Alerts Substance Reaction Status Criticality OXYBUTYNIN CHLORIDE Active No Infor mation colchicine diarrhea Active No Information hydroxychloroquine Active No Inform ation CEPHALEXIN MONOHYDRATE Unknown Active No In formation fluconazole Active No Information SOLIFENACIN SUCCINATE Active No Inf ormation hyoscyamine Active No Information hydrocodone Active No Information gatifloxacin Active No Information gabapentin Active No Information PROGESTERONE, MICRONIZED Active No Information valdecoxib Active No Information PHENYTOIN SODIUM EXTENDED Active No Information PHENYTOIN SODIUM Active No Informat ion carbamazepine Unknown Active No Information naproxen Unknown Active No Information trimethoprim Unknown Active No Information sulfamethoxazole Unknown Active No Informat ion Medications Medication Instructions Dosage Effective Dates (start - stop) Status Comments Simponi ARIA 12.5 mg/mL intravenous solution infuse (2MG/KG) by intravenous route every 8 weeks over 2 MG/KG - Active Basaglar KwikPen 100 unit/mL (3 mL) subcutaneous inject by subcutaneous route as per insulin protocol 0.00 - Active pramipexole 0.25 mg tablet take 1 tablet in AM and 2 tablet in PM by oral route daily - Active furosemide 40 mg tablet take 1 tablet by oral route every day 40 MG - Active levothyroxine 100 mcg tablet take 1 tablet by oral route every day 100 MCG - Active levetiracetam 750 mg tablet take 1 tablet by oral route 2 times every day 750 MG - Active simvastatin 20 mg tablet take 1 tablet by oral route every day in the evening 20 MG - Active PreserVision AREDS 2 250 mg-200 unit-40 mg-1 mg capsule Take 1 cap in the AM and 1 in the PM - Active acetaminophen 500 mg tablet take 2 tablet by oral route every 8 hours as needed 1000 MG - Active Procedures Procedure Date Injection, golimumab, 1 mg, for intraven ous use Normal saline solution infus Ther/proph/diag IV Inf Init Injection, golimumab, 1 mg, for intraven ous use Injection, golimumab, 1 mg, for intraven ous use Normal saline solution infus Ther/proph/diag IV Inf Init Injection, golimumab, 1 mg, for intraven ous use ROUTINE VENIPUNCTURE ASSAY OF SERUM ALBUMIN ALANINE AMINO (ALT) (SGPT) TRANSFERASE (AST) (SGOT) COMPLETE CBC W/AUTO DIFF WBC ASSAY OF CREATININE RBC SED RATE, NONAUTOMATED CCP ANTIBODY RHEUMATOID FACTOR, QUANT IMMUNOASSAY, NONANTIBODY OFFICE/OUTPATIENT VISIT, EST OFFICE/OUTPATIENT VISIT, EST INJ TENDON SHEATH/LIGAMENT Methylprednisolone 20 MG inj OFFICE/OUTPATIENT VISIT, EST OFFICE/OUTPATIENT VISIT, EST OFFICE/OUTPATIENT VISIT, EST OFFICE/OUTPATIENT VISIT, EST Medicare Flu Vaccine Fluzone OFFICE/OUTPATIENT VISIT, EST Admin influenza virus vac ROUTINE VENIPUNCTURE ASSAY OF SERUM ALBUMIN ALANINE AMINO (ALT) (SGPT) TRANSFERASE (AST) (SGOT) COMPLETE CBC W/AUTO DIFF WBC ASSAY OF CREATININE RBC SED RATE, NONAUTOMATED OFFICE/OUTPATIENT VISIT, EST OFFICE/OUTPATIENT VISIT, EST ASSAY OF SERUM ALBUMIN ALANINE AMINO (ALT) (SGPT) TRANSFERASE (AST) (SGOT) COMPLETE CBC W/AUTO DIFF WBC ASSAY OF CREATININE RBC SED RATE, NONAUTOMATED ASSAY OF VITAMIN D OFFICE/OUTPATIENT VISIT, EST INJ TENDON SHEATH/LIGAMENT Methylprednisolone 20 MG inj ROUTINE VENIPUNCTURE OFFICE/OUTPATIENT VISIT, EST EXAM,SYNOVIAL FLUID CRYSTALS DRAIN/INJECT, JOINT/BURSA OFFICE/OUTPATIENT VISIT, EST ROUTINE VENIPUNCTURE COMPLETE CBC W/AUTO DIFF WBC ASSAY OF CK (CPK) RHEUMATOID FACTOR, QUANT IMMUNOASSAY, NONANTIBODY RBC SED RATE, NONAUTOMATED ASSAY OF VITAMIN D URINALYSIS, NONAUTO W/SCOPE CCP ANTIBODY OFFICE/OUTPATIENT VISIT, NEW Advance Directives Directive Yes / No Effective Date File Name No Information Encounters Encounter Description Practice Location Reason(s) For Visit Diagnoses Date Provider Providers Copied on Encounter [facility], [address] [place] [address], [id number], [place] tel:[phone] [facility], [place] No Information 4 Perfecto Coopera. [address] [place], [place] [address], [id number] , [place]. [phone] [facility], [address] [place] [address], [id number], [place] tel:[phone] [facility] Rheu arthritis w rheu factor mult site w/o org/sys involv 3201 8 Perfecto Coopera. [address] [place], [place] [address], [id number] , [place]. tel:[phone] Referring Provider: Shakeel Mrach, [facility] [address] [place], [address]. tel:[phone] [facility], [address] [place] [address], [id number], [place] tel:[phone] [facility] Rheu arthritis w rheu factor mult site w/o org/sys involv 8 Harish Lockettsay. [address] [place] [address], [id number] , [place]. tel: [phone] Referring Provider: Shakeel March, [facility] [address] [place], [address]. tel:[phone] OFFICE/OUTPA TIENT VISIT, EST [facility], [address] [place] [address], [id number], [place] tel:[phone] [facility] Left pain & ankle swelling (chief complaint) Body mass index (BMI) 45.0-49.9, adultRheumat oid arthritis without rheumatoid factor, right handRheumato id arthritis without rheumatoid factor, left handPersonal history of nicotine dependenceOt her longterm (current) drug therapyEncou nter for screening for respiratory tuberculosis 8 Harish Lockettsay. [address] [place] [address], [id number] , [place]. tel: [phone] Referring Provider: Donna Moreira, [address] [place] [address], [id number] . tel:[phone] [facility], [address] [place] [address], [id number], [place] tel:[phone] [facility] Radiculopath y, cervical region 7 Harish Donna. [address] [place] [address], [id number] , [place]. tel: [phone] OFFICE/OUTPA TIENT VISIT, EST [facility], [address] [place] [address], [id number], [place] tel:[phone] [facility] Rheumatoid arthritis (chief complaint) Rheumatoid arthritis without rheumatoid factor, right handRheumato id arthritis without rheumatoid factor, left handPersonal history of nicotine dependenceCe rvicalgiaPai n in left armTingling skin 7 Orris Donna. [address] [place] [address], [id number] , [place]. tel:[phone] Referring Provider: Shakeel March, [facility] [address] [place], [address]. tel:[phone] OFFICE/OUTPA TIENT VISIT, EST [facility], [address] [place] [address], [id number], [place] tel:[phone] [facility] Rheumatoid arthritis (chief complaint) Personal history of nicotine dependenceRh eumatoid arthritis without rheumatoid factor, right handRheumato id arthritis without rheumatoid factor, left handTrigger finger, left index fingerBilate ral primary osteoarthrit is of knee 6 Orris Donna. [address] [place] [address], [id number] , [place]. tel:[phone] Referring Provider: Shakeel March, [facility] [address] [place], [address]. tel:[phone] OFFICE/OUTPA TIENT VISIT, EST [facility], [address] [place] [address], [id number], [place] tel:[phone] [facility] Follow Up of Rheumatoid arthritis (chief complaint) Personal history of nicotine dependenceRh eumatoid arthritis without rheumatoid factor, left handRheumato id arthritis without rheumatoid factor, right handBilatera l primary osteoarthrit is of knee 6 Orris Donna. [address] [place] [address], [id number] , [place]. tel:[phone] Referring Provider: Shakeel March, [facility] [address] [place], [address]. tel:[phone] OFFICE/OUTPA TIENT VISIT, EST [facility], [address] [place] [address], [id number], [place] tel:[phone] [facility] Rheumatoid arthritis (chief complaint) Personal history of nicotine dependenceRh eumatoid arthritis without rheumatoid factor, left handRheumato id arthritis without rheumatoid factor, right handBilatera l primary osteoarthrit is of kneeLow back painRenal insufficienc y 2 6 Orris Donna. [address] [place] [address], [id number] , [place]. tel: [phone] Referring Provider: Shakeel March, [address], [address]. tel:[phone] OFFICE/OUTPA TIENT VISIT, EST [facility], [address] [place] [address], [id number], [place] tel:[phone] [facility] Rheumatoid arthritis (chief complaint) Personal history of nicotine dependenceRh eumatoid arthritis without rheumatoid factor, right handRheumato id arthritis without rheumatoid factor, left handBilatera l primary osteoarthrit is of kneeLow back pain 3 5 Orris Donna. [address] [place] [address], [id number] , [place]. tel:[phone] Referring Provider: Shakeel March, [facility] [address] [place], [address]. tel:[phone] [facility], [address] [place] [address], [id number], [place] tel:[phone] [facility] Other intervertebr al disc displacement , lumbar regionSpondy losis w/o myelopathy or radiculopath y, lumbar region 6-201 5 Orris Donna. [address] [place] [address], [id number] , [place]. tel:[phone] OFFICE/OUTPA TIENT VISIT, EST [facility], [address] [place] [address], [id number], [place] tel:[phone] [facility] CPPD arthropathy (chief complaint) Rheumatoid arthritisChr onic low back pain Jan- 5 Harish [place]. [address] [place] [address], [id number] , [place]. tel:[phone] Referring Provider: Shakeel March, [facility] [address] [place], [address]. tel:[phone] [facility], [address] [place] [address], [id number], [place] [phone] [facility] Arthropathy of lumbar facet joint Jan- 5 Harish [place]. [address] [place] [address], [id number] , [place]. tel:[phone] OFFICE/OUTPA TIENT VISIT, EST [facility], [address] [place] [address], [id number], [place] tel:[phone] [facility] CPPD arthropathy (chief complaint) CPPD arthropathyD e Quervain tenosynoviti sDiarrheaCur rent use of high risk medicationCh ronic low back painArthropa thy of lumbar facet joint 5 Orrtashi [place]. [address] [place] [address], [id number] , [place]. tel:[phone] Referring Provider: Shakeel March, [facility] [address] [place], [address]. tel:[phone] OFFICE/OUTPA TIENT VISIT, EST [facility], [address] [place] [address], [id number], [place] tel:[phone] [facility] Right wrist swelling (chief complaint) De Quervain tenosynoviti s 5 Orris Donna. [address] [place] [address], [id number] , [place]. tel:[phone] Referring Provider: Shakeel March, [facility] [address] [place], [address]. tel:[phone] OFFICE/OUTPA TIENT VISIT, EST [facility], [address] [place] [address], [id number], [place] tel:[phone] [facility] CPPD arthropathy (chief complaint) CPPD arthropathyE levated ESRFibromyal giaProteinur iaVitamin D deficiencyEl evated C-reactive protein (CRP)Trigger fingerUrinar y tract infection 5 Orris Donna. [address] [place] [address], [id number] , [place]. tel:[phone] Referring Provider: Shakeel March, [facility] [address] [place], [address]. tel:[phone] OFFICE/OUTPA TIENT VISIT, EST [facility], [address] [place] [address], [id number], [place] tel:[phone] [facility] CPPD arthropathy (chief complaint) CPPD arthropathyV itamin D deficiencyPr oteinuria Orrtashi [place]. [address] [place] [address], [id number] , [place]. tel:[phone] Referring Provider: Shakele March, [facility] [address] [place], [address]. tel:[phone] OFFICE/OUTPA TIENT VISIT, EST [facility], [address] [place] [address], [id number], [place] tel:[phone] [facility] Fibromyalgia syndrome (chief complaint) CPPD arthropathyP roteinuriaVi tamin D deficiency 5 Orris Donna. [address] [place] [address], [id number] , [place]. tel:[phone] Referring Provider: Shakeel March, [facility] [address] [place], [address]. tel:[phone] OFFICE/OUTPA TIENT VISIT, NEW [facility], [address], [place], [id number], [place] tel:[phone] [facility] Musculoskelet al pain (chief complaint) Fibromyalgia ArthralgiaEl evated ESR 3-201 5 Harish [place]. [address], [place], [id number] , [place]. tel:[phone] Referring Provider: Shakeel March, [facility] [address] [place], [address]. tel:[phone] Family History Family Member Type Diagnosis Age At Onset Sister Problem (finding) Health unkwon Mother Problem (finding) 67 Mother Problem (finding) Brights disease 67 Son Problem (finding) diabetes melli tus in first degree relative Daughter Problem (finding) Alive and well Mother Problem (finding) diabetes melli tus in first degree relative 67 Brother Problem (finding) Health unknown Father Problem (finding) Heart problems 69 Father Problem (finding) 69 Son Problem (finding) Still born 0 Daughter Problem (finding) Alive and well Immunizations Vaccine Date Status Comments Fluzone [id number] administered Source: Renetta march Immunization Record Payers Payer name Insurance type Covered green party ID Authoriza tion(s) [place] [id number] [facility] [id number] [facility] [id number] [place] [id number] [facility] [id number] [facility] [id number] Social History Type Description Quantity Date Captured Comments Alcohol Use Details Unknown Caffeine Use Details Unknown Tobacco Use Status No Information Smoking Status No Information Sex Female Chief Complaint And Reason For Visit No Information Reason For Referral Reason For Referral No Information Plan Of Treatment Date Type Action Status Referral Referred To: Lief Gama Ordered: Referrals: Orthopedic Surgery. Leif Gama. Location: [place], [place]. Consult ordered Referral Referred To: [facility] Ordered: Referrals: Pain Medicine. [facility]. Consult ordered Referral Referred To: [facility] Ordered: Referrals: Orthopedic Surgery. [facility]. Consult ordered Future Order: Lab Order Albumin ([id number]), Scheduled for: , Scheduled for: Sent Future Order: Lab Order ALT (SGP T) ([id number]), Scheduled for: , Scheduled for: Sent Future Order: Lab Order AST (SGO T) ([id number]), Scheduled for: , Scheduled for: Sent Future Order: Lab Order CBC w/ A utomated Differential ([id number]), Scheduled for: , Scheduled for: Sent Future Order: Lab Order CREATINI NE ([id number]), Scheduled for: , Scheduled for: Sent History Of Present Illness Encounter Date Complaint History Of Prese nt Illness Left pain & ankle swelling The s ymptoms are reported as being severe. The symptoms occur constantly. The location is ankles, hands. Aggravating factors include nothing. Relieving factors include nothing. Rheumatoid arthritis Location of the pain is neck and left hand. The patient describes the discomfort as Numbness/tingling. It occurs persistently. The problem is worsening. Symptom is aggravated by turning neck. Denies relieving factors. She is experiencing abdominal pain and fatigue. Pertinent negatives include headache and rash. Additional information: Patient here today due to tingling and numbness in left arm and fingers. Rheumatoid arthritis Severity le gagan is moderate. Location of the pain is left shoulder, bilateral hand and right knee. The patient describes the discomfort as achy, pain with use, dull and throbbing. It occurs persistently. The problem is fluctuating. Denies aggravating factors. Denies relieving factors. She is experiencing abdominal pain, fatigue and headache. Pertinent negatives include rash. Additional information: Patient complains of pain in hands, knees Follow Up of Rheumatoid arthriti s Severity level is moderate. Location of the pain is bilateral hand. The patient describes the discomfort as achy, pain with use, dull and throbbing. It occurs persistently. The problem is worsening. Denies aggravating factors. Denies relieving factors. She is experiencing abdominal pain, fatigue and headache. Pertinent negatives include rash. Additional information: Pt states that she has pain in back, wrists, ankles, hands, knees. Rheumatoid arthritis Severity le gagan is moderate-severe. Location of the pain is bilateral hand. The patient describes the discomfort as achy and pain with use. It occurs persistently. The problem is worsening. Denies aggravating factors. Denies relieving factors. She is experiencing abdominal pain, fatigue and headache. Pertinent negatives include rash. Additional information: Patient states that she fell and hurt her right wrist a couple of weeks ago, and is having a lot of pain there. She states that she hurts all over Rheumatoid arthritis Severity le gagan is moderate. Location of the pain is bilateral hand. The patient describes the discomfort as achy and pain with use. It occurs persistently. The problem is worsening. Symptom is aggravated by activity, rest and gripping. Denies relieving factors. She is experiencing abdominal pain, fatigue and headache. Pertinent negatives include rash. Additional information: Patient states pain in between mild and moderate in back, knees, wrists, thumbs CPPD arthropathy The symptoms ar e reported as being severe. The symptoms occur constantly. The location is bilateral hands, bilateral knees. Aggravating factors include everything. Relieving factors include nothing. Patient not doing well - leflunomide has not been approved yet, will check status today CPPD arthropathy The symptoms ar e reported as being moderate. The symptoms occur constantly. The location is bilateral hands and wrist. Aggravating factors include movement. Relieving factors include nothing. Patient states her symptoms are more than moderate but not quite severe Right wrist swelling Duration: 1 Day. Severity level is severe. It occurs constantly and has worsened. Location: right wrist. Additional information: See EHR note pt's PCP wanted her seen today for right wrist swelling that got really bad this morning. No changes to medical or family history. CPPD arthropathy The symptoms ar e reported as being moderate. The symptoms occur constantly. The location is bilateral hands and feet. Aggravating factors include everything. Relieving factors include nothing. Patient states she has pain in her back, hands and feet CPPD arthropathy The symptoms ar e reported as being severe. The symptoms occur constantly. The location is hands/feet/wrist. Aggravating factors include activity. Relieving factors include nothing. Patient complains of pain and swelling in hands, feet, knees and lower back. Also is starting to get a trigger finger - left index finger Fibromyalgia syndrome The sympto ms are reported as being moderate. The symptoms occur constantly. Patient is having pain in hands, feet, back, knees, neck. Pain is throbbing, and is always there. Says sometimes the pain is severe, but today is moderate. Musculoskeletal pain Location: b ilateral hand. There is no radiation. The pain is aching. Context: there is no injury. The pain is aggravated by movement. There are no relieving factors. Functional Status Date Functional Assessmen t No Information Instructions Date Instruction Additional Infor simone Your recommended BMI is 18.5-24.9. If you age is greater than 65 then your recommended BMI is 22.0-30.0. Your BMI is listed above. Based on this, weight loss is recommended:Dietary therapy includes reducing calories by 500-1000 per day from current calorie intake. This will produce a weight loss of 1-2 pounds every week. Increase physical activity. Increased physical activity is important because it increases energy consumption.Physical activity also reduces the risk of heart disease more than that achieved by weight loss alone. Activity should generally be increased slowly, with care taken to avoid injury. Activities and/or pizza maker, including walking, dancing, gardening, and team or individual sports, may help satisfy this goal. All adults should set a long-term goal to accumulate at least 30 minutes or more of moderate-intensity physical activity on most, and preferably all, days of the week.Behavioral strategies include self-monitoring,stress management, stimulus control, problem-solving, contingency management, cognitive restructuring, and social support. Related to Body mass index (BMI) 45.0-49.9, adult - Plan to get prior authorization for Simponi Aria. Will start 2mg/kg every 8 wks with loading dose- Get chest x-ray locally- Will check hepatitis serologies today and tuberculosis testing. Related to Rheumatoid arthritis without rheumatoid factor, right hand Giving encouragement to exercise Related to Body mass index (BMI) 45.0-49.9, adult Dietary needs education Related to Body mass index (BMI) 45.0-49.9, adult - Get neck x-ray- Schedule EMG/N CS Related to Cervicalgia - Monitor for infect ion. Do no soak hands in dirty water for 24 hrs. Okay to wash hands and shower. Related to Trigger finger, left index finger - When able: Start l eflunomide 10mg (1/2 tablet) daily x 7 days, then increase to 20mg (1 tablet) daily. Call the clinic if you have side effects of nausea. Related to Rheumatoid arthritis without rheumatoid factor, left hand - Start leflunomide 10mg (1/2 tablet) daily x 7 days, then increase to 20mg (1 tablet) daily. Call the clinic if you have side effects of nausea.- If tolerating, please get labs in 1 month. Related to Rheumatoid arthritis without rheumatoid factor, left hand Please get recent GI Dr. Arizmendi in [place] at [email or web address], all recor Related to Rheumatoid arthritis without rheumatoid factor, left hand get all recent labs from [facility] in [place] Related to Rheumatoid arthritis without rheumatoid factor, left hand - Start leflunomide 10mg (1/2 tablet) daily x 7 days, then increase to 20mg (1 tablet) daily. Call the clinic if you have side effects of nausea.- If tolerating, please get labs in 1 month. Related to Rheumatoid arthritis without rheumatoid factor, right hand Please give lab slip to be done locally in 4 wks. Related to Rheumatoid arthritis without rheumatoid factor, right hand - Start leflunomide 10mg daily (1/2 tablet) x 7 days, then increase to 20mg (1 tablet)- Hydrocodone 5/325mg every 6 hrs as needed for pain, #90, R0 Related to Rheumatoid arthritis - Get lumbar x-ray Related to Ch ronic low back pain - Continue to wear w rist brace. 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 Less common side effects include liver test elevations and decreases in blood counts. He/She was given a pamphlet from www[facility]org on medications risks and benefits and potential side effects. 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 Norman Related to Proteinuria Injection of 10mg me thylprednisolone into the left 2nd digit Related to Trigger finger STOP colchicine Pend ing labs and if you want would like to start: - methotrexate: 15mg (= six 2.5 mg tablets) once each week1. folic acid 1 mg every day, to reduce methotrexate toxicity2. 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 Related to Proteinuria - Continue vitamin D 4000 units daily Related to Vitamin D deficiency - Start colchicine 0 .6mg twice daily. If patient has diarrhea then will decrease to once daily or 1/2 tablet daily- Increase tramadol to 50mg up to 4 times daily as needed for pain. 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 Check with ophthalmology first given the history of macular degeneration- Second line would be consideration of the use of colchicine. We will check with pharmacy to see if this has any association with any of her multiple list of allergy medications. 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 It is more a result than a cause . There may be a genetic predisposition. People end up with fibromyalgia for a number of reasons but the strongest known associations are chronic non-restorative sleep and mood disorders. Treatment is aimed at treating the underlying problems, and using medications that affect the pain threshold. FMS does not typically respond to pain medications. Johns to getting better is to sleep at night and move the body in the daytime. Related to Fibromyalgia Assessments Type Assessment Date No Information Patient Care Teams Name Effective Dates (start - stop) Status Members No Information
--- OUTSIDE RECORDS SUMMARY | 2024-06-17 03:40 | XMS_ITS | Clinical Summary ---
Author Organization [facility] Address [address] [place] [address] Phone Care Team Providers Care Health Insurance Adjuster Name Role Phone Demetria Busch MD Primary Care Provider Allergies Active Allergy Reactions Criticality Noted Date Comments Azithromycin Unknown 09/21/2023 Carbamazepine Unknown 09/21/2023 Cephalexin Unknown 09/21/2023 Colchicine Unknown 09/21/2023 Cyclobenzaprine Unknown 09/21/2023 Fluconazole Anaphylaxis High 09/21/2023 Gabapentin Unknown 09/21/2023 Gatifloxacin Unknown 09/21/2023 Hydrocodone Unknown 09/21/2023 Hydroxychloroquine Unknown 09/21/2023 Hyoscyamine Unknown 09/21/2023 Naproxen Unknown 09/21/2023 Oxybutynin Chloride Unknown 09/21/2023 Phenytoin Sodium Extended Unknown 09/21/2023 Progesterone Micronized Unknown 09/21/2023 Solifenacin Unknown 09/21/2023 Sulfa (Sulfonamide Antibiotics) Unknown 09/09 Sulfamethoxazole-Trimethoprim Unknown Low 2023 Valdecoxib Unknown Low 09/21/2023 Medications glimepiride (AMARYL) 4 mg tablet Take 4 mg by mouth daily with breakfast. Active levETIRAcetam (KEPPRA) 750 mg Tablet Take 750 mg by mouth 2 times daily. Active furosemide (LASIX) 40 mg tablet Take 40 mg by mouth daily. Active levothyroxine 125 mcg tablet Take 125 mcg by mouth daily in the morning. Active pramipexole (MIRAPEX) 0.25 mg tablet Take 0.25 mg by mouth 2 times daily. Take 1 tab in AM, 2 tabs at bedtime Active Vit C-Vit T-Okygrk-RhGc-L utein (PRESERVISION) 226-90-0.8-5 mg Capsule Take 1 Capsule by mouth 2 times daily. Active aspirin (ECOTRIN EC) 81 mg Tablet, Delayed Release (E.C.) Take 81 mg by mouth daily. Active acetaminophen (TYLENOL) 500 mg tablet Take 500 mg by mouth every 4 hours as needed for Pain. Active empagliflozin (Jardiance) 10 mg tablet Take 10 mg by mouth daily in the morning. Active atorvastatin (LIPITOR) 80 mg tablet 1 Tablet (80 mg) by NG Tube route daily. 90 Tablet 09/25/2023 Active Active Problems Problem Noted Date Diagnosed Date Type 2 diabetes mellitus wit h hyperglycemia, with long-term current use of insulin 09/22/2023 Hypothyroidism 09/22/2023 Acute cystitis without hematuria 09/22/2023 Type 2 diabetes mellitus with hyperglycemia 09/09 Cerebrovascular accident (CVA) 09/21/2023 Vertigo 09/21/2023 Right sided numbness 09/21/2023 Encounters Date Type Department Care Team Description 06/02/2024 External Device Data [facility] Provider, Abstract 06/01/2024 External Device Data [facility] Provider, Abstract from Last 3 Months Social History Tobacco Use Types Packs/Day Years Used Date Smoking Tobacco: Never Smokeless Tobacco: Never Tobacco Cessation:Counseling Given: Not Answered Alcohol Use Standard Drinks/Week Comments Never 0 (1 standard drink = 0.6 oz pur e alcohol) Utility Needs Answer Date Recorded In the past 12 months has [employer], gas, oil, or water [employer] threatened to shut off services in your [...] often do you attend chur ch or taoism services? 1 to 4 times per year 09/21/2023 Do you belong to any clubs o r organizations such as advent groups, unions, fraternal or athletic groups, or [...] on file Sexual Orientation Not on file Last Filed Vital Signs Vital Sign Reading Time Taken Comments Blood Pressure 111/69 09/25/2023 7:26 AM CDT Pulse 78 09/25/2023 7:26 AM CDT Temperature 36.7 ??C (98 ??F) 09/25/2023 7:26 AM CDT Respiratory Rate 18 09/25/2023 7:26 AM CDT Oxygen Saturation 93% 09/25/2023 7:26 AM CDT Inhaled Oxygen Concentration - - Weight 102.3 kg (225 lb 8.5 oz) 09/23/2023 5:45 AM CDT Height 147.3 cm (4' 10 ) 09/21/2023 6:33 PM CDT Body Mass Index 47.14 09/21/2023 6:33 PM CDT Plan of Treatment Health Maintenance Due Date Last Done Comments DIABETES ANNUAL FOOT EXAM 09/21/1963 DIABETES ANNUAL RETINAL EXAM 09/21/1963 DIABETES MICROALBUMIN ANNUAL SCREEN 09/21/1963 DTAP/TDAP/TD VACCINES (1 - Tdap) 1964 ZOSTER VACCINE (1 of 2) 09/21/1995 OSTEOPOROSIS SCREENING 2010 RSV VACCINE (60+ or ) (1 - 1-dose 75+ series) 2020 INFLUENZA VACCINE (#1) 2023 PNEUMOCOCCAL VACCINE 65+ YEA RS (2 of 2 - PCV) 01/21/2024 01/20/2023 DIABETES HBA1C Q 6 MONTHS 03/23/2024 09/21/2023, LDL CHOLESTEROL ANNUAL 09/21/2024 09/22/2023 Procedures Procedure Name Priority Date/Time Associated Diagnosis Comments LIPID PANEL Routine 09/22/2023 4:26 AM CDT HEMOGLOBIN A1C Routine 09/21/2023 7:52 PM CDT from Last 3 Months or Most Recently Relevant to Health Maintenance Results * LIPID PANEL (09/22/2023 4:26 AM CDT) [facility] CHOLESTEROL 113 <200 mg/dL 09/22/2023 5:02 AM CDT [facility] TRIGLYCERIDE 142 <150 mg/dL 09/22/2023 5:02 AM CDT [facility] HDL 46 40 - 59 mg/dL 09/22/2023 5:02 AM CDT [facility] LDL CALCULATED 39 <100 mg/dL 09/22/2023 5:02 AM CDT [facility] NON-HDL CHOLESTEROL 67 <130 mg/dL 09/22/2023 5:02 AM CDT [facility] Blood Venipuncture / Unknown 09/22/2023 4:26 AM CDT 09/22/2023 4:31 AM CDT Narrative [facility] [employer] [facility] - 09/22/2023 5:02 AM CDT TOTAL CHOLESTEROL ??mg/dL ??Desirable <200 ??Borderline high 200-239 ??High >=240 TRIGLYCERIDES ??mg/dL ??Normal <150 ??Borderline high 150-199 ??High 200-499 ??Very high >=500 HDL CHOLESTEROL ??mg/dL ??Low <40 ??Normal 40-59 ??Desirable >=60 NON HDL CHOLESTEROL mg/dL ??Optimal <130 ??Near Optimal 130-159 ??Borderline High 160-189 ??Very High >=190 CALCULATED LDL mg/dL ??LDL <70, OPTIMAL if have Atherosclerotic cardiovascular disease (ASCVD) ??or intermediate or higher (>7.5%) 10 year risk of ASCVD including most adults ??with diabetes. ??LDL <100, Optimal in adult patients with low (<7.5%) 10 year ASCVD risk ??LDL 100-160, Suboptimal ??LDL >160, High ??LDL >190, Very high ATPIII Guidelines Reference Ranges for Lipid Panels (NCEP/AMA) . us Heatehr Brooke MD CHEMISTRY ORDERABLES Final Re sult Performing Organization Address [facility]/ZIP Co de Phone Number [facility] CLIA # [id number] [address] [place] [address] * (ABNORMAL) HEMOGLOBIN A1C (09/21/2023 7:52 PM CDT) HEMOGLOBIN A1C 10.4(H) <=5.6 % 09/22/2023 9:05 AM CDT [facility] [employer] [facility] EST. AVG GLUCOSE, A1C 252 mg/dL 09/22/2023 9:05 AM CDT [facility] [employer] [facility] Blood Venipuncture / Unknown 09/21/2023 7:52 PM CDT 09/21/2023 8:05 PM CDT Narrative [facility] [employer] [facility] - 09/22/2023 9:05 AM CDT HGB A1C INTERPRETATION NORMAL: ? <5.7% PRE-DIABETES: 5.7 - 6.4% DIABETES: ? 6.5% OR GREATER us Heather Brooke MD CHEMISTRY ORDERABLES Final Re sult Performing Organization Address [facility] Co de Phone Number [facility] CLIA # [id number] [address] [address] from Last 3 Months or Most Recently Relevant to Health Maintenance [place] [address] [place] [address] MEDICARE HMO RX [facility] Medicare Part D Advance Directives For more information, please contact: [phone] * Full Code (Latest Code Status on File) Date Activated Date Inactivated Comments 09/24/2023 11:57 AM 09/25/2023 1:46 PM * Default Full Code - Needs Discussion Date Activated Date Inactivated Comments 09/21/2023 6:42 PM 09/24/2023 11:57 AM Care Teams Health Insurance Adjuster Relationship Specialty Start Date End Date Demetria Busch MD [address] [facility] [address] [place] [address] PCP - General Family Practice 09/26/23
--- OUTSIDE RECORDS SUMMARY | 2024-06-17 03:40 | XMS_ITS | Encounter Summary ---
Author Organization [facility] Address [address] [place] [address] Care Team Providers Care Senior Director Marketing Name Role Phone Demetria Busch MD Primary Care Provider Encounter Details Date Type Department Care Team (Late st Contact Info) Description 06/02/2024 External Device Data [facility] Provider, Abstract NO ADDRESS ON FILE Social History Tobacco Use Types Packs/Day Years Used Date Smoking Tobacco: Never Smokeless Tobacco: Never Alcohol Use Standard Drinks/Week Comments Never 0 (1 standard drink = 0.6 oz pur e alcohol) Utility Needs Answer Date Recorded In the past 12 months has [employer], gas, oil, or water [employer] threatened to shut off services in your [...] often do you attend chur ch or sikh services? 1 to 4 times per year 09/21/2023 Do you belong to any clubs o r organizations such as confucianism groups, unions, fraternal or athletic groups, or [...] on filedocumented in this encounter Care Teams Senior Director Marketing Relationship Specialty Start Date End Date Demetria Busch MD [address] [facility] [address] [place] [id number] PCP - General Family Practice 09/26/23 documented as of this encounter
[2024-06-17] MEDS: clindamycin 600 MG/50 ML PREMIX 100 MG IV (05:39)
[2024-06-17] MEDS: levothyroxine 150 mcg Tablet PO (05:40)
[2024-06-17] MEDS: oxyCODONE-APAP 5-325 mg Tablet 1 TAB PO ×4 (06:00→19:47)
[2024-06-17 06:18] LABS: Glucose Point of Care 91 mg/dL (70-110)
[2024-06-17] MEDS: levETIRAcetam 500 mg Tablet 750 MG PO ×2 (08:19→18:36)
[2024-06-17] MEDS: glimepiride 2 mg Tablet 8 MG PO (08:19)
[2024-06-17] MEDS: pramipexole 0.25 mg Tablet PO ×3 (08:20→19:47)
[2024-06-17] MEDS: colchicine 0.6 mg Tablet PO (08:21)
[2024-06-17] MEDS: atorvastatin 40 mg Tablet 20 MG PO (08:21)
[2024-06-17] MEDS: docusate sodium 100 mg Capsule PO (08:21)
[2024-06-17] MEDS: FUROsemide 40 mg Tablet PO (08:21)
--- NOTE | 2024-06-17 10:32 | PM.PN ---
Subjective Subjective: Patient is sitting in chair was uncomfortable having some pain in her neck some difficulty swallowing. Vitals/I&O/Wt Last Vital Signs Temp 97.5 F L 06/17/24 07:50 Pulse 75 06/17/24 07:50 Resp 17 06/17/24 10:06 BP 110/72 06/17/24 07:50 Pulse Ox 98 06/17/24 07:50 O2 Del Method Nasal Cannula 06/17/24 07:50 O2 Flow Rate 2 06/17/24 04:00 06/16/24 06/17/24 06/17/24 22:59 06:59 14:59 Intake Total 650 / 800 1004 / 1804 120 / 120 Output Total 1040 / 1315 500 / 1815 Balance -390 / -515 504 / -11 95 / 95 Weight last 48 hrs Weight 231 lb 3 oz Weight 220 lb Weight 220 lb Physical Exam Narrative: Sitting up in chair eating breakfast. Has some difficulty swallowing Urinary Catheter Management: Grey: Cath Placed During This Visit: yes, but has since been removed by the nurse Reason for Continuing Indwelling Catheter: Perioperative Use in Selected Surgeries Urinary Catheter Date of Insertion: 06/16/24 Urinary Catheter Time of Insertion: 07:15 Date Urinary Catheter Removed: 06/17/24 Time Urinary Catheter Discontinued: 06:24 A&P Assessment and plan (1) Status post cervical spinal fusion: Postop day #1 ACDF. Patient doing well overall. Patient does not have help at home. We discussed options with case manager specialist to determine discharge status. PDMP PDMP Reviewed: Not Reviewed Attestations Medical Necessity Statement*: Pain control Coding Level of Care Code Acute Code for Chg Fwd Diagnoses Status post cervical spinal fusion Z98.1
[2024-06-17 11:04] LABS: Glucose Point of Care 110 mg/dL (70-110)
[2024-06-17 16:28] LABS: Glucose Point of Care 177 mg/dL (70-110)
[2024-06-17 21:12] LABS: Glucose Point of Care 205 mg/dL (70-110)
[2024-06-17] MEDS: ketorolac 30 mg/mL INJ IVP (21:13)
--- NOTE | 2024-06-17 22:13 | PC.NURSE ---
Patient having urinary frequency and urgency but only voiding around 100-300 ml with each void. Unable to measure all of urine due to patient having some incontinence. Patient says that incontinence is normal for her and she has to wear a pad all the time at home. Post-void bladder scan showed 235 ml.
[2024-06-18] VITALS (8 sets, daily range): BP systolic 109–170; BP diastolic 52–85; PULSE 75–94; RESP 14–18; TEMP 36.5–37; O2SAT 90–93
[2024-06-18] MEDS: oxyCODONE-APAP 5-325 mg Tablet 1 TAB PO ×2 (01:13→21:25)
--- NOTE | 2024-06-18 01:19 | PC.NURSE ---
Patient still having urgency and frequency. Patient voided 50 ml. Post-void bladder scan showed 220 ml. Straight cath performed with 375 ml returned.
[2024-06-18] MEDS: levothyroxine 150 mcg Tablet PO (04:48)
[2024-06-18 06:28] LABS: Glucose Point of Care 118 mg/dL (70-110)
--- NOTE | 2024-06-18 08:41 | PM.PN ---
Subjective Subjective: Patient has been doing well but is not able to swallow solid foods. At this point discussed with her possibly staying till she gets her food situation settled. Vitals/I&O/Wt Last Vital Signs Temp 98.1 F 06/18/24 07:00 Pulse 83 06/18/24 07:00 Resp 16 06/18/24 07:00 BP 118/85 06/18/24 07:00 Pulse Ox 90 06/18/24 07:00 O2 Del Method Room Air 06/18/24 07:00 O2 Flow Rate 2 06/17/24 04:00 06/17/24 06/18/24 06/18/24 22:59 06:59 14:59 Intake Total 1120 / 1360 250 / 1610 Output Total 550 / 575 775 / 1350 Balance 570 / 785 -525 / 260 Weight last 48 hrs Weight 231 lb 3 oz Weight 231 lb 3 oz Weight 220 lb Physical Exam Narrative: Resting in chair doing well other than not be able to swallow well. Urinary Catheter Management: Grey: Cath Placed During This Visit: yes, but has since been removed by the nurse Reason for Continuing Indwelling Catheter: Perioperative Use in Selected Surgeries Urinary Catheter Date of Insertion: 06/16/24 Urinary Catheter Time of Insertion: 07:15 Date Urinary Catheter Removed: 06/17/24 Time Urinary Catheter Discontinued: 06:24 A&P Assessment and plan (1) Status post cervical spinal fusion: Postop day #2 ACDF. Discharge planning pending see how she does of swallowing with soft food such get her pills down. PDMP PDMP Reviewed: Not Reviewed Attestations Medical Necessity Statement*: Pending swallowing issues Coding Level of Care Code Acute Code for Chg Fwd Diagnoses Status post cervical spinal fusion Z98.1
--- NOTE | 2024-06-18 08:42 | PC.NURSE ---
Dr. Duggan notified that patient has been straight catheterized twice because she does not empty out completely when she urinates. Patient stated today that she has a failed bladder sling and that this is normal.
[2024-06-18] MEDS: colchicine 0.6 mg Tablet PO (10:44)
[2024-06-18 10:47] LABS: Glucose Point of Care 168 mg/dL (70-110)
[2024-06-18] MEDS: levETIRAcetam 1,000 mg/10 mL UDC 750 MG PO ×2 (12:38→17:35)
[2024-06-18] MEDS: insulin lispro 100 unit/1 mL SUBCUT ×2 (12:38→17:37)
[2024-06-18] MEDS: dexamethasone 10 mg/mL INJ 6 MG PO ×2 (12:39→21:26)
--- NOTE | 2024-06-18 13:54 | PM.CONSULT ---
Providers/Reason For Consult Consulting Physician/Specialty*: Orthopedic Reason for Consult*: Dysphagia Attending Physician: Jeet Duggan DO Primary Care Provider: Demetria Busch MD History of Present Illness History of Present Illness Sherie Hernandez is a 78 year old female type 2 diabetes mellitus, hypothyroidism, hypertension who presents to [facility] status post cervical spinal fusion, hospitalist team was consulted as patient has been complaining of dysphagia. Currently patient was seen, she is alert oriented x 3, following all commands, reports dysphagia, no globus sensation, does report odynophagia, no hemoptysis, no trouble breathing, does have a cough she is having difficulty swallowing pills at times such as her Keppra but did take her levothyroxine this morning Review of Systems Const: Denies: fever(s) or chills Card: Denies: chest pain Resp: Denies: dyspnea Medications/Allergies Home Medications ?Medication ?Instructions ?Recorded ?Confirmed ?Last Taken ?Type acetaminophen 500 mg tablet 500 mg PO QID PRN Pain 08/23/22 06/11/24 09/28/23 History (Tylenol Extra Strength) aspirin 81 mg chewable tablet 81 mg PO DAILY 08/23/22 06/11/24 06/10/24 History vit C 250 mg-vit E 90 mg-zinc 40 1 tab PO BID 11/19/22 06/11/24 06/11/24 History mg-copper 1 kz-cykush-qgczme capsule (PreserVision AREDS-2) empagliflozin 25 mg tablet 25 mg PO QAM #90 tabs 04/28/24 06/11/24 06/10/24 Rx furosemide 40 mg tablet (Lasix) 40 mg PO DAILY #90 tabs 05/06/24 06/11/24 06/10/24 Rx simvastatin 20 mg tablet 20 mg PO DAILY #90 tabs 05/14/24 06/11/24 06/11/24 Rx tirzepatide 10 mg/0.5 mL 10 mg (0.5 mL) SUBCUT Q7D #2 mL 06/03/24 06/11/24 06/08/24 Rx subcutaneous pen injector (Diana) tramadol 50 mg tablet 50 mg PO Q6H PRN Pain #15 tabs 06/06/24 06/11/24 Unknown Rx colchicine 0.6 mg tablet 0.6 mg PO DAILY 06/09/24 06/11/24 06/08/24 History glimepiride 4 mg tablet 8 mg PO BID 06/09/24 06/11/24 06/11/24 History levetiracetam 750 mg tablet 750 mg PO BID 06/09/24 06/11/24 06/16/24 History levothyroxine 150 mcg tablet 150 mcg PO QAM 06/09/24 06/11/24 06/11/24 History meclizine 25 mg tablet 25 mg PO TID PRN Dizziness 06/09/24 06/11/24 Unknown History methocarbamol 750 mg tablet 750 mg PO Q6H PRN spasms #20 tabs 06/09/24 06/11/24 06/11/24 Rx pramipexole 0.25 mg tablet 0.25 mg PO TID 06/11/24 06/11/24 06/11/24 History Allergies Allergy/AdvReac Type Severity Reaction Status Date / Time azithromycin Allergy ALGY-Difficulty Verified 06/10/24 13:10 Breathing carbamazepine (From Tegretol) Allergy Unknown Verified 06/10/24 13:10 cephalexin Allergy Unknown Verified 06/10/24 13:10 ciprofloxacin Allergy ALGY-Rash Verified 06/10/24 13:10 cyclobenzaprine (From Allergy Unknown Verified 06/10/24 13:10 Flexeril) fentanyl Allergy doesn't Verified 06/10/24 13:10 want to take fluconazole Allergy Unknown Verified 06/10/24 13:10 gabapentin Allergy Unknown Verified 06/10/24 13:10 hydrocodone (From Dexter) Allergy Unknown Verified 06/10/24 13:10 hydroxychloroquine Allergy Unknown Verified 06/10/24 13:10 hyoscyamine Allergy Unknown Verified 06/10/24 13:10 naproxen (From Naprosyn) Allergy Unknown Verified 06/10/24 13:10 oxybutynin (From Ditropan) Allergy Unknown Verified 06/10/24 13:10 phenytoin (From Dilantin) Allergy Unknown Verified 06/10/24 13:10 progesterone (From Allergy Unknown Verified 06/10/24 13:10 Prometrium) solifenacin (From Vesicare) Allergy Unknown Verified 06/10/24 13:10 Sulfa (Sulfonamide Allergy Unknown Verified 06/10/24 13:10 Antibiotics) sulfamethoxazole (From Allergy Unknown Verified 06/10/24 13:10 Bactrim) trimethoprim (From Bactrim) Allergy Unknown Verified 06/10/24 13:10 valdecoxib (From Bextra) Allergy Unknown Verified 06/10/24 13:10 Current Medications Generic Name Dose Route Start Last Admin Trade Name Freq PRN Reason Stop Dose Admin Colchicine 0.6 mg 06/17/24 09:00 06/18/24 10:44 Colchicine 0.6 Mg Tablet PO 0.6 mg DAILY TUTU Administration Dexamethasone 6 mg 06/18/24 10:00 06/18/24 12:39 Dexamethasone 10 Mg/Ml Inj PO 6 mg Q12H TUTU Administration Furosemide 40 mg 06/17/24 09:00 06/17/24 08:21 Furosemide 40 Mg Tablet PO 40 mg DAILY TUTU Administration Glimepiride 8 mg 06/16/24 18:00 06/18/24 13:41 Glimepiride 2 Mg Tablet PO Not Given BID [facility] Insulin Human Lispro 0 unit 06/18/24 12:00 06/18/24 12:38 Insulin Lispro 100 Unit/1 Ml SUBCUT 2 unit TIDWM TUTU Administration Protocol Ketorolac Tromethamine 30 mg 06/16/24 09:16 06/17/24 21:13 Ketorolac 30 Mg/Ml Inj IVP 30 mg Q6H PRN Administration BREAKTHROUGH PAIN Levetiracetam 750 mg 06/18/24 10:15 06/18/24 12:38 Levetiracetam 1,000 Mg/10 Ml Udc PO 750 mg BID TUTU Administration Levothyroxine Sodium 150 mcg 06/17/24 06:00 06/18/24 04:48 Levothyroxine 150 Mcg Tablet PO 150 mcg QAM TUTU Administration Non-Formulary Medication 10 mg 06/17/24 09:00 06/17/24 09:28 Tirzepatide [Mounjaro] SUBCUT Not Given Q7D [facility] Non-Formulary Medication 1 tab 06/16/24 18:00 06/18/24 10:28 Vit C,Q-Gl-Pirdg-Lutein-Zeaxan [Preservision Areds-2] PO Not Given BID [facility] Oxycodone/Acetaminophen 1 tab 06/16/24 09:16 06/18/24 01:13 Oxycodone-Apap 5-325 Mg Tablet PO 1 tab Q4H PRN Administration MODERATE PAIN Pramipexole Dihydrochloride 0.25 mg 06/16/24 15:00 06/17/24 19:47 Pramipexole 0.25 Mg Tablet PO 0.25 mg TID TUTU Administration PFSH Acute PFSH: Medical History Family history of colon cancer Colon polyps Spinal cord neurostimulator device in situ BMI 40.0-44.9, adult FH: total knee replacement Recurrent UTI CRP elevated Angina at rest Creatinine elevation After cataract, bilateral Carpal tunnel syndrome on both sides Nonfunctional vagus nerve stimulator Multiple lung nodules on CT 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 Father CAD (coronary artery disease) Stroke Mother Chronic kidney disease (CKD) Brother Cancer Brother Stroke Colon cancer Denies family history of Ovarian cancer Diabetes Heart disease Hypercholesteremia Breast cancer Hypertension Uterine cancer Thyroid disease Social History Smoking and tobacco/nicotine status: unknown if used tobacco/nicotine Quit status (tobacco/nicotine): has quit using Year quit tobacco: 1979 Former quit date comment: 1-2 ppd X 1 year Second hand smoke exposure: No Alcohol intake: never Substance/Drug Use: never Current gender identity: Female Female Reproductive History: Spontaneous abortions: No Vitals/I&O/Wt Last Vital Signs Temp 97.7 F 06/18/24 11:30 Pulse 80 06/18/24 11:30 Resp 14 06/18/24 11:30 BP 144/75 06/18/24 11:30 Pulse Ox 93 06/18/24 11:30 O2 Del Method Room Air 06/18/24 11:30 O2 Flow Rate 2 06/17/24 04:00 06/17/24 06/18/24 06/18/24 22:59 06:59 14:59 Intake Total 1120 / 1360 250 / 1610 120 / 120 Output Total 550 / 575 775 / 1350 450 / 450 Balance 570 / 785 -525 / 260 -330 / -330 Weight last 48 hrs Weight 104.865 kg Weight 104.865 kg Physical Exam Const: COMMON NORMALS: no acute distress and patient oriented x3 OTHER: Patient currently in a cervical collar Resp: COMMON NORMALS: normal respiratory effort, No retractions, No use of accessory muscles and clear to auscultation bilaterally AUSCULTATION: clear to auscultation bilaterally Cardio: COMMON NORMALS: regular rate, regular rhythm, S1 normal heart sound present and S2 normal heart sound present RATE: regular rate RHYTHM: regular rhythm HEART SOUNDS: S1 normal heart sound present and S2 normal heart sound present GI: COMMON NORMALS: Normal to inspection, nondistended, normoactive bowel sounds present and non-tender Extremity: COMMON NORMALS: no pedal edema Neuro: COMMON NORMALS: patient oriented x3 Psych: COMMON NORMALS: mental status grossly normal Urinary Catheter Management: Grey: Cath Placed During This Visit: yes, but has since been removed by the nurse Reason for Continuing Indwelling Catheter: Perioperative Use in Selected Surgeries Urinary Catheter Date of Insertion: 06/16/24 Urinary Catheter Time of Insertion: 07:15 Date Urinary Catheter Removed: 06/17/24 Time Urinary Catheter Discontinued: 06:24 A&P Assessment and plan (1) Dysphagia: - Dysphagia status post surgical fusion -No respiratory compromise -Will add on Decadron 6 mg p.o. twice daily liquid -Stick to clear liquids, cool items such as ice cream, popsicles, ice water -Switch p.o. medications such as Keppra to liquid Keppra -Monitor for dysphagia or odynophagia -If any worsening symptomatology will consider CT imaging PDMP PDMP Reviewed: Not Reviewed Consult Attestations Medical Necessity Statement: Patient requires hospitalization status post cervical fusion now with dysphagia Diagnoses Dysphagia R13.10
[2024-06-18] MEDS: atorvastatin 40 mg Tablet 20 MG PO (14:03)
[2024-06-18] MEDS: pramipexole 0.25 mg Tablet PO ×2 (14:04→21:26)
[2024-06-18] MEDS: FUROsemide 40 mg Tablet PO (14:06)
[2024-06-18 14:31] LABS: Basophils % 0.3 %; Eosinophils # 0.1 10^3/uL (0.0-0.8); Hematocrit 41.4 % (36-47); Lymphocytes # 1.5 10^3/uL (0.8-4.8); Lymphocytes % 24.3 %; Mean Corpuscular HGB Conc 32.6 g/dL (30-55); Mean Platelet Volume 9.2 fL (7.4-10.4); Monocytes # 0.5 10^3/uL (0.2-0.9); Monocytes % 7.4 %; Neutrophils # 4.16 10^3/uL (1.8-7.7); Neutrophils % 65.5 %; Nucleated Red Blood Cells % 0 %; Platelet Count 179 10^3/cmm (157-399); Red Blood Count 4.36 10^6/uL (3.85-5.65); Red Cell Distribution Width 11.9 % (12.1-15.1); White Blood Count 6.35 10^3/uL (3.29-11.43)
[2024-06-18 14:52] LABS: Alanine Aminotransferase 15 U/L (0-33); Albumin Level 3.3 g/dL (3.5-5.2); Alkaline Phosphatase 75 U/L (35-105); Anion Gap 14.1 (5-19); Aspartate Amino Transferase 14 U/L (0-32); Blood Urea Nitrogen 25 mg/dL (8-23); Calcium 8.6 mg/dL (8.5-10.5); Carbon Dioxide 28 mmol/L (22-29); Chloride 99 mmol/L (98-107); Creatinine Clr Calc Pharmacy 69.7776; Globulin 3.4 g/dL (1.3-4.6); Glucose 131 mg/dL (65-115); Osmolality Calculated 290 mOsm/kg (285-295); Potassium 4.1 mmol/L (3.5-5.1); Sodium 137 mmol/L (136-145); Total Bilirubin 0.8 mg/dL (0.15-1.2); Total Protein 6.7 g/dL (6.6-8.7)
[2024-06-18 15:28] LABS: Free T4 Free Thyroxine 1.82 ng/dL (0.82-1.77); T3 Free 2.1 PG/ML (2.0-4.4)
[2024-06-18 16:50] LABS: Bilirubin Urine Negative (Negative); Blood Urine Trace (Negative); Glucose Urine UA 2+ (Normal); Ketones Urine Negative (Negative); Leukocyte Esterase Urine 1+ (Negative); Nitrate Urine Negative (Negative); Protein Urine Negative (Negative); Specific Gravity, Urine 1.008 (1.005-1.030); Urine Appearance Clear (CLEAR); Urine Color Yellow (Yellow); Urobilinogen Urine 0.2 mg/dL (Negative); pH Urine 6.5 (5-7)
[2024-06-18 16:52] LABS: Add Urine Microscopic? YES; Bacteria Urine None Seen /hpf; Hyaline Casts Urine 0-4 /lpf; RBC Urine 0-2 /hpf (0-2); Squamous Epithelial Cell Urine 0-5 /hpf (0-5); WBC Urine 21-50 /hpf (0-5)
[2024-06-18 16:54] LABS: Add Urine Culture? Yes
[2024-06-18 17:08] LABS: Glucose Point of Care 177 mg/dL (70-110)
[2024-06-18] MEDS: DOCUSATE SODIUM 100 MG/10 ML UDC PO (17:37)
[2024-06-18] MEDS: glimepiride 2 mg Tablet 8 MG PO (17:38)
[2024-06-18 21:20] LABS: Glucose Point of Care 158 mg/dL (70-110)
[2024-06-19] VITALS: BP 146/74; PULSE 86; RESP 18; TEMP 36.4; O2SAT 95
[2024-06-19 04:00] VITALS: BP 123/77; PULSE 82; RESP 19; TEMP 36.8; O2SAT 93
[2024-06-19] MEDS: levothyroxine 150 mcg Tablet PO (05:26)
[2024-06-19 05:36] VITALS: RESP 16
[2024-06-19] MEDS: oxyCODONE-APAP 5-325 mg Tablet 1 TAB PO ×2 (05:36→12:04)
[2024-06-19 06:29] LABS: Glucose Point of Care 212 mg/dL (70-110)
[2024-06-19 07:36] VITALS: BP 149/73; PULSE 81; RESP 16; TEMP 36.6; O2SAT 94
[2024-06-19] MEDS: atorvastatin 40 mg Tablet 20 MG PO (08:09)
[2024-06-19] MEDS: FUROsemide 40 mg Tablet PO (08:09)
[2024-06-19] MEDS: glimepiride 2 mg Tablet 8 MG PO (08:10)
[2024-06-19] MEDS: colchicine 0.6 mg Tablet PO (08:10)
[2024-06-19] MEDS: pramipexole 0.25 mg Tablet PO (08:10)
[2024-06-19] MEDS: DOCUSATE SODIUM 100 MG/10 ML UDC PO (08:11)
[2024-06-19] MEDS: levETIRAcetam 1,000 mg/10 mL UDC 750 MG PO (08:11)
[2024-06-19] MEDS: nitrofurantoin SR (BID) 100 mg Capsule PO (10:26)
[2024-06-19 11:30] VITALS: BP 152/103; PULSE 76; RESP 16; TEMP 36.5; O2SAT 93
[2024-06-19 11:51] LABS: Glucose Point of Care 180 mg/dL (70-110)
[2024-06-19 12:04] VITALS: RESP 18
--- NOTE | 2024-06-19 12:13 | P.DS_ITS ---
Discharge Providers Date of Admission: 06/16/24 09:16 Date of Discharge: June 19, 2024 Attending Provider at Admission: Jeet Duggan DO Attending Provider at Discharge: Jeet Duggan DO Primary Care Provider: Demetria Busch MD Diagnoses at Discharge Discharge Diagnosis (1) Dysphagia: Status: Acute Reason for Visit Reason for Visit: M48.02 Physical Exam Narrative: Patient swallowing has improved she is sitting up in chair comfortable no complaints wants to go home. Urinary Catheter Management: Grey: Cath Placed During This Visit: yes, but has since been removed by the nurse Reason for Continuing Indwelling Catheter: Perioperative Use in Selected Surgeries Urinary Catheter Date of Insertion: 06/16/24 Urinary Catheter Time of Insertion: 07:15 Date Urinary Catheter Removed: 06/17/24 Time Urinary Catheter Discontinued: 06:24 Discharge Data Studies Completed and Pending Completed Studies During Hospitalization Category Date Time Status XR cervical spine 3V* [id number] Routine Exams 06/16/24 00:00 Completed Pending at discharge Category Date Time Status Urine Culture Routine Lab 06/18/24 16:10 Received Radiology Impressions Cervical Spine X-Ray 06/16/24 00:00 Impression: Anterior cervical disc fusion. Laboratory Results WBC 6.35 10^3/uL (3.29-11.43) 06/18/24 14:07 RBC 4.36 10^6/uL (3.85-5.65) 06/18/24 14:07 Hgb 13.50 g/dL (11.27-16.99) 06/18/24 14:07 Hct 41.4 % (36-47) 06/18/24 14:07 MCV 95.0 fl (85-98) 06/18/24 14:07 MCH 31.0 pg (27-33) 06/18/24 14:07 MCHC 32.6 g/dL (30-55) 06/18/24 14:07 RDW 11.9 % (12.1-15.1) L 06/18/24 14:07 Plt Count 179 10^3/cmm (157-399) 06/18/24 14:07 MPV 9.2 fL (7.4-10.4) 06/18/24 14:07 Neut % (Auto) 65.5 % 06/18/24 14:07 Lymph % (Auto) 24.3 % 06/18/24 14:07 [place] % (Auto) 7.4 % 06/18/24 14:07 Eos % (Auto) 2.0 % 06/18/24 14:07 Baso % (Auto) 0.3 % 06/18/24 14:07 Neut # (Auto) 4.16 10^3/uL (1.8-7.7) 06/18/24 14:07 Lymph # (Auto) 1.5 10^3/uL (0.8-4.8) 06/18/24 14:07 [place] # (Auto) 0.5 10^3/uL (0.2-0.9) 06/18/24 14:07 Eos # (Auto) 0.1 10^3/uL (0.0-0.8) 06/18/24 14:07 Baso # (Auto) 0.0 10^3/uL (0.0-0.1) 06/18/24 14:07 Nucleated RBC % (auto) 0 % 06/18/24 14:07 Nucleated RBCs # 0.0 /100WBC 06/18/24 14:07 Sodium 137 mmol/L (136-145) 06/18/24 14:07 Potassium 4.1 mmol/L (3.5-5.1) 06/18/24 14:07 Chloride 99 mmol/L (98-107) 06/18/24 14:07 Carbon Dioxide 28 mmol/L (22-29) 06/18/24 14:07 Anion Gap 14.1 (5-19) 06/18/24 14:07 BUN 25 mg/dL (8-23) H 06/18/24 14:07 Creatinine 1.1 mg/dL (0.5-0.9) H 06/18/24 14:07 GFR Calculation Not Reportable 06/18/24 14:07 Glucose 131 mg/dL (65-115) H 06/18/24 14:07 POC Glucose 180 mg/dL (70-110) H 06/19/24 11:30 Calculated Osmolality 290 mOsm/kg (285-295) 06/18/24 14:07 Calcium 8.6 mg/dL (8.5-10.5) 06/18/24 14:07 Total Bilirubin 0.8 mg/dL (0.15-1.2) 06/18/24 14:07 AST 14 U/L (0-32) 06/18/24 14:07 ALT 15 U/L (0-33) 06/18/24 14:07 Alkaline Phosphatase 75 U/L (35-105) 06/18/24 14:07 Total Protein 6.7 g/dL (6.6-8.7) 06/18/24 14:07 Albumin 3.3 g/dL (3.5-5.2) L 06/18/24 14:07 Globulin 3.4 g/dL (1.3-4.6) 06/18/24 14:07 Free T4 1.82 ng/dL (0.82-1.77) H 06/18/24 14:07 Free T3 2.1 PG/ML (2.0-4.4) 06/18/24 14:07 Urine Color Yellow (Yellow) 06/18/24 16:10 Urine Appearance Clear (CLEAR) 06/18/24 16:10 Urine pH 6.5 (5-7) 06/18/24 16:10 Ur Specific [place] 1.008 (1.005-1.030) 06/18/24 16:10 Urine Protein Negative (Negative) 06/18/24 16:10 Urine Glucose (UA) 2+ (Normal) H 06/18/24 16:10 Urine Ketones Negative (Negative) 06/18/24 16:10 Urine Blood Trace (Negative) A 06/18/24 16:10 Urine Nitrate Negative (Negative) 06/18/24 16:10 Urine Bilirubin Negative (Negative) 06/18/24 16:10 Urine Urobilinogen 0.2 mg/dL (Negative) 06/18/24 16:10 Ur Leukocyte Esterase 1+ (Negative) A 06/18/24 16:10 Urine RBC 0-2 /hpf (0-2) 06/18/24 16:10 Urine WBC 21-50 /hpf (0-5) H 06/18/24 16:10 Ur Squamous Epith Cells 0-5 /hpf (0-5) 06/18/24 16:10 Amorphous Sediment Not Reportable 06/18/24 16:10 Urine Bacteria None seen /hpf (NONE) 06/18/24 16:10 Hyaline Casts 0-4 /lpf H 06/18/24 16:10 Vitals Last Vital Signs Temp 97.7 F 06/19/24 11:30 Pulse 76 06/19/24 11:30 Resp 18 06/19/24 12:04 BP 152/103 06/19/24 11:30 Pulse Ox 93 06/19/24 11:30 O2 Del Method Room Air 06/19/24 11:30 O2 Flow Rate 2 06/17/24 04:00 Discharge Plan Discharge Patient Disposition: Home Health Service Condition: Stable Prescriptions: New oxycodone 5 mg tablet 5 mg PO Q4H PRN (Reason: pain) 7 Days Qty: 42 0RF Continued aspirin 81 mg tablet,chewable 81 mg PO DAILY acetaminophen [Tylenol Extra Strength] 500 mg tablet 500 mg PO QID PRN (Reason: Pain) PreserVision AREDS-2 250-90-40-1 mg capsule 1 tab PO BID Mounjaro 10 mg/0.5 mL pen injector 10 mg SUBCUT Q7D Qty: 2 1RF Rx Instructions: inject 10mg weekly empagliflozin 25 mg tablet 25 mg PO QAM Qty: 90 0RF furosemide [Lasix] 40 mg tablet 40 mg PO DAILY Qty: 90 0RF simvastatin 20 mg tablet 20 mg PO DAILY Qty: 90 0RF tramadol 50 mg tablet 50 mg PO Q6H PRN (Reason: Pain) Qty: 15 0RF meclizine 25 mg tablet 25 mg PO TID PRN (Reason: Dizziness) glimepiride 4 mg tablet 8 mg PO BID levothyroxine 150 mcg tablet 150 mcg PO QAM levetiracetam 750 mg tablet 750 mg PO BID colchicine 0.6 mg tablet 0.6 mg PO DAILY methocarbamol 750 mg tablet 750 mg PO Q6H PRN (Reason: spasms) Qty: 20 0RF pramipexole 0.25 mg tablet 0.25 mg PO TID Rx Instructions: Take 1 tablet by mouth in the morning and 2 tablets in the evening. Discharge Orders: Discharge Order (Routine); Ordered 06/19/24 Ordered By: Jeet Duggan Referrals: [facility] [Outside] Discharge Diet: Advance as tolerated Discharge Activity: Limit activity as instructed Patient Instructions: Acute Wound Care (DC), Opioid Safety, Post Anesthesia Care Activity Restrictions/Additional Instructions: Please make appointment for this , 06/24/2024 Thank you for choosing [facility] for your care! The following is a list of instructions, from your provider, to follow upon your discharge to ensure you have the optimal recovery from your recent injury or surgery. Anterior Cervical Discectomy and Fusion: What to Expect at Home Your Recovery Follow-up care is a maravilla part of your treatment and safety. Be sure to make and go to all appointments, and call your doctor if you are having problems. If you do not already have a follow-up appointment made, call office in the next 1-3 days to make follow up appointment for 1 weeks at [phone]. It is also a good idea to know your test results and keep a list of the medicines you take. You can expect your neck to feel stiff or sore after surgery. This should improve in the weeks after surgery. But it may take 4 to 6 months for you to get better completely. You may have trouble sitting or standing in one position for very long and may need pain medicine in the weeks after your surgery. It may take 4 to 6 weeks to get back to your usual activities, but it may depend on what kind of surgery you had. Your throat will feel sore and it may be difficult to swallow for the first 3 days after your surgery. As long as you can get liquids down without difficulty, this should slowly improve, otherwise call our office or seek medical attention if it becomes increasingly difficult to get anything down including liquids. Avoid hot liquids for first 3-5 days. Soothing foods/liquids such as jello, pudding, and luke warm soups are recommend ed until swallowing improves. Staying elevated will also help, it's advised you keep propped up at while sleeping to help reduce the swelling. You may use an ice pack directly on your incision or around it on the front of your neck, using a cloth to protect your skin; and a heating pad to the back of your neck as needed. Do not use over the counter anti-inflammatory medications (Ibuprofen, Motrin, Aleve, Advil, etc) Taking these meds after having a fusion can delay fusion rates, we recommend you avoid them for the first 3 months after your surgery[address] Dr. Duggan may advise you to work with a physical therapist to strengthen the muscles around your neck and back - this will be discussed at your follow - up appointments. The pain or numbness you were having in your arms before surgery should get better or go away completely. This care sheet gives you a general idea about how long it will take for you to recover. But each person recovers at a different pace. Follow the steps below to get better as quickly as possible. How can you care for yourself at home? Activity ? Rest when you feel tired. Getting enough sleep will help you recover. ? Try to walk each day. Start by walking a little more than you did the day before. Bit by bit, increase the amount you walk. Walking boosts blood flow and helps prevent pneumonia and constipation. Walking may also decrease your muscle soreness after surgery. ? No lifting anything that is more that 5 pounds. This may include heavy grocery bags and milk containers, a heavy briefcase or backpack, cat litter or dog food bags, a child, or a vacuum water filter cleaner. ? Avoid strenuous activities, such as bicycle riding, jogging, weightlifting, or aerobic exercise, until your doctor says it is okay. ? Do not drive until your follow-up visit after your surgery, or until your doctor says it isokay. ? Avoid taking long car trips for 2 to 4 weeks after surgery. Your neck may become tired and painful from sitting too long in one position. ? You will probably need to take 4 to 6 weeks off from work. It depends on the type of work you do and how you feel. ? You may have sex as soon as you feel able, but avoid positions that put stress on your neck or cause pain. Diet ? You can eat your normal diet. If your stomach is upset, try bland, low-fat foods like plain rice, broiled chicken, toast, and yogurt ? Drink plenty of fluids. If you have kidney, heart, or liver disease and have to limit fluids, talk with your doctor before you increase the amount of fluids you drink. ? You may notice that your bowel movements are not regular right after your surgery. This is common. Try to avoid constipation and straining with bowel movements. You may want to take a fiber supplement every day. If you have not had a bowel movement after a couple of days, ask your doctor about taking a mild laxative. Medicines ? Take pain medicines exactly as directed. 1. If Dr. Duggan gave you a prescription medicine for pain, take lt as prescribed. 2. Do not take two or more pain medicines at the same time unless the doctor told you to. Many pain medicines have acetaminophen, which is Tylenol. Too much acetaminophen {Tylenol) can be harmful. 3. If you think your pain pill is making you sick to your stomach: 4. Take your pills after meals (unless your doctor has told you not to). 5. Ask your Dr. for a different pain pill. Incisioncare ? Remove your dressing 48hours after your surgery. Ok to shower and get the incision wet. Do not overtly wash your incision. When done, pad dry, leave open to air thereafter. Avoid creams and ointments directly on your incision. ? Your sutures in the incision will dissolve and fall out on their own. ? Keep the area clean and dry. You may cover it with a gauze bandage if it weeps or rubs against clothing; if you choose to do this, change the dressing everyday. Other instructions ? Use a heating pad, hot water bottle, or gentle massage on your back to reduce stiffness. Avoid putting heat on your incision When should you call for help? ? Call 911 anytime you think you may need emergency care. For example, call if: ? You pass out (lose consciousness). ? You have sudden chest pain and shortness of breath, or you cough upblood. ? You cannot swallow. ? You have severe pain in your neck or back. ? Call your Dr. or seek immediate medical care if: ? You have pain that does not get better after you take pain pills. ? You have loose stitches, or your incision comes open. ? You have blood or fluid draining from the incision. ? You have signs of infection, such as: 1. Increased pain, swelling, warmth, or redness. 2. Red streaks leading from the site. 3. Pus draining from the site. 4. Swollen lymph nodes in your neck or armpits. 5. A fever. ? You have severe pain in your arms. ? You have new or increased weakness or numbness in your arms. ? Watch closely for any changes in your health, and be sure to contact your doctor if: ? You do not have a bowel movement after taking a laxative. Discharge Attestations Time Spent in Discharge Care*: less than 30 min Quality Metrics Clinical Quality Measures [ No reported AMI, CVA or VTE this stay] Coding Level of Care Code Acute Code for Chg Fwd Diagnoses Dysphagia R13.10
--- NOTE | 2024-06-19 13:33 | P.PN_ITS ---
Subjective 2 Subjective: Patient tells me that she is going home today, she does not want to take steroids, no globus sensation, no dysphagia, no dyne aphasia, no hemoptysis, no bloody vomit, discussed continuing cool liquids to help with inflammation, discussed that she does have a UTI, recommend antibiotics, she does not want to take insulin at home, she continue home for diabetic medications but her A1c was 10.5 discussed morbidity and mortality associate with hyperglycemia diabetic ketoacidosis, I was later told by nursing staff Patient does not want to take antibiotics for UTI Vitals/I&O/Wt Last Vital Signs Temp 97.7 F 06/19/24 11:30 Pulse 76 06/19/24 11:30 Resp 18 06/19/24 12:04 BP 152/103 06/19/24 11:30 Pulse Ox 93 06/19/24 11:30 O2 Del Method Room Air 06/19/24 11:30 O2 Flow Rate 2 06/17/24 04:00 06/18/24 06/19/24 06/19/24 22:59 06:59 14:59 Intake Total 240 / 240 Output Total 2025 / 2475 700 / 3175 600 / 600 Balance -2025 / -2355 -700 / -3055 -360 / -360 Weight last 48 hrs Weight 104.689 kg Weight 104.865 kg Physical Exam 2 Const: COMMON NORMALS: no acute distress ORIENTATION/CONSCIOUSNESS: Yes awake, Yes oriented to person and Yes oriented to place HENMT: OTHER: Cervical collar in place Resp: COMMON NORMALS: normal respiratory effort, No retractions, No use of accessory muscles and clear to auscultation bilaterally AUSCULTATION: clear to auscultation bilaterally Cardio: COMMON NORMALS: regular rate, regular rhythm, S1 normal heart sound present and S2 normal heart sound present RATE: regular rate RHYTHM: r egular rhythm HEART SOUNDS: S1 normal heart sound present and S2 normal heart sound present GI: COMMON NORMALS: Normal to inspection, nondistended, normoactive bowel sounds present and non-tender Extremity: COMMON NORMALS: no pedal edema Neuro: SENSORIUM/ORIENTATION: Yes oriented to person and Yes oriented to place Urinary Catheter Management: Grey: Cath Placed During This Visit: yes, but has since been removed by the nurse Reason for Continuing Indwelling Catheter: Perioperative Use in Selected Surgeries Urinary Catheter Date of Insertion: 06/16/24 Urinary Catheter Time of Insertion: 07:15 Date Urinary Catheter Removed: 06/17/24 Time Urinary Catheter Discontinued: 06:24 Data 06/18/24 14:07 06/18/24 14:07 Micro: Microbiology 06/18/24 16:10 Urine Culture - Preliminary Urine,Clean Catch A&P Assessment and plan (1) Dysphagia: - Patient declines antibiotics for UTI -Patient declined steroids -A1c is 10.5, declines insulin, understands morbidity and mortality -Will be discharged home PDMP PDMP Reviewed: Not Reviewed Attestations 2 Medical Necessity Statement*: Patient will be discharged today and Moderate MDM includes number and complexity of problems actively addressed during encounter, amount and/or complexity of data reviewed/ordered and described risk of complication, morbidity or mortality of management as documented Diagnoses Dysphagia R13.10
== END 2024-06-19 13:40 | disposition home health service (06) ==
LOC: MEDSURG 13:25
PROVIDERS: Family Medicine; Admitting Provider Orthopaedic Surgery; PCP Family Medicine; Visit Provider Orthopaedic Surgery
PROC: 0RB30ZZ Excision of Cervical Vertebral Disc, Open Approach (ICD-10-PCS; CPT 22551; principal; 2024-06-16 07:00)
DX: R13.10 Dysphagia, unspecified (principal); M48.02 Spinal stenosis, cervical region; M54.12 Radiculopathy, cervical region; G99.2 Myelopathy in diseases classified elsewhere; N39.0 Urinary tract infection, site not specified; Z91.148 Patient's other noncompliance with medication regimen for other reason; E03.9 Hypothyroidism, unspecified; I10 Essential (primary) hypertension; E11.40 Type 2 diabetes mellitus with diabetic neuropathy, unspecified; Z87.891 Personal history of nicotine dependence; Z86.73 Personal history of transient ischemic attack (TIA), and cerebral infarction without residual deficits
CPT/HCPCS: 22551; 22552; 22853 ×2; 20930; 22845; 36415; 36416; 51702; 51798; 72040; 76000; 80053; 81001; 82962; 84439; 84481; 85025; 87086; 92610; 96372; 97110; 97116; 97161; 97530; C1713 ×2; C1763; C9359; G0378; J0131; J0330; J1100; J1171; J1815; J1885; J2250; J2405; J2704; J3010; J3490; J7030; J7120

== ENCOUNTER → 2024-06-24 13:37 | Outpatient (BNVA) | payer MEDICARE, SELFPAY | PROVIDERS: PCP Family Medicine; Visit Provider Orthopaedic Surgery | DX: Z98.1 Arthrodesis status (principal) | CPT/HCPCS: 99024 ==

== ENCOUNTER → 2024-07-13 13:33 | Outpatient (BNVA) | payer MEDICARE, SELFPAY | PROVIDERS: PCP Family Medicine; Visit Provider Orthopaedic Surgery | DX: Z98.1 Arthrodesis status (principal) | CPT/HCPCS: 99024 ==

== ENCOUNTER → 2024-08-04 07:48 | Outpatient (BNVA) | payer MEDICARE, SELFPAY | PROVIDERS: PCP Family Medicine; Visit Provider Podiatrist Foot & Ankle Surgery | DX: M79.671 Pain in right foot (principal); M79.672 Pain in left foot; L60.3 Nail dystrophy; E11.21 Type 2 diabetes mellitus with diabetic nephropathy; M21.371 Foot drop, right foot; M20.22 Hallux rigidus, left foot | CPT/HCPCS: 73630; 99213 ==

== ENCOUNTER → 2024-08-12 10:44 | Outpatient (BNVA) | payer MEDICARE, SELFPAY | PROVIDERS: PCP Family Medicine; Visit Provider Orthopaedic Surgery | DX: M54.2 Cervicalgia (principal) | CPT/HCPCS: 72040; 99024 ==

== ENCOUNTER 2024-08-19 13:33 | Outpatient (CLI) | payer MEDICARE, SELFPAY ==
--- NOTE | 2024-08-19 13:40 | US_ITS ---
WS: [id number] BILATERAL 3D TOMOSYNTHESIS DIGITAL DIAGNOSTIC MAMMOGRAPHY WITH CAD CLINICAL INFORMATION: bilateral breast pain HISTORY: Bilateral breast pain COMPARISON: 2022 TECHNIQUE: Bilateral CC, MLO, and ML views. FINDINGS: Scattered fibroglandular densities bilaterally. Incidental punctate and lucent centered calcifications. Vascular calcification. ULTRASOUND BREAST BILATERAL TECHNIQUE: Ultrasound bilateral breast focused area of concern. CLINICAL INFORMATION: bilateral breast pain FINDINGS: Ultrasound RIGHT breast area of concern at 3 o'clock position. Normal underlying parenchymal tissue. Ultrasound LEFT breast 8 to 9 o'clock position is normal. No suspicious findings in this area. US/US breast BI limited* [id number] IMPRESSION: DENSITY: BI-RADS: 2 - Benign FOLLOW UP: 1 Year Follow-up Recommend return to annual screening mammography.
--- NOTE | 2024-08-19 14:00 | MM_ITS ---
WS: [id number] BILATERAL 3D TOMOSYNTHESIS DIGITAL DIAGNOSTIC MAMMOGRAPHY WITH CAD CLINICAL INFORMATION: bilateral breast pain HISTORY: Bilateral breast pain COMPARISON: 2022 TECHNIQUE: Bilateral CC, MLO, and ML views. FINDINGS: Scattered fibroglandular densities bilaterally. Incidental punctate and lucent centered calcifications. Vascular calcification. Bilateral pain markers. Ultrasound is pending. ULTRASOUND BREAST BILATERAL TECHNIQUE: Ultrasound bilateral breast focused area of concern. CLINICAL INFORMATION: bilateral breast pain FINDINGS: Ultrasound RIGHT breast area of concern at 3 o'clock position. Normal underlying parenchymal tissue. Ultrasound LEFT breast 8 to 9 o'clock position is normal. No suspicious findings in this area. MM/MM diag BI tomosynthesis [id number] IMPRESSION: DENSITY: There are scattered areas of fibroglandular density. BI-RADS: 2 - Benign. FOLLOW UP: 1 Year Follow-up Recommend return to annual screening mammography.
== END 2024-08-19 13:34 | disposition home or self-care (01) ==
PROVIDERS: PCP Family Medicine; Visit Provider Family Medicine
DX: N64.4 Mastodynia (principal); R92.323 Mammographic fibroglandular density, bilateral breasts; R92.1 Mammographic calcification found on diagnostic imaging of breast
CPT/HCPCS: 76642; 77062; G0279

== ENCOUNTER 2024-08-31 13:51 | Outpatient (CLI) | payer MEDICARE, SELFPAY ==
--- NOTE | 2024-08-31 14:45 | CT_ITS ---
WS: [id number] CT chest wo con [id number] HISTORY: f/u pulmonary nodules, interval change on 03/04 CT TECHNIQUE: Axial imaging performed through the thorax. Coronal and sagittal reformats are submitted. All CT scans at [facility] use at least one of these dose optimization techniques: automated exposure control; mA and/or kV adjustment per patient size (includes targeted exams where dose is matched to clinical indication); or iterative reconstruction. CONTRAST: None DLP: 530.27 mGy.cm COMPARISON: 02/13/2024, 11/06/2023 and 10/18/2022 Lungs and central airway: Lung volumes are decreased due to poor inspiration. Reidentified is some very tiny, micronodules, scattered throughout the lungs. Some of these are perifissural nodules which are typically benign. Additional few scattered granulomata. Largest nodules measure just under 3 mm and need no additional follow-up. There is a tiny area of focal groundglass attenuation in the the LEFT upper lobe with an associated perifissural nodule. Some of the nodules that have been previously described are not evident today due to volume averaging and their small size. Pleura: Normal. No pleural effusion. Heart and pericardium: Normal size heart with no pericardial effusion. Mediastinum and janey: Hilar regions are difficult to evaluate without IV contrast. Adenopathy would be difficult to exclude. Vessels: Mild atherosclerosis aorta. No aneurysm. Normal size pulmonary artery. Chest wall and lower neck: No soft tissue masses. Upper abdomen: Hepatic steatosis. Prior cholecystectomy. Heavy calcification in the splenic artery. 1.5 cm RIGHT adrenal adenoma. Osseous structures: Advanced degenerative scoliosis in the thoracic spine. Dorsal column stimulators noted in the mid thoracic spine. CT/CT chest wo con [id number] IMPRESSION: 1. Very tiny scattered micronodules and granulomata. None of these nodules are increasing in size. Some previously described nodules are not identified today which may be due to slice selection due to their very small size. No additiona l imaging follow-up necessary. If patient fits criteria for lung screening CT t his would be most beneficial as there is a prior history of smoking. 2. Mild atherosclerosis aorta. 3. RIGHT adrenal adenoma. 4. Prior cholecystectomy.
== END 2024-08-31 13:52 | disposition home or self-care (01) ==
LOC: RAD 13:52
PROVIDERS: PCP Family Medicine; Visit Provider Family Medicine
DX: R91.8 Other nonspecific abnormal finding of lung field (principal); I70.0 Atherosclerosis of aorta; D35.01 Benign neoplasm of right adrenal gland; Z90.49 Acquired absence of other specified parts of digestive tract; J84.10 Pulmonary fibrosis, unspecified; K76.0 Fatty (change of) liver, not elsewhere classified; I70.8 Atherosclerosis of other arteries; M41.84 Other forms of scoliosis, thoracic region; Z96.89 Presence of other specified functional implants
CPT/HCPCS: 71250

== ENCOUNTER 2024-09-13 16:10 | Emergency (ER) | payer MEDICARE, SELFPAY ==
[2024-09-13 16:51] VITALS: BP 145/77; PULSE 89; TEMP 36.4; O2SAT 99; BMI 43.8
[2024-09-13 18:29] VITALS: BP 103/62; PULSE 89; RESP 21; O2SAT 98
[2024-09-13] MEDS: ketorolac 30 mg/mL INJ IVP (18:34)
[2024-09-13] MEDS: ondansetron 2 mg/ML SDV 2 mL 4 MG IVP (18:37)
[2024-09-13] MEDS: orphenadrine 30 mg/mL Inj 2 mL 60 MG IM (18:39)
[2024-09-13 19:39] VITALS: RESP 18
[2024-09-13] MEDS: morphine 4 mg/mL SDV 1 mL IVP (19:39)
--- NOTE | 2024-09-13 19:43 | W.ED.BACK ---
HPI - Back Pain/Injury General: Chief Complaint: Back Pain/Injury Stated Complaint: dr ross, back pain Time Seen by Provider: 09/13/24 18:17 History of Present Illness: 78-year-old female with history of chronic back pain presents to the emergency room with back pain that began last night. Over the weekend she staying at [facility] and stood unassisted what for her was an extended period of time. No trauma. She has chronic back pain with pain rating to her legs the pain rating to her legs is unchanged she denies difficulty with bowel or bladder control. She does typically use a walker. She has had's previous surgery on her cervical thoracic and lumbar spines. Associated symptoms: Deny abdominal pain, chills, dysuria, fever(s) or urinary urgency Related Data Home Medications ?Medication ?Instructions ?Recorded ?Confirmed aspirin 81 mg chewable tablet 81 mg PO DAILY 08/23/22 09/13/24 vit C 250 mg-vit E 90 mg-zinc 40 1 tab PO BID 11/19/22 09/13/24 mg-copper 1 [id number] capsule (PreserVision AREDS-2) meclizine 25 mg tablet 25 mg PO TID PRN Dizziness 06/09/24 09/13/24 Previous Rx's ?Medication ?Instructions ?Recorded empagliflozin 25 mg tablet 25 mg PO QAM #90 tabs 04/28/24 tramadol 50 mg tablet 50 mg PO Q6H PRN Pain #15 tabs 06/06/24 methocarbamol 750 mg tablet 750 mg PO Q6H PRN spasms #20 tabs 06/09/24 pramipexole 0.25 mg tablet See Rx Instructions .Route 06/22/24 .COMPLEX #270 tabs Bone Growth Stimulator #1 ea 07/01/24 blood-glucose sensor (FreeStyle #1 ea 07/07/24 Katarina 3 Plus Sensor device) levetiracetam 750 mg tablet See Rx Instructions .Route 07/08/24 .COMPLEX #180 tabs levothyroxine 150 mcg tablet See Rx Instructions .Route 08/05/24 .COMPLEX #30 tabs tirzepatide 10 mg/0.5 mL 10 mg (0.5 mL) SUBCUT Q7D #2 mL 08/05/24 subcutaneous pen injector (Diana) furosemide 40 mg tablet (Lasix) 40 mg PO DAILY PRN edema #90 tabs 08/09/24 nystatin-triamcinolone 100,000 1 applic topical BID #60 grams 08/09/24 unit/g-0.1 % topical cream simvastatin 20 mg tablet See Rx Instructions .Route 08/09/24 .COMPLEX #90 tabs colchicine 0.6 mg tablet See Rx Instructions .Route 08/26/24 .COMPLEX #30 tabs glimepiride 4 mg tablet 8 mg (2 x 4 mg) PO BID 30 days 08/26/24 #120 tabs methocarbamol 750 mg tablet 750 mg PO Q6H #20 tabs 09/13/24 methylprednisolone 4 mg tablets in See Rx Instructions PO .COMPLEX 09/13/24 a dose pack (Medrol (Eder)) #21 ea tramadol 50 mg tablet 50 mg PO Q8H PRN pain #15 tabs 09/13/24 Allergies Allergy/AdvReac Type Severity Reaction Status Date / Time azithromycin Allergy ALGY-Difficulty Verified 09/13/24 16:57 Breathing carbamazepine (From Tegretol) Allergy Unknown Verified 09/13/24 16:57 cephalexin Allergy Unknown Verified 09/13/24 16:57 ciprofloxacin Allergy ALGY-Rash Verified 09/13/24 16:57 cyclobenzaprine (From Allergy Unknown Verified 09/13/24 16:57 Flexeril) fentanyl Allergy doesn't Verified 09/13/24 16:57 want to take fluconazole Allergy Unknown Verified 09/13/24 16:57 gabapentin Allergy Unknown Verified 09/13/24 16:57 hydrocodone (From Waldo) Allergy Unknown Verified 09/13/24 16:57 hydroxychloroquine Allergy Unknown Verified 09/13/24 16:57 hyoscyamine Allergy Unknown Verified 09/13/24 16:57 naproxen (From Naprosyn) Allergy Unknown Verified 09/13/24 16:57 oxybutynin (From Ditropan) Allergy Unknown Verified 09/13/24 16:57 phenytoin (From Dilantin) Allergy Unknown Verified 09/13/24 16:57 progesterone (From Allergy Unknown Verified 09/13/24 16:57 Prometrium) solifenacin (From Vesicare) Allergy Unknown Verified 09/13/24 16:57 Sulfa (Sulfonamide Allergy Unknown Verified 09/13/24 16:57 Antibiotics) sulfamethoxazole (From Allergy Unknown Verified 09/13/24 16:57 Bactrim) trimethoprim (From Bactrim) Allergy Unknown Verified 09/13/24 16:57 valdecoxib (From Bextra) Allergy Unknown Verified 09/13/24 16:57 Review of Systems Const: Denies: fever(s) or chills Card: Denies: chest pain Resp: Denies: dyspnea GI: Denies: abdominal pain : Denies: dysuria, urinary frequency or urinary urgency Musc: Reports: back pain; Denies: neck pain Skin/Breast: Denies: rash PFSH ED PFSH: Medical History Family history of colon cancer Colon polyps Spinal cord neurostimulator device in situ BMI 40.0-44.9, adult FH: total knee replacement Recurrent UTI CRP elevated Angina at rest Creatinine elevation After cataract, bilateral Carpal tunnel syndrome on both sides Nonfunctional vagus nerve stimulator Multiple lung nodules on CT 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 Father CAD (coronary artery disease) Stroke Mother Chronic kidney disease (CKD) Brother Cancer Brother Stroke Colon cancer Denies family history of Ovarian cancer Diabetes Heart disease Hypercholesteremia Breast cancer Hypertension Uterine cancer Thyroid disease Social History Smoking and tobacco/nicotine status: former use of tobacco/nicotine Quit status (tobacco/nicotine): has quit using Year quit tobacco: 1979 Former quit date comment: 1-2 ppd X 1 year Second hand smoke exposure: No Alcohol intake: never Substance/Drug Use: never Current gender identity: Female Female Reproductive History: Spontaneous abortions: No Physical Exam Const: COMMON NORMALS: no acute distress GENERAL APPEARANCE: cooperative and comfortable ORIENTATION/CONSCIOUSNESS: Yes awake, Yes oriented to person, Yes oriented to place and Yes oriented to time HENMT: COMMON NORMALS: normocephalic, atraumatic and hearing grossly normal bilaterally HEAD & SCALP: normocephalic and atraumatic Resp: COMMON NORMALS: normal respiratory effort, No retractions, No use of accessory muscles and clear to auscultation bilaterally AUSCULTATION: clear to auscultation bilaterally Cardio: COMMON NORMALS: regular rate, regular rhythm and No murmurs present (Cardio) RATE: regular rate RHYTHM: regular rhythm Extremity: COMMON NORMALS: normal to inspection, capillary refill normal, no clubbing, cyanosis or edema, no calf tenderness and no pedal edema Neuro: SENSORIUM/ORIENTATION: Yes oriented to person, Yes oriented to place and Yes oriented to time Skin: COMMON NORMALS: no rashes or lesions noted GENERAL SKIN EXAM: no rashes or lesions noted Course Vital Signs: Vital signs: Vital Signs Temperature 97.5 F L 09/13/24 16:51 Pulse Rate 74 09/13/24 20:16 Respiratory Rate 18 09/13/24 19:39 Blood Pressure 109/60 09/13/24 20:16 Pulse Oximetry 96 09/13/24 20:16 Oxygen Delivery Me thod Room Air 09/13/24 18:29 MDM - Back Pain/Injury Medical Decision Making Improved some with medications given she is reporting better 40 to 50% improvement. Suspect this precipitated by long period of standing she usually only stands and walks with support. She is not having any signs of cauda equina syndrome will discharge patient home on tramadol recommend regular use of methocarbamol for the next few days also gave a prednisone taper Medical Records I reviewed the patient's medical records. No radiology studies performed this visit Discharge Plan Discharge Patient Disposition: Home Clinical Impression: Spinal cord neurostimulator device in situ Strain of lumbar region Qualifiers: Encounter type: initial encounter Qualified Code(s): S39.012A - Strain of muscle, fascia and tendon of lower back, initial encounter Condition: Stable Prescriptions: New tramadol 50 mg tablet 50 mg PO Q8H PRN (Reason: pain) Qty: 15 0RF methocarbamol 750 mg tablet 750 mg PO Q6H Qty: 20 0RF methylprednisolone [Medrol (Eder)] 4 mg tablets,dose pack See Rx Instructions .ROUTE .COMPLEX Qty: 21 0RF Rx Instructions: orally per package directions No Action aspirin 81 mg tablet,chewable 81 mg PO DAILY PreserVision AREDS-2 250-90-40-1 mg capsule 1 tab PO BID furosemide [Lasix] 40 mg tablet 40 mg PO DAILY PRN (Reason: edema) Qty: 90 0RF nystatin-triamcinolone 100,000-0.1 unit/g-% cream 1 applic topical BID Qty: 60 2RF empagliflozin 25 mg tablet 25 mg PO QAM Qty: 90 0RF pramipexole 0.25 mg tablet See Rx Instructions .ROUTE .COMPLEX Qty: 270 0RF Dose Instruction: TAKE 1 TABLET BY MOUTH EVERY MORNING AND TWO EVERY EVENING Rx Instructions: TAKE 1 TABLET BY MOUTH EVERY MORNING AND TWO EVERY EVENING (DME) Bone Growth Stimulator See Rx Instructions .Route .MEDSUPPLY Qty: 1 0RF Rx Instructions: As directed ([facility]) FreeStyle Katarina 3 Plus Sensor Device See Rx Instructions .Route Qty: 1 5RF Rx Instructions: As directed levetiracetam 750 mg tablet See Rx Instructions .ROUTE .COMPLEX Qty: 180 0RF Dose Instruction: TAKE 1 TABLET BY MOUTH TWICE DAILY Rx Instructions: TAKE 1 TABLET BY MOUTH TWICE DAILY levothyroxine 150 mcg tablet See Rx Instructions .ROUTE .COMPLEX Qty: 30 0RF Dose Instruction: TAKE 1 TABLET BY MOUTH EVERY MORNING Rx Instructions: TAKE 1 TABLET BY MOUTH EVERY MORNING Mounjaro 10 mg/0.5 mL pen injector 10 mg SUBCUT Q7D Qty: 2 1RF Rx Instructions: inject 10mg weekly simvastatin 20 mg tablet See Rx Instructions .ROUTE .COMPLEX Qty: 90 0RF Dose Instruction: TAKE 1 TABLET BY MOUTH EVERY DAY Rx Instructions: TAKE 1 TABLET BY MOUTH EVERY DAY colchicine 0.6 mg tablet See Rx Instructions .ROUTE .COMPLEX Qty: 30 0RF Dose Instruction: TAKE 1 TABLET BY MOUTH DAILY Rx Instructions: TAKE 1 TABLET BY MOUTH DAILY glimepiride 4 mg tablet 8 mg PO BID 30 Days Qty: 120 2RF tramadol 50 mg tablet 50 mg PO Q6H PRN (Reason: Pain) Qty: 15 0RF meclizine 25 mg tablet 25 mg PO TID PRN (Reason: Dizziness) methocarbamol 750 mg tablet 750 mg PO Q6H PRN (Reason: spasms) Qty: 20 0RF Discharge Orders: Discharge ED (Routine); Ordered 09/13/24 Ordered By: Leonard Gracia Referrals: Demetria Busch MD [Primary Care Provider, Family Practice] Discharge Diet: Usual diet Discharge Activity: Limit activity as instructed Patient Instructions: Acute Low Back Pain (ED), Opioid Safety, Pain Management Activity Restrictions/Additional Instructions: Thank you for choosing [facility] for your healthcare needs today. It is very important that you follow up as instructed or that you return to the Emergency Department should you have concerns or if your condition changes or worsens in any way. You were seen in the emergency room with complaints of low back pain which had worsened. Continue to use your methocarbamol and tramadol as needed. 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
[2024-09-13 20:16] VITALS: BP 109/60; PULSE 74; O2SAT 96
== END 2024-09-13 20:24 | disposition home or self-care (01) ==
PROVIDERS: Emergency Provider Family Medicine; PCP Family Medicine
DX: S39.012A Strain of muscle, fascia and tendon of lower back, initial encounter (principal); Z96.82 Presence of neurostimulator; Z79.82 Long term (current) use of aspirin; Z87.891 Personal history of nicotine dependence; E11.40 Type 2 diabetes mellitus with diabetic neuropathy, unspecified; I10 Essential (primary) hypertension; X58.XXXA Exposure to other specified factors, initial encounter
CPT/HCPCS: 96372; 96374; 96375; 99284; J1885; J2270; J2360; J2405

== ENCOUNTER → 2024-09-15 08:01 | Outpatient (BNVA) | payer MEDICARE, SELFPAY | PROVIDERS: PCP Family Medicine; Visit Provider Podiatrist Foot & Ankle Surgery | DX: L60.3 Nail dystrophy (principal); E11.21 Type 2 diabetes mellitus with diabetic nephropathy; M21.371 Foot drop, right foot; M20.21 Hallux rigidus, right foot; M20.22 Hallux rigidus, left foot | CPT/HCPCS: 99214 ==

== ENCOUNTER 2024-09-20 12:18 | Outpatient (CLI) | payer MEDICARE, SELFPAY ==
[2024-09-20 13:28] LABS: Estmated Average Glucose 157; Hemoglobin A1C 7.1 % (4.0-6.0)
[2024-09-20 13:32] LABS: Alanine Aminotransferase 21 U/L (0-33); Albumin Level 3.9 g/dL (3.5-5.2); Alkaline Phosphatase 102 U/L (35-105); Anion Gap 18.3 (5-19); Aspartate Amino Transferase 15 U/L (0-32); Blood Urea Nitrogen 19 mg/dL (8-23); Calcium 8.8 mg/dL (8.5-10.5); Carbon Dioxide 25 mmol/L (22-29); Chloride 102 mmol/L (98-107); Chol HDL Ratio 2.12 mg/dL (0.0-4.40); Cholesterol 104 mg/dL (0-200); Globulin 3.4 g/dL (1.3-4.6); Glucose 124 mg/dL (65-115); HDL Cholesterol 49 mg/dL (60-100); LDL Cholesterol Calculated 29 mg/dL (50-129); LDL HDL Ratio 0.59 RATIO (0.00-3.22); Osmolality Calculated 296 mOsm/kg (285-295); Potassium 4.3 mmol/L (3.5-5.1); Sodium 141 mmol/L (136-145); Total Bilirubin 0.9 mg/dL (0.15-1.2); Total Protein 7.3 g/dL (6.6-8.7); Triglycerides 131 mg/dL (0-150)
[2024-09-20 13:58] LABS: Creatinine Urine, Random 67 mg/dL (28-217); Microalbumin Random Urine 32 ug/dL (0-20)
[2024-09-20 13:59] LABS: Microalbum Creatinine Ratio Ur 478 mg/dL (0-20)
== END 2024-09-20 12:19 | disposition home or self-care (01) ==
PROVIDERS: PCP Family Medicine; Visit Provider Internal Medicine
DX: E11.21 Type 2 diabetes mellitus with diabetic nephropathy (principal)
CPT/HCPCS: 36415; 80053; 80061; 82044; 83036

== ENCOUNTER → 2024-09-23 12:44 | Outpatient (BNVA) | payer MEDICARE, SELFPAY | PROVIDERS: PCP Family Medicine; Visit Provider Orthopaedic Surgery | DX: M54.2 Cervicalgia (principal); Z98.1 Arthrodesis status | CPT/HCPCS: 36415; 72040; 80053; 81001; 85025; 99214 ==

== ENCOUNTER → 2024-09-30 08:55 | Outpatient (BNVA) | payer MEDICARE, SELFPAY | PROVIDERS: PCP Family Medicine; Visit Provider Internal Medicine | DX: E11.21 Type 2 diabetes mellitus with diabetic nephropathy (principal); E03.9 Hypothyroidism, unspecified; E78.2 Mixed hyperlipidemia; D35.01 Benign neoplasm of right adrenal gland | CPT/HCPCS: 99214 ==

== ENCOUNTER → 2024-10-01 09:58 | Outpatient (BNVA) | payer MEDICARE, SELFPAY | PROVIDERS: PCP Family Medicine; Visit Provider Family Medicine | DX: R94.31 Abnormal electrocardiogram [ECG] [EKG] (principal) | CPT/HCPCS: 81003; 93005 ==

== ENCOUNTER 2024-10-05 07:39 | Outpatient (CLI) | payer MEDICARE, SELFPAY ==
[2024-10-05 08:56] LABS: Free T4 Free Thyroxine 1.08 ng/dL (0.82-1.77); Thyroid Stimulating Hormone 20.61 uIU/mL (0.27-4.20)
== END 2024-10-05 07:40 | disposition home or self-care (01) ==
PROVIDERS: PCP Family Medicine; Visit Provider Internal Medicine
DX: E03.9 Hypothyroidism, unspecified (principal); E78.2 Mixed hyperlipidemia; E11.21 Type 2 diabetes mellitus with diabetic nephropathy; D35.01 Benign neoplasm of right adrenal gland
CPT/HCPCS: 82088; 82384; 82530; 84244; 84439; 84443

== ENCOUNTER 2024-10-08 07:44 | Day surgery (SDC) | payer MEDICARE, SELFPAY ==
[2024-10-08] VITALS (26 sets, daily range): BP systolic 113–152; BP diastolic 56–90; PULSE 59–84; RESP 12–20; TEMP 36.1–36.4; O2SAT 90–99; BMI 43.2
[2024-10-08] MEDS: sodium chloride 0.9% 1,000 ML 30 ML IV (08:44)
[2024-10-08 08:46] LABS: Glucose Point of Care 108 mg/dL (70-110)
--- NOTE | 2024-10-08 09:07 | W.PM.OPSUD ---
Surgery/Procedure H&P Update DATE OF PROCEDURE: October 08, 2024 DATE H&P PERFORMED: 09/23/24 H&P UPDATE INFORMATION: I have reviewed H&P completed within last 30 days, I have examined patient prior to procedure and No changes to prior documentation PREOP DIAGNOSIS: Lumbar stenosis with neurogenic claudication PLANNED PROCEDURE: Operation Date: 10/08/24 09:20 Proposed Procedures p Lumbar Spine Decompression Lumbar Decompression(Not Applicable) - Jeet Duggan DO
--- NOTE | 2024-10-08 09:16 | ANES.PREANE2 ---
Pre-Anesthetic Assessment Height/Weight: Height 4 ft 11 in Weight 214 lb Temp Pulse Resp BP Pulse Ox O2 Del Method 97.0 F L 84 16 152/72 99 Room Air 10/08/24 08:29 10/08/24 08:29 10/08/24 08:29 10/08/24 08:29 10/08/24 08:29 10/08/24 08:29 Preop Diagnosis: Lumbar stenosis with neurogenic claudication Operation Date: 10/08/24 09:20 Proposed Procedures p Lumbar Spine Decompression Lumbar Decompression(Not Applicable) - Jeet Duggan, DO Was Beta Saurav taken within 24 hours: N/A Last intake: Intake Last Liquid Date 10/07/24 Last Liquid Time 23:30 Last Solid Date 10/06/24 Last Solid Time 19:00 Social No alcohol and No tobacco Exam alert, oriented x 3, clear to auscultation bilaterally and regular rate & rhythm Airway Submandibular: within normal limits Cervical ROM: within normal limits Mallampati: Class III Dentition: false Anesthetic Plan ASA status: 3 Anesthesia: General Other: No prior issues with anesthesia in the past NPO since yesterday evening History of diabetes, no insulin Denies any cardiac issues History of seizures. Most recent seizure over 18 years ago. On chronic Keppra daily, taken this morning Patient takes tirzepatide injectable. Last taken 10/01/2024 Labs 09/23/2024 reviewed acceptable for procedure Just completed antibiotic for UA results indicating infection Plan for GETA Medications/Allergies Home Medications ?Medication ?Instructions ?Recorded ?Confirmed ?Last Taken ?Type aspirin 81 mg chewable tablet 81 mg PO DAILY 08/23/22 10/08/24 09/30/24 History vit C 250 mg-vit E 90 mg-zinc 40 1 tab PO BID 11/19/22 10/08/24 10/07/24 History mg-copper 1 fo-whfeca-ectlll capsule (PreserVision AREDS-2) empagliflozin 25 mg tablet 25 mg PO QAM #90 tabs 04/28/24 10/08/24 10/04/24 Rx meclizine 25 mg tablet 25 mg PO TID PRN Dizziness 06/09/24 10/08/24 Unknown History Bone Growth Stimulator #1 ea 07/01/24 10/01/24 Unknown Rx tirzepatide 10 mg/0.5 mL 10 mg (0.5 mL) SUBCUT Q7D #2 mL 08/05/24 10/08/24 10/01/24 Rx subcutaneous pen injector (Mounjosero) furosemide 40 mg tablet (Lasix) 40 mg PO DAILY PRN edema #90 tabs 08/09/24 10/08/24 09/30/24 Rx nystatin-triamcinolone 100,000 1 applic topical BID #60 grams 08/09/24 10/08/24 Unknown Rx unit/g-0.1 % topical cream glimepiride 4 mg tablet 8 mg (2 x 4 mg) PO BID 30 days 08/26/24 10/08/24 10/07/24 Rx #120 tabs tramadol 50 mg tablet 50 mg PO Q8H PRN pain #15 tabs 09/13/24 10/08/24 09/30/24 Rx Diabetic shoes with 3 inserts #1 ea 09/15/24 10/01/24 Unknown Rx blood-glucose sensor (FreeStyle #1 ea 09/27/24 10/01/24 Unknown Rx Katarina 3 Plus Sensor device) amoxicillin 500 mg-potassium 1 tab PO BID #14 tabs 10/05/24 10/08/24 10/07/24 Rx clavulanate 125 mg tablet (Augmentin) colchicine 0.6 mg tablet 0.6 mg PO DAILY 10/07/24 10/08/24 10/04/24 History levetiracetam 750 mg tablet 750 mg PO BID 10/07/24 10/08/24 10/08/24 History levothyroxine 150 mcg tablet 150 mcg PO DAILY 10/07/24 10/08/24 10/08/24 History pramipexole 0.25 mg tablet 0.25 mg PO DIRECTED 10/07/24 10/08/24 10/08/24 History simvastatin 20 mg tablet 20 mg PO QPM 10/07/24 10/08/24 10/07/24 History Allergies Allergy/AdvReac Type Severity Reaction Status Date / Time azithromycin Allergy ALGY-Difficulty Verified 10/08/24 08:39 Breathing carbamazepine (From Tegretol) Allergy Unknown Verified 10/08/24 08:39 cephalexin Allergy Unknown Verified 10/08/24 08:39 ciprofloxacin Allergy ALGY-Rash Verified 10/08/24 08:39 cyclobenzaprine (From Allergy Unknown Verified 10/08/24 08:39 Flexeril) fentanyl Allergy doesn't Verified 10/08/24 08:39 want to take fluconazole Allergy Unknown Verified 10/08/24 08:39 gabapentin Allergy Unknown Verified 10/08/24 08:39 hydrocodone (From [place]) Allergy Unknown Verified 10/08/24 08:39 hydroxychloroquine Allergy Unknown Verified 10/08/24 08:39 hyoscyamine Allergy Unknown Verified 10/08/24 08:39 naproxen (From Naprosyn) Allergy Unknown Verified 10/08/24 08:39 oxybutynin (From Ditropan) Allergy Unknown Verified 10/08/24 08:39 phenytoin (From Dilantin) Allergy Unknown Verified 10/08/24 08:39 progesterone (From Allergy Unknown Verified 10/08/24 08:39 Prometrium) solifenacin (From Vesicare) Allergy Unknown Verified 10/08/24 08:39 Sulfa (Sulfonamide Allergy Unknown Verified 10/08/24 08:39 Antibiotics) sulfamethoxazole (From Allergy Unknown Verified 10/08/24 08:39 Bactrim) trimethoprim (From Bactrim) Allergy Unknown Verified 10/08/24 08:39 valdecoxib (From Bextra) Allergy Unknown Verified 10/08/24 08:39 Current Medications Generic Name Dose Route Start Last Admin Trade Name Freq PRN Reason Stop Dose Admin Sodium Chloride 1,000 mls @ 30 mls/hr 10/08/24 08:15 10/08/24 08:44 Sodium Chloride 0.9% IV 10/09/24 08:14 30 mls/hr .Q24H TUTU Administration PFSH Anesthesia Medical History Family history of colon cancer Colon polyps Spinal cord neurostimulator device in situ BMI 40.0-44.9, adult FH: total knee replacement Recurrent UTI CRP elevated Angina at rest Creatinine elevation After cataract, bilateral Carpal tunnel syndrome on both sides Nonfunctional vagus nerve stimulator Multiple lung nodules on CT 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 Father CAD (coronary artery disease) Stroke Mother Chronic kidney disease (CKD) Brother Cancer Brother Stroke Colon cancer Denies family history of Ovarian cancer Diabetes Heart disease Hypercholesteremia Breast cancer Hypertension Uterine cancer Thyroid disease Social History Smoking and tobacco/nicotine status: never used tobacco/nicotine Quit status (tobacco/nicotine): has quit using Year quit tobacco: 1979 Former quit date comment: 1-2 ppd X 1 year Second hand smoke exposure: No Alcohol intake: never Substance/Drug Use: never Current gender identity: Female Female Reproductive History Spontaneous abortions: No
[2024-10-08] MEDS: clindamycin 600 MG/50 ML PREMIX 100 MG IV (09:33)
[2024-10-08] MEDS: lidocaine-epi 1% 20 mL INJ INJECTION (10:18)
--- NOTE | 2024-10-08 10:47 | XR_ITS ---
WS: [id number] Lumbar spine, C-arm fluoroscopy views, 10/08/2024 Clinical Data: OR PICS Comparison: Lumbar spine, 06/10/2024 Findings: Dr. Duggan performed a lumbar decompression. XR/XR lumbar spine 2-3V* [id number] Impression: Lumbar decompression.
--- NOTE | 2024-10-08 10:48 | PM.OP ---
Operative Report Date of procedure: October 08, 2024 Pre-op diagnosis: Lumbar stenosis neurogenic claudication Post-op diagnosis: same Procedure done: L3-4 laminectomy with partial facetectomy Surgeon: Jeet Duggan DO Estimated blood loss (mL): 5 Procedure: L3-4 laminectomy with partial facetectomy Patient is brought to the operative suite. After undergoing anesthesia they are placed in the prone position. All areas of impingement are well padded. Patient is then prepped and draped in the normal sterile fashion. A skin incision is made over the L3/4 level. This is confirmed under c-arm guidance. A series of dilators are passed and the tubular retractor is docked on the L3 lamina. A bovie is used to clear the soft tissue off the lamina and the L 3/4 facet joint. A high speed tamera is then used to perform the laminectomy and take down the medial aspect of the L 3/4 facet joint. A kerrison rongeure was then used to take down the remaining lamina and smooth the edge of the laminectomy up to the point where the ligamentum flavum attaches. Attention was then brought to the medial aspect of the facet joint. The remaining medial aspect of the superior and inferior aspect of the facet joint were taken down with the kerrison from the pedicle of L3 to L 4. The facet joint had significant hypertrophy. Attention was then brought to the Ligamentum Flavum. The ligament was taken down from the lamina of L3 to L4 and out medially to the remaining facet joint. The ligament was thick. The dura was then exposed. The dura was in good repair. The L3 nerve was then traced with a curette out the L3/4 foramen and found to be adequately decompressed. The L4 nerve was traced with a curette around the L4 pedicle. The lateral recess was opened with a kerrison helping to further decompress the L4 nerve. Wound is then irrigated copiously with saline and surgiflo is used to stop any bleeding. The tubular retractor is removed and the wound is closed with vicryl and monocryl suture. Glue is then used to protect the wound. A sterile dressing is then placed. Patient was then placed in the supine position and transferred to the PACU in stable condition.
[2024-10-08] MEDS: ondansetron 2 mg/ML SDV 2 mL 4 MG IVP ×2 (11:00→11:10)
[2024-10-08] MEDS: morphine 4 mg/mL SDV 1 mL 2 MG IVP (11:02)
--- NOTE | 2024-10-08 11:03 | PC.NURSE ---
pt c/o nausea and pain, prn pacu order initiated for zofran and morphine
--- NOTE | 2024-10-08 11:11 | PC.NURSE ---
pt still c/o nausea. second dose of zofran given.
[2024-10-08] MEDS: HYDROmorphone 1 mg/mL INJ 1ml 0.5 MG IVP (11:20)
--- NOTE | 2024-10-08 11:21 | PC.NURSE ---
pt c/o of pain increasing and morphine did not help. Dilaudid given per pacu orders.
--- NOTE | 2024-10-08 11:39 | PC.NURSE ---
Patient states there is no one to stay with her after surgery. She has a ride home but no family to stay. Post op nurse Jaclyn is making surgeon aware.
--- NOTE | 2024-10-08 12:01 | PC.NURSE ---
this RN spoke to gaby who was the ride home, she is unable to take care of her. Olga Lidia notified and will admit pt.
--- NOTE | 2024-10-08 12:15 | ANE.PACU2 ---
Inpatient post-anesthesia follow up: Airway intact: Yes Vital signs: Temperature 97.4 F Pulse Rate 72 Respiratory Rate 18 Blood Pressure 137/63 Pulse Oximetry 99 Oxygen Delivery Me thod Nasal Cannula Oxygen Flow Rate 1 Fraction of Inspir ed Oxygen Hydration adequate: Yes Nausea and vomiting: No Pain level: 1 Mental status: Baseline
--- NOTE | 2024-10-08 13:32 | PC.NURSE ---
RN asked pt if she had someone to go home with her in pre-op as pt drove herself to hospital. Pt confirmed that a friend would be coming to hospital to be with her if she did not get admitted since she was admitted after a previous surgery. RN informed pt that post op plan was for pt to go home today. RN was told by pts friend that pt did not have someone to go home with her. Pt reported not having anyone else that would be able to stay with her after surgery. Surgeon informed. Pt transferred to extended care.
[2024-10-08] MEDS: oxyCODONE 5 mg IR Tab/Cap PO (14:00)
--- NOTE | 2024-10-08 14:36 | PC.NURSE ---
Report given to [facility] [employer]. Pt was able to get up to bedside commode. Pt AOX4, medicated for pain per emar.
[2024-10-08 18:04] LABS: Glucose Point of Care 250 mg/dL (70-110)
[2024-10-08] MEDS: ketorolac 30 mg/mL INJ IVP (18:22)
== END 2024-10-08 19:10 | disposition home or self-care (01) ==
PROVIDERS: PCP Family Medicine; Visit Provider Orthopaedic Surgery
PROC: (CPT 63005; principal; 2024-10-08 09:10)
DX: M48.062 Spinal stenosis, lumbar region with neurogenic claudication (principal); E11.40 Type 2 diabetes mellitus with diabetic neuropathy, unspecified; Z79.82 Long term (current) use of aspirin; Z86.69 Personal history of other diseases of the nervous system and sense organs; I10 Essential (primary) hypertension; Z87.891 Personal history of nicotine dependence
CPT/HCPCS: 63047; 36416; 72100; 76000; 82962; J0131; J1100; J1171; J1885; J2270; J2405; J2704; J3010; J3490; J7030; J9999

== ENCOUNTER → 2024-10-21 14:21 | Outpatient (BNVA) | payer MEDICARE, SELFPAY | PROVIDERS: PCP Family Medicine; Visit Provider Orthopaedic Surgery | DX: Z98.890 Other specified postprocedural states (principal) | CPT/HCPCS: 99024 ==

== ENCOUNTER → 2024-10-27 07:44 | Outpatient (BNVA) | payer MEDICARE, SELFPAY | PROVIDERS: PCP Family Medicine; Visit Provider Podiatrist Foot & Ankle Surgery | DX: M76.61 Achilles tendinitis, right leg (principal); L60.3 Nail dystrophy; E11.21 Type 2 diabetes mellitus with diabetic nephropathy; M21.371 Foot drop, right foot; M20.21 Hallux rigidus, right foot; M20.22 Hallux rigidus, left foot | CPT/HCPCS: 99214 ==

== ENCOUNTER 2024-11-05 21:25 | Emergency (ER) | payer MEDICARE, SELFPAY ==
--- OUTSIDE RECORDS SUMMARY | 2024-11-05 21:51 | XMS_ITS | Patient Health Record ---
Author Organization [facility] Address [address] [place] [address] Care Team Providers Care Tongue Stitcher Name Role Phone Shakeel Acuna MD Primary Care Provider Heber Cheung Unavailable [phone] Allergies Allergen (clinical drug ingredient) Drug/Non Drug Allergy documented on EMR Reaction Allergy Type Onset Date Status cat (uncoded) shortness of breath Allergy Active colchicine colchicine (uncoded) diarrhea Allergy Active hydroxychloroquine hydroxychloroquine (uncoded) Unknown Allergy Active weeds (uncoded) shortness of breath Allergy Active sulfamethoxazole / trimethoprim Bactrim DS rash Drug Allergy Active cephalexin Cephalexin shortness of breath Drug Allergy Active phenytoin Dilantin shortness of breath Drug Allergy Active Ditropan shortness of breath Drug Allergy Active fluconazole Fluconazole shortness of breath Drug Allergy Active acetaminophen / hydrocodone Hydrocodone-Acetaminop hen shortness of breath Drug Allergy Active Hyoscyamine shortness of breath Drug Allergy 9 Active naproxen Naprosyn shortness of breath Drug Allergy Active naproxen Naproxen shortness of breath Drug Allergy Active gabapentin Neurontin shortness of breath Drug Allergy Active progesterone Prometrium shortness of breath Drug Allergy Active carbamazepine Tegretol shortness of breath Drug Allergy Active solifenacin VESIcare shortness of breath Drug Allergy Active bextra shortness of breath Drug Allergy Active tequin shortness of breath Drug Allergy Active Reason For Referral No Information Medications Medication SIG (Take, Route, Frequency, Duration) Notes Start Date End Date Status Simvastatin 20 MG 1 tablet in the even ing Orally Once a day; Duration: 30 day(s) Active Furosemide 40 MG 1 tablet Orally Once a day Active Acetaminophen Extra Strength 500 MG 1 tablet as needed Orally every 6 hrs Active Levothyroxine Sodium 112 MCG 1 tablet on an empty stomach in the morning Orally Once a day Active Pramipexole Dihydrochloride 0.25 MG 1 tablet before bedtime Orally Once a day; Duration: 30 day(s) Active Basaglar KwikPen 100 UNIT/ML Subcutaneous Active PreserVision AREDS - Orally Active Mupirocin 2 % 1 application to affected area Externally Three times a day; Duration: 14 days 06/24/2018 Active Glimepiride 1 MG 1 tablet with breakf ast or the first main meal of the day Orally Once a day; Duration: 30 day(s) Active levETIRAcetam 750 MG 1 tablet Orally pernell ry 12 hrs; Duration: 30 day(s) Active Social History Alcohol Screen Question Answer Notes Did you have a drink containing alcohol in the p ast year? 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.16) Active confirmed Problem Information temporarily unavailable Allergic rhinitis, cause unspecified (477.9) Active confirmed Problem Information temporarily unavailable Sensorineural hearing loss, bilateral (H90.3) Active confirmed Problem Information temporarily unavailable Tinnitus, bilateral (H93.13) Active confirmed Problem Information temporarily unavailable Deviated nasal septum (J34.2) Active confirmed Problem Information temporarily unavailable Nasal mucositis (ulcerative) (J34.81) Active confirmed Problem Information temporarily unavailable Localized swelling, mass and lump, neck (R22.1) Active confirmed Problem Information temporarily unavailable Fracture of nasal bones, sequela (S02.2XXS) Active confirmed Plan Of Treatment Pending Test Test Name Order Date Creatinine 04/01/2013 BUN, Creatinine 05/19/2018 MRI : Brain special attn IAC w and w/o g adalinium 03/24/2013 Ultrasound : Thyroid 06/05/2017 CT : Neck Base of skull through thoracic inlet With Contrast 05/19/2018 Insurance Providers Payer Name Payer Address Payer Phone Subscriber Number Group Number Insured Name Patient Relationship to Insured Coverage Start Date Coverage End Date [employer] [address] [address] [place], [place] [id number] [phone] [id number] Sherie Hernandez Self - patient is the insured 1 Medical (General) History Medical History History ICD Code arthritis cancer diabetes vertigo thyroid problems seizures back problems gout hypothyroidism hyperlipidemia Surgical History Surgery Date(Month/Year) Hospitalization History Reason Date(Month/Year) tonsillectomy gall bladder appendectomy total hysterectomy lump on breast colon polyps total lt knee derick cataracts blood sac behind rt eye fallen bladder surgery total joint replacement lt knee carpal tunnel tubal ligation
--- OUTSIDE RECORDS SUMMARY | 2024-11-05 21:51 | XMS_ITS | Data Portability ---
Author Organization CHRISTI - Brett Higgins [facility], [place], [facility] Address [address] [place] [address] Assessment Encounter Date Assessment Date Assessment LastModified by Organization Details LastModified Time 04/26/2023 04/26/2023 Push fluids. Discussed exposure and quarantine recommendatio ns. Not available 04/26/2023 12:42:21 Plan of Treatment Reminders Order Date Submit Date Provider Last Modified By Organization Details Last Modified Time Details Appointments None recorded. Lab SARS CoV 2 RNA, QL, nasopharynx 2022 023 [facility] ([facility]), [address] [place], [address], 3 12:19:24 urinalysis, complete 2022 023 [facility] ([facility]), [address] [place], [address], 3 12:51:54 culture, urine 2022 023 [facility] [employer] [facility], [address] [facility] [address] [facility] [place], [address], 3 03:23:36 Referral oncologist referral 2022 023 [email or web address] 2 Not available 3 17:14:17 Procedures None recorded. Surgeries None recorded. Imaging MAMMO, screening, digital, bilateral 05/25/ 2023 05/25/2 023 [email or web address] 2 Not available 3 16:41:00 CT, chest, w/ contrast 2022 023 [email or web address] 2 Not available 16:41:31 Medication Orders Paxlovid 300 mg (150 mg x 2)-100 mg tablets in a dose pack 2022 023 [id number], [address], [place], [place], [id number], 3 12:41:56 Augmentin 875 mg-125 mg tablet 2022 023 [facility], [address], [place], [address], 3 12:57:28 Macrobid 100 mg capsule 2022 023 [facility] 15, [address], [place], [address], 3 12:14:22 Jardiance 25 mg tablet 2022 023 [facility] ([facility]), [address], [place], [address], 3 14:32:03 glimepiride 4 mg tablet 2022 023 [facility] ([facility]), [address], [place], [address], 3 14:32:00 Patient TargetsNo targets recorded. Patient Instructions Encounter Date Encounter Id Patient Instructions Last Modified By Organization Details Last Modified Time 04/26/2023 [id number] Return to clinic if worsening symptoms or if not improving. Not available 04/26/2023 12:41:59 Reason for Referral Referring Physician: Alan Edwards, Family Medicine, Encounter Date: 10/03/2022 Results Created Date Observation Date Name Description Value Unit Range Abnormal Flag Note LastModifiedBy Organization Detail LastModifiedTime 08/30/19 23 08/29/2022 HbA1c (hemo globi n A1c), blood HbA1c 7.4 Not Available [facility] ([facility]) [address] [place], [address], 08/29/2022 10:51:51 11/01/19 23 11/03/2022 CULTU RE, URINE , ROUTI NE culture, urine, routine SEE NOTE abnormal CULTU RE, URINE , ROUTI NE Micro Numbe r: [id number] Test Statu s: Final Speci men [...] For infec tions other than uncom plica koib UTI cause d by E. coli, K. [...] lexin and lorac arbef . Not Available [facility] [id number] [place] [address], [address], 11/03/2022 01:38:15 11/01/19 23 10/31/2022 urina lysis , compl ete color yellow Not Available [facility] ([facility]) [address] [place] [address], [address], 10/31/2022 12:12:11 11/01/19 23 10/31/2022 urina lysis , compl ete clarity cloudy clear abnormal Not Available [facility] ([facility]) [address] [place] [address], [address], 10/31/2022 12:12:11 11/01/19 23 10/31/2022 urina lysis , compl ete glucose 3+ negati ve abnormal Not Available [facility] ([facility]) [address] [place], [address], 10/31/2022 12:12:11 11/01/19 23 10/31/2022 urina lysis , compl ete bilirubin negati ve negati ve normal Not Available [facility] ([facility]) [address] [place], [address], 10/31/2022 12:12:11 11/01/19 23 10/31/2022 urina lysis , compl ete ketones negati ve negati ve normal Not Available [facility] ([facility]) [address] [place], [address], 10/31/2022 12:12:11 11/01/19 23 10/31/2022 urina lysis , compl ete specific gravity 1.015 1.005- 1.025 normal Not Available [facility] ([facility]) [address] [place], [address], 10/31/2022 12:12:11 11/01/19 23 10/31/2022 urina lysis , compl ete pH 5.0 5.0-7. 0 normal Not Available [facility] ([facility]) [address] [place], [address], 10/31/2022 12:12:11 11/01/19 23 10/31/2022 urina lysis , compl ete protein trace Not Available [facility] ([facility]) [address] [place], [address], 10/31/2022 12:12:11 11/01/19 23 10/31/2022 urina lysis , compl ete uro 0.2 Not Available [facility] ([facility]) [address] [place], [address], 10/31/2022 12:12:11 11/01/19 23 10/31/2022 urina lysis , compl ete nitrate positi ve negati ve abnormal Not Available [facility] ([facility]) [address] [place], [address], 10/31/2022 12:12:11 11/01/19 23 10/31/2022 urina lysis , compl ete blood 2+ negati ve abnormal Not Available [facility] ([facility]) [address] [place], [address], 10/31/2022 12:12:11 11/01/19 23 10/31/2022 urina lysis , compl ete leukocytes 2+ negati ve abnormal Not Available [facility] ([facility]) [address] [place], [address], 10/31/2022 12:12:11 11/01/19 23 10/31/2022 urina lysis , compl ete WBC 60-80 0 abnormal Not Available [facility] ([facility]) [address] [place], [address], 10/31/2022 12:12:11 11/01/19 23 10/31/2022 urina lysis , compl ete RBC 15-20 0 abnormal Not Available [facility] ([facility]) [address] [place], [address], 10/31/2022 12:12:11 11/01/19 23 10/31/2022 urina lysis , compl ete epi cells 1-3 0 abnormal Not Available [facility] ([facility]) [address] [place], [address], 10/31/2022 12:12:11 11/01/19 23 10/31/2022 urina lysis , compl ete bacteria 1+ mixed chris Not Available [facility] ([facility]) [address] [place], [address], 10/31/2022 12:12:11 11/01/19 23 10/31/2022 urina lysis , compl ete other Not Available [facility] ([facility]) [address] [place], [address], 10/31/2022 12:12:11 11/06/19 23 11/05/2022 urina lysis , compl ete color yellow Not Available [facility] ([facility]) [address] [place], [address], 11/05/2022 12:39:44 11/06/19 23 11/05/2022 urina lysis , compl ete clarity cloudy clear Not Available [facility] ([facility]) [address] [place], [address], 11/05/2022 12:39:44 11/06/19 23 11/05/2022 urina lysis , compl ete glucose 3+ negati ve Not Available [facility] ([facility]) [address] [place], [address], 11/05/2022 12:39:44 11/06/19 23 11/05/2022 urina lysis , compl ete bilirubin negati ve negati ve Not Available [facility] ([facility]) [address] [place], [address], 11/05/2022 12:39:44 11/06/19 23 11/05/2022 urina lysis , compl ete ketones 1+ negati ve Not Available [facility] ([facility]) [address] [place], [address], 11/05/2022 12:39:44 11/06/19 23 11/05/2022 urina lysis , compl ete specific gravity 1.020 1.005- 1.025 Not Available [facility] ([facility]) [address] [place], [address], 11/05/2022 12:39:44 11/06/19 23 11/05/2022 urina lysis , compl ete pH 5.0 5.0-7. 0 Not Available [facility] ([facility]) [address] [place], [address], 11/05/2022 12:39:44 11/06/19 23 11/05/2022 urina lysis , compl ete protein positi ve Not Available [facility] ([facility]) [address] [place], [address], 11/05/2022 12:39:44 11/06/19 23 11/05/2022 urina lysis , compl ete uro 0.2 Not Available [facility] ([facility]) [address] [place] [address], [address], 11/05/2022 12:39:44 11/06/19 23 11/05/2022 urina lysis , compl ete nitrate negaiv e negati ve Not Available [facility] ([facility]) [address] [place], [address], 11/05/2022 12:39:44 11/06/19 23 11/05/2022 urina lysis , compl ete blood 3+ negati ve Not Available [facility] ([facility]) [address] [place], [address], 11/05/2022 12:39:44 11/06/19 23 11/05/2022 urina lysis , compl ete leukocytes 1+ negati ve Not Available [facility] ([facility]) [address] [place], [address], 11/05/2022 12:39:44 11/06/19 23 11/05/2022 urina lysis , compl ete WBC >100 packed 0 Not Available [facility] ([facility]) [address] [place], [address], 11/05/2022 12:39:44 11/06/19 23 11/05/2022 urina lysis , compl ete RBC >100 packed 0 Not Available [facility] ([facility]) [address] [place], [address], 11/05/2022 12:39:44 11/06/19 23 11/05/2022 urina lysis , compl ete epi cells - 0 Not Available [facility] ([facility]) [address] [place], [address], 11/05/2022 12:39:44 11/06/19 23 11/05/2022 urina lysis , compl ete bacteria - Not Available [facility] ([facility]) [address] [place], [address], 11/05/2022 12:39:44 11/06/19 23 11/05/2022 urina lysis , compl ete other - Not Available [facility] ([facility]) [address] [place], [address], 11/05/2022 12:39:44 04/26/20 23 04/26/2023 SARS CoV 2 RNA, QL, nasop haryn x COVID positi ve Not Available [facility] ([facility]) [address] [place], [address], 04/26/2023 11:55:03 08/03/19 23 07/31/2022 XR, shoul cher No observ ation record ed. [facility] [address] [place], [address], 08/05/2022 16:32:13 10/21/19 23 10/18/2022 CT, chest , w/ contr ast No observ ation record ed. [facility] [address] [place], [address], 10/23/2022 10:17:15 11/05/19 23 10/30/2022 MAMMO , scree neel, digit al, bilat eral No observ ation record ed. [facility] [address] [place], [address], 11/04/2022 12:45:44 Result Notes None recorded. Problems Name Problem SNOMED Code Status Onset Date Resolution Date Notes Provider Name and Address Organization Details Recorded Time Lung mass 312171474 Active 2022 Alan Edwards MD [address] [place] [address], [facility] 3 14:35:55 Dysuria 10238126 Active 2022 Alan Edwards MD [address] [place] [address], [facility] 3 12:12:07 Abscess of skin and/or subcutaneou s tissue 46456172 Active 2022 Alan Edwards MD [address] [place] [address], [facility] 3 12:56:29 Congestive heart failure 73981941 Active 2022 STEPHANIE soni [facility] 3 16:42:39 Pain of left shoulder joint 2431690482803 9109 Active 2022 Alan Edwards MD [address] [place] [address], [facility] 3 10:06:19 Injury of shoulder and upper arm 256148753 Active 2022 Alan Edwards MD [address] [place] [address], [facility] 3 12:17:35 Chronic kidney disease stage 3 886989325 Active 2022 Alan Edwards MD [address] [place] [address], [address], [facility] 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 3 12:17:40 Morbid obesity 175211359 Active 2022 Alan Edwards MD [address] [place] [address], [address], [facility] 3 12:17:37 Epilepsy 82044546 Active 2022 Alan Edwards MD [address] [place] [address], [address] 5, [facility] 3 12:17:30 Restless legs 85980373 Active 2022 Alan Edwards MD [address] [place] [address], [address], [facility] 3 12:17:45 Diabetes mellitus 45983905 Active 2022 Alan Edwards MD [address] [place] [address], [address], [facility]LLupe[facility] 3 12:24:04 Problem Notes None recorded. Procedures Surgical History Date Name Laterality Status Provider Name and Address Organization Details Recorded Time Appendectomy completed Fernanda Drummond [facility], RaúlLChristi 07/31/2022 12:17:59 tonsillectomy completed [facility] 07/31/2022 12:18:09 Tubal Ligation completed [facility] LLupeL.CLupe 07/31/2022 12:18:34 Carpal tunnel surgery completed [facility], LLupeLLupeCLupe 07/31/2022 12:18:49 hysterectomy completed [facility], LLupeL.CLupe 07/31/2022 12:18:58 repair of urinary bladder completed [facility], LLupeLLupeCLupe 07/31/2022 12:19:44 cholecystectomy completed [facility], RaúlLLupeCLupe 07/31/2022 12:19:51 total knee replacement completed [facility], RaúlLLupeCLupe 07/31/2022 12:20:22 Imaging Results None recorded. Procedure Notes None recorded. Medical Equipment None Reported. Allergies Allergen ID Allergen Name Allergen Category Reaction Reaction Severity Criticality Documentation Date Start Date Code Code System Note Provider Name and Address Organization Details Recorded Time 1863 hydrocodo ne Not available Not available Not available Not available 08/29/2022 5489 RxNorm STEPHANIE CARMEN [facility] 3 10:47:14 1865 Substance with sulfonami de structure and antibacte rial mechanism of action (substanc e) medicatio n Not available Not available Not available 08/29/2022 90459 8003 SNOMED [facility] 3 10:48:02 1866 azithromy quinn medicatio n Not available Not available Not available 08/29/2022 01030 RxNorm STEPHANIE CARMEN [facility] LLupeL[facility]CLupe 3 10:48:21 247 Tegretol medicatio n Not available Not available Not available 07/31/202220292 9 RxNorm Fernanda soni, [facility] 3 12:11:59 248 Dilantin medicatio n Not available Not available Not available 07/31/202294166 0 RxNorm Fernanda soni, [facility] 3 12:12:06 249 Naprosyn medicatio n Not available Not available Not available 07/31/2022 2 RxNorm Fernanda soni, [facility] 3 12:12:17 250 Bactrim medicatio n Not available Not available Not available 07/31/2022 98425 9 [facility] 3 12:12:24 251 Bextra medicatio n Not available Not available Not available 07/31/2022 63367 0 RxNorm Fernanda soni, [facility] 3 12:12:36 252 oxybutyni n chloride medicatio n Not available Not available Not available 07/31/2022 09118 Rx[facility] 3 12:12:49 253 Prometriu m medicatio n Not available Not available Not available 07/31/2022 76766 0 RxNorm Fernanda soni, [facility] 3 12:13:00 254 Neurontin medicatio n Not available Not available Not available 07/31/2022 26674 8 Rx[facility] 3 12:13:19 255 naproxen medicatio n Not available Not available Not available 07/31/2022 7258 RxNorm [facility] 3 12:13:27 256 Tequin medicatio n Not available Not available Not available 07/31/2022 64182 4 RxNorm Fernanda soni, [facility] 3 12:14:41 257 acetamino phen / hydrocodo ne medicatio n Not available Not available Not available 07/31/2022 15085 2 Rx[facility] 3 12:14:54 258 hyoscyami ne medicatio n Not available Not available Not available 07/31/2022 87474 0 RxNorm [facility] 3 12:15:06 259 Vesicare medicatio n Not available Not available Not available 07/31/2022 74522 2 RxNorm Fernanda soni [facility] 3 12:15:14 260 fluconazo le medicatio n Not available Not available Not available 07/31/2022 4450 RxNorm [facility] 3 12:15:21 261 cephalexi n medicatio n Not available Not available Not available 07/31/2022 2231 Rx[facility] 3 12:15:30 262 hydroxych loroquine medicatio n Not available Not available Not available 07/31/2022 5521 RxNorm Fernanda soni [facility] 3 12:15:40 263 cyclobenz aprine hydrochlo ride medicatio n Not available Not available Not available 07/31/2022 02916 RxNorm [facility] 3 12:15:51 Medications Name Sig Start [...] t Available Vitals Date Recorded Body height Body mass index (BMI) Body weight Respiratory rate Body temperature Heart rate Oxygen saturation Oxygen saturation in Arterial blood by Pulse oximetry Systolic blood pressure Diastolic blood pressure Provider Name and Address Organization Details Last Updated DateTime 3 147.32 cm 48.5 kg/m2 036443. 13 g 20 /min 97.4 [degF] 71 /min 99 % 99 % 142 mm[Hg] 90 mm[Hg] [facility] 3 10:43:21 Date Recorded Body height Respiratory rate Body mass index (BMI) Body weight Body temperature Oxygen saturation Oxygen saturation in Arterial blood by Pulse oximetry Heart rate Systolic blood pressure Diastolic blood pressure Provider Name and Address Organization Details Last Updated DateTime 3 147.32 cm 20 /min 46.4 kg/m2 474001. 91 g 97.3 [degF] 95 % 95 % 62 /min 162 mm[Hg] 80 mm[Hg] [facility] 3 13:56:34 Date Recorded Body height Respiratory rate Body mass index (BMI) Body weight Body temperature Oxygen saturation Oxygen saturation in Arterial blood by Pulse oximetry Heart rate Systolic blood pressure Diastolic blood pressure Provider Name and Address Organization Details Last Updated DateTime 3 147.32 cm 20 /min 45.5 kg/m2 11628.3 4 g 97.2 [degF] 95 % 95 % 71 /min 112 mm[Hg] 70 mm[Hg] STEPHANIE SHOEMAKERG [facility] 3 12:01:37 Date Recorded Body height Respiratory rate Body mass index (BMI) Body weight Body temperature Heart rate Oxygen saturation Oxygen saturation in Arterial blood by Pulse oximetry Systolic blood pressure Diastolic blood pressure Provider Name and Address Organization Details Last Updated DateTime 3 147.32 cm 20 /min 45.5 kg/m2 94797.3 4 g 97.4 [degF] 60 /min 98.01 % 98.01 % 118 mm[Hg] 60 mm[Hg] STEPHANIE SHOEMAKERG [facility] 3 12:22:18 Date Recorded Body height Body mass index (BMI) Body weight Oxygen saturation Oxygen saturation in Arterial blood by Pulse oximetry Heart rate Respiratory rate Body temperature Systolic blood pressure Diastolic blood pressure Provider Name and Address Organization Details Last Updated DateTime 3 147.32 cm 42 kg/m2 98771.0 7 g 99 % 99 % 71 /min 20 /min 97.5 [degF] 120 mm[Hg] 62 mm[Hg] Brielle Galan [facility] 3 12:22:33 Social History Question Answer Notes LastModified by Organizat ion Details LastModified Time Tobacco Smoking Status Former Smoker STEPHANIE SHOEMAKERShravan soni [facility] 07/31/2022 11:40:45 Are You Blind Or Do You Have Difficulty Seeing? No Information not available 07/31/2022 What Is Your Level Of Caffeine Consumption? None Information not available 07/31/2022 Are You Deaf Or Do You Have Serious Difficulty Hearing? No Information not available 07/31/2022 What Type Of Diet Are You Following? DIABETIC Information not available 07/31/2022 Do You Have Difficulty Walking Or Climbing Stairs? Yes Information not available 07/31/2022 Do You Have Any Dietary Restrictions? No Information not available 07/31/2022 Sex: Unknown Functional Status Question Answer Note LastModified by Organizat ion Details LastModified Time Do you use any illicit or recreational drugs? No Information not available 07/31/2022 What is your level of alcohol consumption? None Information not available 07/31/2022 Are you able to care for yourself? No Information not available 07/31/2022 Do you have difficulty dressing [...] Code Diagnosis Note [id number] Alan Edwards MD [facility] ([facility]) [address] [place] [phone] 07/31/2022 11:16:36 07/31/2022 12:44:53 Injury of shoulder and upper arm 846269286 S49.92XA we will start with plain film imaging. If no fracture or significan t issues are noted then we will proceed with PT. Chronic ki dney disease stage 3 799182123 N18.32 We will obtain previous records Proliferat aayush retinopathy with retinal edema due to type 2 diabetes mellitus 9467293952 9105 E11.3511 Patient was encouraged to continue with routine opthamolog y f/u. Morbid obesity 354198133 E66.01 BMI 48.1. The patient was encourage to work on wt lss Epilepsy 87595735 G40.90 9 no seizures for 18 years. continue Keppra Restless legs 07486480 G 25.81 controlled on ropinirole Diabetes mellitus 972941 09 E11.8 last a1c 7.1%. [id number] Alan Edwards MD [facility] ([facility]) [address] [place] [phone] 5 08/29/2022 10:26:55 08/30/2022 15:59:35 Diabetes mellitus 30579875 E11.8 last a1c 7.4%. recommend we start new medication . She is maxed out on trulicity. Start Farxiga. Morbid obesity 535523668 Z68.42 BMI 48.1. The patient was encourage to work on wt loss Proliferat aayush retinopathy with retinal edema due to type 2 diabetes mellitus 9516132981 9105 E11.3511 Patient was encouraged to continue with routine opthamolog y f/u. Chronic ki dney disease stage 3 680595268 N18.32 stable Pain of le ft shoulder joint 1223557227 6932013 M25.512 not likely to have fractured clavicle given today's exam. continue home exercises. [id number] Alan Edwards MD [facility] ([facility]) [address] [place] [phone] 5 10/03/2022 13:47:33 10/03/2022 15:49:01 Diabetes mellitus 04813238 E11.9 we will decrease dose of glimepirid e and continue other medication s given low BS readings. Lung mass 925078498 R91. 8 we will order repeat CT. Obtain records. Screening mammography 24 960318 Z12.31 [id number] Alan Edwards MD [facility] ([facility]) [address] [place] [phone] 5 10/31/2022 11:50:51 10/31/2022 18:04:26 Dysuria 89402539 R30.0 UA obtained and is consistent with infection. We will start Macrobid. Culture pending. Patient was encouraged to drink plenty of fluids. Diabetes mellitus 115107 09 E11.9 Blood sugar readings have been appropriat e with no low blood sugar readings. Recheck A1c next month. [id number] Alan Edwards MD [facility] ([facility]) [address] [place] [phone] 5 11/05/2022 11:54:28 11/05/2022 13:51:16 Abscess of skin and/or subcutaneous tissue 75593537 L02.91 - Augmentin 875-125 mg sent to patient pharmacy- Plan to follow up in 1 week if bleeding or lump persists [id number] HERNAN CHANG [facility] ([facility]) [address] [place] [address] 04/26/2023 11:49:52 05/03/2023 08:06:02 Cough 64867871 R05.9 COVID-19 657414781 U07.1 Health Concerns Section Related Observation LastModified by Organization Detai ls LastModified Time None Recorded Concern Status LastModified by Organization Details LastModified Time None Recorded Advance Directives Directive None Recorded Payers Insurance Date Sequence Insurance Name Policy Number Policy Encinas Covered Member ID Encinas Member ID Guarantor Name 05/03/2023 1 [employer] (MEDICARE REPLACEMENT/A DVANTAGE - PFFS) [id number] Sherie Hernandez [id number] Sherie Hernandez Notes Date Note Type Note [...] her medications without issue. Alan Edwards MD [address] [place] [address], [phone], [facility] 08/30/2022 10:09:51 10/03/2022 text/html This is a 77 y/o that presents for f/u and to discuss f/u care for lung masses found on CT done by previous provider. She reports she had [address] done in 06/2022 and they recommended a 3-6 month f/u. She reports she has been having some low blood sugar readings. Alan Edwards MD [address] [place] [address], [id number], [facility] 10/04/2022 13:31:48 10/31/2022 text/html This is a [...] urinary urgency and frequency. Alan Edwards MD [address] [place] [address], [phone], [facility] 10/31/2022 15:24:35 11/05/2022 text/html Lower Urinary Tr [...] tender to palpation. Alan Edwards MD [address] [place], [address], [facility] 11/05/2022 17:05:10 04/26/2023 text/html COVID-19 Symptom s September 2019Reported bypatient.COVID-19 Signs and Symptomscough same; shortness of breath same; muscle pain same; sore throat same; fatigue same; nausea improving; runny nose same; congestion same Quality:productive cough;wheezy cough Severity:no pain Duration:symptoms lasting 1 days Associated Symptoms:yellow-gre en, thick sputum;fatigue;body aches ALLIE ESCALERA, TECHNICAL CONSULTANT [address] [place], [address], [facility] 04/26/2023 12:58:04 OBGyn Episode No OBEpisode recorded.
--- OUTSIDE RECORDS SUMMARY | 2024-11-05 21:51 | XMS_ITS | Clinical Summary ---
Author Organization [facility] Address [address] [place] [address] Phone Care Team Providers Care Percussion Teacher Name Role Phone Demetria Busch MD Primary [...] 2 tabs at bedtime Active Vit C-Vit X-Byuket-ApFa-L utein (PRESERVISION) 226-90-0.8-5 mg Capsule Take 1 [...] Encounters Date Type Department Care Team Description 09/07/2024 External Device Data STL ABSTRACTION Provider, Abstract from Last 3 Months Social History Tobacco Use Types Packs/Day Years Used Date Smoking Tobacco: Never Smokeless Tobacco: Never Tobacco Cessation:Counseling Given: Not Answered Alcohol Use Standard Drinks/Week Comments Never 0 (1 standard drink = 0.6 oz pur e alcohol) Utility Needs Answer Date Recorded In the past 12 months has e [employer], [employer], or water [employer] threatened to shut off services in your [...] 09/21/2023 How often do you attend chur or temple services? 1 to 4 times per year 09/21/2023 Do you belong to any clubs o r organizations such as zoroastrian groups, unions, fraternal or athletic groups, or [...] No 09/21/2023 Food Insecurity Answer Date Recorded Patient needs follow up regardin 09/02/2024 Transportation Needs Answer Date Record ed Patient needs follow up regardin 09/02/2024 Housing Stability Answer Date Recorded Social/Environmental Concerns No concerns Utility Needs Answer Date Recorded Patient needs follow up regardin 09/02/2024 Comments No Sex and Gender Information Value Date Recorded Sex Assigned at Not on file Legal Sex Female 4:41 PM CDT Gender Identity Not on file Sexual Orientation Not on file Last Filed Vital Signs Vital Sign Reading Time Taken Comments Blood Pressure 111/69 09/25/2023 7:26 AM CDT Pulse 78 09/25/2023 7:26 AM CDT Temperature 36.7 C (98 F) 09/25/2023 7:26 AM CDT Respiratory Rate 18 [...] 2020 INFLUENZA VACCINE (#1) 2023 PNEUMOCOCCAL VACCINE 50+ YEA RS (2 of 2 - PCV) 01/21/2024 01/20/2023 DIABETES HBA1C Q 6 MONTHS 03/23/2024 09/21/2023, LDL CHOLESTEROL ANNUAL 09/21/2024 09/22/2023 Procedures Procedure Name Priority Date/Time Associated Diagnosis Comments LIPID PANEL Routine 09/22/2023 4:26 AM CDT HEMOGLOBIN A1C Routine 09/21/2023 7:52 PM CDT from Last 3 Months or Most Recently Relevant to Health Maintenance Results * LIPID PANEL (09/22/2023 4:26 AM CDT) CHOLESTEROL 113 <200 mg/dL 09/22/2023 5:02 AM CDT [facility] TRIGLYCERIDE 142 <150 mg/dL 09/22/2023 5:02 AM CDT [facility] HDL 46 40 - 59 mg/dL 09/22/2023 5:02 AM CDT [facility] LDL CALCULATED 39 <100 mg/dL 09/22/2023 5:02 AM CDT [facility] NON-HDL CHOLESTEROL 67 <130 mg/dL 09/22/2023 5:02 AM T [facility] Blood Venipuncture / Unknown 09/22/2023 4:26 AM CDT 09/22/2023 4:31 AM CDT Narrative [facility] - 09/22/2023 5:02 AM CDT TOTAL CHOLESTEROL mg/dL Desirable <200 Borderline high 200-239 High >=240 TRIGLYCERIDES mg/dL Normal <150 Borderline high 150-199 High 200-499 Very high >=500 HDL CHOLESTEROL mg/dL Low <40 Normal 40-59 Desirable >=60 NON HDL CHOLESTEROL mg/dL Optimal <130 Near Optimal 130-159 Borderline High 160-189 Very High >=190 CALCULATED LDL mg/dL LDL <70, OPTIMAL if have Atherosclerotic cardiovascular disease (ASCVD) or intermediate or higher (>7.5%) 10 year risk of ASCVD including most adults with diabetes. LDL <100, Optimal in adult patients with low (<7.5%) 10 year ASCVD risk LDL 100-160, Suboptimal LDL >160, High LDL >190, Very high ATPIII Guidelines Reference Ranges for Lipid Panels (NCEP/AMA) . us Heather Brooke MD CHEMISTRY ORDERABLES Final Re sult [facility] CLIA # [id number] [address] [address] * (ABNORMAL) HEMOGLOBIN A1C (09/21/2023 7:52 PM CDT) HEMOGLOBIN A1C 10.4(H) <=5.6 % 09/22/2023 9:05 AM CDT [facility] [employer] [facility] EST. AVG GLUCOSE, A1C 252 mg/dL 09/22/2023 9:05 AM CDT [facility] Blood Venipuncture / Unknown 09/21/2023 7:52 PM CDT 09/21/2023 8:05 PM CDT Narrative [facility] - 09/22/2023 9:05 AM CDT HGB A1C INTERPRETATION NORMAL: <5.7% PRE-DIABETES: 5.7 - 6.4% DIABETES: 6.5% OR GREATER Heather Brooke MD CHEMISTRY ORDERABLES Final Re sult [facility] CLIA # [id number] [address] [address] from Last 3 Months or Most Recently Relevant to Health Maintenance Insurance [facility] MEDICARE HMO RX [facility] Medicare Part D Advance Directives For more information, please contact: [phone] * Full Code (Latest Code Status on File) Date Activated Date Inactivated Comments 09/24/2023 11:57 AM 09/25/2023 1:46 PM * Default Full Code - Needs Discussion Date Activated Date Inactivated Comments 09/21/2023 6:42 PM 09/24/2023 11:57 AM Care Teams Percussion Teacher Relationship Specialty Start Date End Date Demetria Busch MD [address] [facility] [address] [place] [id number] PCP - General Family Practice 09/26/23
[2024-11-05 22:05] VITALS: BMI 43.2
[2024-11-05 22:13] VITALS: BP 131/81; PULSE 88; RESP 18; TEMP 36.6; O2SAT 96
[2024-11-05 22:48] LABS: Basophils # 0.1 10^3/uL (0.0-0.1); Basophils % 0.7 %; Eosinophils # 0.2 10^3/uL (0.0-0.8); Eosinophils % 2.5 %; Hematocrit 43.6 % (36-47); Lymphocytes # 2.7 10^3/uL (0.8-4.8); Lymphocytes % 34.8 %; Mean Corpuscular HGB Conc 35.3 g/dL (30-55); Mean Corpuscular Hemoglobin 31.9 pg (27-33); Mean Corpuscular Volume 90.3 fl (85-98); Mean Platelet Volume 8.6 fL (7.4-10.4); Monocytes # 0.5 10^3/uL (0.2-0.9); Monocytes % 6.4 %; Neutrophils # 4.23 10^3/uL (1.8-7.7); Neutrophils % 55.3 %; Nucleated Red Blood Cells % 0 %; Platelet Count 256 10^3/cmm (157-399); Red Blood Count 4.83 10^6/uL (3.85-5.65); Red Cell Distribution Width 12.4 % (12.1-15.1); White Blood Count 7.64 10^3/uL (3.29-11.43)
--- NOTE | 2024-11-05 23:57 | CTR_ITS ---
PROCEDURE INFORMATION: Exam: CT Abdomen And Pelvis With Contrast Exam date and time: 11/06/2024 12:34 AM Age: 79 years old Clinical indication: Prior surgery; Surgery date: 6+ months; Surgery type: Gb. Appy. Hysterectomy with unilateral oophorectomy. Spinal stimulator. Lumbar fusion. Bladder sling. C/O profuse vaginal bleeding. ; Additional info: Vaginal bleeding post menopause TECHNIQUE: Imaging protocol: Computed tomography of the abdomen and pelvis with contrast. Radiation optimization: All CT scans at this facility use at least one of these dose optimization techniques: automated exposure control; mA and/or kV adjustment per patient size (includes targeted exams where dose is matched to clinical indication); or iterative reconstruction. Contrast material: OMNI 350; Contrast volume: 100 ml; Contrast route: INTRAVENOUS (IV); COMPARISON: CT abdomen pelvis w con* [id number] 10/03/2023 3:44 PM RADIATION DOSE METRICS: Total DLP (mGy-cm): 1010.67 FINDINGS: Liver: No discrete liver lesions are apparent. Smooth hepatic contour. Gallbladder and biliary ducts: Prior cholecystectomy with resultant biliary ductal prominence. Pancreas: No evidence of pancreatitis. No ductal dilation. Spleen: Spleen is within normal limits. Adrenal glands: Stable hyperplasia of the left adrenal gland and more discrete low-density right adrenal nodule measuring 1.4 cm, probably an adenoma. Kidneys and ureters: No renal or ureteral calculi are identified. No hydronephrosis. Stomach and bowel: Small bowel is normal caliber. No obstruction. Large bowel within normal limits. No inflammatory wall thickening or abnormal bowel dilatation. Appendix: Appendix not visualized and presumed surgically absent. Intraperitoneal space: No free air. No significant fluid collection. Vasculature: Calcific plaquing of the aorta with no aneurysm. Lymph nodes: No pathologically enlarged lymph nodes by CT size criteria. Urinary bladder: Asymmetric inflammatory wall thickening of the urinary bladder. Reproductive: Uterus is surgically absent. Bones/joints: Extensive degenerative changes to the spine with low lumbar and lumbosacral posterior interbody fusion hardware. Spinal stimulator noted. No acute fractures. Soft tissues: Unremarkable. CT/CT abdomen pelvis w con* [id number] IMPRESSION: 1. The uterus is surgically absent. No CT findings to explain patient's vaginal bleeding. Gynecological consultation would be advised, with direct visual inspection. 2. Inflamed and asymmetrically thickened urinary bladder wall suggestive of cystitis.
[2024-11-06 00:18] LABS: Alanine Aminotransferase 23 U/L (0-33); Albumin Level 4.1 g/dL (3.5-5.2); Alkaline Phosphatase 112 U/L (35-105); Anion Gap 15.2 (5-19); Aspartate Amino Transferase 25 U/L (0-32); Blood Urea Nitrogen 18 mg/dL (8-23); Calcium 9.4 mg/dL (8.5-10.5); Carbon Dioxide 27 mmol/L (22-29); Chloride 100 mmol/L (98-107); Globulin 3.8 g/dL (1.3-4.6); Glucose 130 mg/dL (65-115); Osmolality Calculated 292 mOsm/kg (285-295); Potassium 3.2 mmol/L (3.5-5.1); Sodium 139 mmol/L (136-145); Total Bilirubin 0.8 mg/dL (0.15-1.2); Total Protein 7.9 g/dL (6.6-8.7)
[2024-11-06 00:19] VITALS: BP 128/75; PULSE 84; O2SAT 96
[2024-11-06] MEDS: iohexol 350 mg/mL 500 mL Btl (per mL) IV (00:36)
[2024-11-06 00:51] LABS: Bilirubin Urine Negative (Negative); Blood Urine 3+ (Negative); Glucose Urine UA 3+ (Normal); Ketones Urine Negative (Negative); Leukocyte Esterase Urine 2+ (Negative); Nitrate Urine Negative (Negative); Protein Urine Trace (Negative); Urine Appearance Cloudy (CLEAR); Urine Color Yellow (Yellow); Urobilinogen Urine 0.2 mg/dL (Negative); pH Urine 5.5 (5-7)
[2024-11-06 00:53] LABS: Add Urine Microscopic? YES; Bacteria Urine None Seen /hpf; Hyaline Casts Urine 2.46 /lpf; Squamous Epithelial Cell Urine 0-5 /hpf (0-5); WBC Urine >100 /hpf (0-5)
[2024-11-06 00:57] LABS: Add Urine Culture? Yes
[2024-11-06 02:23] VITALS: BP 127/83; PULSE 76; O2SAT 97
[2024-11-06 04:15] VITALS: BP 133/63; PULSE 78; O2SAT 95
[2024-11-06 05:46] VITALS: BP 116/59; PULSE 79; O2SAT 92
--- NOTE | 2024-11-06 06:20 | W.ED.FEMALGU ---
HPI - Female Genitourinary General: Chief complaint: Urogenital-Female Stated complaint: Spotting big clots Time Seen by Provider: 11/05/24 23:58 History of Present Illness: Patient with history of hysterectomy (ovary remains), multiple back surgeries (most recent three weeks ago), and prior removal of appendix and gallbladder presents with vaginal bleeding and passage of clots. Bleeding started today, with bright red blood and clots, most notably when urinating. Patient reports associated pelvic and abdominal pain ongoing for months, as well as back pain attributed to recent back surgery. Pain currently rated 7/10. Patient denies recent travel except for relocation from [place]. Notable for significant unintentional weight loss from 350 lbs to 214 lbs over approximately two years without dietary changes or bariatric surgery. Patient expresses concern about spots on lungs and adrenal gland, with an increase in number of lung lesions on serial imaging. No mention of fever, chills, or other systemic symptoms. Denies use of pain medications unless necessary. Related Data Home Medications ?Medication ?Instructions ?Recorded ?Confirmed aspirin 81 mg chewable tablet 81 mg PO DAILY 08/23/22 10/27/24 Held on 10/08/24. Instructions: Resume on 10/10/24. vit C 250 mg-vit E 90 mg-zinc 40 1 tab PO BID 11/19/22 10/27/24 mg-copper 1 bn-eoyyde-hulkgn capsule (PreserVision AREDS-2) meclizine 25 mg tablet 25 mg PO TID PRN Dizziness 06/09/24 10/27/24 levetiracetam 750 mg tablet 750 mg PO BID 10/07/24 10/27/24 pramipexole 0.25 mg tablet 0.25 mg PO DIRECTED 10/07/24 10/27/24 simvastatin 20 mg tablet 20 mg PO QPM 10/07/24 10/27/24 Previous Rx's ?Medication ?Instructions ?Recorded empagliflozin 25 mg tablet 25 mg PO QAM #90 tabs 04/28/24 Bone Growth Stimulator #1 ea 07/01/24 tirzepatide 10 mg/0.5 mL 10 mg (0.5 mL) SUBCUT Q7D #2 mL 08/05/24 subcutaneous pen injector (Mounkira) furosemide 40 mg tablet (Lasix) 40 mg PO DAILY PRN edema #90 tabs 08/09/24 nystatin-triamcinolone 100,000 1 applic topical BID #60 grams 08/09/24 unit/g-0.1 % topical cream glimepiride 4 mg tablet 8 mg (2 x 4 mg) PO BID 30 days 08/26/24 #120 tabs Diabetic shoes with 3 inserts #1 ea 09/15/24 blood-glucose sensor (FreeStyle #1 ea 09/27/24 Katarina 3 Plus Sensor device) amoxicillin 500 mg-potassium 1 tab PO BID #14 tabs 10/05/24 clavulanate 125 mg tablet (Augmentin) levothyroxine 150 mcg tablet 150 mcg PO DAILY #34 tabs 10/11/24 colchicine 0.6 mg tablet See Rx Instructions .Route 11/01/24 .COMPLEX #30 tabs Allergies Allergy/AdvReac Type Severity Reaction Status Date / Time azithromycin Allergy ALGY-Difficulty Verified 10/27/24 08:16 Breathing carbamazepine (From Tegretol) Allergy Unknown Verified 10/27/24 08:16 cephalexin Allergy Unknown Verified 10/27/24 08:16 ciprofloxacin Allergy ALGY-Rash Verified 10/27/24 08:16 cyclobenzaprine (From Allergy Unknown Verified 10/27/24 08:16 Flexeril) fentanyl Allergy doesn't Verified 10/27/24 08:16 want to take fluconazole Allergy Unknown Verified 10/27/24 08:16 gabapentin Allergy Unknown Verified 10/27/24 08:16 hydrocodone (From [place]) Allergy Unknown Verified 10/27/24 08:16 hydroxychloroquine Allergy Unknown Verified 10/27/24 08:16 hyoscyamine Allergy Unknown Verified 10/27/24 08:16 naproxen (From Naprosyn) Allergy Unknown Verified 10/27/24 08:16 oxybutynin (From Ditropan) Allergy Unknown Verified 10/27/24 08:16 phenytoin (From Dilantin) Allergy Unknown Verified 10/27/24 08:16 progesterone (From Allergy Unknown Verified 10/27/24 08:16 Prometrium) solifenacin (From Vesicare) Allergy Unknown Verified 10/27/24 08:16 Sulfa (Sulfonamide Allergy Unknown Verified 10/27/24 08:16 Antibiotics) sulfamethoxazole (From Allergy Unknown Verified 10/27/24 08:16 Bactrim) trimethoprim (From Bactrim) Allergy Unknown Verified 10/27/24 08:16 valdecoxib (From Bextra) Allergy Unknown Verified 10/27/24 08:16 PFSH ED PFSH: Medical History Family history of colon cancer Colon polyps Spinal cord neurostimulator device in situ BMI 40.0-44.9, adult FH: total knee replacement Recurrent UTI CRP elevated Angina at rest Creatinine elevation After cataract, bilateral Carpal tunnel syndrome on both sides Nonfunctional vagus nerve stimulator Multiple lung nodules on CT 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 Father CAD (coronary artery disease) Stroke Mother Chronic kidney disease (CKD) Brother Cancer Brother Stroke Colon cancer Denies family history of Ovarian cancer Diabetes Heart disease Hypercholesteremia Breast cancer Hypertension Uterine cancer Thyroid disease Social History Smoking and tobacco/nicotine status: never used tobacco/nicotine Quit status (tobacco/nicotine): has quit using Year quit tobacco: 1979 Former quit date comment: 1-2 ppd X 1 year Second hand smoke exposure: No Alcohol intake: never Substance/Drug Use: never Current gender identity: Female Female Reproductive History: Spontaneous abortions: No Physical Exam Const: COMMON NORMALS: no acute distress, patient oriented x3 and alert HENMT: COMMON NORMALS: normocephalic and atraumatic HEAD & SCALP: normocephalic and atraumatic Eye: COMMON NORMALS: Equal, round and reactive pupils present, EOMs intact bilaterally and no scleral icterus PUPIL: Yes Equal, round and reactive pupils present Resp: COMMON NORMALS: normal respiratory effort and No retractions Cardio: COMMON NORMALS: regular rate, regular rhythm and No murmurs present (Cardio) RATE: regular rate RHYTHM: regular rhythm GI: COMMON NORMALS: Normal to inspection, nondistended, normoactive bowel sounds present, Soft to palpation and non-tender PALPATION: Yes Soft to palpation : OTHER: Speculum exam deferred at patient request. Neuro: COMMON NORMALS: patient oriented x3 SENSORIUM/ORIENTATION: Yes alert Skin: COMMON NORMALS: no rashes or lesions noted GENERAL SKIN EXAM: no rashes or lesions noted Course Vital Signs: Vital signs: Vital Signs Temperature 97.8 F 11/05/24 22:13 Pulse Rate 79 11/06/24 05:46 Respiratory Rate 18 11/05/24 22:13 Blood Pressure 116/59 11/06/24 05:46 Pulse Oximetry 92 11/06/24 05:46 Oxygen Delivery Me thod Room Air 11/06/24 04:15 MDM - Female Medical Decision Making In summary, patient is a well-appearing 70-year-old female seen for 1 day of intermittent passage of bright red clots per vagina. She has not had significant abdominal pain, dysuria, fever, or other worrisome features. CT of the abdomen pelvis shows nothing acute. Speculum exam was offered but patient graciously declines. Case management referral was placed to BATCH OR CONTINUOUS STILL OPERATOR for definitive diagnostics and treatment. Patient is agreeable to the plan. Hemoglobin is stable. She will be discharged in stable condition. Lab Data 11/05/24 22:43 11/05/24 22:43 Radiology Impressions Abdomen/Pelvis CT 11/05/24 23:57 IMPRESSION: 1. The uterus is surgically absent. No CT findings to explain patient's vaginal bleeding. Gynecological consultation would be advised, with direct visual inspection. 2. Inflamed and asymmetrically thickened urinary bladder wall suggestive of cystitis. Laboratory Results WBC 7.64 10^3/uL (3.29-11.43) 11/05/24 22:43 RBC 4.83 10^6/uL (3.85-5.65) 11/05/24 22:43 Hgb 15.40 g/dL (11.27-16.99) 11/05/24 22:43 Hct 43.6 % (36-47) 11/05/24 22:43 MCV 90.3 fl (85-98) 11/05/24 22:43 MCH 31.9 pg (27-33) 11/05/24 22:43 MCHC 35.3 g/dL (30-55) 11/05/24 22:43 RDW 12.4 % (12.1-15.1) 11/05/24 22:43 Plt Count 256 10^3/cmm (157-399) 11/05/24 22:43 MPV 8.6 fL (7.4-10.4) 11/05/24 22:43 Neut % (Auto) 55.3 % 11/05/24 22:43 Lymph % (Auto) 34.8 % 11/05/24 22:43 Bucks % (Auto) 6.4 % 11/05/24 22:43 Eos % (Auto) 2.5 % 11/05/24 22:43 Baso % (Auto) 0.7 % 11/05/24 22:43 Neut # (Auto) 4.23 10^3/uL (1.8-7.7) 11/05/24 22:43 Lymph # (Auto) 2.7 10^3/uL (0.8-4.8) 11/05/24 22:43 Bucks # (Auto) 0.5 10^3/uL (0.2-0.9) 11/05/24 22:43 Eos # (Auto) 0.2 10^3/uL (0.0-0.8) 11/05/24 22:43 Baso # (Auto) 0.1 10^3/uL (0.0-0.1) 11/05/24 22:43 Nucleated RBC % (auto) 0 % 11/05/24 22:43 Nucleated RBCs # 0.0 /100WBC 11/05/24 22:43 Sodium 139 mmol/L (136-145) 11/05/24 22:43 Potassium 3.2 mmol/L (3.5-5.1) L 11/05/24 22:43 Chloride 100 mmol/L (98-107) 11/05/24 22:43 Carbon Dioxide 27 mmol/L (22-29) 11/05/24 22:43 Anion Gap 15.2 (5-19) 11/05/24 22:43 BUN 18 mg/dL (8-23) 11/05/24 22:43 Creatinine 1.1 mg/dL (0.5-0.9) H 11/05/24 22:43 GFR Calculation Not Reportable 11/05/24 22:43 Glucose 130 mg/dL (65-115) H 11/05/24 22:43 Calculated Osmolality 292 mOsm/kg (285-295) 11/05/24 22:43 Calcium 9.4 mg/dL (8.5-10.5) 11/05/24 22:43 Total Bilirubin 0.8 mg/dL (0.15-1.2) 11/05/24 22:43 AST 25 U/L (0-32) 11/05/24 22:43 ALT 23 U/L (0-33) 11/05/24 22:43 Alkaline Phosphatase 112 U/L (35-105) H 11/05/24 22:43 Total Protein 7.9 g/dL (6.6-8.7) 11/05/24 22:43 Albumin 4.1 g/dL (3.5-5.2) 11/05/24 22:43 Globulin 3.8 g/dL (1.3-4.6) 11/05/24 22:43 Urine Color Yellow (Yellow) 11/05/24 22:20 Urine Appearance Cloudy (CLEAR) A 11/05/24 22:20 Urine pH 5.5 (5-7) 11/05/24 22:20 Ur Specific [place] 1.010 (1.005-1.030) 11/05/24 22:20 Urine Protein Trace (Negative) A 11/05/24 22:20 Urine Glucose (UA) 3+ (Normal) H 11/05/24 22:20 Urine Ketones Negative (Negative) 11/05/24 22:20 Urine Blood 3+ (Negative) A 11/05/24 22:20 Urine Nitrate Negative (Negative) 11/05/24 22:20 Urine Bilirubin Negative (Negative) 11/05/24 22:20 Urine Urobilinogen 0.2 mg/dL (Negative) 11/05/24 22:20 Ur Leukocyte Esterase 2+ (Negative) A 11/05/24 22:20 Urine RBC 6-10 /hpf (0-2) 11/05/24 22:20 Urine WBC >100 /hpf (0-5) H 11/05/24 22:20 Ur Squamous Epith Cells 0-5 /hpf (0-5) 11/05/24 22:20 Amorphous Sediment Not Reportable 11/05/24 22:20 Urine Bacteria None seen /hpf (NONE) 11/05/24 22:20 Hyaline Casts 2.46 /lpf 11/05/24 22:20 All radiology interpretation(s) finalized by discharge Discharge Plan Discharge Patient Disposition: Home Clinical Impression: Abnormal vaginal bleeding Condition: Stable Prescriptions: No Action aspirin 81 mg tablet,chewable 81 mg PO DAILY PreserVision AREDS-2 250-90-40-1 mg capsule 1 tab PO BID furosemide [Lasix] 40 mg tablet 40 mg PO DAILY PRN (Reason: edema) Qty: 90 0RF nystatin-triamcinolone 100,000-0.1 unit/g-% cream 1 applic topical BID Qty: 60 2RF (DME) Diabetic shoes with 3 inserts See Rx Instructions .Route .MEDSUPPLY Qty: 1 0RF Rx Instructions: As directed to [facility] empagliflozin 25 mg tablet 25 mg PO QAM Qty: 90 0RF (DME) Bone Growth Stimulator See Rx Instructions .Route .MEDSUPPLY Qty: 1 0RF Rx Instructions: As directed Mounjaro 10 mg/0.5 mL pen injector 10 mg SUBCUT Q7D Qty: 2 1RF Rx Instructions: inject 10mg weekly glimepiride 4 mg tablet 8 mg PO BID 30 Days Qty: 120 2RF (DME) FreeStyle Katarina 3 Plus Sensor Device See Rx Instructions .Route Qty: 1 5RF Rx Instructions: As directed amoxicillin-pot clavulanate [Augmentin] 500-125 mg tablet 1 tab PO BID Qty: 14 0RF levothyroxine 150 mcg tablet 150 mcg PO DAILY Qty: 34 3RF Rx Instructions: TAKE 1 TABLET BY MOUTH Friday through Friday and 1 and a half tablets on Friday. colchicine 0.6 mg tablet See Rx Instructions .ROUTE .COMPLEX Qty: 30 0RF Dose Instruction: TAKE 1 TABLET BY MOUTH DAILY Rx Instructions: TAKE 1 TABLET BY MOUTH DAILY meclizine 25 mg tablet 25 mg PO TID PRN (Reason: Dizziness) simvastatin 20 mg tablet 20 mg PO QPM Rx Instructions: TAKE 1 TABLET BY MOUTH EVERY DAY pramipexole 0.25 mg tablet 0.25 mg PO DIRECTED Rx Instructions: TAKE 1 TABLET BY MOUTH EVERY MORNING AND TWO EVERY EVENING levetiracetam 750 mg tablet 750 mg PO BID Rx Instructions: TAKE 1 TABLET BY MOUTH TWICE DAILY Discharge Orders: Discharge ED (Routine); Ordered 11/06/24 Ordered By: Roel Thorpe Referrals: Demetria Busch MD [Primary Care Provider, Family Practice] Patient Instructions: Patient Portal & Shruti Instructions Activity Restrictions/Additional Instructions: As we briefly discussed, the CT scan does not show obvious source of vaginal bleeding. Your hemoglobin blood level is safe. Referral was placed to gynecology and they should be contacting you soon to be seen in the clinic. If bleeding gets worse or if you start to feel lightheaded or short of breath or have chest pain please return to the emergency department for expedited workup. Print Language: Tamazight Coding Level of Care Code ED Public Message Service Supervisor for 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
--- NOTE | 2024-11-08 07:08 | DCPLANNER ---
messaged [facility] for er f/u
== END 2024-11-06 05:50 | disposition home or self-care (01) ==
PROVIDERS: Emergency Medicine; Emergency Provider Student in an Organized Health Care Education/Training Program; PCP Family Medicine
DX: N93.9 Abnormal uterine and vaginal bleeding, unspecified (principal); Z79.82 Long term (current) use of aspirin; Z87.891 Personal history of nicotine dependence; E11.9 Type 2 diabetes mellitus without complications; I10 Essential (primary) hypertension
CPT/HCPCS: 36415; 74177; 80053; 81001; 85025; 87077; 87086; 87186; 99285

== ENCOUNTER → 2024-11-18 10:32 | Outpatient (BNVA) | payer MEDICARE, SELFPAY | PROVIDERS: PCP Family Medicine; Visit Provider Orthopaedic Surgery | DX: Z98.890 Other specified postprocedural states (principal) | CPT/HCPCS: 99214 ==

== ENCOUNTER 2024-12-01 07:42 | Day surgery (SDC) | payer MEDICARE, SELFPAY ==
[2024-12-01] VITALS (9 sets, daily range): BP systolic 93–143; BP diastolic 48–76; PULSE 58–67; RESP 16–18; TEMP 36.3–36.4; O2SAT 90–99; BMI 42.6
--- NOTE | 2024-12-01 08:59 | ANES.PREANE2 ---
Pre-Anesthetic Assessment Height/Weight: Height 1.5 m Weight 95.708 kg O2 Del Method Room Air 12/01/24 08:22 Preop Diagnosis: Nonworking neurostimulator Operation Date: 12/01/24 09:15 Proposed Procedures p Removal Stimulator Lead Spine(Not Applicable) - Jeet Duggan DO s Removal Stimulator Spine Spinal Cord Stimulator Generator Removal(Not Applicable) - Jeet Duggan DO Familial anesthetic complications: States fentanyl makes her crazy Was Beta Saurav taken within 24 hours: N/A Was Clonidine taken within 24 hours: N/A Last intake: Intake Last Liquid Date 11/30/24 Last Liquid Time 23:55 Last Solid Date 11/29/24 Last Solid Time 20:00 Social No alcohol and No tobacco Exam alert, oriented x 3, clear to auscultation bilaterally and regular rate & rhythm Airway Mallampati: Class II Dentition: false Metabolic Diabetes Mellitus, Hyperlipidemia, Morbid Obesity and Thyroid Disease Neuropsych Seizure Anesthetic Plan ASA status: 3 Anesthesia: General Risk of > 500 ml blood loss (7ml/kg in children): No Medications/Allergies Home Medications ?Medication ?Instructions ?Recorded ?Confirmed ?Last Taken ?Type aspirin 81 mg chewable tablet 81 mg PO DAILY 08/23/22 11/30/24 11/20/24 History Held on 10/08/24. Instructions: Resume on 10/10/24. vit C 250 mg-vit E 90 mg-zinc 40 1 tab PO BID 11/19/22 11/30/24 11/30/24 History mg-copper 1 ke-atnoxv-hijgsq capsule (PreserVision AREDS-2) empagliflozin 25 mg tablet 25 mg PO QAM #90 tabs 04/28/24 11/30/24 11/23/24 Rx meclizine 25 mg tablet 25 mg PO TID PRN Dizziness 06/09/24 11/30/24 Unknown History Bone Growth Stimulator #1 ea 07/01/24 11/18/24 Unknown Rx furosemide 40 mg tablet (Lasix) 40 mg PO DAILY PRN edema #90 tabs 08/09/24 11/30/24 11/29/24 Rx nystatin-triamcinolone 100,000 1 applic topical BID #60 grams 08/09/24 11/30/24 11/29/24 Rx unit/g-0.1 % topical cream Diabetic shoes with 3 inserts #1 ea 09/15/24 11/18/24 Unknown Rx blood-glucose sensor (FreeStyle #1 ea 09/27/24 11/18/24 Unknown Rx Katarina 3 Plus Sensor device) levetiracetam 750 mg tablet 750 mg PO BID 10/07/24 11/30/24 12/01/24 History pramipexole 0.25 mg tablet 0.25 mg PO DIRECTED 10/07/24 11/30/24 11/30/24 History simvastatin 20 mg tablet 20 mg PO QPM 10/07/24 11/30/24 11/29/24 History levothyroxine 150 mcg tablet 150 mcg PO DAILY #34 tabs 10/11/24 11/30/24 12/01/24 Rx colchicine 0.6 mg tablet 0.6 mg PO DAILY 11/30/24 11/30/24 11/28/24 History glimepiride 4 mg tablet 8 mg PO QDAY 11/30/24 11/30/24 11/29/24 History tirzepatide 10 mg/0.5 mL 10 mg SUBCUT Q7D 11/30/24 11/30/24 11/16/24 History subcutaneous pen injector (Mounjaro) Allergies Allergy/AdvReac Type Severity Reaction Status Date / Time azithromycin Allergy ALGY-Difficulty Verified 11/18/24 15:04 Breathing carbamazepine (From Tegretol) Allergy Unknown Verified 11/18/24 15:04 cephalexin Allergy Unknown Verified 11/18/24 15:04 ciprofloxacin Allergy ALGY-Rash Verified 11/18/24 15:04 cyclobenzaprine (From Allergy Unknown Verified 11/18/24 15:04 Flexeril) fentanyl Allergy doesn't Verified 11/18/24 15:04 want to take fluconazole Allergy Unknown Verified 11/18/24 15:04 gabapentin Allergy Unknown Verified 11/18/24 15:04 hydrocodone (From Jackson) Allergy Unknown Verified 11/18/24 15:04 hydroxychloroquine Allergy Unknown Verified 11/18/24 15:04 hyoscyamine Allergy Unknown Verified 11/18/24 15:04 naproxen (From Naprosyn) Allergy Unknown Verified 11/18/24 15:04 oxybutynin (From Ditropan) Allergy Unknown Verified 11/18/24 15:04 phenytoin (From Dilantin) Allergy Unknown Verified 11/18/24 15:04 progesterone (From Allergy Unknown Verified 11/18/24 15:04 Prometrium) solifenacin (From Vesicare) Allergy Unknown Verified 11/18/24 15:04 Sulfa (Sulfonamide Allergy Unknown Verified 11/18/24 15:04 Antibiotics) sulfamethoxazole (From Allergy Unknown Verified 11/18/24 15:04 Bactrim) trimethoprim (From Bactrim) Allergy Unknown Verified 11/18/24 15:04 valdecoxib (From Bextra) Allergy Unknown Verified 11/18/24 15:04 [facility] Anesthesia Medical History Family history of colon cancer Colon polyps Spinal cord neurostimulator device in situ BMI 40.0-44.9, adult FH: total knee replacement Recurrent UTI CRP elevated Angina at rest Creatinine elevation After cataract, bilateral Carpal tunnel syndrome on both sides Nonfunctional vagus nerve stimulator Multiple lung nodules on CT 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 Father CAD (coronary artery disease) Stroke Mother Chronic kidney disease (CKD) Brother Cancer Brother Stroke Colon cancer Denies family history of Ovarian cancer Diabetes Heart disease Hypercholesteremia Breast cancer Hypertension Uterine cancer Thyroid disease Social History Smoking and tobacco/nicotine status: never used tobacco/nicotine Quit status (tobacco/nicotine): has quit using Year quit tobacco: 1979 Former quit date comment: 1-2 ppd X 1 year Second hand smoke exposure: No Alcohol intake: never Substance/Drug Use: never Current gender identity: Female Female Reproductive History Spontaneous abortions: No
--- NOTE | 2024-12-01 09:05 | W.PM.OPSUD ---
Surgery/Procedure H&P Update DATE OF PROCEDURE: December 01, 2024 DATE H&P PERFORMED: 11/18/24 H&P UPDATE INFORMATION: I have reviewed H&P completed within last 30 days, I have examined patient prior to procedure and No changes to prior documentation PREOP DIAGNOSIS: Nonworking neurostimulator PLANNED PROCEDURE: Operation Date: 12/01/24 09:15 Proposed Procedures p Removal Stimulator Lead Spine(Not Applicable) - Jeet Duggan DO s Removal Stimulator Spine Spinal Cord Stimulator Generator Removal(Not Applicable) - Jeet Duggan DO
[2024-12-01] MEDS: lidocaine-epi 1% 20 mL INJ 10 ML INJECTION (09:59)
--- NOTE | 2024-12-01 10:26 | PM.OP ---
Operative Report Date of procedure: December 01, 2024 Pre-op diagnosis: Nonworking neurostimulator Post-op diagnosis: same Procedure done: 1. Removal of neuro generator battery. 2. Open removal of neurostimulator paddle Surgeon: Jeet Duggan DO Estimated blood loss (mL): 5 Procedure: 1. Removal of neuro generator battery. 2. Open removal of neurostimulator paddle Patient is brought to the procedure after undergoing anesthesia was placed in the prone position. All areas of impingement were well-padded. Patient was then prepped and draped normal sterile fashion. Attention was first brought to the battery. Skin incision is made over the battery space. Battery is identified and removed. Next attention was brought to the neurostimulator paddle. Skin incision made over the laminectomy site and where the stimulator was tied in. The wires were identified. And where the wires were sutured in were removed. The paddle entrance into the laminectomy was identified. Using a curved curette and Kerrison rongeurs the scar tissue around the wires up to the paddle were taken down. And then the paddle was removed. Wires were cut and the remaining wires were pulled through the battery pouch. Wounds were irrigated vancomycin powder was placed and. Wounds were closed in a layered fashion with 0 Vicryl 2-0 Vicryl and Monocryl suture. Sterile dressings were applied and patient is transferred to the PACU in stable condition.
--- NOTE | 2024-12-01 12:05 | ANE.PACU2 ---
Inpatient post-anesthesia follow up: Airway intact: Yes Vital signs: Temperature 97.6 F Pulse Rate 67 Respiratory Rate 18 Blood Pressure 143/74 Pulse Oximetry 96 Oxygen Delivery Me thod Room Air Oxygen Flow Rate 2.0 Fraction of Inspir ed Oxygen Hydration adequate: Yes Nausea and vomiting: No Pain level: 1 Mental status: Baseline
--- NOTE | 2024-12-01 16:59 | XR_ITS ---
WS: [id number] Lumbar spine, C ARM fluoroscopy views, 12/01/2024 Clinical Data: ALBER PICS Comparison: Lumbar spine, 09/04/2023 Findings: Dr. Duggan replaced the neurostimulator battery. XR/XR lumbar spine 2-3V* [id number] Impression: Replacement of neurostimulator battery.
== END 2024-12-01 12:05 | disposition home or self-care (01) ==
PROVIDERS: PCP Family Medicine; Visit Provider Orthopaedic Surgery
PROC: (CPT 63662; principal; 2024-12-01 09:05)
PROC: (CPT 63662; 2024-12-01 09:05)
DX: T85.113A Breakdown (mechanical) of implanted electronic neurostimulator, generator, initial encounter (principal); E78.5 Hyperlipidemia, unspecified; E66.01 Morbid (severe) obesity due to excess calories; Z68.41 Body mass index [BMI] 40.0-44.9, adult; R56.9 Unspecified convulsions; Z79.82 Long term (current) use of aspirin; E11.40 Type 2 diabetes mellitus with diabetic neuropathy, unspecified; E03.9 Hypothyroidism, unspecified; I10 Essential (primary) hypertension; Z87.891 Personal history of nicotine dependence
CPT/HCPCS: 63662; 63688; 36416; 72100; 76000; 82962; J1100; J2405; J2704; J3010; J3373; J3490; J7030; J9999

== ENCOUNTER 2024-12-09 10:28 | Outpatient (CLI) | payer MEDICARE, SELFPAY ==
[2024-12-09 11:43] LABS: Estmated Average Glucose 146; Hemoglobin A1C 6.7 % (4.0-6.0)
[2024-12-09 11:48] LABS: Alanine Aminotransferase 20 U/L (0-33); Albumin Level 4.0 g/dL (3.5-5.2); Alkaline Phosphatase 115 U/L (35-105); Aspartate Amino Transferase 18 U/L (0-32); Chloride 101 mmol/L (98-107); Cholesterol 170 mg/dL (0-200); Globulin 3.7 g/dL (1.3-4.6); Glucose 134 mg/dL (65-115); HDL Cholesterol 45 mg/dL (60-100); Potassium 4.0 mmol/L (3.5-5.1); Sodium 140 mmol/L (136-145); Total Protein 7.7 g/dL (6.6-8.7); Triglycerides 209 mg/dL (0-150)
[2024-12-09 11:50] LABS: Creatinine Urine, Random 39 mg/dL (28-217)
[2024-12-09 11:52] LABS: Microalbum Creatinine Ratio Ur 718 mg/dL (0-20)
[2024-12-09 12:11] LABS: Anion Gap 14.0 (5-19); Blood Urea Nitrogen 11 mg/dL (8-23); Calcium 9.3 mg/dL (8.5-10.5); Carbon Dioxide 29 mmol/L (22-29); Free T4 Free Thyroxine 1.30 ng/dL (0.82-1.77); Osmolality Calculated 291 mOsm/kg (285-295); Thyroid Stimulating Hormone 8.47 uIU/mL (0.27-4.20)
== END 2024-12-09 10:29 | disposition home or self-care (01) ==
PROVIDERS: PCP Family Medicine; Visit Provider Internal Medicine
DX: E11.21 Type 2 diabetes mellitus with diabetic nephropathy (principal); E03.9 Hypothyroidism, unspecified
CPT/HCPCS: 36415; 80053; 80061; 82044; 83036; 84439; 84443

== ENCOUNTER → 2024-12-14 13:42 | Outpatient (BNVA) | payer MEDICARE, SELFPAY | PROVIDERS: PCP Family Medicine; Visit Provider Podiatrist Foot & Ankle Surgery | DX: L60.3 Nail dystrophy (principal); E11.21 Type 2 diabetes mellitus with diabetic nephropathy; M21.371 Foot drop, right foot; M76.61 Achilles tendinitis, right leg; M20.21 Hallux rigidus, right foot | CPT/HCPCS: 99213 ==

== ENCOUNTER → 2024-12-16 12:55 | Outpatient (BNVA) | payer MEDICARE, SELFPAY | PROVIDERS: PCP Family Medicine; Visit Provider Orthopaedic Surgery | DX: Z98.890 Other specified postprocedural states (principal) | CPT/HCPCS: 99024 ==

== ENCOUNTER → 2024-12-20 09:39 | Outpatient (BNVA) | payer MEDICARE, SELFPAY | PROVIDERS: PCP Family Medicine; Visit Provider Internal Medicine | DX: E03.9 Hypothyroidism, unspecified (principal); E11.21 Type 2 diabetes mellitus with diabetic nephropathy; D35.01 Benign neoplasm of right adrenal gland; E78.2 Mixed hyperlipidemia | CPT/HCPCS: 99214 ==

== ENCOUNTER 2024-12-29 14:02 | Outpatient (RCR) | payer MEDICARE, SELFPAY | END 2025-01-09 23:59 | disposition home or self-care (01) | LOC: SPT 14:02 | PROVIDERS: PCP Family Medicine; Visit Provider Podiatrist Foot & Ankle Surgery | DX: M76.60 Achilles tendinitis, unspecified leg (principal) | CPT/HCPCS: 97161 ==

== ENCOUNTER 2025-01-02 07:55 | Emergency (ER) | payer MEDICARE, SELFPAY ==
[2025-01-02 07:57] VITALS: BP 161/73; PULSE 67; RESP 16; TEMP 36.8; O2SAT 98; BMI 42.8
--- OUTSIDE RECORDS SUMMARY | 2025-01-02 07:58 | XMS_ITS | Patient Health Record ---
Author Organization [facility] Address [address] [place] [address] Care Team Providers Care Relocation Associate Name Role Phone Shakeel Acuna MD Primary Care Provider Heber Cheung Unavailable [phone] Allergies Allergen (clinical drug ingredient) Drug/Non Drug Allergy documented on EMR Reaction Allergy Type Onset Date Status cat (uncoded) shortness of breath Allergy Active colchicine (uncoded) diarrhea Allergy Active hydroxychloroquine hydroxychloroquine (uncoded) Unknown Allergy Active weeds (uncoded) shortness of breath Allergy Active sulfamethoxazole / trimethoprim Bactrim DS rash Drug Allergy Active cephalexin Cephalexin shortness of breath Drug Allergy Active phenytoin Dilantin shortness of breath Drug Allergy Active Ditropan shortness of breath Drug Allergy Active fluconazole Fluconazole shortness of breath Drug Allergy Active Hydrocodone-Acetamin op hen shortness of breath Drug Allergy Active Hyoscyamine shortness of breath Drug Allergy 9 Active naproxen Naprosyn shortness of breath Drug Allergy Active naproxen Naproxen shortness of breath Drug Allergy Active gabapentin Neurontin shortness of breath Drug Allergy Active progesterone Prometrium shortness of breath Drug Allergy Active Tegretol shortness of breath Drug Allergy Active [...] Insured Coverage Start Date Coverage End Date [employer] [address] [address] [place], [place] [id number] Sherie Hernandez Self - patient is the [...]
--- OUTSIDE RECORDS SUMMARY | 2025-01-02 07:58 | XMS_ITS | Clinical Summary ---
Author Organization [facility] Address [address] [place] [address] Phone Care Team Providers Care Dungeon Master Name Role Phone Demetria Busch MD Primary [...] 2 tabs at bedtime Active Vit C-Vit O-Qjskof-UpTs-L utein (PRESERVISION) 226-90-0.8-5 mg Capsule Take 1 [...] 09/21/2023 Vertigo 09/21/2023 Right sided numbness 09/21/2023 Social History Tobacco Use Types Packs/Day Years Used Date Smoking Tobacco: Never Smokeless Tobacco: Never Tobacco Cessation:Counseling Given: Not Answered Alcohol Use Standard Drinks/Week Comments Never 0 (1 standard drink = 0.6 oz pur e alcohol) [facility] [employer] Answer Date Recorded In the past 12 months has [facility] [employer], oil, or water [employer] threatened to shut off services in your [...] often do you attend chur ch or alevism services? 1 to 4 times per year 09/21/2023 Do you belong to any clubs o r organizations such as methodist groups, unions, fraternal or athletic groups, or [...] ) (1 - 1-dose 75+ series) 2020 PNEUMOCOCCAL VACCINE 50+ YEA RS (2 of 2 - PCV) 01/21/2024 01/20/2023 DIABETES HBA1C Q 6 MONTHS 03/23/2024 09/21/2023, LDL CHOLESTEROL ANNUAL 09/21/2024 09/22/2023 INFLUENZA VACCINE (#1) 2024 Procedures Procedure Name Priority Date/Time Associated Diagnosis Comments LIPID PANEL Routine 09/22/2023 4:26 AM CDT HEMOGLOBIN A1C Routine 09/21/2023 7:52 PM CDT from Last 3 Months or Most Recently Relevant to Health Maintenance Results * LIPID PANEL (09/22/2023 4:26 AM CDT) CHOLESTEROL 113 <200 mg/dL 09/22/2023 5:02 AM T [facility] TRIGLYCERIDE 142 <150 mg/dL 09/22/2023 5:02 AM CDT [facility] HDL 46 40 - 59 mg/dL 09/22/2023 5:02 AM T [facility] LDL CALCULATED 39 <100 mg/dL 09/22/2023 5:02 AM T [facility] NON-HDL CHOLESTEROL 67 <130 mg/dL 09/22/2023 5:02 AM T [facility] Blood Venipuncture / Unknown 09/22/2023 4:26 AM CDT 09/22/2023 4:31 AM CDT Narrative [facility] - 09/22/2023 5:02 AM CDT TOTAL [...] Brooke MD CHEMISTRY ORDERABLES Final Re sult [facility] CLIA # [id number] [address] [place] [id number] * (ABNORMAL) HEMOGLOBIN A1C (09/21/2023 7:52 PM CDT) HEMOGLOBIN A1C 10.4(H) <=5.6 % 09/22/2023 9:05 AM CDT [facility] EST. AVG GLUCOSE, A1C 252 mg/dL 09/22/2023 9:05 AM CDT [facility] Blood Venipuncture / Unknown 09/21/2023 7:52 PM CDT 09/21/2023 8:05 PM CDT Narrative [facility] - 09/22/2023 9:05 AM CDT HGB A1C INTERPRETATION NORMAL: <5.7% PRE-DIABETES: 5.7 - 6.4% DIABETES: 6.5% OR GREATER us Heather Brooke MD CHEMISTRY ORDERABLES Final Re sult [facility] CLIA # [id number] [address] [address] from Last 3 Months or Most Recently Relevant to Health Maintenance Insurance [facility] MEDICARE HMO RX [facility] Medicare Part D Advance Directives For more information, please contact: [phone] * Full Code (Latest Code Status on File) Date Activated Date Inactivated Comments 09/24/2023 11:57 AM 09/25/2023 1:46 PM * Default Full Code - Needs Discussion Date Activated Date Inactivated Comments 09/21/2023 6:42 PM 09/24/2023 11:57 AM Care Teams Dungeon Master Relationship Specialty Start Date End Date Demetria Busch MD [address] [facility] [address] [place] [id number] PCP - General Family Practice 09/26/23
--- NOTE | 2025-01-02 08:09 | W.ED.GIBLEED ---
HPI - GI Bleed General: Chief complaint: GI Bleed Stated complaint: bloody stools Time Seen by Provider: 01/02/25 08:00 History of Present Illness: HPI: Patient on baby aspirin only presenting to the emergency department with 3 days of bright red blood per rectum. States that she has had loose bowel movements described as liquid mixed with blood. States that her rectum is somewhat painful and burning. No fevers, sweats, chills. No abdominal tenderness. No nausea or vomiting. Patient was on antibiotics after previous spinal cord stimulator removal in the operating room a few months ago. No recent or national travel, unclean drinking water, or known exposure to C. difficile colitis. No fevers, sweats, chills, recent constipation. REVIEW OF SYSTEMS: 10 systems reviewed and otherwise unremarkable except for those noted in HPI. PHYSCIAL EXAM: Triage vital signs reviewed Gen: A&O NAD HEENT: NCAT, EOMI, not icteric. External ears normal. No rhinorrhea. Moist mucous membranes. Neck: Supple, full range of motion, no observable masses, No meningeal sign. Lungs: No Respiratory distress. CV: RRR, no edema. Abdomen: Soft, nondistended, No rebound tenderness. Chaperoned exam with nursing present bedside demonstrating no bright red blood per rectum or melena. Patient has a 6:00 skin tag/hemorrhoid. MSK: No joint swelling, no redness. Skin: No rashes, petechiae, lesions. Normal color per patient. Neuro: Normal Gait, Grossly intact. Psych: Appropriate for situation. PROCEDURES: N/A Related Data Home Medications ?Medication ?Instructions ?Recorded ?Confirmed aspirin 81 mg chewable tablet 81 mg PO DAILY 08/23/22 12/27/24 Held on 12/01/24. Instructions: Resume on 12/02/24. vit C 250 mg-vit E 90 mg-zinc 40 1 tab PO BID 11/19/22 12/27/24 mg-copper 1 [id number] capsule (PreserVision AREDS-2) meclizine 25 mg tablet 25 mg PO TID PRN Dizziness 06/09/24 12/27/24 levetiracetam 750 mg tablet 750 mg PO BID 10/07/24 12/27/24 colchicine 0.6 mg tablet 0.6 mg PO DAILY 11/30/24 12/27/24 glimepiride 4 mg tablet 8 mg PO QDAY 11/30/24 12/27/24 tirzepatide 10 mg/0.5 mL 10 mg SUBCUT Q7D 11/30/24 12/27/24 subcutaneous pen injector (Diana) Previous Rx's ?Medication ?Instructions ?Recorded Bone Growth Stimulator #1 ea 07/01/24 furosemide 40 mg tablet (Lasix) 40 mg PO DAILY PRN edema #90 tabs 08/09/24 nystatin-triamcinolone 100,000 1 applic topical BID #60 grams 08/09/24 unit/g-0.1 % topical cream blood-glucose sensor (FreeStyle #1 ea 09/27/24 Katarina 3 Plus Sensor device) pramipexole 0.25 mg tablet See Rx Instructions .Route 12/13/24 .COMPLEX #270 tabs simvastatin 20 mg tablet See Rx Instructions .Route 12/13/24 .COMPLEX #90 tabs Diabetic shoes with 3 inserts #1 ea 12/14/24 levothyroxine 150 mcg tablet 150 mcg PO DAILY #103 tabs 12/20/24 loperamide 2 mg capsule 2 mg PO Q6H PRN loose stool #14 01/02/25 caps Allergies Allergy/AdvReac Type Severity Reaction Status Date / Time azithromycin Allergy ALGY-Difficulty Verified 12/27/24 14:24 Breathing carbamazepine (From Tegretol) Allergy Unknown Verified 12/27/24 14:24 cephalexin Allergy Unknown Verified 12/27/24 14:24 ciprofloxacin Allergy ALGY-Rash Verified 12/27/24 14:24 cyclobenzaprine (From Allergy Unknown Verified 12/27/24 14:24 Flexeril) fentanyl Allergy doesn't Verified 12/27/24 14:24 want to take fluconazole Allergy Unknown Verified 12/27/24 14:24 gabapentin Allergy Unknown Verified 12/27/24 14:24 hydrocodone (From Central) Allergy Unknown Verified 12/27/24 14:24 hydroxychloroquine Allergy Unknown Verified 12/27/24 14:24 hyoscyamine Allergy Unknown Verified 12/27/24 14:24 naproxen (From Naprosyn) Allergy Unknown Verified 12/27/24 14:24 oxybutynin (From Ditropan) Allergy Unknown Verified 12/27/24 14:24 phenytoin (From Dilantin) Allergy Unknown Verified 12/27/24 14:24 progesterone (From Allergy Unknown Verified 12/27/24 14:24 Prometrium) solifenacin (From Vesicare) Allergy Unknown Verified 12/27/24 14:24 Sulfa (Sulfonamide Allergy Unknown Verified 12/27/24 14:24 Antibiotics) sulfamethoxazole (From Allergy Unknown Verified 12/27/24 14:24 Bactrim) trimethoprim (From Bactrim) Allergy Unknown Verified 12/27/24 14:24 valdecoxib (From Bextra) Allergy Unknown Verified 12/27/24 14:24 PFS ED PFSH: Medical History (Updated 01/02/25 @ 08:14 by Woodrow Robin MD) Family history of colon cancer Colon polyps Spinal cord neurostimulator device in situ BMI 40.0-44.9, adult FH: total knee replacement Recurrent UTI CRP elevated Angina at rest Creatinine elevation After cataract, bilateral Carpal tunnel syndrome on both sides Nonfunctional vagus nerve stimulator Multiple lung nodules on CT 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 Father CAD (coronary artery disease) Stroke Mother Chronic kidney disease (CKD) Brother Cancer Brother Stroke Colon cancer Denies family history of Ovarian cancer Diabetes Heart disease Hypercholesteremia Breast cancer Hypertension Uterine cancer Thyroid disease Social History Smoking and tobacco/nicotine status: never used tobacco/nicotine Quit status (tobacco/nicotine): has quit using Year quit tobacco: 1979 Former quit date comment: 1-2 ppd X 1 year Second hand smoke exposure: No Alcohol intake: never Substance/Drug Use: never Current gender identity: Female Female Reproductive History: Spontaneous abortions: No Course Vital Signs: Vital signs: Vital Signs Temperature 98.3 F 01/02/25 07:57 Pulse Rate 67 01/02/25 07:57 Respiratory Rate 16 01/02/25 07:57 Blood Pressure 161/73 01/02/25 07:57 Pulse Oximetry 98 01/02/25 07:57 Oxygen Delivery Me thod Room Air 01/02/25 07:57 MDM - GI Bleed Medical Decision Making MEDICAL DECISION MAKING: Differential diagnoses considered but not limited to: Infectious or inflammatory diarrheal illness, foodborne pathogen, fissure, hemorrhoid, fistula, occult large-volume GI bleed, atypical IBD. Vitals nonactionable. Given history, examination, and pretest risk factors, feel not at risk for impending hemorrhagic shock or large-volume GI bleed. Recommended Imodium and follow-up with PCM for x-ray referral to gastroenterology for upper and lower endoscopy. At this time do not feel antibiotics are indicated. Patient of advanced age but without other risk factors at this time. Vital signs stable and patient nontoxic in appearance. DISPO: DC Woodrow Robin MD Staff physician[place] [facility] [place] [phone] Lab Data 01/02/25 08:15 01/02/25 08:15 Laboratory Results WBC 5.80 10^3/uL (3.29-11.43) 01/02/25 08:15 RBC 4.55 10^6/uL (3.85-5.65) 01/02/25 08:15 Hgb 14.20 g/dL (11.27-16.99) 01/02/25 08:15 Hct 43.3 % (36-47) 01/02/25 08:15 MCV 95.2 fl (85-98) 01/02/25 08:15 MCH 31.2 pg (27-33) 01/02/25 08:15 MCHC 32.8 g/dL (30-55) 01/02/25 08:15 RDW 12.6 % (12.1-15.1) 01/02/25 08:15 Plt Count 195 10^3/cmm (157-399) 01/02/25 08:15 MPV 8.6 fL (7.4-10.4) 01/02/25 08:15 Neut % (Auto) 48.6 % 01/02/25 08:15 Lymph % (Auto) 38.6 % 01/02/25 08:15 [place] % (Auto) 8.1 % 01/02/25 08:15 Eos % (Auto) 3.6 % 01/02/25 08:15 Baso % (Auto) 0.9 % 01/02/25 08:15 Neut # (Auto) 2.82 10^3/uL (1.8-7.7) 01/02/25 08:15 Lymph # (Auto) 2.2 10^3/uL (0.8-4.8) 01/02/25 08:15 [place] # (Auto) 0.5 10^3/uL (0.2-0.9) 01/02/25 08:15 Eos # (Auto) 0.2 10^3/uL (0.0-0.8) 01/02/25 08:15 Baso # (Auto) 0.1 10^3/uL (0.0-0.1) 01/02/25 08:15 Nucleated RBC % (auto) 0 % 01/02/25 08:15 Nucleated RBCs # 0.0 /100WBC 01/02/25 08:15 Sodium 141 mmol/L (136-145) 01/02/25 08:15 Potassium 3.8 mmol/L (3.5-5.1) 01/02/25 08:15 Chloride 109 mmol/L (98-107) H 01/02/25 08:15 Carbon Dioxide 20 mmol/L (22-29) L 01/02/25 08:15 Anion Gap 15.8 (5-19) 01/02/25 08:15 BUN 15 mg/dL (8-23) 01/02/25 08:15 Creatinine 0.9 mg/dL (0.5-0.9) 01/02/25 08:15 GFR Calculation Not Reportable 01/02/25 08:15 Glucose 105 mg/dL (65-115) 01/02/25 08:15 Calculated Osmolality 293 mOsm/kg (285-295) 01/02/25 08:15 Calcium 8.9 mg/dL (8.5-10.5) 01/02/25 08:15 Total Bilirubin 0.9 mg/dL (0.15-1.2) 01/02/25 08:15 AST 12 U/L (0-32) 01/02/25 08:15 ALT 11 U/L (0-33) 01/02/25 08:15 Alkaline Phosphatase 104 U/L (35-105) 01/02/25 08:15 Total Protein 7.1 g/dL (6.6-8.7) 01/02/25 08:15 Albumin 3.6 g/dL (3.5-5.2) 01/02/25 08:15 Globulin 3.5 g/dL (1.3-4.6) 01/02/25 08:15 No radiology studies performed this visit Discharge Plan Discharge Patient Disposition: Home Clinical Impression: Hematochezia, Diarrhea Condition: Stable Prescriptions: New loperamide 2 mg capsule 2 mg PO Q6H PRN (Reason: loose stool) Qty: 14 0RF No Action aspirin 81 mg tablet,chewable 81 mg PO DAILY PreserVision AREDS-2 250-90-40-1 mg capsule 1 tab PO BID furosemide [Lasix] 40 mg tablet 40 mg PO DAILY PRN (Reason: edema) Qty: 90 0RF nystatin-triamcinolone 100,000-0.1 unit/g-% cream 1 applic topical BID Qty: 60 2RF (DME) Diabetic shoes with 3 inserts See Rx Instructions .Route .MEDSUPPLY Qty: 1 0RF Rx Instructions: As directed to [facility] diabetic [facility] levothyroxine 150 mcg tablet 150 mcg PO DAILY Qty: 103 1RF Rx Instructions: TAKE 1 TABLET BY MOUTH Friday through Friday and 1 and a half tablets on Friday and Friday. (DME) Bone Growth Stimulator See Rx Instructions .Route .MEDSUPPLY Qty: 1 0RF Rx Instructions: As directed (DME) FreeStyle Katarina 3 Plus Sensor Device See Rx Instructions .Route Qty: 1 5RF Rx Instructions: As directed pramipexole 0.25 mg tablet See Rx Instructions .ROUTE .COMPLEX Qty: 270 0RF Dose Instruction: TAKE 1 TABLET BY MOUTH EVERY MORNING AND TWO EVERY EVENING Rx Instructions: TAKE 1 TABLET BY MOUTH EVERY MORNING AND TWO EVERY EVENING simvastatin 20 mg tablet See Rx Instructions .ROUTE .COMPLEX Qty: 90 0RF Dose Instruction: TAKE 1 TABLET BY MOUTH EVERY DAY Rx Instructions: TAKE 1 TABLET BY MOUTH EVERY DAY meclizine 25 mg tablet 25 mg PO TID PRN (Reason: Dizziness) levetiracetam 750 mg tablet 750 mg PO BID Rx Instructions: TAKE 1 TABLET BY MOUTH TWICE DAILY glimepiride 4 mg tablet 8 mg PO QDAY Rx Instructions: 8 mg every day; colchicine 0.6 mg tablet 0.6 mg PO DAILY Rx Instructions: TAKE 1 TABLET BY MOUTH DAILY Mounjaro 10 mg/0.5 mL pen injector 10 mg SUBCUT Q7D Rx Instructions: inject 10mg SUBCUTANEOUSLY EVERY 7 DAYS Discharge Orders: Discharge ED (Routine); Ordered 01/02/25 Ordered By: Woodrow Robin Referrals: Demetria Busch MD [Primary Care Provider, Family Practice] Discharge Diet: Advance as tolerated and Usual diet Discharge Activity: Resume usual activity Patient Instructions: Opioid Safety, Pain Management, Patient Portal & Shruti Instructions Activity Restrictions/Additional Instructions: It has been a pleasure caring for you in the emergency department. Please ensure that you follow-up with your primary care physician for review of all data obtained during this encounter including any incidental findings and laboratory values. Keep in mind that if your condition worsens in any way, I strongly recommend that you return to the emergency department for repeat evaluation immediately. Print Language: Tajik Coding Level of Care Code ED Consulting Technical Manager for 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
[2025-01-02 08:29] LABS: Hematocrit 43.3 % (36-47); Hemoglobin 14.20 g/dL (11.27-16.99); Mean Corpuscular HGB Conc 32.8 g/dL (30-55); Mean Corpuscular Hemoglobin 31.2 pg (27-33); Mean Corpuscular Volume 95.2 fl (85-98); Nucleated Red Blood Cells % 0 %; Platelet Count 195 10^3/cmm (157-399); Red Blood Count 4.55 10^6/uL (3.85-5.65); White Blood Count 5.80 10^3/uL (3.29-11.43)
[2025-01-02 08:45] LABS: Alanine Aminotransferase 11 U/L (0-33); Albumin Level 3.6 g/dL (3.5-5.2); Alkaline Phosphatase 104 U/L (35-105); Anion Gap 15.8 (5-19); Aspartate Amino Transferase 12 U/L (0-32); Blood Urea Nitrogen 15 mg/dL (8-23); Calcium 8.9 mg/dL (8.5-10.5); Carbon Dioxide 20 mmol/L (22-29); Chloride 109 mmol/L (98-107); Creatinine Clr Calc Pharmacy 76.9444; Globulin 3.5 g/dL (1.3-4.6); Glucose 105 mg/dL (65-115); Osmolality Calculated 293 mOsm/kg (285-295); Potassium 3.8 mmol/L (3.5-5.1); Sodium 141 mmol/L (136-145); Total Protein 7.1 g/dL (6.6-8.7)
[2025-01-02 10:12] VITALS: BP 148/92; PULSE 71; O2SAT 98
== END 2025-01-02 10:27 | disposition home or self-care (01) ==
PROVIDERS: Emergency Provider General Practice; PCP Family Medicine
DX: K92.1 Melena (principal); R19.7 Diarrhea, unspecified; Z79.82 Long term (current) use of aspirin; Z87.891 Personal history of nicotine dependence; E11.21 Type 2 diabetes mellitus with diabetic nephropathy; I10 Essential (primary) hypertension
CPT/HCPCS: 80053; 85025; 99283

== ENCOUNTER 2025-01-10 05:00 | Outpatient (RCR) | payer MEDICARE, SELFPAY | END 2025-02-08 23:59 | disposition home or self-care (01) | LOC: SPT 05:00 | PROVIDERS: PCP Family Medicine; Visit Provider Podiatrist Foot & Ankle Surgery | DX: M76.60 Achilles tendinitis, unspecified leg (principal) | CPT/HCPCS: 97110; 97140; 97164; 97530 ==

== ENCOUNTER → 2025-01-19 10:00 | Outpatient (BNVA) | payer MEDICARE, SELFPAY | PROVIDERS: PCP Family Medicine; Visit Provider Podiatrist Foot & Ankle Surgery | DX: E11.8 Type 2 diabetes mellitus with unspecified complications (principal); L60.3 Nail dystrophy; E11.21 Type 2 diabetes mellitus with diabetic nephropathy; M21.371 Foot drop, right foot; M76.61 Achilles tendinitis, right leg; M20.21 Hallux rigidus, right foot | CPT/HCPCS: 99214 ==

== ENCOUNTER → 2025-02-02 12:17 | Outpatient (BNVA) | payer MEDICARE, SELFPAY | PROVIDERS: PCP Family Medicine; Visit Provider Surgery | DX: N64.59 Other signs and symptoms in breast (principal); R03.0 Elevated blood-pressure reading, without diagnosis of hypertension | CPT/HCPCS: 99203 ==

== ENCOUNTER 2025-02-09 05:00 | Outpatient (RCR) | payer MEDICARE, SELFPAY | END 2025-03-11 23:59 | disposition home or self-care (01) | LOC: SPT 05:00 | PROVIDERS: PCP Family Medicine; Visit Provider Podiatrist Foot & Ankle Surgery | DX: M76.60 Achilles tendinitis, unspecified leg (principal) | CPT/HCPCS: 97110 ==

== ENCOUNTER → 2025-02-16 10:58 | Outpatient (BNVA) | payer MEDICARE, SELFPAY | PROVIDERS: PCP Family Medicine; Visit Provider Podiatrist Foot & Ankle Surgery | DX: E11.8 Type 2 diabetes mellitus with unspecified complications (principal); L60.3 Nail dystrophy; E11.21 Type 2 diabetes mellitus with diabetic nephropathy; M21.371 Foot drop, right foot; M76.61 Achilles tendinitis, right leg; M20.21 Hallux rigidus, right foot | CPT/HCPCS: 99213 ==

== ENCOUNTER 2025-04-02 11:40 | Emergency (ER) | payer MEDICARE, SELFPAY ==
--- OUTSIDE RECORDS SUMMARY | 2024-03-06 03:00 | XMS_ITS ---
Author Organization [facility] Address [address] [place] [address] Care Team Providers Care Beck Operator Name Role Phone Abdi Lovett Primary Care Provider Unavailabl e Migration, Provider Unavailable Unavailable REASON FOR VISIT EMR-Bran Encounters Encounter Location Date Provider Diagnosis Migrated_Facility 0 0 03/06/2024 Provider Migration Plan Of Treatment No Information Progress Notes * Janey RITTEROB:1945 ( 79 yo F)Acc No.[id number]:03/06/2024 Patient: Sherie VILLEDA :1945 A ge:78 Y S ex:Female Address:[facility], [place], [address] Subjective: * Chief Complaints: * E MR-Bran * * Date:
--- OUTSIDE RECORDS SUMMARY | 2024-03-07 03:00 | XMS_ITS ---
Author Organization [facility] Address [address] [place] [address] Care Team Providers Care District Leader Name Role Phone Abdi Lovett Primary Care Provider Unavailabl e Migration, Provider Unavailable Unavailable REASON FOR VISIT EMR-Bran Encounters Encounter Location Date Provider Diagnosis Migrated_Facility 0 0 03/07/2024 Provider Migration Plan Of Treatment No Information Progress Notes * Janey RITTEROB:1945 ( 79 yo F)Acc No.[id number]:03/07/2024 Patient: Sherie VILLEDA :1945 A ge:78 Y S ex:Female Address:[facility], [place], [address] Subjective: * Chief Complaints: * E MR-Bran * * Date:
[2025-04-02 11:46] VITALS: BP 122/55; PULSE 69; RESP 18; TEMP 36; O2SAT 91; BMI 43.2
--- OUTSIDE RECORDS SUMMARY | 2025-04-02 11:51 | XMS_ITS | Data Portability ---
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 Discussed exposure and quarantine recommendations. Not available 04/26/2023 12:42:21 03/25/2025 03/25/2025 79-year-old fema le with a history of Type 2 diabetes mellitus, chronic diarrhea, and hypothyroidism presenting with ongoing episodes of chronic diarrhea and melena. Ongoing management of diabetes appears stable with current blood glucose readings and A1c levels. Concern for potential gastrointestinal pathology given symptom chronicity and family history necessitating further evaluation. Back Pain: - Plan: Monitor fall-related symptoms. [email or web address] Not available 03/27/2025 13:56:25 Plan of Treatment Reminders Order Date Submit Date Provider Last Modified By Organization Details Last Modified Time Details Appointments None recorded. Lab CMP, serum or plasma 2024 025 [facility], [address] [facility] [address] [address], [address], [place], [address], 12:44:27 CBC 2024 025 [facility], [address], [address], [place], [address], 11:16:35 hemoglobin A1C/hemoglo bin total, QN, blood 2024 025 [facility], [address], [address], [place], [address], 5 13:26:53 TSH, serum or plasma 2024 025 [facility], [address], [address], [place], [address], 5 04:02:28 unlisted lab - salmonella/ shigella cult, campy EIA and shiga toxin w/rfl E. coli O157 cult 2024 025 [employer] [facility], [address] [place] [address], [address], [place], [address], 5 14:01:27 O&P (ova & parasites), stool 2024 025 [employer] [facility], [address] [place] [address], [address], [place], [address], 5 14:01:28 C diff toxin DNA, stool 2024 025 [employer] [facility], [address] [place] [address] 248, [address], [place], [address], 5 18:15:37 SARS CoV 2 RNA, QL, nasopharynx 2022 023 [facility] ([facility] [address] [place], [address], 3 12:19:24 urinalysis, complete 2022 023 [facility] ([facility] [address] [place], [address], 3 12:51:54 culture, urine 2022 023 [employer] [facility], [address], [address] [place], [address], 03:23:36 Referral gastroenter ologist referral 2024 025 [email or web address] 2 [facility] ([facility]3] [facility] , [address] [facility], [address], [place], [address], 12:51:46 Procedures None recorded. Surgeries None recorded. Imaging None recorded. Medication Orders Paxlovid 300 mg (150 mg x 2)-100 mg tablets in a dose pack 2022 023 [id number], [address], [place], [place], [id number], 14:33:40 Augmentin 875 mg-125 mg tablet 2022 023 [facility] 15, [address], [place], [address], 14:30:31 Macrobid 100 mg capsule 2022 023 [facility] 15, [address], [place], [address], 14:33:33 Patient TargetsNo targets recorded. Patient Instructions Encounter Date Encounter Id Patient Instructions Last Modified By Organization Details Last Modified Time 04/26/2023 [id number] Return to clinic if worsening symptoms or if not improving. Not available 04/26/2023 12:41:59 03/23/2025 [id number] Discussed establ ishing care with PCP [email or web address] Not available 03/23/2025 15:10:35 03/25/2025 [id number] - Use Imodium as needed to manage diarrhea symptoms. - Continue monitoring blood glucose regularly. - Expect contact for control room supervisor referral regarding stool blood. - Seek immediate care if diarrhea worsens or additional symptoms develop. - Arrange for new walker with assistance from insurance and medical equipment suppliers. [email or web address] Not available 03/25/2025 10:30:33 I discussed with the patient the potential causes and management options for her chronic diarrhea, highlighting the need for a further gastroenterological evaluation and possible colonoscopy due to her family history of cancer. We acknowledged that while Mounjaro can cause gastrointestinal symptoms, her dosage has been consistent since July, making it a less likely cause based on the timing of symptom onset. We also reviewed her glucose management given Dr. Andujar's maternity leave and agreed on continuing current practices while checking A1c levels. The patient consented to a referral for addressing the melena and agreed on obtaining blood work to reassess her thyroid function. Considering her back pain post-fall, we plan monitoring with possible imaging should symptoms persist. A new walker was deemed necessary due to mechanical issues with the current one. 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 Verna ptibi lity testi ng not routi lenore [...] lexin and lorac arbef . Not Available [facility] [address], [place], [address], 11/03/2022 01:38:15 11/01/19 23 10/31/2022 urina lysis , compl ete color yellow Not Available [facility] ([facility]) [address] [place], [address], 10/31/2022 12:12:11 11/01/19 23 10/31/2022 urina lysis , compl ete clarity cloudy clear abnormal Not Available [facility] ([facility]) [address] [place], [address], 10/31/2022 12:12:11 11/01/19 23 10/31/2022 urina lysis , compl ete glucose 3+ negati ve abnormal Not Available [facility] ([facility]) [address] [place], [address], 10/31/2022 12:12:11 11/01/19 23 10/31/2022 urina lysis , compl ete bilirubin negati ve negati ve normal Not Available [facility] ([facility]) [address] [place], [address], 10/31/2022 12:12:11 11/01/19 23 10/31/2022 urina lysis , compl ete ketones negati ve negati ve normal Not Available [facility] ([facility]) [address] [place], [address], 10/31/2022 12:12:11 11/01/19 23 10/31/2022 urina lysis , compl ete specific gravity 1.015 1.005- 1.025 normal Not Available [facility] ([facility]) [address] [place], [address], 10/31/2022 12:12:11 11/01/19 23 10/31/2022 urina lysis , compl ete pH 5.0 5.0-7. 0 normal Not Available [facility] ([facility]) [address] [place], [address], 10/31/2022 12:12:11 11/01/19 23 10/31/2022 urina lysis , compl ete protein trace Not Available [facility] ([facility]) [address] [place], [address], 10/31/2022 12:12:11 11/01/19 23 10/31/2022 urina lysis , compl ete uro 0.2 Not Available [facility] ([facility]) [address] [place], [address], 10/31/2022 12:12:11 11/01/19 23 10/31/2022 urina lysis , compl ete nitrate positi ve negati ve abnormal Not Available [facility] ([facility]) [address] [place], [address], 10/31/2022 12:12:11 11/01/19 23 10/31/2022 urina lysis , compl ete blood 2+ negati ve abnormal Not Available [facility] ([facility]) [address] [place], [address], 10/31/2022 12:12:11 11/01/19 23 10/31/2022 urina lysis , compl ete leukocytes 2+ negati ve abnormal Not Available [facility] ([facility]) [address] [place], [address], 10/31/2022 12:12:11 11/01/19 23 10/31/2022 urina lysis , compl ete WBC 60-80 0 abnormal Not Available [facility] ([facility]) [address] [place], [address], 10/31/2022 12:12:11 11/01/19 23 10/31/2022 urina lysis , compl ete RBC 15-20 0 abnormal Not Available [facility] ([facility]) [address] [place], [address], 10/31/2022 12:12:11 11/01/19 23 10/31/2022 urina lysis , compl ete epi cells 1-3 0 abnormal Not Available [facility] ([facility]) [address] [place], [address], 10/31/2022 12:12:11 11/01/19 23 10/31/2022 urina lysis , compl ete bacteria 1+ mixed chris Not Available [facility] ([facility]) [address] [place], [address], 10/31/2022 12:12:11 11/01/19 23 10/31/2022 urina lysis , compl ete other Not Available [facility] ([facility]) [address] [place], [address], 10/31/2022 12:12:11 11/06/19 23 11/05/2022 urina lysis , compl ete color yellow Not Available [facility] ([facility]) [address] [place], [address], 11/05/2022 12:39:44 11/06/19 23 11/05/2022 urina lysis , compl ete clarity cloudy clear Not Available [facility] ([facility]) [address] [place], [address], 11/05/2022 12:39:44 11/06/19 23 11/05/2022 urina lysis , compl ete glucose 3+ negati ve Not Available [facility] ([facility]) [address] [place], [address], 11/05/2022 12:39:44 11/06/19 23 11/05/2022 urina lysis , compl ete bilirubin negati ve negati ve Not Available [facility] ([facility]) [address] [place], [address], 11/05/2022 12:39:44 11/06/19 23 11/05/2022 urina lysis , compl ete ketones 1+ negati ve Not Available [facility] ([facility]) [address] [place], [address], 11/05/2022 12:39:44 11/06/19 23 11/05/2022 urina lysis , compl ete specific gravity 1.020 1.005- 1.025 Not Available [facility] ([facility]) [address] [place], [address], 11/05/2022 12:39:44 11/06/19 23 11/05/2022 urina lysis , compl ete pH 5.0 5.0-7. 0 Not Available [facility] ([facility]) [address] [place], [address], 11/05/2022 12:39:44 11/06/19 23 11/05/2022 urina lysis , compl ete protein positi ve Not Available [facility] ([facility]) [address] [place], [address], 11/05/2022 12:39:44 11/06/19 23 11/05/2022 urina lysis , compl ete uro 0.2 Not Available [facility] ([facility]) [address] [place], [address], 11/05/2022 12:39:44 11/06/19 23 11/05/2022 urina lysis , compl ete nitrate negaiv e negati ve Not Available [facility] ([facility]) [address] [place], [address], 11/05/2022 12:39:44 11/06/19 23 11/05/2022 urina lysis , compl ete blood 3+ negati ve Not Available [facility] ([facility]) [address] [place], [address], 11/05/2022 12:39:44 11/06/19 23 11/05/2022 urina lysis , compl ete leukocytes 1+ negati ve Not Available [facility] ([facility]) [address] [place], [address], 11/05/2022 12:39:44 11/06/19 23 11/05/2022 urina lysis , compl ete WBC >100 packed 0 Not Available [facility] ([facility]) [address] [place], [address], 11/05/2022 12:39:44 11/06/19 23 11/05/2022 urina lysis , compl ete RBC >100 packed 0 Not Available [facility] ([facility]) [address] [place], [address], 11/05/2022 12:39:44 11/06/19 23 11/05/2022 urina lysis , compl ete epi cells - 0 Not Available [facility] ([facility]) [address] [place], [address], 11/05/2022 12:39:44 11/06/19 23 11/05/2022 urina lysis , compl ete bacteria - Not Available [facility] ([facility]) [address] [place], [address], 11/05/2022 12:39:44 11/06/19 23 11/05/2022 urina lysis , compl ete other - Not Available [facility] ([facility]) [address] [place], [address], 11/05/2022 12:39:44 04/26/20 23 04/26/2023 SARS CoV 2 RNA, QL, nasop haryn x COVID positi ve Not Available [facility] ([facility]) [address] [place], [address], 04/26/2023 11:55:03 03/23/20 25 03/24/2025 CLOST RIDIU M DIFFI CILE TOXIN B,QL REAL TIME PCR clostridium difficile toxinb,ql real time PCR NOT DETECT ED not detect ed normal This test is for use only with liqui d or soft stool s; perfo rmanc e manuela cteri stics of other clini brendan speci men types have not been estab lishe d. This assay was perfo rmed by [employer] pert( R) PCR. The perfo rmanc e manuela cteri stics of this assay have been deter mined by [employer]. Perfo rmanc e manuela cteri stics refer to the chun tical perfo rmanc e of the test. For addit ional chrisr medhat winters refer to http: //[facility] vidya [place] stDia gnost ics.c om/fa q/FAQ 136 (This link is being provi ded for infor dara nal/e gisella ionbel purpo ses only. ) Not Available [facility] [address] [address] [place], [address], 03/24/2025 18:15:37 03/23/20 25 03/27/2025 SALMO JOI /SHIG BHASKAR CULT, CAMPY EIA AND SHIGA TOXIN W/RFL E. COLI O157 CULT campylobacte r spp. Ag,EIA SEE NOTE CAMPY LOBAC TER SPP. AG,EI A Micro Numbe r: [id number] Test Statu s: Final Speci men Sourc e: Stool Speci men Quali ty: Adequ ate Campy Ag Resul t: Not Detec kobi Refer ence Range : Not Detec kobi Not Available [facility] [address] [place], [address], 03/27/2025 14:01:27 03/23/20 25 03/27/2025 SALMO JOI /SHIG BHASKAR CULT, CAMPY EIA AND SHIGA TOXIN W/RFL E. COLI O157 CULT shiga toxins, EIA w/rfl to E.coli O157 culture SEE NOTE SHIGA TOXIN S, EIA W/RFL TO E.COL I O157 CULTU RE Micro Numbe r: [id number] Test Statu s: Final Speci men Sourc e: Stool Speci men Quali ty: Adequ ate Shiga Toxin : Not Detec kobi Refer ence Range : Not Detec kobi Not Available [address] [address] [place], [address], 03/27/2025 14:01:27 03/23/20 25 03/27/2025 SALMO JOI /SHIG BHASKAR CULT, CAMPY EIA AND SHIGA TOXIN W/RFL E. COLI O157 CULT salmonella and shigella, culture SEE NOTE SALMO JOI AND SHIGE LLA, CULTU RE Micro Numbe r: [id number] Test Statu s: Final Speci men Sourc e: Stool Speci men Quali ty: Adequ ate Resul t: No Salmo joi or Shige lla isola kobi Not Available [address] [address] [place], [address], 03/27/2025 14:01:27 03/23/20 25 03/27/2025 OVA AND GABRIEL ITES, CONC AND PERM SMEAR ova and parasites, conc and perm smear SEE NOTE OVA AND GABRIEL ITES, CONC AND PERM SMEAR Micro Numbe r: [id number] Test Statu s: Final Speci men Sourc e: Stool Speci men Quali ty: Adequ ate RHIANNON NTRAT ION 1: No ova or gabriel ites seen TRICH DIANA 1: No ova or gabriel ites seen Routi ne Ova and Gabriel ite exam may not detec t some gabriel ites that occas ional ly cause diarr heal illne ss. Crypt ospor idium Antig en and/o r Cyclo spora and Isosp ora Exam may be order ed to detec t these gabriel ites. One negat aayush sampl e does not neces saril y rule out the prese nce of a gabriel itic infec tion. For addit ional infor medhat winters refer to https ://ed ucati on.kip luuModus [employer]Discovery. [employer]/f aq/FA Q203 (This link is being provi ded for infor dara saul/ trish lunao ses only. ) Not Available [facility] [address] [place], [address], 03/27/2025 14:01:28 03/25/2003/25/2025 CBC WBC 6.0 x10 4.0-10 .5 Not Available [facility] [address] [facility] [address], [place], [address], 03/25/2025 11:16:34 03/25/2003/25/2025 CBC RBC 4.60 x10 3.50-5 .50 Not Available [facility] [address] [facility], [place], [address], 03/25/2025 11:16:34 03/25/20 25 03/25/2025 CBC HGB 14.2 g/dL 12.0-1 6.0 Not Available [facility] [address] [facility], [place], [address], 03/25/2025 11:16:34 03/25/20 25 03/25/2025 CBC HCT 42.6 % 37.0-4 7.0 Not Available [facility] [address] [facility], [place], [address], 03/25/2025 11:16:34 03/25/20 25 03/25/2025 CBC MCV 92.6 fL 80.0-9 9.9 Not Available [facility] [address] [address] [facility] [address], [place], [address], 03/25/2025 11:16:34 03/25/20 25 03/25/2025 CBC MCH 30.9 pg 27.0-3 2.0 Not Available [facility] [address] [facility] [address], [place], [address], 03/25/2025 11:16:34 03/25/20 25 03/25/2025 CBC MCHC 33.4 g/dL 32.0-3 6.0 Not Available [facility] [address] [facility] [address] [facility] [address], [place], [address], 03/25/2025 11:16:34 03/25/20 25 03/25/2025 CBC RDW 13.0 % 11.5-1 4.5 Not Available [facility] [address] [facility] [facility] [address], [place], [address], 03/25/2025 11:16:34 03/25/20 25 03/25/2025 CBC plt 273.6 x10 140.0- 451.0 Not Available [facility] [address] [facility] [facility] [address], [place], [address], 03/25/2025 11:16:34 03/25/20 25 03/25/2025 CBC lymphocytes % 30.5 % 20.0-5 0.0 Not Available [facility] [address] [facility] [address] [facility], [place], [address], 03/25/2025 11:16:34 03/25/20 25 03/25/2025 CBC granulcytes % 60.3 % 30.0-7 0.0 Not Available [facility] [address] [facility] [address] [facility] [address], [place], [address], 03/25/2025 11:16:34 03/25/20 25 03/25/2025 CBC monocytes % 6.5 % 2.0-16 .0 Not Available [facility] [address] [facility] [address] [facility], [place], [address], 03/25/2025 11:16:34 11/14/03/25/2025 CBC granulcytes# 3.6 x10 Not Natali [facility] [address] [facility] [address], [place], [address], 03/25/2025 11:16:34 03/25/20 25 03/25/2025 CBC lymphocytes # 1.8 x10 Not Available [facility] [address] [address], [place], [address], 03/25/2025 11:16:34 03/25/20 25 03/25/2025 CBC monocytes # 0.4 x10 Not Avai lable [facility] [address] [address], [place], [address], 03/25/2025 11:16:34 03/25/20 25 03/25/2025 CMP (FEMA LE) glucose 126.0 mg/dL 60.0-9 9.0 high Not Available [facility] [address] [address], [place], [address], 03/25/2025 12:44:27 03/25/20 25 03/25/2025 CMP (FEMA LE) BUN (blood urea nitrogen) 13.0 mg/dL 10.0-2 6.0 Not Available [facility] [address] [address], [place], [address], 03/25/2025 12:44:27 03/25/20 25 03/25/2025 CMP (FEMA LE) creatinine (serum) 0.9 mg/dL 0.4-1. 5 Not Available [facility] [address] [address], [place], [address], 03/25/2025 12:44:27 03/25/20 25 03/25/2025 CMP (FEMA LE) BUN/creatini ne ratio 14.44 ratio Not Available [facility] [address] [address], [place], [address], 03/25/2025 12:44:27 03/25/20 25 03/25/2025 CMP (FEMA LE) eGFR calculated 64.2 Not Available [facility] [address] [facility] [address] [facility], [place], [address], 03/25/2025 12:44:27 03/25/20 25 03/25/2025 CMP (FEMA LE) total protein 7.8 g/dL 6.0-8. 5 Not Available [facility] [address] [facility], [place], [address], 03/25/2025 12:44:27 03/25/20 25 03/25/2025 CMP (FEMA LE) total bilirubin 1.1 mg/dL 0.2-1. 3 Not Available [facility] [address] [facility], [place], [address], 03/25/2025 12:44:27 03/25/20 25 03/25/2025 CMP (FEMA LE) albumin 4.7 g/dL 3.5-5. 5 Not Available [facility] [address] [facility], [place], [address], 03/25/2025 12:44:27 03/25/20 25 03/25/2025 CMP (FEMA LE) globulin 3.1 calc Not Available [facility] [address] [facility] [address] [facility], [place], [address], 03/25/2025 12:44:27 03/25/20 25 03/25/2025 CMP (FEMA LE) AST (SGOT) 28.0 U/L 0.0-46 .0 Not Available [facility] [address] [facility] [address] [facility], [place], [address], 03/25/2025 12:44:27 03/25/20 25 03/25/2025 CMP (FEMA LE) altv (SGPT) 21.0 U/L 13.0-6 9.0 normal Not Available [facility] [address] [facility], [place], [address], 03/25/2025 12:44:27 03/25/20 25 03/25/2025 CMP (FEMA LE) A/G ratio 1.5 ratio Not Available [facility] [address] [facility], [place], [address], 03/25/2025 12:44:27 03/25/20 25 03/25/2025 CMP (FEMA LE) ALP phos 106.0 U/L 30.0-1 40.0 normal Not Available [facility] [address] [facility] [address], [place], [address], 03/25/2025 12:44:27 03/25/20 25 03/25/2025 CMP (FEMA LE) calcium 9.3 mg/dL 8.4-10 .5 Not Available [facility] [address] [facility] [address], [place], [address], 03/25/2025 12:44:27 03/25/20 25 03/25/2025 CMP (FEMA LE) sodium 142.0 mmol/ L 136.0- 145.0 Not Available [facility] [address] [facility], [place], [address], 03/25/2025 12:44:27 03/25/20 25 03/25/2025 CMP (FEMA LE) potassium 3.9 mmol/ L 3.5-5. 1 Not Available [facility] [address] [facility] [address], [place], [address], 03/25/2025 12:44:27 03/25/20 25 03/25/2025 CMP (FEMA LE) chloride 103.0 mmol/ L 98.0-1 10.0 normal Not Available [facility] [address] [facility], [place], [address], 03/25/2025 12:44:27 03/25/20 25 03/25/2025 CMP (FEMA LE) C02 27.0 mmol/ L 22.0-3 1.0 Not Available [facility] [address] [facility], [place], [address], 03/25/2025 12:44:27 03/25/20 25 03/25/2025 CMP (FEMA LE) anion gap 12.0 calc Not Available [facility] [address] [facility], [place], [address], 03/25/2025 12:44:27 03/25/20 25 03/25/2025 CMP (FEMA LE) osmolality 294.6 calc Not Available [facility] [address] [facility], [place], [address], 03/25/2025 12:44:27 03/25/2003/25/2025 TSH TSH 1.56 uIU/m L 0.49-3 .82 Not Available [facility] [address] [facility], [place], [address], 03/25/2025 12:51:01 03/25/2003/25/2025 HBA1C hemaglobin A1C 6.2 4.2-6. 5 Not Available [facility] [address] [facility], [place], [address], 03/25/2025 13:26:53 10/21/19 23 10/18/2022 CT, chest , w/ contr ast No observ ation record ed. tgregg [facility] [address] [facility] [address], [place], [address], 10/23/2022 10:17:15 06/10/30/2022 MAMMO , scree neel, digit al, bilat eral No observ ation record ed. tgregg [facility] [address] [place], [address], 11/04/2022 12:45:44 Result Notes None recorded. Problems Name Problem SNOMED Code Status Onset Date Resolution Date Notes Provider Name and Address Organization Details Recorded Time Injury of shoulder and upper arm 713940892 Active 2022 Alan Edwards MD [address] [place] [address], [address], Formerly [facility] 3 12:17:35 Chronic kidney disease stage 3 281608538 Active 2022 Alan Edwards MD [address] [place] [address], [address], [facility] 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 3 12:17:40 Morbid obesity 121637940 Active 2022 Alan Edwards MD [address] [place] [address], [address] 5, [facility] 3 12:17:37 Epilepsy 66000822 Active 2022 Alan Edwards MD [address] [place] [address], [address], [facility] [facility] 3 12:17:30 Restless legs syndrome 95337197 Active 2022 Alan Edwards MD [address] [place] [address], [phone], Formerly [facility] 3 12:17:45 Diabetes mellitus 39559685 Active 2022 Alan Edwards MD [address] [place] [address], [phone] 5, [facility]ly [facility] 3 12:24:04 Congestive heart failure 98899188 Active [address] [facility] 3 16:42:39 Pain of left shoulder joint 2689882684126 9109 Active 2022 Alan Edwards MD [address] [place] [address], [phone] 5, [facility]ly [facility] 3 10:06:19 Lung mass 235477869 Active 2022 Alan Edwards MD [address] [place] [address] [phone], [facility] 3 14:35:55 Dysuria 37995255 Active 2022 Alan Edwards MD [address] [place] [address] [phone] 5, [facility]ly [facility] 3 12:12:07 Abscess of skin and/or subcutaneou s tissue 29607652 Active 2022 Alan Edwards MD [address] [place] [address], [phone], [facility] 3 12:56:29 Chronic diarrhea 179855518 Active 2024 Alan Edwards MD [address] [place] [address] [phone], [facility] 5 10:21:06 Hypothyroid ism 19704058 Active 2024 Alan Edwards MD [address] [place] [address] [phone] 5, Formerly [facility] 5 10:22:04 Blood-tinge d feces 1562682730852 02 Active 2024 Alan Edwards MD [address] [place] [address], [phone] 5, Formerly [facility] 5 10:23:01 Diabetic peripheral neuropathy 386134830 Active 2024 Alan Edwards MD [address] [place] [address], [phone] 5, [facility]ly [facility] 5 10:27:09 Abnormal gait 37542835 Active 2024 Alan Edwards MD [address] [place] [address], [phone] 5, [facility] 13:56:21 Problem Notes None recorded. Procedures Surgical History Date Name Laterality Status Provider Name and Address Organization Details Recorded Time [facility] 12:17:59 tonsillectomy completed [facility] 07/31/2022 12:18:09 Tubal Ligation [facility] 12:18:34 Carpal tunnel surgery completed [facility] [place] 07/31/2022 12:18:49 [facility]/31/2022 12:18:58 repair of urinary bladder completed [facility] [place] 07/31/2022 12:19:44 [facility]olecyst[facility] 12:19:51 total knee replacement completed Fernnada Drummond [facility] 07/31/2022 12:20:22 Back Surgery completed Samantharandolph Sosa [facility] 03/23/2025 14:36:41 operative procedure on foot [facility]25 14:36:54 Cataract Surgery completed [facility] 03/23/2025 14:37:08 Imaging Results None recorded. Procedure Notes None recorded. Medical Equipment None Reported. Allergies Allergen ID Allergen Name Allergen Category Reaction Reaction Severity Criticality Documentation Date Start Date Code Code System Note Provider Name and Address Organization Details Recorded Time 1863 hydrocodo ne Not available Not available Not available Not available 08/29/2022 [address] [facility] 3 10:47:14 1865 Substance with sulfonami de structure and antibacte rial mechanism of action (substanc e) medicatio n Not available Not available Not available 08/29/2022 32210 8003 SNOMED STEPHANIE MORALES nae [facility] 3 10:48:02 1866 azithromy quinn medicatio n Not available Not available Not available 08/29/2022 57675 RxNorm STEPHANIE MORALES nae [facility] 3 10:48:21 247 Tegretol medicatio n Not available Not available Not available 07/31/2022 9 RxNorm Fernanda Drum[address] nae [facility] 3 12:11:59 248 Dilantin medicatio n Not available Not available Not available 07/31/2022 0 RxNorm Fernanda Drum[address] nae [facility] 3 12:12:06 249 Naprosyn medicatio n Not available Not available Not available 07/31/2022 2 RxNorm Fernanda soni, [facility] 3 12:12:17 250 Bactrim medicatio n Not available Not available Not available 07/31/2022 94481 9 RxNorm Fernanda soni, [facility] 3 12:12:24 251 Bextra medicatio n Not available Not available Not available 07/31/2022 89313 0 RxNorm Fernanda soni, [facility] 3 12:12:36 252 oxybutyni n chloride medicatio n Not available Not available Not available 07/31/2022 74208 RxNorm Fernanda soni, [facility] 3 12:12:49 253 Prometriu m medicatio n Not available Not available Not available 07/31/2022 61341 0 RxNorm Fernanda soni, [facility] 3 12:13:00 254 Neurontin medicatio n Not available Not available Not available 07/31/2022 48190 8 [facility] 12:13:19 255 naproxen medicatio n Not available Not available Not available 07/31/2022 7258 RxNorm Fernanda soni, [facility] 3 12:13:27 256 Tequin medicatio n Not available Not available Not available 07/31/2022 47231 4 RxNorm Fernanda soni, [facility] 3 12:14:41 257 acetamino phen / hydrocodo ne medicatio n Not available Not available Not available 07/31/2022 74568 2 RxNorm Fernanda soni, [facility] 3 12:14:54 258 hyoscyami ne medicatio n Not available Not available Not available 07/31/2022 [address] [facility] 3 12:15:06 259 Vesicare medicatio n Not available Not available Not available 07/31/2022 [address] [facility] 3 12:15:14 260 fluconazo le medicatio n Not available Not available Not available 07/31/[address] [facility] 3 12:15:21 261 cephalexi n medicatio n Not available Not available Not available 07/31/[address] [facility] 3 12:15:30 262 hydroxych loroquine medicatio n Not available Not available Not available 07/31/[address] [facility] 3 12:15:40 263 cyclobenz aprine hydrochlo ride medicatio n Not available Not available Not available 07/31/[address] [facility] 3 12:15:51 57542 colchicin e medicatio n Not available Not available Not available 03/28/2025 2683 RxNorm Not Available [facility] - External Data Service - prod 5 10:19:58 13245 sulfameth oxazole / trimethop rim medicatio n rash Not available Not available 03/28/2025 89499 RxNorm Not Available k[facility] - External Data Service - prod 5 10:19:58 91322 phenytoin medicatio n dyspnea Not available Not available 03/28/2025 8183 RxNorm Not Available k[facility] - External Data Service - prod 5 10:19:58 67163 acetamino phen / hydrocodo ne medicatio n dyspnea Not available Not available 03/28/2025 67407 2 RxNorm Not Available [facility] External Data Service - prod 5 10:19:58 98989 gabapenti n medicatio n dyspnea Not available Not available 03/28/2025 25812 RxNorm Not Available [facility] - External Data Service - [facility] 5 10:19:58 71529 progester one medicatio n dyspnea Not available Not available 03/28/2025 8727 RxNorm Not Available [facility] - External Data Service - [facility] 5 10:19:58 72270 carbamaze pine medicatio n dyspnea Not available Not available 03/28/2025 2002 RxNorm Not Available [facility] External Data Service - [facility] 5 10:19:58 17817 solifenac in medicatio n dyspnea Not available Not available 03/28/2025 69258 7 RxNorm Not Available [facility] External Data Service - [facility] 5 10:19:58 Medications Name Sig Start Date Stop Date Status Note LastModified by Organization Details LastModified Time furosemide 40 mg tablet TAKE 1 TABLET BY MOUTH EVERY DAY active Not Available Not Available No t Available fluconazole 100 mg tablet TAKE 2 TABLETS BY MOUTH EVERY DAY 03/23 completed Not Available Not Available Not Available tizanidine 2 mg tablet TAKE 1 TABLET BY MOUTH EVERY 8 HOURS FOR 10 DAYS 03/23 completed Not Available Not Available Not Available tizanidine 4 mg tablet TAKE ONE CAPSULE BY MOUTH THREE TIMES DAILY for 7 days active Not Available Not Available No t Available fluconazole 150 mg tablet TAKE 1 TABLET BY MOUTH EVERY 3 DAYS 03/23 completed Not Available Not Available Not Available enalapril maleate 2.5 mg tablet 03/23 completed Not Available Not Available Not Available tramadol 50 mg tablet TAKE 1 TABLET BY MOUTH EVERY 8 HOURS for 7 days active Not Available Not Available No t Available amoxicillin 500 mg tablet 03/23 completed Not Available Not Available Not Available methocarbam ol 750 mg tablet TAKE 1 TABLET BY MOUTH EVERY 6 HOURS NEEDED FOR MUSCLE SPASM 03/23 completed Not Available Not Available Not Available dexamethaso ne 1 mg tablet TAKE 1 TABLET THE NIGHT PRIOR TO LABS AT 11PM active Not Available Not Available No t Available benzonatate 100 mg capsule 03/23 completed Not Available Not Available Not Available simvastatin 20 mg tablet TAKE 1 TABLET BY MOUTH EVERY DAY active Not Available Not Available No t Available levothyroxi ne 125 mcg tablet TAKE 1 TABLET BY MOUTH EVERY DAY active Not Available Not Available No t Available glimepiride 4 mg tablet TAKE 1 TABLET BY MOUTH EVERY DAY. IF BLOOD SUGAR GETS LOW THEN STOP active Not Available Not Available No t Available lidocaine 5 % topical patch APPLY 1 PATCH BY TOPICAL ROUTE ONCE DAILY (MAY WEAR UP TO 12HOURS.) 2022 active Not Available Not Available Not Avai lable levothyroxi ne 150 mcg tablet TAKE 1 TABLET BY MOUTH EVERY DAY FRIDAY THROUGH FRIDAY. TAKE 1&1/2 TABLETS ON FRIDAY AND FRIDAY active Not Available Not Available No t Available nystatin-tr iamcinolone 100,000 unit/g-0.1 % topical cream APPLY TO SKIN TWICE DAILY active Not Available Not Available No t Available pramipexole 0.25 mg tablet Take 1 tablet 3 times a day by oral route. active Not Available Not Available No t Available levetiracet am 750 mg tablet TAKE 1 TABLET BY MOUTH TWICE DAILY 03/23 completed Not Available Not Available Not Available furosemide 20 mg tablet 07/31 completed Not Available Not Available Not Available levofloxaci n 750 mg tablet TAKE 1 TABLET BY MOUTH EVERY DAY for 10 days 03/23 completed Not Available Not Available Not Available methylpredn isolone 4 mg tablets in a dose pack Take as directed on package for 6 days active Not Available Not Available No t Available albuterol sulfate HFA 90 mcg/actuati on aerosol inhaler active Not Available Not Available Not Available colchicine 0.6 mg tablet TAKE 1 TABLET BY MOUTH DAILY active Not Available Not Available No t Available cefdinir 300 mg capsule take 1 capsule BY MOUTH TWICE DAILY for 10 days 03/23 completed Not Available Not Available Not Available amoxicillin 875 mg-potassiu m clavulanate 125 mg tablet Take 1 tablet every 12 hours by oral route for 7 days. 03/23 completed Not Available Not Available Not Available amoxicillin 500 mg-potassiu m clavulanate 125 mg tablet TAKE 1 TABLET BY MOUTH TWICE DAILY 03/23 completed Not Available Not Available Not Available oxycodone 5 mg tablet TAKE ONE TABLET BY MOUTH EVERY 6 HOURS NEEDED FOR PAIN for SEVEN DAYS active Not Available Not Available No t Available nitrofurant oin monohydrate /macrocryst als 100 mg capsule Take 1 capsule every 12 hours by oral route for 5 days. 03/23 completed Not Available Not Available Not Available aspirin active Not Available Not Avail able Not Available levetiracet am active Not Available Not Available Not Available Farxiga 10 mg tablet Take 1 tablet every day by oral route. 09/03 completed Not Available Not Available Not Available Jardiance 25 mg tablet TAKE 1 TABLET BY MOUTH EVERY MORNING 03/23 completed Not Available Not Available Not Available Trulicity 1.5 mg/0.5 mL subcutaneou s pen injector Inject 1.5 mg every week by subcutane ous route as directed. 03/23 completed Not Available Not Available Not Available TRUEplus Pen Needle 31 gauge x 1/4 active Not Available Not Available Not Available Trulicity 4.5 mg/0.5 mL subcutaneou s pen injector Inject 0.5 mL every week by subcutane ous route as directed. 03/23 completed Not Available Not Available Not Available Paxlovid 300 mg (150 mg x 2)-100 mg tablets in a dose pack TK 2 NIRMATREL VIR TS AND 1 RITONAVIR T TOGETHER PO TWICE DAILY FOR 5 DAYS 03/23 completed Not Available Not Available Not Available Mounjaro 7.5 mg/0.5 mL subcutaneou s pen injector inject 7.5mg SUBCUTANE OUSLY EVERY SEVEN DAYS active Not Available Not Available No t Available Mounjaro 5 mg/0.5 mL subcutaneou s pen injector inject 5mg SUBCUTANE OUSLY EVERY SEVEN DAYS FOR ONE MONTH active Not Available Not Available No t Available Mounjaro 10 mg/0.5 mL subcutaneou s pen injector inject 10mg SUBCUTANE OUSLY EVERY 7 DAYS active Not Available Not Available No t Available Mounjaro 2.5 mg/0.5 mL subcutaneou s pen injector inject 2.5mg (0.5ml) SUBCUTANE OUSLY EVERY 7 DAYS active Not Available Not Available No t Available Diana active Not Available Not Avai lable Not Available FreeStyle Katarina 3 Plus Sensor device USE DIRECTED CHANGE EVERY 15 DAYS active Not Available Not Available No t Available Vitals Date Recorded Body height Respiratory rate Body mass index (BMI) Body weight Body temperature Oxygen saturation Heart rate Systolic And Diastolic Provider Name and Address Organization Details Last Updated DateTime 3 147.32 cm 20 /min 45.5 kg/m2 86213.3 4 g 97.2 [degF] 95 % 71 /min 112/70 mm[Hg] [facility] 12:01:37 Date Recorded Body height Respiratory rate Body mass index (BMI) Body weight Body temperature Heart rate Oxygen saturation Systolic And Diastolic Provider Name and Address Organization Details Last Updated DateTime 3 147.32 cm 20 /min 45.5 kg/m2 96255.3 4 g 97.4 [degF] 60 /min 98.01 % 118/60 mm[Hg] STEPHANIE [facility] 3 12:22:18 Date Recorded Body height Body mass index (BMI) Body weight Oxygen saturation Heart rate Respiratory rate Body temperature Systolic And Diastolic Provider Name and Address Organization Details Last Updated DateTime 5 147.32 cm 43.3 kg/m2 67730.6 2 g 97 % 87 /min 16 /min 98.2 [degF] 110/66 mm[Hg] Samantha Sosa [facility] 5 14:40:55 Date Recorded Body height Body mass index (BMI) Body weight Body temperature Heart rate Oxygen saturation Respiratory rate Systolic And Diastolic Provider Name and Address Organization Details Last Updated DateTime 5 147.32 cm 43.3 kg/m2 68569.6 2 g 97.1 [degF] 72 /min 99 % 20 /min 124/74 mm[Hg] Swathi Mckenna [facility] 5 09:56:08 Date Recorded Body height Body mass index (BMI) Body weight Oxygen saturation Heart rate Respiratory rate Body temperature Systolic And Diastolic Provider Name and Address Organization Details Last Updated DateTime 3 147.32 cm 42 kg/m2 38881.0 7 g 99 % 71 /min 20 /min 97.5 [degF] 120/62 mm[Hg] Brielle Galan [facility] 3 12:22:33 Social History Question Answer Notes LastModified by Admatic Details LastModified Time Tobacco Smoking Status Former Smoker STEPHANIE MORALES nae [facility] 07/31/2022 11:40:45 Are You Blind Or Do You Have Difficulty Seeing? No Information not available 07/31/2022 What Is Your Level Of Caffeine Consumption? None Information not available 07/31/2022 Are You Deaf Or Do You Have Serious Difficulty Hearing? No Information not available 07/31/2022 What Type Of Diet Are You Following? DIABETIC Information not available 07/31/2022 What Was The Date Of Your Most Recent Tobacco Screening? 03/23/2025 [email or web address] Information not available 03/23/2025 Do You Have Difficulty Walking Or Climbing Stairs? Yes Information not available 07/31/2022 Do You Have Any Dietary Restrictions? No Information not available 07/31/2022 Sex: Unknown Functional Status Question Answer Note LastModified by [employer]da[employer]ulu Details LastModified Time Do you use any illicit or recreational drugs? No Information not available 07/31/2022 What is your level of alcohol consumption? None Information not available 07/31/2022 Are you able to care for yourself independently? No Information not available 07/31/2022 Do you have difficulty dressing, bathing, grooming, or toileting? Yes Information not available 07/31/2022 Mental Status [...] GPAL:G 0 P 0 0 0 0 Immunizations Vaccine Type Date Status Note Provider Nam e and Address Organization Details Recorded Time pneumococcal polysaccharide PPV23 3 completed Not Available [facility] 03/25/2025 09:38:57 Past Encounters Encounter ID Performer Location Encounter Start Date Encounter Closed Date Diagnosis/Indication Diagnosis SNOMED-CT Code Diagnosis ICD10 Code Diagnosis IMO Codes Diagnosis Note [id number] Alan Edwards MD [facility] ([facility] [address] [place] [address] 07/31/2022 11:16:36 07/31/2022 12:44:53 Injury of shoulder and upper arm 812587148 S49.92XA we will start with plain film imaging. If no fracture or significan t issues are noted then we will proceed with PT. 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 Morbid obesity 062083168 E66.01 BMI 48.1. The patient was encourage to work on wt lss Epilepsy 83842625 G40.90 9 no seizures for 18 years. 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 [id number] Alan Edwards MD [facility] ([facility]) [address] [place] [address] 08/29/2022 10:26:55 08/30/2022 15:59:35 Diabetes mellitus 94061527 E11.8 last a1c 7.4%. recommend we start new medication . She is maxed out on trulicity. Start Farxiga. Morbid obesity 669231576 Z68.42 BMI 48.1. 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 Chronic ki dney disease stage 3 898485669 N18.32 stable Pain of le ft shoulder joint 5743797401 9246017 M25.512 not likely to have fractured clavicle given today's exam. continue home exercises. [id number] Alan Edwards MD [facility] ([facility]) [address] [place] [phone] 10/03/2022 13:47:33 10/03/2022 15:49:01 Diabetes mellitus 10525518 E11.9 we will decrease dose of glimepirid e and continue other medication s given low BS readings. Lung mass 372455904 R91. 8 we will order repeat CT. Obtain records. Screening mammography 24 155035 Z12.31 [id number] Alan Edwards MD [facility] ([facility]) [address] [place] [phone] 10/31/2022 11:50:51 10/31/2022 18:04:26 Dysuria 24297560 R30.0 UA obtained and is consistent with infection. We will start Macrobid. Culture pending. Patient was encouraged to drink plenty of fluids. Diabetes mellitus 353492 09 E11.9 Blood sugar readings have been appropriat e with no low blood sugar readings. Recheck A1c next month. [id number] Alan Edwards MD [facility] ([facility]) [address] [place] [phone] 11/05/2022 11:54:28 11/05/2022 13:51:16 Abscess of skin and/or subcutaneous tissue 15383321 L02.91 - Augmentin 875-125 mg sent to patient pharmacy- Plan to follow up in 1 week if bleeding or lump persists [id number] HERNAN CHANG [facility] ([facility] [address] [place] [phone] 5 04/26/2023 11:49:52 05/03/2023 08:06:02 Cough 90768170 R05.9 COVID-19 953170025 U07.1 [id number] LIZ HUBBARD APRN [facility] ([facility] [address] [place] [phone] 5 03/23/2025 14:15:26 03/23/2025 15:30:27 Acute diarrhea 385336343 R19.7 62397 [id number] Alan Edwards MD [facility] ([facility] [address] [place] [address] 03/25/2025 09:38:13 03/25/2025 10:38:27 Diabetes mellitus 84180917 E11.9 - Plan: A1c reassessme nt in absence of Dr. Andujar. Chronic diarrhea 1090414 09 K52.9 69087 - Plan: Gastroente rology referral for potential colonoscop y. Continue temporary relief with Imodium. Monitor for medication side effects. Hypothyroidism 99753695 E03.9 29775120 - Plan: Thyroid function re-evaluat ion and possible medication adjustment . Blood-tinged feces 49568 60617 19155 K92.1 7670 - Plan: Gastroente rology consultati on to investigat e reported blood in stool. Diabetic p eripheral neuropathy 061470022 E11.42 160309 - Plan: Continue current foot care management . Abnormal gait 67216964 R 26.81 480312 - Plan: Evaluate need and process for new walker acquisitio n. Health Concerns Section Related Observation LastModified by Organization Detai ls LastModified Time None Recorded Concern Status LastModified by Organization Details LastModified Time None Recorded Advance Directives Directive None Recorded Payers Insurance Date Sequence Insurance Name Policy Number Policy Encinas Covered Member ID Encinas Member ID Guarantor Name 03/23/2025 1 [employer] (MEDICARE REPLACEMENT/A DVANTAGE - PFFS) [id number] Sherietashi Hernandez [id number] Sherie Hernandez 03/28/2025 1 [place] - [place]PO) [id number] Sherietashi Hernandez [id number] Sherie Hernandez 03/28/2025 1 [place] [id number] Sherietashi Hernandez [id number] Sherie Hernandez 03/23/2025 1 [place] Sherie Hernandez [id number] Sherie Hernandez Notes Date Note Type Note Provider Name and Address Organization Details Recorded Time 10/31/2022 text/html This is a 77-year-old female [...] urinary urgency and frequency. Alan Edwards MD [address] [place], [address], Formerly [facility] 10/31/2022 15:24:35 11/05/2022 text/html Lower Urinary Tr act Symptoms (LUTS)Reported by PatientMsLupe Hernandez is a 77 y/o F presenting [...] Reports lump on right labia, tender to palpation.ROS as noted in the HPI Alan Edwards MD [address] [place], [address], [facility]ly [facility] 11/05/2022 17:05:10 04/26/2023 text/html COVID-19 Symptom s September 2019Reported by PatientUpper Respiratory SymptomsFor quality, patient reportsproductive coughandwheezy cough. For associated symptoms, patient reportsyellow-green, thick sputum,fatigue, andbody aches. For covid-19 signs and symptoms, patient reportscough same,shortness of breath same,muscle pain same,sore throat same,fatigue same,nausea improving,runny nose same, andcongestion same. For severity, patient reportsno pain. For duration, patient reportssymptoms lasting 1 days.ROS as noted in the HPI HERNAN CHANG [address] [place], [address], [facility]ly [facility] 04/26/2023 12:58:04 03/23/2025 text/html DiarrheaReported by Patient walk in patientpatient is here today for diarrhea that started about a month ago OTC medicaiton has not helped and her pcp would not see her today so she is wanting to change pcp. Patient said that imodium makes it stop but she does not want to take it all the time. LIZ HUBBARD, JAMAL [address] [place], [address], Formerly [facility]. 03/23/2025 15:12:29 03/25/2025 text/html The patient is a 79-year-old female presenting with chronic diarrhea and evaluation for blood-tinged feces. She reports experiencing diarrhea for over a month and a half. Imodium provides temporary relief, but symptoms recurred after cessation. The patient started Mounjaro in July, which she wonders may contribute to her condition. Reports weight loss of 5 pounds. 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 The family history of prevalent cancers raises her concern. The patient suffered a fall two days prior resulting in back and head pain. She manages her diabetes under Dr. Andujar with good glycemic control. She wants a new walker due to mechanical failures in her current one. - Labs: Glucose reading of 119 mg/dL, A1c previously recorded at 7.1% - Tests and Diagnostics: Negative stool sample result, previous imaging showed pulmonary nodules Alan Edwards MD [address] [place], [id number], [facility], [place]. 03/27/2025 13:58:58 OBGyn Episode No OBEpisode recorded.
--- OUTSIDE RECORDS SUMMARY | 2025-04-02 11:51 | XMS_ITS | Continuity of Care Document ---
Author Organization CHRISTI Alvarez [facility] Rose Pedro, [facility] ([facility]) Address [address] [place] [address] Care Team Providers Care Scraper Meat Name Role Phone JESSICA VELÁZQUEZ Primary Care Provider Assessment Encounter Date Assessment Date Assessment LastModified by Organization Details LastModified Time 03/25/2025 03/25/2025 79-year-old fema le with a [...] Lab CMP, serum or plasma 2024 025 [facility], [address], [facility], [place], [address], 12:44:27 CBC 2024 025 SELLS [facility], [address] [facility] [facility] [address], [facility], [place], [address], 5 11:16:35 hemoglobin A1C/hemoglo bin total, QN, blood 2024 025 K[facility]EMORGAN [facility], [address] [facility], [facility], [place], [address], 13:26:53 TSH, serum or plasma 2024 025 KATE [facility], [address], [address], [place], [address], 04:02:28 Referral gastroenter ologist referral 2024 025 [email or web address] 2 [facility] , [address] [facility], [address], [place], [address], 12:51:46 Procedures None recorded. Surgeries None recorded. Imaging None recorded. Medication Orders None recorded. Patient TargetsNo targets recorded. Patient Instructions Encounter Date Encounter Id Patient Instructions Last Modified By Organization Details Last Modified Time 03/25/2025 [id number] - Use Imodium as needed to manage diarrhea symptoms. - Continue monitoring blood glucose regularly. - Expect contact for laundry assistant referral regarding stool blood. - Seek immediate [...] Not available 03/25/2025 10:30:34 Reason for Referral Surgical Services Coordinator Referral for Blood-tinged feces Referring Physician: Alan Edwards, Family Medicine, Encounter Date: 03/25/2025 Results Created Date Observation Date Name Description Value Unit Range Abnormal Flag Note LastModifiedBy Organization Detail LastModifiedTime 03/23/2003/24/2025 CLOST RIDIU M DIFFI CILE TOXIN B,QL REAL TIME PCR clostridium difficile toxinb,ql real time PCR NOT DETECT ED not detect ed normal This test is for use only with liqui d or soft stool s; perfo rmanc e manuela cteri stics of other clini brendan speci men types have not been estab lishe d. This assay was perfo rmed by [employer] id GeneX pert( R) PCR. The perfo rmanc e manuela cteri stics of this assay have been deter mined by [employer]. Perfo rmanc e manuela cteri stics refer to the cuhn tical perfo rmanc e of the test. For addit ional infor medhat winters refer to http: //[facility] vidya fung.Donovan stDia gnost ics.c om/fa q/FAQ 136 (This link is being provi ded for infor dara nal/e ducat ional purpo ses only. ) Not Available [employer] [facility] [address] [place], [address], 03/24/2025 18:15:37 03/23/2003/27/2025 SALMO JOI /SHIG BHASKAR CULT, CAMPY EIA AND SHIGA TOXIN W/RFL E. COLI O157 CULT campylobacte r spp. Ag,EIA SEE NOTE CAMPY LOBAC TER SPP. AG,EI A Micro Numbe r: [id number] Test Statu s: Final Speci men Sourc e: Stool Speci men Quali ty: Adequ ate Campy Ag Resul t: Not Detec kobi Refer ence Range : Not Detec kobi Not Available [employer] [facility] [address] [place], [address], 03/27/2025 14:01:27 03/23/2003/27/2025 SALMO JOI /SHIG BHASKAR CULT, CAMPY EIA AND SHIGA TOXIN W/RFL E. COLI O157 CULT shiga toxins, EIA w/rfl to E.coli O157 culture SEE NOTE SHIGA TOXIN S, EIA W/RFL TO E.COL I O157 CULTU RE Micro Numbe r: [id number] Test Statu s: Final Speci men Sourc e: Stool Speci men Quali ty: Adequ ate Shiga Toxin : Not Detec kobi Refer ence Range : Not Detec kobi Not Available [address] [address] [place], [address], 03/27/2025 14:01:27 03/23/20 25 03/27/2025 SALMO JOI /SHIG BHASKAR CULT, CAMPY EIA AND SHIGA TOXIN W/RFL E. COLI O157 CULT salmonella and shigella, culture SEE NOTE SALMO JOI AND SHIGE LLA, CULTU RE Micro Numbe r: [id number] Test Statu s: Final Speci men Sourc e: Stool Speci men Quali ty: Adequ ate Resul t: No Salmo joi or Shige lla isola kobi Not Available [facility] [address] [address] [place], [address], 03/27/2025 14:01:27 03/23/20 25 03/27/2025 OVA AND JL ITES, CONC AND PERM SMEAR ova and parasites, conc and perm smear SEE NOTE OVA AND JL ITES, CONC AND PERM SMEAR Micro Numbe r: [id number] Test Statu s: Final Speci men Sourc e: Stool Speci men Quali ty: Adequ ate RHIANNON NTRAT ION 1: No ova or jl ites seen TRICH DIANA 1: No ova or jl ites seen Routi ne Ova and Jl ite exam may not detec t some jl ites that occas ional ly cause diarr heal illne ss. Crypt ospor idium Antig en and/o r Cyclo spora and Isosp ora Exam may be order ed to detec t these jl ites. One negat aayush sampl e does not neces saril y rule out the prese nce of a jl itic infec tion. For addit ional infor medhat winters e refer to https ://ed ucati on.qu loreta [employer]. CourseHorse/f aq/FA Q203 (This link is being provi ded for infor matio nal/ trish lunao ses only. ) Not Available [facility] [address] , [place], [address], 03/27/2025 14:01:28 03/25/2003/25/2025 CBC WBC 6.0 x10 4.0-10 .5 Not Available [facility] [address], [place], [address], 03/25/2025 11:16:34 03/25/2003/25/2025 CBC RBC 4.60 x10 3.50-5 .50 Not Available [facility] [address], [place], [address], 03/25/2025 11:16:34 03/25/20 25 03/25/2025 CBC HGB 14.2 g/dL 12.0-1 6.0 Not Available [facility] [address] [facility], [place], [address], 03/25/2025 11:16:34 03/25/20 25 03/25/2025 CBC HCT 42.6 % 37.0-4 7.0 Not Available [facility] [address], [place], [address], 03/25/2025 11:16:34 03/25/2003/25/2025 CBC MCV 92.6 fL 80.0-9 9.9 Not Available [facility] [address], [place], [address], 03/25/2025 11:16:34 03/25/20 25 03/25/2025 CBC MCH 30.9 pg 27.0-3 2.0 Not Available [facility] [address], [place], [address], 03/25/2025 11:16:34 03/25/20 25 03/25/2025 CBC MCHC 33.4 g/dL 32.0-3 6.0 Not Available [facility] [address] [facility] [address] [facility], [place], [address], 03/25/2025 11:16:34 03/25/20 25 03/25/2025 CBC RDW 13.0 % 11.5-1 4.5 Not Available [facility] [address] [facility] [address] [facility], [place], [address], 03/25/2025 11:16:34 03/25/20 25 03/25/2025 CBC plt 273.6 x10 140.0- 451.0 Not Available [facility] [address] [facility], [place], [address], 03/25/2025 11:16:34 03/25/20 25 03/25/2025 CBC lymphocytes % 30.5 % 20.0-5 0.0 Not Available [facility] [address] [facility] [address], [place], [address], 03/25/2025 11:16:34 03/25/20 25 03/25/2025 CBC granulcytes % 60.3 % 30.0-7 0.0 Not Available [facility] [address] [facility], [place], [address], 03/25/2025 11:16:34 03/25/20 25 03/25/2025 CBC monocytes % 6.5 % 2.0-16 .0 Not Available [facility] [address] [facility], [place], [address], 03/25/2025 11:16:34 03/25/20 25 03/25/2025 CBC granulcytes# 3.6 x10 Not Natali ilable [facility] [address] [facility], [place], [address], 03/25/2025 11:16:34 03/25/20 25 03/25/2025 CBC lymphocytes # 1.8 x10 Not Available [facility] [address] [address], [place], [address], 03/25/2025 11:16:34 03/25/20 25 03/25/2025 CBC monocytes # 0.4 x10 Not [facility] [address] [address], [place], [address], 03/25/2025 11:16:34 03/25/20 25 03/25/2025 CMP (FEMA LE) glucose 126.0 mg/dL 60.0-9 9.0 high Not Available [facility] [address] [address], [place], [address], 03/25/2025 12:44:27 03/25/20 25 03/25/2025 CMP (FEMA LE) BUN (blood urea nitrogen) 13.0 mg/dL 10.0-2 6.0 Not Available [address] [address], [place], [address], 03/25/2025 12:44:27 03/25/20 25 03/25/2025 CMP (FEMA LE) creatinine (serum) 0.9 mg/dL 0.4-1. 5 Not Available [address] [address], [place], [address], 03/25/2025 12:44:27 03/25/20 25 03/25/2025 CMP (FEMA LE) BUN/creatini ne ratio 14.44 ratio Not Available [address] [facility] [address] [address], [place], [address], 03/25/2025 12:44:27 03/25/20 25 03/25/2025 CMP (FEMA LE) eGFR calculated 64.2 Not Available [facility] [address] [facility], [place], [address], 03/25/2025 12:44:27 03/25/2003/25/2025 CMP (FEMA LE) total protein 7.8 g/dL 6.0-8. 5 Not Available [facility] [address] [facility], [place], [address], 03/25/2025 12:44:27 03/25/20 25 03/25/2025 CMP (FEMA LE) total bilirubin 1.1 mg/dL 0.2-1. 3 Not Available [facility] [address] [facility], [place], [address], 03/25/2025 12:44:27 03/25/20 25 03/25/2025 CMP (FEMA LE) albumin 4.7 g/dL 3.5-5. 5 Not Available [facility] [address] [facility], [place], [address], 03/25/2025 12:44:27 03/25/20 25 03/25/2025 CMP (FEMA LE) globulin 3.1 calc Not Available [email or web address] [address] [facility], [place], [address], 03/25/2025 12:44:27 03/25/20 25 03/25/2025 CMP (FEMA LE) AST (SGOT) 28.0 U/L 0.0-46 .0 Not Available [facility] [address] [facility], [place], [address], 03/25/2025 12:44:27 03/25/20 25 03/25/2025 CMP (FEMA LE) altv (SGPT) 21.0 U/L 13.0-6 9.0 normal Not Available [facility] [address] [facility], [place], [address], 03/25/2025 12:44:27 03/25/20 25 03/25/2025 CMP (FEMA LE) A/G ratio 1.5 ratio Not Available [facility] [address] [facility] [address] [facility], [place], [address], 03/25/2025 12:44:27 03/25/20 25 03/25/2025 CMP (FEMA LE) ALP phos 106.0 U/L 30.0-1 40.0 normal Not Available [facility] [address] [facility], [place], [address], 03/25/2025 12:44:27 03/25/20 25 03/25/2025 CMP (FEMA LE) calcium 9.3 mg/dL 8.4-10 .5 Not Available [facility] [address] [facility] [address], [place], [address], 03/25/2025 12:44:27 03/25/20 25 03/25/2025 CMP (FEMA LE) sodium 142.0 mmol/ L 136.0- 145.0 Not Available [facility] [address] [facility], [place], [address], 03/25/2025 12:44:27 03/25/20 25 03/25/2025 CMP (FEMA LE) potassium 3.9 mmol/ L 3.5-5. 1 Not Available [facility] [address] [facility], [place], [address], 03/25/2025 12:44:27 03/25/20 25 03/25/2025 CMP (FEMA LE) chloride 103.0 mmol/ L 98.0-1 10.0 normal Not Available [facility] [address] [facility], [place], [address], 03/25/2025 12:44:27 03/25/20 03/25/2025 CMP (FEMA LE) C02 27.0 mmol/ L 22.0-3 1.0 Not Available [facility] [address] [facility] [address], [place], [address], 03/25/2025 12:44:27 03/25/20 25 03/25/2025 CMP (FEMA LE) anion gap 12.0 calc Not Available [facility] [address] [facility] [address], [place], [address], 03/25/2025 12:44:27 03/25/2003/25/2025 CMP (FEMA LE) osmolality 294.6 calc Not Available [facility] [address] [facility] [address], [place], [address], 03/25/2025 12:44:27 03/25/2003/25/2025 TSH TSH 1.56 uIU/m L 0.49-3 .82 Not Available [facility] [address] [facility] [address], [place], [address], 03/25/2025 12:51:01 03/25/2003/25/2025 HBA1C hemaglobin A1C 6.2 4.2-6. 5 Not Available [facility] [address], [place], [address], 03/25/2025 13:26:53 Result Notes None recorded. Problems Name Problem SNOMED Code Status Onset Date Resolution Date Notes Provider Name and Address Organization Details Recorded Time Injury of shoulder and upper arm 064201756 Active 2022 Alan Edwards MD [address] [place] [address], [address], [place] [facility] 12:17:35 Chronic kidney disease stage 3 871430404 Active 2022 Alan Edwards MD [address] [place] [address], 29[address]767 5, [facility] 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 3 12:17:40 Morbid obesity 883320005 Active 2022 Alan Edwards MD [address] [place] [address], 048[address] 5, [facility] 3 12:17:37 Epilepsy 47988607 Active 2022 Alan Edwards MD [address] [place] [address], 8[address]-626 5, [facility] 3 12:17:30 Restless legs syndrome 96980099 Active 2022 Alan Edwards MD [address] [place] [address], 362[address] 5, [facility] 3 12:17:45 Diabetes mellitus 31260753 Active 2022 Alan Edwards MD [address] [place] [address], 94049-987 5, [facility] 3 12:24:04 Congestive heart failure 53285409 Active 2022 STEPHANIE soni [facility] 3 16:42:39 Pain of left shoulder joint 8745923166428 9109 Active 2022 Alan Edwards MD [address] [place] [address], 68[address]-292 5, [facility] 3 10:06:19 Lung mass 402239632 Active 2022 Alan Edwards MD [address] [place] [address], 23907-[address] 5, [facility] 3 14:35:55 Dysuria 47423290 Active 2022 Alan Edwards MD [address] [place] [address], 72640-369 5, [facility] 3 12:12:07 Abscess of skin and/or subcutaneou s tissue 02817919 Active 2022 Alan Edwards MD [address] [place] [address], 78252-716 5, [facility] 3 12:56:29 Chronic diarrhea 264123604 Active 2024 Alan Edwards MD [address] [place] [address], 96774-604 5, [facility] 5 10:21:06 Hypothyroid ism 93497623 Active 2024 Alan Edwards MD [address] [place] [address], 57[address]-5[address] 5, [facility] 5 10:22:04 Blood-tinge d feces 3884893868580 02 Active 2024 Alan Edwards MD [address] [place] [address], 47[address]-6[address] 5, [facility] 5 10:23:01 Diabetic peripheral neuropathy 679676206 Active 2024 Alan Edwards MD [address] [place] [address], 38985-057 5, [facility] 10:27:09 Abnormal gait 76657817 Active 2024 Alan Edwards MD [address] [place] [address], 54173-352 5, [facility]CLupe 13:56:21 Problem Notes None recorded. Procedures Surgical History Date Name Laterality Status Provider Name and Address Organization Details Recorded Time Appendectomy completed [facility] 07/31/2022 12:17:59 tonsillectomy completed [facility] 07/31/2022 12:18:09 Tubal Ligation completed [facility] 07/31/2022 12:18:34 Carpal tunnel surgery completed [facility] 07/31/2022 12:18:49 hysterectomy completed [facility] 07/31/2022 12:18:58 repair of urinary bladder completed [facility] 07/31/2022 12:19:44 cholecystectomy completed [facility] 07/31/2022 12:19:51 total knee replacement completed [facility] 07/31/2022 12:20:22 Back Surgery completed [facility] 03/23/2025 14:36:41 operative procedure on foot completed [facility] 03/23/2025 14:36:54 Cataract Surgery completed [facility] 03/23/2025 14:37:08 Imaging Results None recorded. Procedure Notes None recorded. Medical Equipment None Reported. Allergies Allergen ID Allergen Name Allergen Category Reaction Reaction Severity Criticality Documentation Date Start Date Code Code System Note Provider Name and Address Organization Details Recorded Time 186 hydrocodo ne Not available Not available Not available Not available 08/29/2022 5489 RxNorm [facility]IE [facility]MEN [facility] 3 10:47:14 1865 Substance with sulfonami de structure and antibacte rial mechanism of action (substanc e) medicatio n Not available Not available Not available 08/29/2022 11860 8003 SNOMED [facility]PHANIE CARMEN [facility] 3 10:48:02 1866 azithromy quinn medicatio n Not available Not available Not available 08/29/2022 66630 RxNorm STEPHANIE MORALES [facility] 3 10:48:21 247 Tegretol medicatio n Not available Not available Not available 07/31/2022 9 RxNorm Fernanda [facility] 3 12:11:59 248 Dilantin medicatio n Not available Not available Not available 07/31/2022 0 RxNorm [facility] 3 12:12:06 249 Naprosyn medicatio n Not available Not available Not available 07/31/2022 2 RxNorm [facility] 3 12:12:17 250 Bactrim medicatio n Not available Not available Not available 07/31/2022 35631 9 RxNorm Fernanda soni, [facility] 3 12:12:24 251 Bextra medicatio n Not available Not available Not available 07/31/2022 25323 0 RxNorm Fernanda soni, [facility] 3 12:12:36 252 oxybutyni n chloride medicatio n Not available Not available Not available 07/31/2022 34957 RxNorm [facility] 3 12:12:49 253 Prometriu m medicatio n Not available Not available Not available 07/31/2022 90435 0 RxNorm Fernanda soni, [facility] 3 12:13:00 254 Neurontin medicatio n Not available Not available Not available 07/31/2022 77092 8 RxNorm [facility] 3 12:13:19 255 naproxen medicatio n Not available Not available Not available 07/31/2022 7258 RxNorm [facility] 3 12:13:27 256 Tequin medicatio n Not available Not available Not available 07/31/2022 70227 4 RxNorm [facility] 3 12:14:41 257 acetamino phen / hydrocodo ne medicatio n Not available Not available Not available 07/31/2022 88076 2 RxNorm [facility] 3 12:14:54 258 hyoscyami ne medicatio n Not available Not available Not available 07/31/2022 66209 0 RxNorm [facility] 3 12:15:06 259 Vesicare medicatio n Not available Not available Not available 07/31/2022 45898 2 RxNorm Fernanda soni, [facility] 3 12:15:14 260 fluconazo le medicatio n Not available Not available Not available 07/31/2022 4450 RxNorm Fernanda soni, [facility] 3 12:15:21 261 cephalexi n medicatio n Not available Not available Not available 07/31/2022 2231 RxNorm Fernanda soni, [facility] 3 12:15:30 262 hydroxych loroquine medicatio n Not available Not available Not available 07/31/2022 5521 RxNorm Fernanda soni, [facility] 3 12:15:40 263 cyclobenz aprine hydrochlo ride medicatio n Not available Not available Not available 07/31/2022 97766 RxNorm Fernanda soni, [facility] 3 12:15:51 60607 colchicin e medicatio n Not available Not available Not available 03/28/2025 2683 RxNorm Not Available [employer] - prod 5 10:19:58 74140 sulfameth oxazole / trimethop rim medicatio n rash Not available Not available 03/28/2025 12222 RxNorm Not Available [facility] [employer] - prod 5 10:19:58 49866 phenytoin medicatio n dyspnea Not available Not available 03/28/2025 8183 RxNorm Not Available [employer] - [employer] - prod 5 10:19:58 89488 acetamino phen / hydrocodo ne medicatio n dyspnea Not available Not available 03/28/2025 98058 2 RxNorm Not Available [employer] - [employer] - prod 5 10:19:58 85235 gabapenti n medicatio n dyspnea Not available Not available 03/28/2025 63700 RxNorm Not Available [employer] - [employer] - prod 5 10:19:58 39890 progester one medicatio n dyspnea Not available Not available 03/28/2025 8727 RxNorm Not Available [employer] - prod 5 10:19:58 07300 carbamaze pine medicatio n dyspnea Not available Not available 03/28/2025 2002 RxNorm Not Available [employer] - prod 5 10:19:58 99305 solifenac in medicatio n dyspnea Not available Not available 03/28/2025 80229 7 RxNorm Not Available [employer] - [employer] - prod 10:19:58 Medications Name Sig Start Date Stop [...] Available Not Available No t Available Mounjaro active Not Available Not Avai lable Not [...] Updated DateTime 5 147.32 cm 43.3 kg/m2 50501.6 2 g 97.1 [degF] 72 /min 99 % 20 /min 124/74 mm[Hg] Swathi Mckenna [facility] 5 09:56:08 Social History Question Answer Notes LastModified by Organizat ion Details LastModified Time Tobacco Smoking Status Former Smoker STEPHANIE soni [facility] 07/31/2022 11:40:45 Are You Blind [...] pneumococcal polysaccharide PPV23 3 completed Not Available [facility] 03/25/2025 09:38:57 Past Encounters Encounter ID Performer Location Encounter Start Date Encounter Closed Date Diagnosis/Indication Diagnosis SNOMED-CT Code Diagnosis ICD10 Code Diagnosis IMO Codes Diagnosis Note [id number] JAMAL KINGC ([facility]) [address] [place] [address] 03/23/2025 14:15:26 03/23/2025 15:30:27 Acute diarrhea 228366688 R19.7 45016 [id number] Alan Ewdards MD [facility] ([facility]) [address] [place] [address] 03/25/2025 09:38:13 03/25/2025 10:38:27 Diabetes mellitus 78496500 E11.9 - Plan: A1c reassessme nt in absence of Dr. Andujar. Chronic diarrhea 7197564 09 K52.9 83132 - Plan: Gastroente rology referral for potential colonoscop y. Continue temporary relief with Imodium. Monitor for medication side effects. Hypothyroidism 10337241 E03.9 71998541 - Plan: Thyroid function re-evaluat ion and possible medication adjustment . Blood-tinged feces 22922 27938 26662 K92.1 7670 - Plan: Gastroente rology consultati on to investigat e reported blood in stool. Diabetic p eripheral neuropathy 137907597 E11.42 235620 - Plan: Continue current foot care management . Abnormal gait 59830989 R 26.81 700321 - Plan: Evaluate need and process for new walker acquisitio n. Health Concerns Section Related Observation LastModified by Organization Detai ls LastModified Time None Recorded Concern Status LastModified by Organization Details LastModified Time None Recorded Payers Encounter Date Sequence Insurance Name Policy Number Policy Encinas Covered Member ID Encinas Member ID Guarantor Name 03/25/2025 1 JEET-[place]: JOEY MARCANO [id number] Sherie Hernandez [id number] Sherie Hernandez Notes Date Note Type Note Provider Name and Address Organization Details Recorded Time 03/25/2025 text/html The patient is a 79-year-old [...] imaging showed pulmonary nodules Alan Edwards MD [address] [place] [address], [phone], [facility], [place] 03/27/2025 13:58:58 OBGyn Episode No OBEpisode recorded.
--- OUTSIDE RECORDS SUMMARY | 2025-04-02 11:51 | XMS_ITS | Continuity of Care Document ---
Author Organization CHRISTI - Brett Alvarez [facility] Rose Pedro, [facility] ([facility]) Address [address] [place] [address] Care Team Providers Care Contract Associate Manager Name Role Phone JESSICA VELÁZQUEZ Primary Care Provider Assessment No assessment recorded. Plan of Treatment Reminders Order Date Submit Date Provider Last Modified By Organization Details Last Modified Time Details Appointments None recorded. Lab unlisted lab - salmonella /shigella cult, campy EIA and shiga toxin w/rfl E. coli O157 cult 2024 025 [employer] [facility], [address] [place] [address] [address], [place], [address], 14:01:27 O&P (ova & parasites) , stool 2024 025 [employer] [facility], [address] [facility] [address], [place], [address], 14:01:28 C diff toxin DNA, stool 2024 025 [employer] [facility], [address] [place] [address] [address], [address], [place], [address], 18:15:37 Referral None recorded. Procedures None recorded. Surgeries None recorded. Imaging None recorded. Medication Orders None recorded. Patient TargetsNo targets recorded. Patient Instructions Encounter Date Encounter Id Patient Instructions Last Modified By Organization Details Last Modified Time 03/23/2025 [id number] Discussed establishing care with PCP [email or web address] Not available 03/23/2025 15:10:35 Reason for Referral None Reported. Results Created Date Observation Date Name Description Value Unit Range Abnormal Flag Note LastModifiedBy Organization Detail LastModifiedTime 03/23/2003/24/2025 CLOST RIDRulaU M DIFFI CILE TOXIN B,QL REAL TIME PCR clostridium difficile toxinb,ql real time PCR NOT DETECT ED not detect ed normal This test is for use only with liqui d or soft stool s; perfo rmanc e manuela cteri stics of other clini brendan speci men types have not been estab lishe d. This assay was perfo rmed by [employer] pert( R) PCR. The perfo rmanc e manuela cteri stics of this assay have been deter mined by [facility]. Perfo rmanc e manuela cteri stics refer to the chun tical perfo rmanc e of the test. For addit ional infor medhat winters e refer to http: //[facility] vidya fung.Donovan stDia gnost ics.c om/fa q/FAQ 136 (This link is being provi ded for infor dara nal/e ducat ional purpo ses only. ) Not Available [employer] [facility] [address] [place], [address], 03/24/2025 18:15:37 03/23/2003/27/2025 SALMO JOI /SHIG BHASKAR CULT, CAMPY EIA AND SHIGA TOXIN W/RFL E. COLI O157 CULT campylobacte r spp. Ag,EIA SEE NOTE CAMPY LOBAC TER SPP. AG,EI A Micro Numbe r: [id number] Test Statu s: Final Speci men Sourc e: Stool Speci men Quali ty: Adequ ate Campy Ag Resul t: Not Detec kobi Refer ence Range : Not Detec kobi Not Available [employer] [address] [place], [address], 03/27/2025 14:01:27 03/23/2003/27/2025 SALMO JOI /SHIG BHASKAR CULT, CAMPY EIA AND SHIGA TOXIN W/RFL E. COLI O157 CULT shiga toxins, EIA w/rfl to E.coli O157 culture SEE NOTE SHIGA TOXIN S, EIA W/RFL TO E.COL I O157 CULTU RE Micro Numbe r: [id number] Test Statu s: Final Speci men Sourc e: Stool Speci men Quali ty: Adequ ate Shiga Toxin : Not Detec kobi Refer ence Range : Not Detec kobi Not Available [address] [address] [place], [address], 03/27/2025 14:01:27 03/23/20 25 03/27/2025 SALMO JOI /SHIG BHASKAR CULT, CAMPY EIA AND SHIGA TOXIN W/RFL E. COLI O157 CULT salmonella and shigella, culture SEE NOTE SALMO JOI AND SHIGE LLA, CULTU RE Micro Numbe r: [id number] Test Statu s: Final Speci men Sourc e: Stool Speci men Quali ty: Adequ ate Resul t: No Salmo joi or Shige lla isola kobi Not Available [facility] [address] [place], [address], 03/27/2025 14:01:27 03/23/20 25 03/27/2025 OVA AND JL ITES, CONC AND PERM SMEAR ova and parasites, conc and perm smear SEE NOTE OVA AND JL ITES, CONC AND PERM SMEAR Micro Numbe r: [id number] Test Statu s: Final Speci men [...] medhat winters e refer to https ://ed ati on.qu loreta [employer]. com/f aq/FA Q203 (This link is being provi ded for infor dara saul/ trish lunao ses only. ) Not Available [address], [address], 03/27/2025 14:01:28 Result Notes None recorded. Problems Name Problem SNOMED Code Status Onset Date Resolution Date Notes Provider Name and Address Organization Details Recorded Time Injury of shoulder and upper arm 798224373 Active 2022 Alan Edwards MD [address] [place] [address], [address], [facility] 3 12:17:35 Chronic kidney disease stage 3 866056659 Active 2022 Alan Edwards MD [address] [place] [address], [address], [facility] 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 3 12:17:40 Morbid obesity 264230941 Active 2022 Alan Edwards MD [address] [place] [address], [address] 5, [facility] 3 12:17:37 Epilepsy 98514241 Active 2022 Alan Edwards MD [address] [place] [address], [phone] 5, [facility] 3 12:17:30 Restless legs syndrome 20086067 Active 2022 Alan Edwards MD [address] [place] [address], [address] 5, [facility] 3 12:17:45 Diabetes mellitus 57971355 Active 2022 Alan Edwards MD [address] [place] [address], [address], [facility] 3 12:24:04 Congestive heart failure 60620436 Active 2022 STEPHANIE soni [facility] 3 16:42:39 Pain of left shoulder joint 3350661214956 9109 Active 2022 Alan Edwards MD [address] [place] [address], [address] 5, [facility] 3 10:06:19 Lung mass 933299961 Active 2022 Alan Edwards MD [address] [place] [address] 5, [facility] 3 14:35:55 Dysuria 39208030 Active 2022 Alan Edwards MD [address] [place] [address] 5, [facility] 3 12:12:07 Abscess of skin and/or subcutaneou s tissue 70347849 Active 2022 Alan Edwards MD [address] [place] [address], [address] 5, [facility] 3 12:56:29 Chronic diarrhea 949441868 Active 2024 Alan Edwards MD [address] [place] [phone] 5, [facility] 5 10:21:06 Hypothyroid ism 58673771 Active 2024 Alan Edwards MD [address] [place] [address] 5, [facility], Rose 5 10:22:04 Blood-tinge d feces 9762434155434 02 Active 2024 Alan Edwards MD [address] [place] [address], 17[address] 5, [facility], Rose 5 10:23:01 Diabetic peripheral neuropathy 327993895 Active 2024 Alan Edwards MD [address] [place] [address], [address] 5, [facility], Rose 5 10:27:09 Abnormal gait 65581014 Active 2024 Alan Edwards MD [address] [place] [address], [address] 5, [facility], Rose 13:56:21 Problem Notes None recorded. Procedures Surgical History Date Name Laterality Status Provider Name and Address Organization Details Recorded Time [facility] 12:17:59 tonsillectomy completed [facility], Rose 07/31/2022 12:18:09 [facility]al [facility] 12:18:34 Carpal tunnel surgery completed [facility], Rose 07/31/2022 12:18:49 [facility] 12:18:58 repair of urinary bladder completed [facility], Rose 07/31/2022 12:19:44 [facility] 12:19:51 total knee replacement completed Fernanda Drummond [facility] 07/31/2022 12:20:22 Back Surgery completed Shandonrandolph Sosa [facility], RaúlLLupeCLupe 03/23/2025 14:36:41 operative procedure on foot [facility] 03/23/2025 14:36:54 Cataract Surgery completed [facility], LLupeLLupeCL[facility] 03/23/2025 14:37:08 Imaging Results None recorded. Procedure Notes None recorded. Medical Equipment None Reported. Allergies Allergen ID Allergen Name Allergen Category Reaction Reaction Severity Criticality Documentation Date Start Date Code Code System Note Provider Name and Address Organization Details Recorded Time 1863 hydrocodo ne Not available Not available Not available Not available 08/29/2022 5489 RxNorm STEPHANIE soni [facility] 3 10:47:14 1865 Substance with sulfonami de structure and antibacte rial mechanism of action (substanc e) medicatio n Not available Not available Not available 08/29/2022 27999 8003 SNOMED STEPHANIE MORALES nae [facility] 3 10:48:02 1866 azithromy quinn medicatio n Not available Not available Not available 08/29/2022 69241 RxNorm STEPHANIE MORALES nae [facility], L.LLupeCLupe 3 10:48:21 247 Tegretol medicatio n Not available Not available Not available 07/31/2022 9 RxNorm Fernanda Drummond nae [facility] 3 12:11:59 248 Dilantin medicatio n Not available Not available Not available 07/31/2022 0 RxNorm Fernanda Drummond nae [facility] 3 12:12:06 249 Naprosyn medicatio n Not available Not available Not available 07/31/2022 2 RxNorm Fernanda soni, [facility] 3 12:12:17 250 Bactrim medicatio n Not available Not available Not available 07/31/2022 85461 9 RxNorm Fernanda soni, [facility] 3 12:12:24 251 Bextra medicatio n Not available Not available Not available 07/31/2022 27669 0 RxNorm Fernanda soni, [facility] 3 12:12:36 252 oxybutyni n chloride medicatio n Not available Not available Not available 07/31/2022 48732 RxNorm Fernanda soni, [facility] 3 12:12:49 253 Prometriu m medicatio n Not available Not available Not available 07/31/2022 75632 0 RxNorm Fernanda soni, [facility] 3 12:13:00 254 Neurontin medicatio n Not available Not available Not available 07/31/2022 61619 8 RxNorm [facility] 3 12:13:19 255 naproxen medicatio n Not available Not available Not available 07/31/2022 7258 RxNorm Fernanda soni, [facility] 3 12:13:27 256 Tequin medicatio n Not available Not available Not available 07/31/2022 36234 4 RxNorm Fernanda soni, [facility] 3 12:14:41 257 acetamino phen / hydrocodo ne medicatio n Not available Not available Not available 07/31/2022 50899 2 RxNorm Fernanda soni, [facility] 3 12:14:54 258 hyoscyami ne medicatio n Not available Not available Not available 07/31/2022 85191 0 RxNorm Fernanda soni [facility] 3 12:15:06 259 Vesicare medicatio n Not available Not available Not available 07/31/2022 07286 2 RxNorm Fernanda soni [facility] 3 12:15:14 260 fluconazo le medicatio n Not available Not available Not available 07/31/2022 4450 RxNorm Fernanda soni [facility] 3 12:15:21 261 cephalexi n medicatio n Not available Not available Not available 07/31/2022 2231 RxNorm Fernanda soni [facility] 3 12:15:30 262 hydroxych loroquine medicatio n Not available Not available Not available 07/31/2022 5521 RxNorm Fernanda soni [facility] 3 12:15:40 263 cyclobenz aprine hydrochlo ride medicatio n Not available Not available Not available 07/31/2022 12473 RxNorm Fernanda soni [facility] 3 12:15:51 55656 colchicin e medicatio n Not available Not available Not available 03/28/2025 2683 RxNorm Not Available kate - External Data Service - prod 5 10:19:58 04063 sulfameth oxazole / trimethop rim medicatio n rash Not available Not available 03/28/2025 90389 RxNorm Not Available kate - External Data Service - prod 5 10:19:58 76285 phenytoin medicatio n dyspnea Not available Not available 03/28/2025 8183 RxNorm Not Available kate - External Data Service - prod 5 10:19:58 33942 acetamino phen / hydrocodo ne medicatio n dyspnea Not available Not available 03/28/2025 82435 2 RxNorm Not Available [facility] External Data Service - prod 5 10:19:58 02010 gabapenti n medicatio n dyspnea Not available Not available 03/28/2025 73364 RxNorm Not Available kate - External Data Service - [facility] 5 10:19:58 16993 progester one medicatio n dyspnea Not available Not available 03/28/2025 8727 RxNorm Not Available kate - External Data Service - [facility] 5 10:19:58 66254 carbamaze pine medicatio n dyspnea Not available Not available 03/28/2025 2002 RxNorm Not Available [facility] External Data Service - [facility] 5 10:19:58 89389 solifenac in medicatio n dyspnea Not available Not available 03/28/2025 31447 7 RxNorm Not Available [facility] External Data Service - [facility] 5 10:19:58 Medications Name Sig Start [...] and Address Organization Details Last Updated DateTime 147.32 cm 43.3 kg/m2 42734.6 2 g 97 % 87 /min 16 /min 98.2 [degF] 110/66 mm[Hg] Samantha Sosa [facility] 14:40:55 Social History Question Answer Notes LastModified by [facility] ion Details LastModified Time Tobacco Smoking Status Former Smoker STEPHANIE CARMENShravan [facility] 07/31/2022 11:40:45 Are You Blind Or [...] pneumococcal polysaccharide PPV23 3 completed Not Available [employer] 03/25/2025 09:38:57 Past Encounters Encounter ID Performer Location Encounter Start Date Encounter Closed Date Diagnosis/Indication Diagnosis SNOMED-CT Code Diagnosis ICD10 Code Diagnosis IMO Codes Diagnosis Note [id number] LIZ HUBBARD APRN [facility] ([facility]) [address] [place] [address] 03/23/2025 14:15:26 03/23/2025 15:30:27 Acute diarrhea 019338550 R19.7 59987 Health Concerns Section Related Observation LastModified by Organization Detai ls LastModified Time None Recorded Concern Status LastModified by Organization Details LastModified Time None Recorded Payers Encounter Date Sequence Insurance Name Policy Number Policy Encinas Covered Member ID Encinas Member ID Guarantor Name 03/23/2025 1 [place]/A DVANTAGE - PPO) [id number] Sherie Hernandez [id number] Sherie Hernandez Notes Date Note Type Note Provider Name and Address Organization Details Recorded Time 03/23/2025 text/html DiarrheaReported by Patient walk in patientpatient is here today for diarrhea that started about a month ago OTC medicaiton has not helped and her pcp would not see her today so she is wanting to change pcp. Patient said that imodium makes it stop but she does not want to take it all the time. LIZ HUBBARD APRN [address] [place] [address], [phone], [facility], Rose 03/23/2025 15:12:29 OBGyn Episode No OBEpisode recorded.
--- OUTSIDE RECORDS SUMMARY | 2025-04-02 11:51 | XMS_ITS | Patient Health Record ---
Author Organization [facility] Address [address] [place] [address] Care Team Providers Care Personal Care Assistant Name Role Phone Shakeel Acuna MD Primary Care Provider Heber Cheung Unavailable [phone] Allergies Allergen (clinical drug ingredient) Drug/Non Drug [...] End Date [employer] [address] [address] [place], [place] [id number] [phone] [id number] [phone] Sherie Hernandez Self - patient is the [...]
--- OUTSIDE RECORDS SUMMARY | 2025-04-02 11:51 | XMS_ITS | Encounter Summary ---
Author Organization [facility] Address [address] [place] [address] Care Team Providers Care Planning Technician Name Role Phone Demetria Busch MD Primary Care Provider Reason for Referral * Eval and Treat (Routine) - Open Specialty Diagnoses / Procedures Referred By Shae t Referred To Contact Gastroenterology Diagnoses Melena Procedures [place] OFFICE/OUTPATIENT ESTABLISHED MOD MDM 30 MIN [place] OFFICE/OUTPATIENT NEW MODERATE MDM 45 MINUTES new request Alan Edwards MD [address] [place] [address] Phone: tel: fax: [facility] [address] [facility] [address] [place] [address] Phone: tel: fax: Referral ID Status Reason Start Date Expiration Date Visits Requested Visits Authorized [id number] Open Performing Department to Schedule 03/29/2025 03/29/2026 1 1 MMAKING SUPERVISOR Encounter Details Date Type Department Care Team (Late st Contact Info) Description 03/29/2025 Orders Only [facility] [address] [facility] [address] [place] [address] Alan Edwards MD [address] [place] [address] Marija (Primary Dx) Social History Tobacco Use Types Packs/Day Years Used Date Smoking Tobacco: Never Smokeless Tobacco: Never Alcohol Use Standard Drinks/Week Comments Never 0 (1 standard drink = 0.6 oz pur e alcohol) [facility] Utilities Answer Date Recorded In the past 12 months has e [employer], gas, oil, or water [employer] threatened to shut off services in your [...] week 09/21/2023 How often do you attend [facility] or restorationist services? 1 to 4 times per year 09/21/2023 Do you belong to any clubs o r organizations such as protestant groups, unions, fraternal or athletic groups, or [...] as of this encounter Plan of Treatment Scheduled Referrals Name Type Priority Associated Diagnoses Order Schedule AMB REFERRAL TO GASTROENTEROLOGY Outpatient Referral Routine Melena Ordered: 03/29/2025 documented as of this encounter Visit Diagnoses Diagnosis Melena- Primary Blood in stool documented in this encounter Care Teams Planning Technician Relationship Specialty Start Date End Date Demetria Busch MD PCP - General Family Practice 09/26/23 documented as of this encounter
--- OUTSIDE RECORDS SUMMARY | 2025-04-02 11:51 | XMS_ITS | Clinical Summary ---
Author Organization [facility] Address [address] [place] [address] Phone Care Team Providers Care Shellfish Processing Laborer Name Role Phone Demetria Busch MD Primary [...] 2 tabs at bedtime Active Vit C-Vit C-Okosqd-UtUt-L utein (PRESERVISION) 226-90-0.8-5 mg Capsule Take 1 [...] Encounters Date Type Department Care Team Description 03/29/2025 Orders Only [facility] Gastroenterology[address] [place] [phone] Alan Edwards MD Melena (Primary Dx) from Last 3 Months Social History Tobacco Use Types Packs/Day Years Used Date Smoking Tobacco: Never Smokeless Tobacco: Never Tobacco Cessation:Counseling Given: Not Answered Alcohol Use Standard Drinks/Week Comments Never 0 (1 standard drink = 0.6 oz pur e alcohol) [facility] Utilities Answer Date Recorded In the past 12 months has e [employer], gas, oil, or water [employer] threatened to shut off services in your [...] week 09/21/2023 How often do you attend [facility] or taoism services? 1 to 4 times per year 09/21/2023 Do you belong to any clubs o r organizations such as orthodox groups, unions, fraternal or athletic groups, or [...] * LIPID PANEL (09/22/2023 4:26 AM CDT) [facility] CHOLESTEROL 113 <200 mg/dL 09/22/2023 5:02 AM CDT [facility] TRIGLYCERIDE 142 <150 mg/dL 09/22/2023 5:02 AM CDT [facility] HDL 46 40 - 59 mg/dL 09/22/2023 5:02 AM CDT [facility] LDL CALCULATED 39 <100 mg/dL 09/22/2023 5:02 AM T [facility] NON-HDL CHOLESTEROL 67 <130 mg/dL 09/22/2023 5:02 AM T [facility] Blood Venipuncture / Unknown 09/22/2023 4:26 AM CDT 09/22/2023 4:31 AM CDT Narrative [facility] - 09/22/2023 5:02 AM CDT TOTAL [...] ORDERABLES Final Re sult Performing Organization Address [facility] Co de Phone Number [facility] [employer] [facility] CLIA # [id number] [address] [address] * (ABNORMAL) HEMOGLOBIN A1C (09/21/2023 7:52 PM CDT) HEMOGLOBIN A1C 10.4(H) <=5.6 % 09/22/2023 9:05 AM CDT [facility] [employer] [facility] EST. AVG GLUCOSE, A1C 252 mg/dL 09/22/2023 9:05 AM CDT [facility] [employer] [facility] Blood Venipuncture / Unknown 09/21/2023 7:52 PM CDT 09/21/2023 8:05 PM CDT Narrative [facility] [employer] [facility] - 09/22/2023 9:05 AM CDT HGB A1C INTERPRETATION NORMAL: <5.7% PRE-DIABETES: 5.7 - 6.4% DIABETES: 6.5% OR GREATER Heather Brooke MD CHEMISTRY ORDERABLES Final Re sult Performing Organization Address [facility] de Phone Number [facility] [employer] [facility] CLIA # [id number] [address] [address] from Last 3 Months or Most Recently Relevant to Health Maintenance [place] [address] MEDICARE HMO RX [facility] Medicare Part D Advance Directives For more information, please contact: [phone] * Full Code (Latest Code Status on File) Date Activated Date Inactivated Comments 09/24/2023 11:57 AM 09/25/2023 1:46 PM * Default Full Code - Needs Discussion Date Activated Date Inactivated Comments 09/21/2023 6:42 PM 09/24/2023 11:57 AM Care Teams Shellfish Processing Laborer Relationship Specialty Start Date End Date Demetria Busch MD PCP - General Family Practice 09/26/23
--- OUTSIDE RECORDS SUMMARY | 2025-04-02 11:51 | XMS_ITS | Patient Health Record ---
Author Organization [facility] Address [address] [place] [address] Care Team Providers Care Java Golden Gate Developer Name Role Phone Abdi Lovett Primary Care Provider Unavailabl e Reason For Referral No Information Plan Of Treatment No Information
[2025-04-02 12:08] VITALS: PULSE 70; O2SAT 98
--- NOTE | 2025-04-02 12:11 | CTR_ITS ---
PROCEDURE INFORMATION: Exam: CT Thoracic Spine Without Contrast Exam date and time: 04/02/2025 12:30 PM Age: 79 years old Clinical indication: Pain and injury or trauma; Fall; Blunt trauma (contusions or hematomas); Pain in thoracic intervertebral disc disorder; Prior surgery; Surgery date: 6+ months; Surgery type: Spinal fusion; Additional info: Severe back pain, mult surgeries TECHNIQUE: Imaging protocol: Computed tomography of the thoracic spine without contrast. Radiation optimization: All CT scans at this facility use at least one of these dose optimization techniques: automated exposure control; mA and/or kV adjustment per patient size (includes targeted exams where dose is matched to clinical indication); or iterative reconstruction. COMPARISON: CT thoracic spin wo con* [id number] 06/09/2024 8:57 AM RADIATION DOSE METRICS: Total DLP (mGy-cm): 886.2 FINDINGS: Bones/joints: There appear to be 11 thoracic vertebral bodies. No acute fracture. Normal alignment. Thoracic vertebral body heights are maintained. No significant spinal canal stenosis. Moderate to severe multilevel disc space narrowing throughout the thoracic spine. . Anterior spinal hardware fixation is seen involving the lower cervical spine incompletely imaged on this study. There has been interval removal of previously seen thoracic spinal cord stimulator leads. Soft tissues: Stable nonspecific bilateral adrenal thickening and nodularity CT/CT thoracic spin wo con* [id number] IMPRESSION: No acute bony abnormality. If symptoms persist, consider further evaluation with MRI, if there are no contraindications to obtaining a MRI scan.
--- NOTE | 2025-04-02 12:11 | CTR_ITS ---
PROCEDURE INFORMATION: Exam: CT Lumbar Spine Without Contrast Exam date and time: 04/02/2025 12:30 PM Age: 79 years old Clinical indication: Pain and injury or trauma; Fall; Blunt trauma (contusions or hematomas); Low back pain; Prior surgery; Surgery date: 6+ months; Surgery type: Spinal fusion; Additional info: Severe back pain, mult surgeries TECHNIQUE: Imaging protocol: Computed tomography of the lumbar spine without contrast. Radiation optimization: All CT scans at this facility use at least one of these dose optimization techniques: automated exposure control; mA and/or kV adjustment per patient size (includes targeted exams where dose is matched to clinical indication); or iterative reconstruction. COMPARISON: CT lumbar spine wo con* [id number] 06/09/2024 8:57 AM RADIATION DOSE METRICS: Total DLP (mGy-cm): 972.2 FINDINGS: Bones/joints: The lumbar vertebral body heights are maintained. Redemonstration of a grade 2 anterolisthesis of L4 on L5 measuring up to 1.2 cm. Yvrk-yp-bnwcdpyt disc space narrowing at L1-L2, L4-L5 and L5-S1. Redemonstration of posterior spinal hardware fixation spanning L4 through S1. Lucency is seen around the bilateral L4 pedicle screws compatible with hardware loosening. Right L5 pedicle screw does not appear to be seated within the vertebral body. Redemonstration of L5 and S1 laminectomies. Left L3 hemilaminectomy. L1-L2: Broad concentric disc bulge without any significant central canal stenosis. Mild left neuroforaminal narrowing. L2-L3: Broad concentric disc bulge and bilateral facet arthropathy contributing to mild central canal stenosis. Mild bilateral neuroforaminal narrowing. L3-L4: Broad concentric disc bulge and bilateral facet arthropathy contributing to moderate central canal stenosis. Moderate bilateral neuroforaminal narrowing. L4-L5: Broad concentric disc bulge and bilateral facet arthropathy contributing to severe central canal stenosis. Moderate bilateral neuroforaminal narrowing. L5-S1: The spinal canal has been decompressed by laminectomy. Moderate left and mild right neuroforaminal narrowing. Soft tissues: Redemonstration of bilateral adrenal nodularity and thickening. CT/CT lumbar spine wo con* [id number] IMPRESSION: Postsurgical and multilevel degenerative changes of the lumbar spine as outlined above. If symptoms persist, consider further evaluation with MRI, if there are no contraindications to obtaining a MRI scan.
--- NOTE | 2025-04-02 12:29 | PC.NURSE ---
This nurse asked pt to use cleaning wipes prior to urinating, pt states No I'm already going, I can't, I took a shower before I came here anyway.
--- NOTE | 2025-04-02 12:31 | ED_ITS ---
HPI - Back Pain/Injury 2 General: Chief Complaint: Back Pain/Injury Stated Complaint: mid back pain Time Seen by Provider: 04/02/25 11:51 Source: patient Mode of arrival: ambulatory Limitations: no limitations History of Present Illness: Patient is a 79-year-old female with past medical history of spinal cord neurostimulator recently removed in November, type 2 diabetes, frequent UTI, and chronic back pain with multiple surgeries who presents emergency department complaining of back pain that began suddenly last night. Reports that the back is to the bilateral parathoracic and paralumbar muscles, history of similar but states this is much worse. States that she normally comes to the ER and is given medications that somewhat help and then she is sent home, does note that she has followed up with specialist in the past. Does not report any recent trauma other than a fall a week ago, which she believes is not attributable to the pain. Pain worse with movement, she does not have any loss of bowel or bladder function or saddle anesthesia, does note history of chronic sensory changes to bilateral lower extremities. Does not report any rash to the back or feverishness. No history of cancer or IV drug use. Other than appearing uncomfortable at this time her vitals are stable. She states that she is allergic to many medications and there is not much that she can take. MD elicited complaint: back pain Onset (ago): hour(s) Timing: constant Severity: similar to previous episodes Similar Symptoms Previously: Yes Location: right lower back and left lower back Exacerbating factors: movement Relieving factors: none Associated symptoms: Deny abdominal pain, difficulty walking, fecal incontinence, fever(s) or syncope Related Data Home Medications ?Medication ?Instructions ?Recorded ?Confirmed aspirin 81 mg chewable tablet 81 mg PO DAILY 08/23/22 04/02/25 Held on 12/01/24. Instructions: Resume on 12/02/24. vit C 250 mg-vit E 90 mg-zinc 40 1 tab PO BID 11/19/22 04/02/25 mg-copper 1 [id number] capsule (PreserVision AREDS-2) Previous Rx's ?Medication ?Instructions ?Recorded Bone Growth Stimulator #1 ea 07/01/24 furosemide 40 mg tablet (Lasix) 40 mg PO DAILY PRN santos ma #90 tabs 08/09/24 pramipexole 0.25 mg tablet See Rx Instructions .Route 08/04/25 .COMPLEX #270 tabs Diabetic shoes with 3 inserts #1 ea 12/14/24 levothyroxine 150 mcg tablet 150 mcg PO DAILY #103 tab s 12/20/24 blood-glucose sensor (FreeStyle #1 ea 01/04/25 Katarina 3 Plus Sensor device) levetiracetam 750 mg tablet See Rx Instructions .Route 01/04/25 .COMPLEX #180 tabs glimepiride 4 mg tablet 4 mg PO DAILY #90 tabs 02/07 simvastatin 20 mg tablet See Rx Instructions .Route 1 .COMPLEX #90 tabs colchicine 0.6 mg tablet See Rx Instructions .Route 1 05/15/24 .COMPLEX #30 tabs tirzepatide 10 mg/0.5 mL See Rx Instructions .Route 1 05/15/24 subcutaneous pen injector .COMPLEX #2 mL (Mounjaro) cefdinir 300 mg capsule 300 mg PO BID 7 days #14 cap s 04/02/25 Allergies Allergy/AdvReac Type Severity Reaction Status Date / Time azithromycin Allergy ALGY-Difficulty Verified 04/02/25 11:56 Breathing carbamazepine (From Tegretol) Allergy Unknown Verified 04/02/25 11:56 cephalexin Allergy Unknown Verified 04/02/25 11:56 ciprofloxacin Allergy ALGY-Rash Verified 04/02/25 11:56 cyclobenzaprine (From Allergy Unknown Verified 04/02/25 11:56 Flexeril) fentanyl Allergy doesn't Verified 04/02/25 11:56 want to take fluconazole Allergy Unknown Verified 04/02/25 11:56 gabapentin Allergy Unknown Verified 04/02/25 11:56 hydrocodone (From [facility]) Allergy Unknown Verified 04/02/25 11:56 hydroxychloroquine Allergy Unknown Verified 04/02/25 11:56 hyoscyamine Allergy Unknown Verified 04/02/25 11:56 naproxen (From Naprosyn) Allergy Unknown Verified 04/02/25 11:56 oxybutynin (From Ditropan) Allergy Unknown Verified 04/02/25 11:56 phenytoin (From Dilantin) Allergy Unknown Verified 04/02/25 11:56 progesterone (From Allergy Unknown Verified 04/02/25 11:56 Prometrium) solifenacin (From Vesicare) Allergy Unknown Verified 04/02/25 11:56 Sulfa (Sulfonamide Allergy Unknown Verified 04/02/25 11:56 Antibiotics) sulfamethoxazole (From Allergy Unknown Verified 04/02/25 11:56 Bactrim) trimethoprim (From Bactrim) Allergy Unknown Verified 04/02/25 11:56 valdecoxib (From Bextra) Allergy Unknown Verified 04/02/25 11:56 Review of Systems 2 General: Reports: 10 or more systems reviewed and unremarkable except in HPI and below Const: Reports: other (denies trauma); Denies: fever(s), change in weight or night sweats Card: Denies: chest pain, lightheadedness or syncope Resp: Denies: dyspnea GI: Denies: abdominal pain or fecal incontinence : Denies: urinary incontinence Musc: Reports: back pain; Denies: neck pain or extremity pain Skin/Breast: Denies: rash or skin pain Neuro: Denies: headache(s), numbness in extremities, weakness in extremities, sensory changes, lack of coordination, difficulty walking, frequent falls or involuntary movements PFSH ED 2 PFSH: Medical History Family history of colon cancer Colon polyps Spinal cord neurostimulator device in situ BMI 40.0-44.9, adult FH: total knee replacement Recurrent UTI CRP elevated Angina at rest Creatinine elevation After cataract, bilateral Carpal tunnel syndrome on both sides Nonfunctional vagus nerve stimulator Multiple lung nodules on CT 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 Father CAD (coronary artery disease) Stroke Mother Chronic kidney disease (CKD) Brother Cancer Brother Stroke Colon cancer Denies family history of Ovarian cancer Diabetes Heart disease Hypercholesteremia Breast cancer Hypertension Uterine cancer Thyroid disease Social History Smoking and tobacco/nicotine status: never used tobacco/nicotine Quit status (tobacco/nicotine): has quit using Year quit tobacco: 1979 Former quit date comment: 1-2 ppd X 1 year Second hand smoke exposure: No Alcohol intake: never Substance/Drug Use: never Current gender identity: Female Female Reproductive History: Spontaneous abortions: No Physical Exam 2 Const: COMMON NORMALS: patient oriented x3, no limitations and alert N UTRITIONAL APPEARANCE: obese ORIENTATION/CONSCIOUSNESS: Yes awake, Yes oriented to person, Yes oriented to place and Yes oriented to time OTHER: Uncomfortable appearing Resp: COMMON NORMALS: normal respiratory effort, No retractions, No use of accessory muscles and clear to auscultation bilaterally AUSCULTATION: clear to auscultation bilaterally Cardio: COMMON NORMALS: regular rate, regular rhythm, S1 normal heart sound present and S2 normal heart sound present RATE: regular rate RHYTHM: r egular rhythm HEART SOUNDS: S1 normal heart sound present and S2 normal heart sound present GI: COMMON NORMALS: Soft to palpation and non-tender INSPECTION: Yes central obesity PALPATION: Yes Soft to palpation Back/Pelvis: OTHER: No rash. To very light palpation there is tenderness to the left parathoracic and right parathoracic muscles. There is no spinous process tenderness or step- off deformity. Postoperative incisions present. Range of motion is intact, but limited secondary to pain. Extremity: COMMON NORMALS: normal to inspection and full ROM Neuro: COMMON NORMALS: patient oriented x3, moves all extremities, no focal motor deficits, no sensory deficits noted, deep tendon reflexes 2+ bilaterally and gait normal SENSORIUM/ORIENTATION: Yes alert, Yes oriented to person, Yes oriented to place and Yes oriented to time OTHER: L3, L4, L5, and S1 nerve sensations intact. Skin: COMMON NORMALS: no rashes or lesions noted GENERAL SKIN EXAM: no rashes or lesions noted Course 2 Vital Signs: Vital signs: Vital Signs Temperature 96.8 F L 04/02/25 11:46 Pulse Rate 68 04/02/25 13:31 Respiratory Rate 18 04/02/25 11:46 Blood Pressure 159/73 04/02/25 13:31 Pulse Oximetry 100 04/02/25 13:31 Oxygen Delivery Me thod Room Air 04/02/25 13:31 MDM - Back Pain/Injury Medical Decision Making Patient presented with acute onset nontraumatic back pain to the thoracic and lumbar region, history of numerous back surgeries and multiple medication allergies stating that she did not getting relief from her oxycodone. She had no red flag symptoms with her history or on examination, there is no rash to indicate that this could be shingles however this could be an incident where pain does precede the rash and I informed her to monitor for any rash. She has not been febrile, no history of cancer, no other concerning issues. With the severity of her pain and noting that she was having severe limitations in range of motion ordered CT imaging that do show multilevel degenerative changes, however nothing acute and she is informed to follow-up with her Ortho/spine for further evaluation of this as this is chronic. Of note, sure urinalysis does show a pretty significant urinary tract infection, and her CBC and CMP otherwise unremarkable meaning this is likely an acute cystitis, less likely ascending infection. For this she is given IV Rocephin and will be started on cefdinir as an outpatient. She does have relief of her symptoms minimally with medications here in the emergency department, does feel stable enough to go home and treat with p.o. antibiotics, and already has prescription for oxycodone at home. Again she is informed to follow-up with her specialists and return with any red flag symptoms or other concerns. Labs 04/02/25 12:58 04/02/25 12:58 Radiology Impressions Lumbar Spine CT 04/02/25 12:11 IMPRESSION: Postsurgical and multilevel degenerative changes of the lumbar spine as outlined above. If symptoms persist, consider further evaluation with MRI, if there are no contraindications to obtaining a MRI scan. Thoracic Spine CT 04/02/25 12:11 IMPRESSION: No acute bony abnormality. If symptoms persist, consider further evaluation with MRI, if there are no contraindications to obtaining a MRI scan. Laboratory Results WBC 5.33 10^3/uL (3.29-11.43) 04/02/25 12:58 RBC 4.37 10^6/uL (3.85-5.65) 04/02/25 12:58 Hgb 13.30 g/dL (11.27-16.99) 04/02/25 12:58 Hct 38.3 % (36-47) 04/02/25 12:58 MCV 87.6 fl (85-98) 04/02/25 12:58 MCH 30.4 pg (27-33) 04/02/25 12:58 MCHC 34.7 g/dL (30-55) 04/02/25 12:58 RDW 12.2 % (12.1-15.1) 04/02/25 12:58 Plt Count 217 10^3/cmm (157-399) 04/02/25 12:58 MPV 8.7 fL (7.4-10.4) 04/02/25 12:58 Neut % (Auto) 54.8 % 04/02/25 12:58 Lymph % (Auto) 32.6 % 04/02/25 12:58 [place] % (Auto) 10.3 % 04/02/25 12:58 Eos % (Auto) 1.5 % 04/02/25 12:58 Baso % (Auto) 0.6 % 04/02/25 12:58 Neut # (Auto) 2.92 10^3/uL (1.8-7.7) 04/02/25 12:58 Lymph # (Auto) 1.7 10^3/uL (0.8-4.8) 04/02/25 12:58 [place] # (Auto) 0.6 10^3/uL (0.2-0.9) 04/02/25 12:58 Eos # (Auto) 0.1 10^3/uL (0.0-0.8) 04/02/25 12:58 Baso # (Auto) 0.0 10^3/uL (0.0-0.1) 04/02/25 12:58 Nucleated RBC % (auto) 0 % 04/02/25 12:58 Nucleated RBCs # 0.0 /100WBC 04/02/25 12:58 Sodium 135 mmol/L (136-145) L 04/02/25 12:58 Potassium 3.5 mmol/L (3.5-5.1) 04/02/25 12:58 Chloride 98 mmol/L (98-107) 04/02/25 12:58 Carbon Dioxide 28 mmol/L (22-29) 04/02/25 12:58 Anion Gap 12.5 (5-19) 04/02/25 12:58 BUN 18 mg/dL (8-23) 04/02/25 12:58 Creatinine 1.0 mg/dL (0.5-0.9) H 04/02/25 12:58 GFR Calculation Not Reportable 04/02/25 12:58 Glucose 93 mg/dL (65-115) 04/02/25 12:58 Calculated Osmolality 282 mOsm/kg (285-295) L 04/02/25 12:58 Calcium 8.9 mg/dL (8.5-10.5) 04/02/25 12:58 Total Bilirubin 1.3 mg/dL (0.15-1.2) H 04/02/25 12:58 AST 19 U/L (0-32) 04/02/25 12:58 ALT 12 U/L (0-33) 04/02/25 12:58 Alkaline Phosphatase 103 U/L (35-105) 04/02/25 12:58 Total Protein 7.1 g/dL (6.6-8.7) 04/02/25 12:58 Albumin 4.0 g/dL (3.5-5.2) 04/02/25 12:58 Globulin 3.1 g/dL (1.3-4.6) 04/02/25 12:58 Urine Color Yellow (Yellow) 04/02/25 12:21 Urine Appearance Turbid (CLEAR) A 04/02/25 12:21 Urine pH 5.5 (5-7) 04/02/25 12:21 Ur Specific [place] 1.008 (1.005-1.030) 04/02/25 12:21 Urine Protein 1+ (Negative) A 04/02/25 12:21 Urine Glucose (UA) Negative (Normal) 04/02/25 12:21 Urine Ketones Negative (Negative) 04/02/25 12:21 Urine Blood 1+ (Negative) A 04/02/25 12:21 Urine Nitrate Negative (Negative) 04/02/25 12:21 Urine Bilirubin Negative (Negative) 04/02/25 12:21 Urine Urobilinogen 0.2 mg/dL (Negative) 04/02/25 12:21 Ur Leukocyte Esterase 3+ (Negative) A 04/02/25 12:21 Urine RBC 0-2 /hpf (0-2) 04/02/25 12:21 Urine WBC >100 /hpf (0-5) H 04/02/25 12:21 Ur Squamous Epith Cells 0-5 /hpf (0-5) 04/02/25 12:21 Amorphous Sediment Not Reportable 04/02/25 12:21 Urine Bacteria 2+ /hpf (NONE) H 04/02/25 12:21 Hyaline Casts 4.11 /lpf 04/02/25 12:21 All radiology interpretation(s) finalized by discharge Discharge Plan Discharge Patient Disposition: Home Clinical Impression: Recurrent UTI Condition: Stable Prescriptions: New cefdinir 300 mg capsule 300 mg PO BID 7 Days Qty: 14 0RF No Action aspirin 81 mg tablet,chewable 81 mg PO DAILY PreserVision AREDS-2 250-90-40-1 mg capsule 1 tab PO BID furosemide [Lasix] 40 mg tablet 40 mg PO DAILY PRN (Reason: edema) Qty: 90 0RF (DME) Diabetic shoes with 3 inserts See Rx Instructions .Route .MEDSUPPLY Qty: 1 0RF Rx Instructions: As directed to [facility] diabetic [facility] levothyroxine 150 mcg tablet 150 mcg PO DAILY Qty: 103 1RF Rx Instructions: TAKE 1 TABLET BY MOUTH Friday through Friday and 1 and a half tablets on Friday and Friday. (DME) Bone Growth Stimulator See Rx Instructions .Route .MEDSUPPLY Qty: 1 0RF Rx Instructions: As directed pramipexole 0.25 mg tablet See Rx Instructions .ROUTE .COMPLEX Qty: 270 0RF Dose Instruction: TAKE 1 TABLET BY MOUTH EVERY MORNING AND TWO EVERY EVENING Rx Instructions: TAKE 1 TABLET BY MOUTH EVERY MORNING AND TWO EVERY EVENING (DME) FreeStyle Katarina 3 Plus Sensor Device See Rx Instructions .ROUTE .COMPLEX Qty: 1 5RF Dose Instruction: USE DIRECTED CHANGE EVERY 15 DAYS Rx Instructions: USE DIRECTED CHANGE EVERY 15 DAYS levetiracetam 750 mg tablet See Rx Instructions .ROUTE .COMPLEX Qty: 180 0RF Dose Instruction: TAKE 1 TABLET BY MOUTH TWICE DAILY Rx Instructions: TAKE 1 TABLET BY MOUTH TWICE DAILY glimepiride 4 mg tablet 4 mg PO DAILY Qty: 90 0RF Rx Instructions: If blood sugar gets low then stop simvastatin 20 mg tablet See Rx Instructions .ROUTE .COMPLEX Qty: 90 0RF Dose Instruction: TAKE 1 TABLET BY MOUTH EVERY DAY Rx Instructions: TAKE 1 TABLET BY MOUTH EVERY DAY in the afternoon colchicine 0.6 mg tablet See Rx Instructions .ROUTE .COMPLEX Qty: 30 0RF Dose Instruction: TAKE 1 TABLET BY MOUTH DAILY Rx Instructions: TAKE 1 TABLET BY MOUTH DAILY Mounjaro 10 mg/0.5 mL pen injector See Rx Instructions .ROUTE .COMPLEX Qty: 2 0RF Dose Instruction: inject 10mg SUBCUTANEOUSLY EVERY 7 DAYS Rx Instructions: inject 10mg SUBCUTANEOUSLY EVERY 7 DAYS Discharge Orders: Discharge ED (Routine); Ordered 04/02/25 Ordered By: Jhoan Wilkins Referrals: Demetria Busch MD [Primary Care Provider, Family Practice] Patient Instructions: Patient Portal & Shruti Instructions Activity Restrictions/Additional Instructions: UTI Discharge Instructions You have been diagnosed with a urinary tract infection (UTI). This is an infection in your urinary system, which can cause symptoms like back pain, burning when urinating, and frequent urination. Your back pain is most likely related to the UTI, but you should still follow up with your orthopedic/spine provider as planned. Medications: - Cefdinir: Take as prescribed, twice daily for one week. This antibiotic treats the infection. Finish the entire course, even if you start feeling better. - Acetaminophen (Tylenol): Take as needed for pain, following the instructions on the bottle. Do not exceed the maximum daily dose (usually 3,000 mg per day unless otherwise directed). - Oxycodone: You may use your home supply for pain control, but only as directed by your provider. Use the lowest effective dose and avoid taking it with other sedating medications. What to Expect: - Symptoms should begin to improve within a few days of starting antibiotics. If you do not feel better after 3 days, or if your symptoms worsen (fever, chills, vomiting, confusion, severe pain), contact your healthcare provider immediately. - Drink plenty of fluids to help flush out the infection. - You do not need a follow-up urine test unless symptoms persist or worsen. Prevention and Follow-Up: - Follow up with your orthopedic/spine provider as scheduled for your back pain. - To help prevent future UTIs, urinate when you feel the urge, stay hydrated, and avoid holding urine for long periods. - If you have frequent UTIs, discuss preventive strategies with your provider. When to Seek Help: - If you develop new symptoms such as high fever, confusion, severe abdominal or back pain, inability to urinate, or blood in your urine, seek medical attention promptly. Other Notes: - Do not use antibiotics for urinary symptoms unless directed by your provider, as unnecessary antibiotics can cause harm and increase resistance. - If you have any questions about your medications or symptoms, contact your healthcare provider. Summary: Take cefdinir as prescribed, use acetaminophen and oxycodone for pain as needed, drink fluids, and follow up with your [facility] specialist. Watch for any worsening symptoms and seek help if needed. 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
[2025-04-02 12:38] LABS: Glucose Urine UA Negative (Normal); Nitrate Urine Negative (Negative); Specific Gravity, Urine 1.008 (1.005-1.030)
[2025-04-02 12:43] LABS: Add Urine Microscopic? YES
[2025-04-02 13:03] LABS: Hematocrit 38.3 % (36-47); Hemoglobin 13.30 g/dL (11.27-16.99); Mean Corpuscular HGB Conc 34.7 g/dL (30-55); Mean Corpuscular Hemoglobin 30.4 pg (27-33); Mean Corpuscular Volume 87.6 fl (85-98); Nucleated Red Blood Cells % 0 %; Platelet Count 217 10^3/cmm (157-399); Red Blood Count 4.37 10^6/uL (3.85-5.65); White Blood Count 5.33 10^3/uL (3.29-11.43)
[2025-04-02 13:20] LABS: Alanine Aminotransferase 12 U/L (0-33); Albumin Level 4.0 g/dL (3.5-5.2); Alkaline Phosphatase 103 U/L (35-105); Anion Gap 12.5 (5-19); Aspartate Amino Transferase 19 U/L (0-32); Blood Urea Nitrogen 18 mg/dL (8-23); Calcium 8.9 mg/dL (8.5-10.5); Carbon Dioxide 28 mmol/L (22-29); Chloride 98 mmol/L (98-107); Globulin 3.1 g/dL (1.3-4.6); Glucose 93 mg/dL (65-115); Osmolality Calculated 282 mOsm/kg (285-295); Potassium 3.5 mmol/L (3.5-5.1); Sodium 135 mmol/L (136-145); Total Protein 7.1 g/dL (6.6-8.7)
[2025-04-02] MEDS: orphenadrine 30 mg/mL Inj 2 mL 60 MG IVP (13:26)
[2025-04-02] MEDS: HYDROmorphone 0.5 MG/0.5 ML INJ IVP (13:27)
[2025-04-02] MEDS: cefTRIAXone 1,000 mg SDV 1000 MG IVP (13:27)
[2025-04-02 13:31] VITALS: BP 159/73; PULSE 68; O2SAT 100
[2025-04-02 14:48] VITALS: BP 107/60; PULSE 70; O2SAT 95
--- NOTE | 2025-04-02 14:53 | PC.NURSE ---
Upon pt being discharged, pt states that her blood sugar is 60 and pt requesting something to eat, pt also voices that her blood sugar will be high soon d/t pt receiving a steroid. Pt was given a sandwich, pudding, crackers, and drink, pt a/o x4 w/o issues. Pt checked blood sugar prior to leaving and sugar was Going up . Pt left with family member.
== END 2025-04-02 14:49 | disposition home or self-care (01) ==
PROVIDERS: Emergency Provider Physician Assistant; PCP Family Medicine
DX: N39.0 Urinary tract infection, site not specified (principal); Z79.82 Long term (current) use of aspirin; Z87.891 Personal history of nicotine dependence; E11.40 Type 2 diabetes mellitus with diabetic neuropathy, unspecified; I10 Essential (primary) hypertension
CPT/HCPCS: 72128; 72131; 80053; 81001; 85025; 87077; 87086; 87186; 96374; 96375; 99285; J0696; J1100; J1171; J1885; J2360